=== PATIENT | male | born 1975 | race Caucasian/White ===

== ENCOUNTER 2017-02-18 19:03 | Inpatient (IN) | payer OTHER ==
--- NOTE | 2017-02-18 19:35 | PDOC ---
Rapid Medical Evaluation Time Seen by Provider: 02/18/17 19:19 Medical Evaluation: 02/18/17 19:20 The patient presents with a chief complaint of: Pain in the groin/abdomen for 3 days. Pt AAOx2 (person and place). Pt unsure of medical history I have performed a brief in-person evaluation of this patient; Pertinent physical exam findings: Umbilical/RLQ pain, fever 101, R 110, BP 90/70 I have ordered the following: Septic Work up The patient will proceed to the ED for further evaluation.
--- NOTE | 2017-02-18 19:46 | PDOC ---
History of Present Illness <Vandana Sauer - Last Filed: 02/19/17 02:09> <Anne Clay - Last Filed: 02/19/17 02:16> - General History Source: Patient, Family Exam Limitations: Clinical Condition, Other (poor historian) - History of Present Illness Initial Comments: 02/18/17 21:40 The patient is a 41 year old male with history of alcohol abuse, detox 12/04 brought in by family members for several days of generalized weakness and abdominal pain. Per family members, the patient has been complaining of approximately 1 week of generalized weakness. Today, he developed diffuse abdominal pain with chills and diaphoresis. No nausea, vomiting, or diarrhea. No chest pain or shortness of breath. Patient is a poor historian and unable to provide remainder of history. <Mala Mane - Last Filed: 02/19/17 02:24> - General Chief Complaint: SIRS, Suspected/Possible Stated Complaint: WEAKNESS Time Seen by Provider: 02/18/17 19:19 Past History - Past Medical History COPD: No - Suicide/Smoking/Psychosocial Hx Smoking History: Former smoker Have you smoked in the past 12 months: No Information on smoking cessation initiated: No Hx Alcohol Use: No Drug/Substance Use Hx: No Substance Use Type: None <Vandana Sauer - Last Filed: 02/19/17 02:09> <Anne Clay - Last Filed: 02/19/17 02:16> <Mala Mane - Last Filed: 02/19/17 02:24> - Past Medical History Allergies/Adverse Reactions: Allergies Allergy/AdvReac Type Severity Reaction Status Date / Time No Known Allergies Allergy Verified 02/18/17 20:11 Home Medications: Ambulatory Orders NK [No Known Home Medication] 02/18/17 Review of Systems - Review of Systems Able to Perform ROS?: Yes Comments:: 02/18/17 22:49 CONSTITUTIONAL: Present: generalized weakness, chills, diaphoresis HEENT: Absent: rhinorrhea, nasal congestion, throat pain, throat swelling, difficulty swallowing, mouth swelling, ear pain, eye pain, visual Changes CARDIOVASCULAR: Absent: chest pain, syncope, palpitations, irregular heart rate, lightheadedness , peripheral edema RESPIRATORY: Absent: cough, shortness of breath, dyspnea with exertion, orthopnea, wheezing, stridor, hemoptysis GASTROINTESTINAL: Present: diffuse abdominal pain Absent: abdominal distension, nausea, vomiting, diarrhea, constipation, melena, hematochezia GENITOURINARY: Absent: dysuria, frequency, urgency, hesitancy, hematuria, flank pain, genital pain MUSCULOSKELETAL: Absent: myalgia, arthralgia, joint swelling SKIN: Absent: rash, itching, pallor HEMATOLOGIC/IMMUNOLOGIC: Absent: easy bleeding, easy bruising, lymphadenopathy, frequent infections ENDOCRINE: Absent: unexplained weight gain, unexplained weight loss, heat intolerance, cold intolerance NEUROLOGIC: Absent: headache, focal weakness or paresthesias, dizziness, unsteady gait, seizure, mental status changes, bladder or bowel incontinence PSYCHIATRIC: Absent: anxiety, depression, suicidal or homicidal ideation, hallucinations. <Mala Mane - Last Filed: 02/19/17 02:24> *Physical Exam - Vital Signs Last Vital Signs Temp Pulse Resp BP Pulse Ox 102 F H 112 H 26 H 97/53 02/18/17 19:19 02/18/17 19:19 02/18/17 19:19 02/18/17 19:19 <Vandana Sauer - Last Filed: 02/19/17 02:09> - Vital Signs Last Vital Signs Temp Pulse Resp BP Pulse Ox 98.7 F 94 H 20 119/80 98 02/18/17 23:35 02/18/17 23:36 02/18/17 23:35 02/18/17 23:35 02/18/17 23:36 <Anne Clay - Last Filed: 02/19/17 02:16> - Vital Signs Last Vital Signs Temp Pulse Resp BP Pulse Ox 102 F H 112 H 26 H 97/53 02/18/17 19:19 02/18/17 19:19 02/18/17 19:19 02/18/17 19:19 - Physical Exam Comments: 02/18/17 22:50 GENERAL: Well developed, well nourished. Awake and alert. +Diaphoretic. +Answering questions slowly. HEENT: Normocephalic, atraumatic. PERRLA, EOMI. No conjunctival pallor. Sclera are non- icteric. Moist mucous membranes. Oropharynx is clear. NECK: Supple. Full ROM. No JVD. Carotid pulses 2+ and symmetric, without bruits. No thyromegaly. No lymphadenopathy. CARDIOVASCULAR: Regular rate and rhythm. No murmurs, rubs, or gallops. Distal pulses are 2+ and symmetric. PULMONARY: No evidence of respiratory distress. Lungs clear to auscultation bilaterally. No wheezing, rales or rhonchi. ABDOMINAL: +Epigastric tenderness to palpation. Soft. Non-distended. No rebound or guarding. No organomegaly. Normoactive bowel sounds. MUSCULOSKELETAL Normal range of motion at all joints. No bony deformities or tenderness. No CVA tenderness. EXTREMITIES: No cyanosis. No clubbing. No edema. No calf tenderness. SKIN: Warm and dry. Normal capillary refill. No rashes. No jaundice. NEUROLOGICAL: Alert, awake, appropriate. Cranial nerves 2-12 intact. No deficits to light touch and temperature in face, upper extremities and lower extremities. No motor deficits in the in face, upper extremities and lower extremities. Normoreflexic in the upper and lower extremities. Slow to answer questions. Gait deferred. PSYCHIATRIC: Cooperative. Good eye contact. Appropriate mood and affect. <Mala Mane - Last Filed: 02/19/17 02:24> Heart Score/ECG Review #1 02/18/17 21:38 EKG obtained 21:18. Normal sinus rhythm at 97 bpm. Possible left atrial enlargement Incomplete right bundle branch block Prolonged QT Abnormal EKG. <Mala Mane - Last Filed: 02/19/17 02:24> ED Treatment Course - LABORATORY CBC & Chemistry Diagram: 02/18/17 20:19 02/18/17 19:45 <Vandana Sauer - Last Filed: 02/19/17 02:09> - LABORATORY CBC & Chemistry Diagram: 02/18/17 20:19 02/18/17 19:45 - ADDITIONAL ORDERS Additional order review: Laboratory Results 02/18/17 02/18/17 02/18/17 21:25 20:59 20:43 PT with INR INR PTT (Actin FS) VBG pH POC VBG pCO2 POC VBG pO2 Mixed VBG HCO3 Sodium Potassium Chloride Carbon Dioxide Anion Gap BUN Creatinine Creat Clearance w eGFR Random Glucose Lactic Acid 4.2 H* Calcium Total Bilirubin AST ALT Alkaline Phosphatase Ammonia Creatine Kinase Creatine Kinase Index CK-MB (CK-2) Troponin I Total Protein Albumin Urine Color Urine Appearance Urine pH Ur Specific [place] Urine Protein Urine Glucose (UA) Urine Ketones Urine Blood Urine Nitrite Urine Bilirubin Urine Urobilinogen Urine WBC (Auto) Urine RBC (Auto) Ur Epithelial Cells Urine Bacteria Hyaline Casts Urine Mucus Ur Random Sodium 7 Ur Random Potassium 37.2 Ur Random Chloride < 10 Opiates Screen Negative Methadone Screen Negative Barbiturate Screen Negative Phencyclidine Screen Negative Ur Amphetamines Screen Negative MDMA (Ecstasy) Screen Negative Benzodiazepines Screen Negative Cocaine Screen Negative U Marijuana (THC) Screen Negative Alcohol, Quantitative Blood Type Antibody Screen 02/18/17 02/18/17 02/18/17 20:43 20:11 20:10 PT with INR INR PTT (Actin FS) VBG pH POC VBG pCO2 POC VBG pO2 Mixed VBG HCO3 Sodium Potassium Chloride Carbon Dioxide Anion Gap BUN Creatinine Creat Clearance w eGFR Random Glucose Lactic Acid 4.6 H* Calcium Total Bilirubin AST ALT Alkaline Phosphatase Ammonia 31 Creatine Kinase Creatine Kinase Index CK-MB (CK-2) Troponin I Total Protein Albumin Urine Color Dahlia Urine Appearance Slcloudy Urine pH 5.0 Ur Specific [place] 1.015 Urine Protein 1+ H Urine Glucose (UA) Negative Urine Ketones Negative Urine Blood 2+ H Urine Nitrite Negative Urine Bilirubin Negative Urine Urobilinogen 4.0 e.u/dl Urine WBC (Auto) 7 Urine RBC (Auto) 1 Ur Epithelial Cells Rare Urine Bacteria Rare Hyaline Casts 1 Urine Mucus Rare Ur Random Sodium Ur Random Potassium Ur Random Chloride Opiates Screen Methadone Screen Barbiturate Screen Phencyclidine Screen Ur Amphetamines Screen MDMA (Ecstasy) Screen Benzodiazepines Screen Cocaine Screen U Marijuana (THC) Screen Alcohol, Quantitative Blood Type Antibody Screen 02/18/17 02/18/17 02/18/17 20:00 19:45 19:45 PT with INR INR PTT (Actin FS) VBG pH 7.35 POC VBG pCO2 30.6 L POC VBG pO2 70.0 H Mixed VBG HCO3 16.6 L Sodium Potassium Chloride Carbon Dioxide Anion Gap BUN Creatinine Creat Clearance w eGFR Random Glucose Lactic Acid Calcium Total Bilirubin AST ALT Alkaline Phosphatase Ammonia Creatine Kinase Creatine Kinase Index CK-MB (CK-2) Troponin I Total Protein Albumin Urine Color Urine Appearance Urine pH Ur Specific [place] Urine Protein Urine Glucose (UA) Urine Ketones Urine Blood Urine Nitrite Urine Bilirubin Urine Urobilinogen Urine WBC (Auto) Urine RBC (Auto) Ur Epithelial Cells Urine Bacteria Hyaline Casts Urine Mucus Ur Random Sodium Ur Random Potassium Ur Random Chloride Opiates Screen Methadone Screen Barbiturate Screen Phencyclidine Screen Ur Amphetamines Screen MDMA (Ecstasy) Screen Benzodiazepines Screen Cocaine Screen U Marijuana (THC) Screen Alcohol, Quantitative < 5.0 Blood Type B POSITIVE Antibody Screen Negative 02/18/17 02/18/17 19:45 19:45 PT with INR 30.10 H INR 2.66 H PTT (Actin FS) 50.6 H VBG pH POC VBG pCO2 POC VBG pO2 Mixed VBG HCO3 Sodium 124 L* Potassium 3.4 L Chloride 90 L Carbon Dioxide 20 L Anion Gap 14 BUN 34 H Creatinine 1.8 H Creat Clearance w eGFR 42.22 Random Glucose 100 Lactic Acid Calcium 7.1 L Total Bilirubin 5.6 H AST 101 H ALT 39 Alkaline Phosphatase 134 H Ammonia Creatine Kinase 218 Creatine Kinase Index 1.0 CK-MB (CK-2) 2.268 Troponin I 0.49 H Total Protein 7.1 Albumin 2.5 L Urine Color Urine Appearance Urine pH Ur Specific [place] Urine Protein Urine Glucose (UA) Urine Ketones Urine Blood Urine Nitrite Urine Bilirubin Urine Urobilinogen Urine WBC (Auto) Urine RBC (Auto) Ur Epithelial Cells Urine Bacteria Hyaline Casts Urine Mucus Ur Random Sodium Ur Random Potassium Ur Random Chloride Opiates Screen Methadone Screen Barbiturate Screen Phencyclidine Screen Ur Amphetamines Screen MDMA (Ecstasy) Screen Benzodiazepines Screen Cocaine Screen U Marijuana (THC) Screen Alcohol, Quantitative Blood Type Antibody Screen 02/19/17 00:50 Influenza Types A,B Antigen (CLIF) - Final Nasopharyngeal Swab - Final 02/18/17 20:19 RBC 3.41 L MCV 104.0 H MCHC 34.5 RDW 16.9 H MPV 11.8 H Neutrophils % No Result Required. Lymphocytes % No Result Required. - Medications Given in the ED: ED Medications Discontinued Medications Generic Name Dose Route Start Last Admin Trade Name Freq PRN Reason Stop Dose Admin Ceftriaxone Sodium 2 gm 02/18/17 21:27 02/18/17 21:27 Rocephin 2gm Ivpb (Pre-Docked) IVPB 02/18/17 21:28 2 gm NOW ONE Administration Protocol Sodium Chloride 1,000 mls @ 1,000 mls/hr 02/18/17 21:08 02/18/17 21:16 Normal Saline - IV 02/18/17 22:07 1,000 mls/hr ASDIR STA Administration Sodium Chloride 1,000 mls @ 1,000 mls/hr 02/18/17 21:16 02/18/17 20:10 Normal Saline - IV 02/18/17 22:15 1,000 mls/hr ASDIR STA Administration Vancomycin HCl 1,000 mg/ 250 mls @ 250 mls/hr 02/18/17 21:27 02/18/17 22:12 Dextrose IVPB 02/18/17 22:26 250 mls/hr NOW ONE Administration Protocol <Anne Clay - Last Filed: 02/19/17 02:16> - LABORATORY CBC & Chemistry Diagram: 02/18/17 20:19 02/18/17 19:45 - ADDITIONAL ORDERS Additional order review: Laboratory Results 02/18/17 02/18/17 02/18/17 20:59 20:43 20:43 PT with INR INR PTT (Actin FS) VBG pH POC VBG pCO2 POC VBG pO2 Mixed VBG HCO3 Sodium Potassium Chloride Carbon Dioxide Anion Gap BUN Creatinine Creat Clearance w eGFR Random Glucose Lactic Acid Calcium Total Bilirubin AST ALT Alkaline Phosphatase Ammonia Creatine Kinase Creatine Kinase Index CK-MB (CK-2) Troponin I Total Protein Albumin Urine Color Dahlia Urine Appearance Slcloudy Urine pH 5.0 Ur Specific [place] 1.015 Urine Protein 1+ H Urine Glucose (UA) Negative Urine Ketones Negative Urine Blood 2+ H Urine Nitrite Negative Urine Bilirubin Negative Urine Urobilinogen 4.0 e.u/dl Ur Random Sodium 7 Ur Random Potassium 37.2 Ur Random Chloride < 10 Opiates Screen Negative Methadone Screen Negative Barbiturate Screen Negative Phencyclidine Screen Negative Ur Amphetamines Screen Negative MDMA (Ecstasy) Screen Negative Benzodiazepines Screen Negative Cocaine Screen Negative U Marijuana (THC) Screen Negative Alcohol, Quantitative 02/18/17 02/18/17 02/18/17 20:11 20:10 20:00 PT with INR INR PTT (Actin FS) VBG pH 7.35 POC VBG pCO2 30.6 L POC VBG pO2 70.0 H Mixed VBG HCO3 16.6 L Sodium Potassium Chloride Carbon Dioxide Anion Gap BUN Creatinine Creat Clearance w eGFR Random Glucose Lactic Acid 4.6 H* Calcium Total Bilirubin AST ALT Alkaline Phosphatase Ammonia 31 Creatine Kinase Creatine Kinase Index CK-MB (CK-2) Troponin I Total Protein Albumin Urine Color Urine Appearance Urine pH Ur Specific [place] Urine Protein Urine Glucose (UA) Urine Ketones Urine Blood Urine Nitrite Urine Bilirubin Urine Urobilinogen Ur Random Sodium Ur Random Potassium Ur Random Chloride Opiates Screen Methadone Screen Barbiturate Screen Phencyclidine Screen Ur Amphetamines Screen MDMA (Ecstasy) Screen Benzodiazepines Screen Cocaine Screen U Marijuana (THC) Screen Alcohol, Quantitative 02/18/17 02/18/17 02/18/17 19:45 19:45 19:45 PT with INR 30.10 H INR 2.66 H PTT (Actin FS) 50.6 H VBG pH POC VBG pCO2 POC VBG pO2 Mixed VBG HCO3 Sodium 124 L* Potassium 3.4 L Chloride 90 L Carbon Dioxide 20 L Anion Gap 14 BUN 34 H Creatinine 1.8 H Creat Clearance w eGFR 42.22 Random Glucose 100 Lactic Acid Calcium 7.1 L Total Bilirubin 5.6 H AST 101 H ALT 39 Alkaline Phosphatase 134 H Ammonia Creatine Kinase 218 Creatine Kinase Index 1.0 CK-MB (CK-2) 2.268 Troponin I 0.49 H Total Protein 7.1 Albumin 2.5 L Urine Color Urine Appearance Urine pH Ur Specific [place] Urine Protein Urine Glucose (UA) Urine Ketones Urine Blood Urine Nitrite Urine Bilirubin Urine Urobilinogen Ur Random Sodium Ur Random Potassium Ur Random Chloride Opiates Screen Methadone Screen Barbiturate Screen Phencyclidine Screen Ur Amphetamines Screen MDMA (Ecstasy) Screen Benzodiazepines Screen Cocaine Screen U Marijuana (THC) Screen Alcohol, Quantitative < 5.0 02/18/17 20:19 RBC 3.41 L MCV 104.0 H MCHC 34.5 RDW 16.9 H MPV 11.8 H Neutrophils % No Result Required. Lymphocytes % No Result Required. - RADIOLOGY Radiograph Interpretation: 02/18/17 23:57 CT of head without contrast Preliminary reading by Imaging Snap Attacher FINDINGS: There is no evidence of acute infarction. There is no hemorrhage. No mass lesion is seen. There is no skull fracture. Mucosal thickening is noted in the left maxillary and left ethmoid sinuses. THIS DOCUMENT HAS BEEN ELECTRONICALLY SIGNED Hugh Hanson MD 02/18/2017 23:49 EST 02/19/17 00:20 CT of abdomen and pelvis Preliminary reading by Imaging Snap Attacher FINDINGS: There is no free air. There is hepatosplenomegaly. There is no ascites. Extensive venous collaterals are noted in the left upper abdomen. There is prior cholecystectomy. There is no hydronephrosis. There are no renal calculi. There is a moderate amount of stool noted in the colon. There is no evidence of intestinal obstruction. The appendix is likely surgically absent. Surgical clips are noted adjacent to the cecum. Urinary bladder is decompressed via a Ybarra catheter. There is mild stranding and minimal fluid noted in the pelvic fat noted anterior to the bladder. Etiology and significance are undetermined. THIS DOCUMENT HAS BEEN ELECTRONICALLY SIGNED Hugh Hanson MD 02/19/2017 00:10 EST - Medications Given in the ED: ED Medications Discontinued Medications Generic Name Dose Route Start Last Admin Trade Name Freq PRN Reason Stop Dose Admin Ceftriaxone Sodium 2 gm 02/18/17 21:27 02/18/17 21:27 Rocephin 2gm Ivpb (Pre-Docked) IVPB 02/18/17 21:28 2 gm NOW ONE Administration Protocol <Mala Mane - Last Filed: 02/19/17 02:24> Medical Decision Making - Critical Care Time Total Critical Care Time (minutes): 90 Critical Care Statement: The care of this patient involved high complexity decision making to prevent further life threatening deterioration of the patient 's condition and/or to evaluate & treat vital organ system(s) failure or risk of failure. <Mala Mane - Last Filed: 02/19/17 02:24> *DC/Admit/Observation/Transfer - Discharge Dispostion Admit: Yes <Vandana Sauer - Last Filed: 02/19/17 02:09> - Discharge Dispostion Admit: Yes <Anne Clay - Last Filed: 02/19/17 02:16> - Attestations Scribe Attestion: 02/18/17 21:40 Documentation prepared by Mala Mane, acting as medical center representative for Vandana Sauer MD. <Mala Mane - Last Filed: 02/19/17 02:24> Diagnosis at time of Disposition: Thrombocytopenia, Hyponatremia, Elevated troponin Sepsis Qualifiers: Sepsis type: sepsis due to unspecified organism Qualified Code(s): A41.9 - Sepsis, unspecified organism Alcoholic cirrhosis of liver Qualifiers: Ascites presence: without ascites Qualified Code(s): K70.30 - Alcoholic cirrhosis of liver without ascites Renal failure Qualifiers: Renal failure chronicity: acute Acute renal failure type: unspecified Qualified Code(s): N17.9 - Acute kidney failure, unspecified
[2017-02-18] MEDS ORDERED: IBUPROFEN 800 MG/8 ML IJ IVPB ONE (19:53)
[2017-02-18 20:19] LABS: INR 2.66 (0.82-1.09); PROTHROMBIN TIME (PATIENT) 30.1 SEC (9.98-11.88)
[2017-02-18 20:19] LABS: VENOUS PC02 30.6 mmHg (38-52); VENOUS PH 7.35 (7.32-7.42)
[2017-02-18 20:22] LABS: ACTIVATED PTT 50.6 SECONDS (26.9-34.4)
[2017-02-18 20:34] LABS: ALBUMIN 2.5 g/dl (3.4-5.0); ANION GAP 14 (8-16); BLOOD UREA NITROGEN 34 mg/dL (7-18); CALCIUM 7.1 mg/dL (8.5-10.1); CHLORIDE 90 mmol/L (98-107); CO2 20 mmol/L (21-32); CREATININE 1.8 mg/dL (0.7-1.3); GLUCOSE,RANDOM 100 mg/dL (74-106); SGPT/ALT 39 U/L (12-78)
[2017-02-18 20:34] LABS: HEMATOCRIT 35.5 % (35.4-49); HEMOGLOBIN 12.2 GM/dL (11.7-16.9); MCH 35.8 pg (25.7-33.7); MCHC 34.5 g/dl (32.0-35.9); MEAN PLT VOLUME 11.8 fl (7.5-11.1); RBC 3.41 M/mm3 (4.00-5.60); RDW 16.9 % (11.9-15.9); WHITE BLOOD COUNT 5.6 K/mm3 (4.0-10.0)
[2017-02-18 20:37] LABS: PLATELET COUNT 34 K/MM3 (134-434)
[2017-02-18 20:39] LABS: ALK PHOS 134 U/L (45-117); BILIRUBIN,TOTAL 5.6 mg/dL (0.2-1.0); TOT PROT 7.1 g/dl (6.4-8.2)
[2017-02-18 20:41] LABS: POTASSIUM 3.4 mmol/L (3.5-5.1); SGOT/AST 101 U/L (15-37)
[2017-02-18 20:42] LABS: SODIUM 124 mmol/L (136-145)
[2017-02-18] MEDS ORDERED: SODIUM CHLORIDE 1,000 ML IV STA ×2 (21:08→21:16)
[2017-02-18 21:12] LABS: URINE APPEARANCE SLCLOUDY; URINE BILIRUBIN NEGATIVE (NEGATIVE); URINE BLOOD 2+ (NEGATIVE); URINE COLOR AMBER; URINE GLUCOSE (UA) NEGATIVE (NEGATIVE); URINE KETONE NEGATIVE (NEGATIVE); URINE LEUK ESTERASE NEGATIVE (NEGATIVE); URINE NITRITE NEGATIVE (NEGATIVE); URINE UROBILINOGEN 4.0 E.U/dl mg/dL (0.2-1.0)
[2017-02-18 21:15] LABS: URINE PROTEIN 1+ (NEGATIVE)
[2017-02-18 21:16] LABS: EPI CELLS RARE /HPF (FEW); URINE BACTERIA RARE /hpf (NONE SEEN); URINE HYALINE CAST 1 /lpf; URINE MUCUS RARE
[2017-02-18] MEDS ORDERED: cefTRIAXone SODIUM 1 GM VIAL ONE (21:17)
[2017-02-18] MEDS ORDERED: VANCOMYCIN 1 GRAM (PRE-DOCKED) 1,000 MG/250 ML BAG IVPB ONE (21:17)
[2017-02-18] MEDS ORDERED: cefTRIAXone 2 GM/100 ML BAG (PRE-DOCKED) IVPB ONE (21:27)
[2017-02-18] MEDS ORDERED: VANCOMYCIN 1,000 MG in DEXTROSE 5%-WATER - 250 ML IVPB ONE (21:27)
[2017-02-18 21:30] LABS: MACROCYTOSIS 1+; OVALOCYTE 1+; TEAR DROP CELLS 1+
[2017-02-18 21:35] LABS: COCAINE, UR NEGATIVE ng/ml (CUTOFF=300); METHADONE, UR NEGATIVE ng/ml (CUTOFF=300); OPIATES, URI NEGATIVE ng/ml (CUTOFF=300); PHENCYCLIDINE,URINE NEGATIVE ng/ml (CUTOFF=25); URINE AMPHETAMINES NEGATIVE ng/ml (CUTOFF=500); URINE BARBITURATES NEGATIVE ng/ml (CUTOFF=200); URINE BENZODIAZEPINES NEGATIVE ng/ml (CUTOFF=200)
--- NOTE | 2017-02-18 22:35 | CON.GI ---
Consult Consult Specialty:: Gastroenterology ( covering Dr. French) Referred by:: Dr. Vandana Sauer Reason for Consultation:: Jaundice and fever - History of Present Illness Chief Complaint: abdominal pain History of Present Illness: 41M presents with c/o diffuse weakness for the past week and today with chills and abdominal pain. He denies vomiting, hematemesis and melena. He was detoxed here in 12/04 when his bilirubin was 4. He claims to have stopped alcohol intake " long ago". He also quit smoking at that time. He admits to an impaired memory and recollection of details when I questioned him about his medical and substance abuse history. He admits only to beer intake but in 12/04 admitted to drinking 2 pints of vodka daily and to abusing oral opiates. He lives with a sibling. - History Source History Provided By: Patient, Medical Record Limitations to Obtaining History: Poor Historian - Past Medical History Cardio/Vascular: Yes: HTN Musculoskeletal: Yes: Chronic low back pain - Past Surgical History Past Surgical History: Yes: Appendectomy, Arthrosocopy (right knee), Cholecystectomy - Alcohol/Substance Use Hx Alcohol Use: Yes (2 pints vodka daily until 12/04) History of Substance Use: reports: Prescription (opiate) - Smoking History Smoking history: Former smoker Have you smoked in the past 12 months: No - Social History Usual Living Arrangement: With Significant Other ADL: Family Assistance Occupation: electrical work Place of : [facility] History of Recent Travel: No Home Medications - Allergies Allergies/Adverse Reactions: Allergies Allergy/AdvReac Type Severity Reaction Status Date / Time No Known Allergies Allergy Verified 02/18/17 20:11 - Home Medications Home Medications: Ambulatory Orders NK [No Known Home Medication] 02/18/17 Family Disease History - Family Disease History Family History: Unable to Obtain (patient cannot recall) Review of Systems - Review of Systems Constitutional: reports: Chills, Lethargy, Weakness Eyes: reports: No Symptoms Neck: reports: No Symptoms Cardiovascular: reports: No Symptoms Respiratory: reports: No Symptoms Gastrointestinal: reports: Abdominal Pain Genitourinary: reports: No Symptoms Musculoskeletal: reports: Back Pain, Joint Pain Neurological: reports: Other (forgetful) Physical Exam-GI Vital Signs: Vital Signs Temperature 102 F H 02/18/17 19:19 Pulse Rate 112 H 01/01/18 19:19 Respiratory Rate 26 H 02/18/17 19:19 Blood Pressure 97/53 02/18/17 19:19 O2 Sat by Pulse Oximetry (%) CBC,CMP WBC 5.6 K/mm3 (4.0-10.0) 02/18/17 20:19 RBC 3.41 M/mm3 (4.00-5.60) L 02/18/17 20:19 Hgb 12.2 GM/dL (11.7-16.9) 02/18/17 20:19 Hct 35.5 % (35.4-49) 02/18/17 20:19 MCV 104.0 fl (80-96) H 02/18/17 20:19 MCH 35.8 pg (25.7-33.7) H 02/18/17 20:19 MCHC 34.5 g/dl (32.0-35.9) 02/18/17 20:19 RDW 16.9 % (11.9-15.9) H 02/18/17 20:19 Plt Count 34 K/MM3 (134-434) L* 02/18/17 20:19 MPV 11.8 fl (7.5-11.1) H 02/18/17 20:19 Total Counted 100 02/18/17 20:19 Neutrophils % No Result Required. 02/18/17 20:19 Neutrophils % (Manual) 73.0 % (42.8-82.8) 02/18/17 20:19 Band Neutrophils % 10.0 % 02/18/17 20:19 Lymphocytes % No Result Required. 02/18/17 20:19 Lymphocytes % (Manual) 6.0 % (8-40) L 02/18/17 20:19 Monocytes % (Manual) 9 % (3.8-10.2) 02/18/17 20:19 Differential Comment Man diff performed 02/18/17 20:19 Platelet Estimate 02/18/17 20:19 Platelet Comment 02/18/17 20:19 Polychromasia 1+ 02/18/17 20:19 Poikilocytosis 1+ 02/18/17 20:19 Macrocytosis 1+ 02/18/17 20:19 Tear Drop Cells 1+ 02/18/17 20:19 Ovalocytes 1+ 02/18/17 20:19 Sodium 124 mmol/L (136-145) L* 02/18/17 19:45 Potassium 3.4 mmol/L (3.5-5.1) L 02/18/17 19:45 Chloride 90 mmol/L (98-107) L 02/18/17 19:45 Carbon Dioxide 20 mmol/L (21-32) L 02/18/17 19:45 Anion Gap 14 (8-16) 02/18/17 19:45 BUN 34 mg/dL (7-18) H 02/18/17 19:45 Creatinine 1.8 mg/dL (0.7-1.3) H 02/18/17 19:45 Creat Clearance w eGFR 42.22 (>60) 02/18/17 19:45 Random Glucose 100 mg/dL (74-106) 02/18/17 19:45 Lactic Acid 4.2 mmol/L (0.4-2.0) H* 02/18/17 21:25 Calcium 7.1 mg/dL (8.5-10.1) L 02/18/17 19:45 Total Bilirubin 5.6 mg/dL (0.2-1.0) H 02/18/17 19:45 AST 101 U/L (15-37) H 02/18/17 19:45 ALT 39 U/L (12-78) 02/18/17 19:45 Alkaline Phosphatase 134 U/L (45-117) H 02/18/17 19:45 Ammonia 31 umol/L (11-32) 02/18/17 20:11 Creatine Kinase 218 IU/L (39-308) 02/18/17 19:45 Creatine Kinase Index 1.0 % (0.0-5.0) 02/18/17 19:45 CK-MB (CK-2) 2.268 ng/mL (0.5-3.6) 02/18/17 19:45 Troponin I 0.49 ng/ml (0.00-0.05) H 02/18/17 19:45 Total Protein 7.1 g/dl (6.4-8.2) 02/18/17 19:45 Albumin 2.5 g/dl (3.4-5.0) L 02/18/17 19:45 Constitutional: Yes: Anxious, Poor Hygeine Eyes: Yes: Sclera Icterus HENT: Yes: Atraumatic Neck: Yes: Supple Cardiovascular: Yes: Regular Rate and Rhythm Respiratory: Yes: CTA Bilaterally ...Auscultate: Yes: Normoactive Bowel Sounds ...Palpate: Yes: Soft, Other (nontender) ...Rectal Exam: Yes: Guaiac Negative, Hemorrhoids/External Genitourinary: Yes: Other (normal testicles no hernias) Edema: No Peripheral Pulses WNL: Yes Neurological: Yes: Other (lethargic) Labs: CBC, BMP 02/18/17 20:19 02/18/17 19:45 INR, PTT INR 2.66 (0.82-1.09) H 02/18/17 19:45 Problem List - Problems (1) Alcoholic cirrhosis of liver Assessment/Plan: Alcoholic cirrhosis with multiple complications that now likely includes spontaneous bacterial peritonitis causing pain and fever. He also appears to have hepatic encephalopathy. I have informed him of the advanced and serious nature of his liver failure and need to abstain from any further alcohol or other substance abuse. Need to observe for DTs Code(s): K70.30 - ALCOHOLIC CIRRHOSIS OF LIVER WITHOUT ASCITES (2) Abdominal pain Assessment/Plan: Likely due to SBP although alcoholic gastritis or an ulcer are other likely possibilities. Will start PPI. Will need EGD to exclude these and varices. Code(s): R10.9 - UNSPECIFIED ABDOMINAL PAIN (3) Substance abuse Code(s): F19.10 - OTHER PSYCHOACTIVE SUBSTANCE ABUSE, UNCOMPLICATED (4) Thrombocytopenia Assessment/Plan: Likely due to portal hyperptension with splenomegaly Code(s): D69.6 - THROMBOCYTOPENIA, UNSPECIFIED (5) Hyponatremia Code(s): E87.1 - HYPO-OSMOLALITY AND HYPONATREMIA (6) Fever Assessment/Plan: Likely due to SBP. Discussed case with Dr Sauer and agree with starting antibiotics as we await imaging that will likely lead to the need for a paracentesis. Code(s): R50.9 - FEVER, UNSPECIFIED (7) Hepatic encephalopathy Assessment/Plan: Will start lactulose Code(s): K72.90 - HEPATIC FAILURE, UNSPECIFIED WITHOUT COMA (8) Coagulopathy Code(s): D68.9 - COAGULATION DEFECT, UNSPECIFIED Assessment/Plan Antibiotics CT scan Sono guided paracentesis if ascites is confirmed PPI Lactulose Dr French will return tomorrow
--- NOTE | 2017-02-19 02:46 | HP ---
CHIEF COMPLAINT: Generalized Weakness/Abdominal Pain PCP: Yogi Roman HISTORY OF PRESENT ILLNESS: 41 M with hx. of etoh abuse, HTN detoxed 10.17 who presented with several days of gen. weakness and abdominal pain. Weakness has been present for one week. Also, with abdominal pain. With sore arm and back 3 weeks ago. Has associated dizziness, nausea and diaphoresis, Poor historian. Denies any headaches or dizziness. No chest pain or pressure. ER course was notable for: (1) Fever, Tachycardia (2) Given Ceftriaxone (3) CT ABDOMEN-- PRE-MARIE READ NO ASCITES- PLATELETS and FFP HAVE BEEN CANCELLED Recent Travel: Unknown as per pt. PAST MEDICAL HISTORY: As Above PAST SURGICAL HISTORY: Appendectomy, Choleycystectomy Social History: Smoking: Yes 6 weeks ago. Alcohol:yes quit 6 weeks ago Drugs: N/A Family History: Allergies No Known Allergies Allergy (Verified 02/18/17 20:11) HOME MEDICATIONS: Home Medications Medication Instructions Recorded NK [No Known Home Medication] 02/18/17 REVIEW OF SYSTEMS CONSTITUTIONAL: Absent: fever, chills, diaphoresis, generalized weakness, malaise, loss of appetite, weight change HEENT: Absent: rhinorrhea, nasal congestion, throat pain, throat swelling, difficulty swallowing, mouth swelling, ear pain, eye pain, visual changes CARDIOVASCULAR: Absent: chest pain, syncope, palpitations, irregular heart rate, lightheadedness , peripheral edema RESPIRATORY: Absent: cough, shortness of breath, dyspnea with exertion, orthopnea, wheezing, stridor, hemoptysis GASTROINTESTINAL: Absent: abdominal pain, abdominal distension, nausea, vomiting, diarrhea, constipation, melena, hematochezia GENITOURINARY: Absent: dysuria, frequency, urgency, hesitancy, hematuria, flank pain, genital pain MUSCULOSKELETAL: Absent: myalgia, arthralgia, joint swelling, back pain, neck pain SKIN: Absent: rash, itching, pallor HEMATOLOGIC/IMMUNOLOGIC: Absent: easy bleeding, easy bruising, lymphadenopathy, frequent infections ENDOCRINE: Absent: unexplained weight gain, unexplained weight loss, heat intolerance, cold intolerance NEUROLOGIC: Absent: headache, focal weakness or paresthesias, dizziness, unsteady gait, seizure, mental status changes, bladder or bowel incontinence PSYCHIATRIC: Absent: anxiety, depression, suicidal or homicidal ideation, hallucinations. PHYSICAL EXAMINATION Vital Signs - 24 hr 02/18/17 02/18/17 02/18/17 19:19 23:35 23:36 Temperature 102 F H 98.7 F Pulse Rate 112 H 94 H Pulse Rate [ Apical] Pulse Rate [ 94 H Right] Respiratory 26 H 20 Rate Blood Pressure 97/53 Blood Pressure 119/80 [Left Arm] O2 Sat by Pulse 98 98 Oximetry (%) 02/19/17 01:45 Temperature Pulse Rate Pulse Rate [ 100 H Apical] Pulse Rate [ Right] Respiratory 16 Rate Blood Pressure Blood Pressure 94/66 [Left Arm] O2 Sat by Pulse 100 Oximetry (%) GENERAL: Awake, alert, and fully oriented, in no acute distress. HEAD: Normal with no signs of trauma. EYES: Pupils equal, round and reactive to light, extraocular movements intact, sclera anicteric, conjunctiva clear. No lid lag. EARS, NOSE, THROAT: Ears normal, nares patent, oropharynx clear without exudates. Moist mucous membranes. NECK: Normal range of motion, supple without lymphadenopathy, JVD, or masses. LUNGS: Breath sounds equal, clear to auscultation bilaterally. No wheezes, and no crackles. No accessory muscle use. HEART: Regular rate and rhythm, normal S1 and S2 without murmur, rub or gallop. ABDOMEN: Soft, nontender, not distended, normoactive bowel sounds, no guarding, no rebound, no masses. hepatomegaly NO splenomegaly. MUSCULOSKELETAL: Normal range of motion at all joints. No bony deformities or tenderness. No CVA tenderness. UPPER EXTREMITIES: 2+ pulses, warm, well-perfused. No cyanosis. No clubbing. No peripheral edema. LOWER EXTREMITIES: 2+ pulses, warm, well-perfused. No calf tenderness. No peripheral edema. NEUROLOGICAL: Cranial nerves II-XII intact. Normal speech. Normal gait. PSYCHIATRIC: Cooperative. Good eye contact. Appropriate mood and affect. SKIN: Warm, dry, normal turgor, no rashes or lesions noted, normal capillary refill. Laboratory Results - last 24 hr 02/18/17 02/18/17 02/18/17 19:45 19:45 19:45 WBC RBC Hgb Hct MCV MCH MCHC RDW Plt Count MPV Total Counted Neutrophils % Neutrophils % (Manual) Band Neutrophils % Lymphocytes % Lymphocytes % (Manual) Monocytes % (Manual) Differential Comment Platelet Estimate Platelet Comment Polychromasia Poikilocytosis Macrocytosis Tear Drop Cells Ovalocytes PT with INR 30.10 H INR 2.66 H PTT (Actin FS) 50.6 H VBG pH POC VBG pCO2 POC VBG pO2 Mixed VBG HCO3 Sodium 124 L* Potassium 3.4 L Chloride 90 L Carbon Dioxide 20 L Anion Gap 14 BUN 34 H Creatinine 1.8 H Creat Clearance w eGFR 42.22 Random Glucose 100 Lactic Acid Calcium 7.1 L Total Bilirubin 5.6 H AST 101 H ALT 39 Alkaline Phosphatase 134 H Ammonia Creatine Kinase 218 Creatine Kinase Index 1.0 CK-MB (CK-2) 2.268 Troponin I 0.49 H Total Protein 7.1 Albumin 2.5 L Urine Color Urine Appearance Urine pH Ur Specific [place] Urine Protein Urine Glucose (UA) Urine Ketones Urine Blood Urine Nitrite Urine Bilirubin Urine Urobilinogen Urine WBC (Auto) Urine RBC (Auto) Ur Epithelial Cells Urine Bacteria Hyaline Casts Urine Mucus Ur Random Sodium Ur Random Potassium Ur Random Chloride Opiates Screen Methadone Screen Barbiturate Screen Phencyclidine Screen Ur Amphetamines Screen MDMA (Ecstasy) Screen Benzodiazepines Screen Cocaine Screen U Marijuana (THC) Screen Alcohol, Quantitative Blood Type B POSITIVE Antibody Screen Negative 02/18/17 02/18/17 02/18/17 19:45 20:00 20:10 WBC RBC Hgb Hct MCV MCH MCHC RDW Plt Count MPV Total Counted Neutrophils % Neutrophils % (Manual) Band Neutrophils % Lymphocytes % Lymphocytes % (Manual) Monocytes % (Manual) Differential Comment Platelet Estimate Platelet Comment Polychromasia Poikilocytosis Macrocytosis Tear Drop Cells Ovalocytes PT with INR INR PTT (Actin FS) VBG pH 7.35 POC VBG pCO2 30.6 L POC VBG pO2 70.0 H Mixed VBG HCO3 16.6 L Sodium Potassium Chloride Carbon Dioxide Anion Gap BUN Creatinine Creat Clearance w eGFR Random Glucose Lactic Acid 4.6 H* Calcium Total Bilirubin AST ALT Alkaline Phosphatase Ammonia Creatine Kinase Creatine Kinase Index CK-MB (CK-2) Troponin I Total Protein Albumin Urine Color Urine Appearance Urine pH Ur Specific [place] Urine Protein Urine Glucose (UA) Urine Ketones Urine Blood Urine Nitrite Urine Bilirubin Urine Urobilinogen Urine WBC (Auto) Urine RBC (Auto) Ur Epithelial Cells Urine Bacteria Hyaline Casts Urine Mucus Ur Random Sodium Ur Random Potassium Ur Random Chloride Opiates Screen Methadone Screen Barbiturate Screen Phencyclidine Screen Ur Amphetamines Screen MDMA (Ecstasy) Screen Benzodiazepines Screen Cocaine Screen U Marijuana (THC) Screen Alcohol, Quantitative < 5.0 Blood Type Antibody Screen 02/18/17 02/18/17 02/18/17 20:11 20:19 20:43 WBC 5.6 RBC 3.41 L Hgb 12.2 Hct 35.5 MCV 104.0 H MCH 35.8 H MCHC 34.5 RDW 16.9 H Plt Count 34 L* MPV 11.8 H Total Counted 100 Neutrophils % No Result Required. Neutrophils % (Manual) 73.0 Band Neutrophils % 10.0 Lymphocytes % No Result Required. Lymphocytes % (Manual) 6.0 L Monocytes % (Manual) 9 Differential Comment Man diff performed Platelet Estimate Platelet Comment Polychromasia 1+ Poikilocytosis 1+ Macrocytosis 1+ Tear Drop Cells 1+ Ovalocytes 1+ PT with INR INR PTT (Actin FS) VBG pH POC VBG pCO2 POC VBG pO2 Mixed VBG HCO3 Sodium Potassium Chloride Carbon Dioxide Anion Gap BUN Creatinine Creat Clearance w eGFR Random Glucose Lactic Acid Calcium Total Bilirubin AST ALT Alkaline Phosphatase Ammonia 31 Creatine Kinase Creatine Kinase Index CK-MB (CK-2) Troponin I Total Protein Albumin Urine Color Dahlia Urine Appearance Slcloudy Urine pH 5.0 Ur Specific [place] 1.015 Urine Protein 1+ H Urine Glucose (UA) Negative Urine Ketones Negative Urine Blood 2+ H Urine Nitrite Negative Urine Bilirubin Negative Urine Urobilinogen 4.0 e.u/dl Urine WBC (Auto) 7 Urine RBC (Auto) 1 Ur Epithelial Cells Rare Urine Bacteria Rare Hyaline Casts 1 Urine Mucus Rare Ur Random Sodium Ur Random Potassium Ur Random Chloride Opiates Screen Methadone Screen Barbiturate Screen Phencyclidine Screen Ur Amphetamines Screen MDMA (Ecstasy) Screen Benzodiazepines Screen Cocaine Screen U Marijuana (THC) Screen Alcohol, Quantitative Blood Type Antibody Screen 02/18/17 02/18/17 02/18/17 20:43 20:59 21:25 WBC RBC Hgb Hct MCV MCH MCHC RDW Plt Count MPV Total Counted Neutrophils % Neutrophils % (Manual) Band Neutrophils % Lymphocytes % Lymphocytes % (Manual) Monocytes % (Manual) Differential Comment Platelet Estimate Platelet Comment Polychromasia Poikilocytosis Macrocytosis Tear Drop Cells Ovalocytes PT with INR INR PTT (Actin FS) VBG pH POC VBG pCO2 POC VBG pO2 Mixed VBG HCO3 Sodium Potassium Chloride Carbon Dioxide Anion Gap BUN Creatinine Creat Clearance w eGFR Random Glucose Lactic Acid 4.2 H* Calcium Total Bilirubin AST ALT Alkaline Phosphatase Ammonia Creatine Kinase Creatine Kinase Index CK-MB (CK-2) Troponin I Total Protein Albumin Urine Color Urine Appearance Urine pH Ur Specific [place] Urine Protein Urine Glucose (UA) Urine Ketones Urine Blood Urine Nitrite Urine Bilirubin Urine Urobilinogen Urine WBC (Auto) Urine RBC (Auto) Ur Epithelial Cells Urine Bacteria Hyaline Casts Urine Mucus Ur Random Sodium 7 Ur Random Potassium 37.2 Ur Random Chloride < 10 Opiates Screen Negative Methadone Screen Negative Barbiturate Screen Negative Phencyclidine Screen Negative Ur Amphetamines Screen Negative MDMA (Ecstasy) Screen Negative Benzodiazepines Screen Negative Cocaine Screen Negative U Marijuana (THC) Screen Negative Alcohol, Quantitative Blood Type Antibody Screen EKG NSR, INcomplete RBBB, QtC 487 CXR- No Acute Process ASSESSMENT/PLAN: 41 M with hx. of etoh abuse, HTN detoxed 12.04 who presented with several days of gen. weakness and abdominal pain, being admitted for severe sepsis of unknown etiology 1.) Severe Sepsis - Unknown Etiology - Cat Cx - UA, CXR- Flu negative - ID consult - Would continue tx. with Vanco/Zosyn - CHK. Vanc level - Zosyn renally dose - S/P Ceftriaxone/Vanc in ED - CT Abdomen with NO ascites, no abscess seen - IVF- Do not inc. Na>0.5 MEq/hr - Repeat LA 2.) Abdominal Pain - DDx PUD - C/W protonix - GI following - CHECK Lipase/Amylase 3.) Lethargy/Ams - DDx: Metabolic Encephalopathy?hepatic encephalopathy - ABG - Improved - CT HEAD negative - Ammonia wnl - Would consider LP/Neuro consult if no improvement - Can consider LP, once coagulopathy is reversed 4.) ETOH cirrohosis of liver - Gi on consult - Finished detox on 12/04, has abstained since then as per pt. - Advised on abstaining from Etoh - Monitor for Dt's 5.) Elevated Troponin - No EKG changes - Most likely demand - Trend 6.) HYponatremia - Most likely hypovolemic - FU urine studies - IVF - Do Not inc >10 MeQ in 24 hrs 7.) Coagulopathy - PLTS and FFP ON HOLD, NOT GIVEN - NO ASCITES - IF procedure needed, can think about administering before 7.) Thrombocytopenia - Most Likely due to portal Htn - PLTS. ON HOLD - OF procedure needed can give one unit 8.) Acute Renal Failure - U Lytes - IVF - ?Hepatorenal - Renally Dose all Med - Avoid Nephrotoxins 9.) DVt Ppx - Thrombocytopenic-SCDS Accepted to ICU CC Time: 48 Minutes Visit type - Emergency Visit Emergency Visit: Yes ED Registration Date: 02/19/17 Care time: The patient presented to the Emergency Department on the above date and was hospitalized for further evaluation of their emergent condition. - New Patient This patient is new to me today: Yes Date on this admission: 02/19/17 - Critical Care Critical Care patient: Yes Total Critical Care Time (in minutes): 48 Critical Care Statement: The care of this patient involved high complexity decision making to prevent further life threatening deterioration of the patient 's condition and/or to evaluate & treat vital organ system(s) failure or risk of failure.
[2017-02-19] MEDS ORDERED: SODIUM CHLORIDE 1,000 ML IV STA ×2 (03:03→07:23)
[2017-02-19] MEDS ORDERED: CEFEPIME 2 GM/100 ML BAG PRE-DOCKED IVPB ONE (03:30)
[2017-02-19] MEDS ORDERED: SODIUM CHLORIDE 1,000 ML IV SCH (04:15)
[2017-02-19 06:35] LABS: ARTERIAL BLOOD GAS BASE EXCESS -6.2 meq/l (-2-2); ARTERIAL BLOOD GAS PCO2 32.2 mmHg (35-45); ARTERIAL BLOOD GAS pH 7.36 (7.35-7.45)
--- NOTE | 2017-02-19 06:49 | CONSULT ---
Consult Consult Specialty:: PULM/CCM Referred by:: Dr. Gladys Mitchell Reason for Consultation:: CRITICAL LIVER FAIL - History of Present Illness Chief Complaint: ABD PAIN History of Present Illness: Mr. Chavez is a 41 y/o man w/ HTN, Et-OH cirrhosis, (reported s/p detox 12/04 ) brought in to ED on by family members for several days of generalized weakness and abd pain. A/p family pt has been c/o generalized weakness X 1wk. On he developed diffuse abd pain w/ chills and diaphoresis. No reported CP, SOB, N/V/D. In ED pt remark for: an LA of 4.6 --> 5.0, hyponatremia --> 124, elevated Cr -- > 1.8, an elevated INR @ 2.66, leaking troponin > 0.5, profound thrombocytopenia --> 30's, T-bili > 5, AST > 100, tremulous, encephalopathic. Pt admitted to the ICU now for Liver failure, renal failure, & sepsis. - History Source History Provided By: Patient, Medical Record Limitations to Obtaining History: Clinical Condition - Past Medical History Cardio/Vascular: Yes: HTN Hepatobiliary: Yes: Cirrhosis Musculoskeletal: Yes: Chronic low back pain - Past Surgical History Past Surgical History: Yes: Appendectomy, Arthrosocopy (right knee), Cholecystectomy - Alcohol/Substance Use Hx Alcohol Use: No History of Substance Use: reports: Prescription (opiate) - Smoking History Smoking history: Former smoker Have you smoked in the past 12 months: No - Social History Usual Living Arrangement: With Significant Other ADL: Family Assistance Occupation: electrical work History of Recent Travel: No Home Medications - Allergies Allergies/Adverse Reactions: Allergies Allergy/AdvReac Type Severity Reaction Status Date / Time No Known Allergies Allergy Verified 02/18/17 20:11 - Home Medications Home Medications: Ambulatory Orders NK [No Known Home Medication] 02/18/17 Family Disease History - Family Disease History Family History: Unable to Obtain (HE) Review of Systems Unable to obtain ROS, reason: HE - Review of Systems Constitutional: reports: Chills, Fever, Weakness Eyes: reports: No Symptoms HENT: reports: No Symptoms Neck: reports: No Symptoms Cardiovascular: reports: No Symptoms Respiratory: reports: No Symptoms Gastrointestinal: reports: Abdominal Pain. denies: Constipation, Diarrhea, Melena, Nausea, Vomiting Genitourinary: reports: No Symptoms Breasts: reports: No Symptoms Reported Musculoskeletal: reports: No Symptoms Integumentary: reports: No Symptoms Neurological: reports: Change in Speech, Confusion Endocrine: reports: No Symptoms Hematology/Lymphatic: reports: No Symptoms Psychiatric: reports: No Symptoms Pain Intensity: 9 Physical Exam Vital Signs: Vital Signs Temperature 98.4 F 02/19/17 06:00 Pulse Rate 112 H 02/19/17 06:00 Respiratory Rate 02/19/17 06:00 Blood Pressure 81/47 02/19/17 06:00 O2 Sat by Pulse Oximetry (%) 100 02/19/17 05:55 Constitutional: Yes: Well Nourished, No Distress, Calm Eyes: Yes: WNL, Conjunctiva Clear, EOM Intact HENT: Yes: WNL, Atraumatic, Normocephalic Neck: Yes: WNL, Supple, Trachea Midline Cardiovascular: Yes: WNL, Regular Rate and Rhythm Respiratory: Yes: WNL, Regular, CTA Bilaterally Gastrointestinal: Yes: WNL, Normal Bowel Sounds, Soft, Abdomen, Obese ...Rectal Exam: Yes: Deferred Renal/: Yes: WNL Breast(s): Yes: WNL Musculoskeletal: Yes: WNL, Back Pain Extremities: Yes: WNL Edema: No Peripheral Pulses WNL: Yes Integumentary: Yes: WNL Neurological: Yes: Tremors. No: Asterixis ...Motor Strength: WNL Psychiatric: Yes: WNL Labs: CBC, BMP 02/18/17 20:19 02/18/17 19:45 Imaging - Results Chest X-ray: Image Reviewed (CXR 02/18: CLEAR (My Read).) Cat Scan: Image Reviewed (CTAP 02/18: No ascites, no abcess. NCHCT 02/18: unremark.) EKG: Image Reviewed (02/18: NSR, Incomplete RBBB, QtC 487, No acute Process.) Problem List - Problems (1) Alcoholic cirrhosis of liver Code(s): K70.30 - ALCOHOLIC CIRRHOSIS OF LIVER WITHOUT ASCITES Qualifiers: Ascites presence: without ascites Qualified Code(s): K70.30 - Alcoholic cirrhosis of liver without ascites (2) Hepatic encephalopathy Code(s): K72.90 - HEPATIC FAILURE, UNSPECIFIED WITHOUT COMA (3) Renal failure Code(s): N19 - UNSPECIFIED KIDNEY FAILURE Qualifiers: Renal failure chronicity: acute Acute renal failure type: unspecified Qualified Code(s): N17.9 - Acute kidney failure, unspecified (4) Sepsis Code(s): A41.9 - SEPSIS, UNSPECIFIED ORGANISM Qualifiers: Sepsis type: sepsis due to unspecified organism Qualified Code(s): A41.9 - Sepsis, unspecified organism (5) Thrombocytopenia Code(s): D69.6 - THROMBOCYTOPENIA, UNSPECIFIED Assessment/Plan ASSESS: This is a 41 y/o man, Et-OH cirrhotic who presents now w/ Liver fail, renal fail, HE, & Sepsis m/l PNA vs SBP vs PVT PLAN: -Cat Clxr -Shwabs -Urine Ags -Ceftriax -Azith -trend LA -ID -Lactulose -Rifax -GI -Thiamine -Folate -Prepare for Et-OH w/ drawl -Normal Transfusion thresholds -ABD US w/ Doppler --> EVALUATE PORTAL VEIN -IR Consult for TIPS EVAL -Strict I's & O's -Trend UOP -Trend BUN/Cr -Replete e-lytes prn -SCDs -PPI -X-[facility] to [facility] for Liver Transplant w/u START TALKING TO FAMILY ABOUT ASPECTS OF THAT WOULD BE MOST IMPORTANT? WOULD THEY PREFER PATIENT HOME VS HOPSPICE? BEGIN CONVERSATION NOW -STAT PALLIATIVE CARE CONSULT DIMITRIS, [facility] ICU PULM/CCM [id number]
[2017-02-19 06:57] LABS: ALLENS TEST POSITIVE
[2017-02-19 06:58] LABS: ARTERIAL BLD GAS O2 SATURATION 73.4 % (90-98.9); ARTERIAL BLOOD GAS PO2 42.5 mmHg (80-100)
[2017-02-19] MEDS ORDERED: LACTATED RINGERS SOLUTION 1,000 ML/1,000 ML INFUS.BAG IV STA (07:21)
--- NOTE | 2017-02-19 08:18 | PN ---
Physical Exam: SUBJECTIVE: Patient doing well this morning, only complaining of some back and abdominal pain ut slept well overnight and not SOB. Asking to eat food as well. Denies fevers, chills, nausea, vomiting, or diarrhea. OBJECTIVE: Vital Signs Period Temp Pulse Resp BP Sys/Barriga Pulse Ox Last 24 Hr 98.2 F-102 F 94-112 16-26 79-119/46-80 98-100 GENERAL: The patient is awake, alert, and oriented to person and place but not to time. HEAD: Normal with no signs of trauma. EYES: PERRL, extraocular movements intact, sclera anicteric, conjunctiva clear. No ptosis. ENT: Ears normal, nares patent, oropharynx clear without exudates, moist mucous membranes. Slightly tremulous speech. NECK: Trachea midline, full range of motion, supple. LUNGS: Breath sounds equal, clear to auscultation bilaterally, no wheezes, no crackles, no accessory muscle use. HEART: Regular rate and rhythm, S1, S2 without murmur, rub or gallop. ABDOMEN: Soft, nontender, nondistended, normoactive bowel sounds, no guarding, no rebound, no hepatosplenomegaly, no masses. EXTREMITIES: 2+ pulses, warm, well-perfused, no edema. NEUROLOGICAL: Slightly tremulous speech but no asterixis. PSYCH: Normal mood, normal affect. SKIN: Warm, dry, normal turgor, no rashes or lesions noted Laboratory Results - last 24 hr 02/18/17 02/18/17 02/18/17 19:45 19:45 19:45 WBC RBC Hgb Hct MCV MCH MCHC RDW Plt Count MPV Total Counted Neutrophils % Neutrophils % (Manual) Band Neutrophils % Lymphocytes % Lymphocytes % (Manual) Monocytes % (Manual) Differential Comment Platelet Estimate Platelet Comment Polychromasia Poikilocytosis Macrocytosis Tear Drop Cells Ovalocytes PT with INR 30.10 H INR 2.66 H PTT (Actin FS) 50.6 H Puncture Site ABG pH ABG pCO2 at Pt Temp ABG pO2 at Pt Temp ABG HCO3 ABG O2 Sat (Measured) ABG O2 Content ABG Base Excess Geronimo Test VBG pH POC VBG pCO2 POC VBG pO2 Mixed VBG HCO3 Oxygen Flow Rate Sodium 124 L* Potassium 3.4 L Chloride 90 L Carbon Dioxide 20 L Anion Gap 14 BUN 34 H Creatinine 1.8 H Creat Clearance w eGFR 42.22 Random Glucose 100 Lactic Acid Calcium 7.1 L Total Bilirubin 5.6 H AST 101 H ALT 39 Alkaline Phosphatase 134 H Ammonia Creatine Kinase 218 Creatine Kinase Index 1.0 CK-MB (CK-2) 2.268 Troponin I 0.49 H Total Protein 7.1 Albumin 2.5 L Urine Color Urine Appearance Urine pH Ur Specific Olpe Urine Protein Urine Glucose (UA) Urine Ketones Urine Blood Urine Nitrite Urine Bilirubin Urine Urobilinogen Urine WBC (Auto) Urine RBC (Auto) Ur Epithelial Cells Urine Bacteria Hyaline Casts Urine Mucus Ur Random Sodium Ur Random Potassium Ur Random Chloride Opiates Screen Methadone Screen Barbiturate Screen Phencyclidine Screen Ur Amphetamines Screen MDMA (Ecstasy) Screen Benzodiazepines Screen Cocaine Screen U Marijuana (THC) Screen Alcohol, Quantitative Blood Type B POSITIVE Antibody Screen Negative 02/18/17 02/18/17 02/18/17 19:45 20:00 20:10 WBC RBC Hgb Hct MCV MCH MCHC RDW Plt Count MPV Total Counted Neutrophils % Neutrophils % (Manual) Band Neutrophils % Lymphocytes % Lymphocytes % (Manual) Monocytes % (Manual) Differential Comment Platelet Estimate Platelet Comment Polychromasia Poikilocytosis Macrocytosis Tear Drop Cells Ovalocytes PT with INR INR PTT (Actin FS) Puncture Site ABG pH ABG pCO2 at Pt Temp ABG pO2 at Pt Temp ABG HCO3 ABG O2 Sat (Measured) ABG O2 Content ABG Base Excess Geronimo Test VBG pH 7.35 POC VBG pCO2 30.6 L POC VBG pO2 70.0 H Mixed VBG HCO3 16.6 L Oxygen Flow Rate Sodium Potassium Chloride Carbon Dioxide Anion Gap BUN Creatinine Creat Clearance w eGFR Random Glucose Lactic Acid 4.6 H* Calcium Total Bilirubin AST ALT Alkaline Phosphatase Ammonia Creatine Kinase Creatine Kinase Index CK-MB (CK-2) Troponin I Total Protein Albumin Urine Color Urine Appearance Urine pH Ur Specific Olpe Urine Protein Urine Glucose (UA) Urine Ketones Urine Blood Urine Nitrite Urine Bilirubin Urine Urobilinogen Urine WBC (Auto) Urine RBC (Auto) Ur Epithelial Cells Urine Bacteria Hyaline Casts Urine Mucus Ur Random Sodium Ur Random Potassium Ur Random Chloride Opiates Screen Methadone Screen Barbiturate Screen Phencyclidine Screen Ur Amphetamines Screen MDMA (Ecstasy) Screen Benzodiazepines Screen Cocaine Screen U Marijuana (THC) Screen Alcohol, Quantitative < 5.0 Blood Type Antibody Screen 02/18/17 02/18/17 02/18/17 20:11 20:19 20:43 WBC 5.6 RBC 3.41 L Hgb 12.2 Hct 35.5 MCV 104.0 H MCH 35.8 H MCHC 34.5 RDW 16.9 H Plt Count 34 L* MPV 11.8 H Total Counted 100 Neutrophils % No Result Required. Neutrophils % (Manual) 73.0 Band Neutrophils % 10.0 Lymphocytes % No Result Required. Lymphocytes % (Manual) 6.0 L Monocytes % (Manual) 9 Differential Comment Man diff performed Platelet Estimate Platelet Comment Polychromasia 1+ Poikilocytosis 1+ Macrocytosis 1+ Tear Drop Cells 1+ Ovalocytes 1+ PT with INR INR PTT (Actin FS) Puncture Site ABG pH ABG pCO2 at Pt Temp ABG pO2 at Pt Temp ABG HCO3 ABG O2 Sat (Measured) ABG O2 Content ABG Base Excess Geronimo Test VBG pH POC VBG pCO2 POC VBG pO2 Mixed VBG HCO3 Oxygen Flow Rate Sodium Potassium Chloride Carbon Dioxide Anion Gap BUN Creatinine Creat Clearance w eGFR Random Glucose Lactic Acid Calcium Total Bilirubin AST ALT Alkaline Phosphatase Ammonia 31 Creatine Kinase Creatine Kinase Index CK-MB (CK-2) Troponin I Total Protein Albumin Urine Color Dahlia Urine Appearance Slcloudy Urine pH 5.0 Ur Specific Olpe 1.015 Urine Protein 1+ H Urine Glucose (UA) Negative Urine Ketones Negative Urine Blood 2+ H Urine Nitrite Negative Urine Bilirubin Negative Urine Urobilinogen 4.0 e.u/dl Urine WBC (Auto) 7 Urine RBC (Auto) 1 Ur Epithelial Cells Rare Urine Bacteria Rare Hyaline Casts 1 Urine Mucus Rare Ur Random Sodium Ur Random Potassium Ur Random Chloride Opiates Screen Methadone Screen Barbiturate Screen Phencyclidine Screen Ur Amphetamines Screen MDMA (Ecstasy) Screen Benzodiazepines Screen Cocaine Screen U Marijuana (THC) Screen Alcohol, Quantitative Blood Type Antibody Screen 02/18/17 02/18/17 02/18/17 20:43 20:59 21:25 WBC RBC Hgb Hct MCV MCH MCHC RDW Plt Count MPV Total Counted Neutrophils % Neutrophils % (Manual) Band Neutrophils % Lymphocytes % Lymphocytes % (Manual) Monocytes % (Manual) Differential Comment Platelet Estimate Platelet Comment Polychromasia Poikilocytosis Macrocytosis Tear Drop Cells Ovalocytes PT with INR INR PTT (Actin FS) Puncture Site ABG pH ABG pCO2 at Pt Temp ABG pO2 at Pt Temp ABG HCO3 ABG O2 Sat (Measured) ABG O2 Content ABG Base Excess Geronimo Test VBG pH POC VBG pCO2 POC VBG pO2 Mixed VBG HCO3 Oxygen Flow Rate Sodium Potassium Chloride Carbon Dioxide Anion Gap BUN Creatinine Creat Clearance w eGFR Random Glucose Lactic Acid 4.2 H* Calcium Total Bilirubin AST ALT Alkaline Phosphatase Ammonia Creatine Kinase Creatine Kinase Index CK-MB (CK-2) Troponin I Total Protein Albumin Urine Color Urine Appearance Urine pH Ur Specific Olpe Urine Protein Urine Glucose (UA) Urine Ketones Urine Blood Urine Nitrite Urine Bilirubin Urine Urobilinogen Urine WBC (Auto) Urine RBC (Auto) Ur Epithelial Cells Urine Bacteria Hyaline Casts Urine Mucus Ur Random Sodium 7 Ur Random Potassium 37.2 Ur Random Chloride < 10 Opiates Screen Negative Methadone Screen Negative Barbiturate Screen Negative Phencyclidine Screen Negative Ur Amphetamines Screen Negative MDMA (Ecstasy) Screen Negative Benzodiazepines Screen Negative Cocaine Screen Negative U Marijuana (THC) Screen Negative Alcohol, Quantitative Blood Type Antibody Screen 02/18/17 02/19/17 02/19/17 23:48 00:57 05:45 WBC RBC Hgb Hct MCV MCH MCHC RDW Plt Count MPV Total Counted Neutrophils % Neutrophils % (Manual) Band Neutrophils % Lymphocytes % Lymphocytes % (Manual) Monocytes % (Manual) Differential Comment Platelet Estimate Platelet Comment Polychromasia Poikilocytosis Macrocytosis Tear Drop Cells Ovalocytes PT with INR INR PTT (Actin FS) Puncture Site Right brachial ABG pH 7.36 ABG pCO2 at Pt Temp 32.2 L ABG pO2 at Pt Temp 42.5 L* ABG HCO3 17.8 L ABG O2 Sat (Measured) 73.4 L* ABG O2 Content 11.3 L ABG Base Excess -6.2 L Geronimo Test Positive VBG pH POC VBG pCO2 POC VBG pO2 Mixed VBG HCO3 Oxygen Flow Rate No Result Required. Sodium Potassium Chloride Carbon Dioxide Anion Gap BUN Creatinine Creat Clearance w eGFR Random Glucose Lactic Acid 5.0 H* Calcium Total Bilirubin AST ALT Alkaline Phosphatase Ammonia Creatine Kinase 206 Creatine Kinase Index 1.6 CK-MB (CK-2) 3.369 Troponin I 0.57 H Total Protein Albumin Urine Color Urine Appearance Urine pH Ur Specific Olpe Urine Protein Urine Glucose (UA) Urine Ketones Urine Blood Urine Nitrite Urine Bilirubin Urine Urobilinogen Urine WBC (Auto) Urine RBC (Auto) Ur Epithelial Cells Urine Bacteria Hyaline Casts Urine Mucus Ur Random Sodium Ur Random Potassium Ur Random Chloride Opiates Screen Methadone Screen Barbiturate Screen Phencyclidine Screen Ur Amphetamines Screen MDMA (Ecstasy) Screen Benzodiazepines Screen Cocaine Screen U Marijuana (THC) Screen Alcohol, Quantitative Blood Type Antibody Screen Active Medications Generic Name Dose Route Start Last Admin Trade Name Samreen PRN Reason Stop Dose Admin Chlorhexidine Gluconate 1 applic 02/19/17 22:00 Hibiclens For Decolonization - TP HS BRITTANIE Sodium Chloride 1,000 mls @ 100 mls/hr 02/19/17 04:15 02/19/17 04:15 Normal Saline - IV 100 mls/hr ASDIR BRITTANIE Administration Lactated Ringer's 1,000 ml in 1,000 mls @ 1,000 mls/hr 02/19/17 07:21 07:39 Lactated Ringers Solution IV 02/19/17 08:20 1,000 mls/hr ONCE STA Administration Sodium Chloride 1,000 mls @ 1,000 mls/hr 02/19/17 07:23 Normal Saline - IV 02/19/17 08:22 ASDIR STA Lactulose 20 gm 02/19/17 10:00 Cephulac (Oral Use) PO BID BRITTANIE Mupirocin 1 applic 02/19/17 10:00 Bactroban Ointment (For Decolonization) - NS 02/24/17 09:59 BID [facility] Pantoprazole Sodium 40 mg 02/19/17 10:00 Protonix - PO DAILY [facility] Rifaximin 550 mg 02/19/17 10:00 Xifaxan - PO BID BRITTANIE Thiamine HCl 100 mg 02/19/17 10:00 Vitamin B1 - PO DAILY [facility] ASSESSMENT/PLAN: 41 year old male with history of ETOH related liver cirrhosis presenting with hypotension and generalized weakness concerning for acutely decompensated liver failure in the setting of probable sepsis likely 2/2 PNA vs. SBP. Neuro: #AMS: patient AOx3 Likely secondary to decompensated cirrhosis. - Lactulose titrated to 2-3 BMs daily - Rifaximin #Pain: complainign of back and abdominal pain - will Defer pain medication currently because of mental status and lethargy # ETOH abuse: last drink was a few months ago per patient - Will monitor for signs of withdrawal CV: # Hypotension: Likely a distributive + hypovolemic shock 2/2 sepsis in the setting of low oncotic pressure for liver disease. - continue fluid bolus PRN - NS @ 125/ hr - Pressers if unable to maintain MAP >65 - continue trending lactate #Troponemia: Likely due to low perfusion state. - Trend to peak, currently 0.73. Recheck 14:00 today. - F/U Echo Pulm: although CXR clear, patient could have PNA given recent cough. - Repeat CXR tomorrow GI: # Decompensated liver cirrhosis: Patient current MS altered but without ascites , asterixis, or obvious bleeding. - Continue to monitor LFTS - Abdominal US demonstrating patent Portal Venous system - ABX per ID section - Thiamine/ folate ID: Unclear source of infection but suspected pna. vs. SBP - repeat CXR - Will continue ceftriaxone for SBP if ID has no preference. - Continue trending lactate - thiamine/ folate Heme: #Thrombocytopenia: - Will give #Coagulopathy: INR inreasing - Vitamin K 5 PO x 3 days FEN: - NS @ 125/hr with fluid bolus PRN - Liquid diet - replete Electrolytes PRN PPX: - Thrombocytopenic - PPI - SCDs Dispo: - Still needs ICU monitoring because of troponins and lactate Visit type - Emergency Visit Emergency Visit: No - New Patient This patient is new to me today: Yes Date on this admission: 02/19/17 - Critical Care Critical Care patient: Yes Total Critical Care Time (in minutes): 35 Critical Care Statement: The care of this patient involved high complexity decision making to prevent further life threatening deterioration of the patient 's condition and/or to evaluate & treat vital organ system(s) failure or risk of failure. - Discharge Referral Referred to [facility] Med [facility].: No
[2017-02-19 08:28] LABS: INR 3.35 (0.82-1.09); PROTHROMBIN TIME (PATIENT) 37.9 SEC (9.98-11.88)
[2017-02-19 08:30] LABS: ACTIVATED PTT 50.4 SECONDS (26.9-34.4)
[2017-02-19 08:32] LABS: ARTERIAL BLD GAS O2 SATURATION 94.5 % (90-98.9); ARTERIAL BLOOD GAS BASE EXCESS -6.3 meq/l (-2-2); ARTERIAL BLOOD GAS PCO2 30.5 mmHg (35-45); ARTERIAL BLOOD GAS PO2 74.2 mmHg (80-100); ARTERIAL BLOOD GAS pH 7.38 (7.35-7.45)
[2017-02-19 08:38] LABS: ALLENS TEST POSITIVE
[2017-02-19 08:39] LABS: MAGNESIUM 1.5 mg/dL (1.8-2.4)
[2017-02-19] MEDS ORDERED: PANTOPRAZOLE 40 MG TABLET (FP) PO SCH (10:00)
[2017-02-19 11:14] LABS: HEMATOCRIT 34.6 % (35.4-49); HEMOGLOBIN 11.6 GM/dL (11.7-16.9); MCH 34.9 pg (25.7-33.7); MCHC 33.5 g/dl (32.0-35.9); MEAN CELL VOLUME 104.2 fl (80-96); MEAN PLT VOLUME 11.6 fl (7.5-11.1); RBC 3.32 M/mm3 (4.00-5.60); RDW 17.5 % (11.9-15.9); WHITE BLOOD COUNT 6.2 K/mm3 (4.0-10.0)
[2017-02-19 11:35] LABS: PLATELET COUNT 19 K/MM3 (134-434)
[2017-02-19 11:45] LABS: CHLORIDE 97 mmol/L (98-107); POTASSIUM 3.4 mmol/L (3.5-5.1); SODIUM 130 mmol/L (136-145)
[2017-02-19] MEDS: LACTULOSE 20 GM/30 ML UDC (FOR ORAL USE ONLY) PO SCH ×2 (11:47→22:15)
[2017-02-19] MEDS: RIFAXIMIN 550 MG TABLET (UD) PO SCH ×2 (11:47→22:15)
[2017-02-19] MEDS: THIAMINE HCL 100 MG TABLET (FP) PO SCH (11:47)
[2017-02-19 11:58] LABS: ALK PHOS 102 U/L (45-117); AMYLASE 26 U/L (25-115); ANION GAP 15 (8-16); BILIRUBIN,TOTAL 5.1 mg/dL (0.2-1.0); BLOOD UREA NITROGEN 44 mg/dL (7-18); CO2 18 mmol/L (21-32); CREATININE 1.9 mg/dL (0.7-1.3); GLUCOSE,RANDOM 81 mg/dL (74-106); SGOT/AST 90 U/L (15-37); SGPT/ALT 33 U/L (12-78); TOT PROT 5.8 g/dl (6.4-8.2)
[2017-02-19 11:59] LABS: LIPASE 201 U/L (73-393)
[2017-02-19] MEDS ORDERED: MAGNESIUM SULF 50% (8.12 MEQ/2 ML-1 GM VIAL) ONE (12:16)
[2017-02-19] MEDS ORDERED: POTASSIUM CHLORIDE TABS 20 MEQ TABLET.ER (FP) PO ONE (12:30)
[2017-02-19] MEDS ORDERED: MAGNESIUM 1GM/D5W 100ML - 100 ML IVPB IVPB SCH (12:30)
[2017-02-19] MEDS ORDERED: MAGNESIUM SULF 50% (8.12 MEQ/2 ML-1 GM VIAL) IVPB ONE (12:30)
[2017-02-19] MEDS ORDERED: DEXTROSE 5% IVPB ONE (13:00)
[2017-02-19] MEDS ORDERED: WATER IVPB ONE (13:00)
[2017-02-19] MEDS ORDERED: MAGNESIUM SULFATE IVPB ONE (13:00)
[2017-02-19 13:02] LABS: CALCIUM 6.9 mg/dL (8.5-10.1)
[2017-02-19] MEDS ORDERED: CEFTRIAXONE IN IS-OSM DEXTROSE 2 GM/50 ML BAG IVPB ONE ×2 (13:46→14:45)
--- NOTE | 2017-02-19 13:47 | CON.ID ---
Consult Consult Specialty:: infectious diseases Reason for Consultation:: baceremia,sepsis - History of Present Illness History of Present Illness: patient confused with slightly slurred speech unable to give history taken from the charts 41 M with hx. of etoh abuse, HTN detoxed 12.04 who presented with several days of gen. weakness and abdominal pain. Weakness has been present for one week. Also, with abdominal pain. With sore arm and back 3 weeks ago. Has associated dizziness, nausea and diaphoresis, Poor historian. Denies any headaches or dizziness. No chest pain or pressure. patient was admitted to icu in sepsis and his blood cx are showing gram positive patient was started on ceftriaxone - History Source History Provided By: Medical Record Limitations to Obtaining History: Clinical Condition - Past Medical History Cardio/Vascular: Yes: HTN Hepatobiliary: Yes: Cirrhosis Musculoskeletal: Yes: Chronic low back pain - Past Surgical History Past Surgical History: Yes: Appendectomy, Arthrosocopy (right knee), Cholecystectomy - Alcohol/Substance Use Hx Alcohol Use: No History of Substance Use: reports: Prescription (opiate) - Smoking History Smoking history: Former smoker Have you smoked in the past 12 months: No - Social History Usual Living Arrangement: With Significant Other ADL: Family Assistance Occupation: electrical work History of Recent Travel: No Home Medications - Allergies Allergies/Adverse Reactions: Allergies Allergy/AdvReac Type Severity Reaction Status Date / Time No Known Allergies Allergy Verified 11/29/16 17:08 - Home Medications Home Medications: Ambulatory Orders Acetaminophen [Tylenol .Regular Strength -] 650 mg PO Q6H PRN #120 tablet Chlordiazepoxide [Librium -] 25 mg PO BID #60 capsule MDD 50 10/25/15 Clindamycin [Cleocin -] 300 mg PO Q6HPO #20 capsule 10/25/15 Nadolol [Corgard -] 60 mg PO DAILY #90 tablet 10/25/15 Rifaximin [Xifaxan -] 550 mg PO BID #60 tablet 10/25/15 NK [No Known Home Medication] 02/18/17 Review of Systems Unable to obtain ROS, reason: unable to obtain Physical Exam Vital Signs: Vital Signs Temperature 98.0 F 02/19/17 10:00 Pulse Rate 99 H 02/19/17 10:00 Respiratory Rate 20 02/19/17 10:00 Blood Pressure 92/62 02/19/17 10:00 O2 Sat by Pulse Oximetry (%) 100 02/19/17 09:32 Constitutional: Yes: Well Nourished, Other Eyes: Yes: Conjunctiva Clear HENT: Yes: Atraumatic, Normocephalic Neck: Yes: Supple, Trachea Midline Cardiovascular: Yes: Regular Rate and Rhythm Respiratory: Yes: Regular, On Nasal O2, Poor Air Entry (bases) Gastrointestinal: Yes: Normal Bowel Sounds, Soft, Tenderness (generalized,no guarding or rigidity) Musculoskeletal: Yes: WNL Extremities: Yes: WNL Neurological: Yes: Alert, Confusion, Other (slurred speech) Psychiatric: Yes: Other Labs: CBC, BMP 02/19/17 10:20 02/19/17 10:20 Imaging - Results Chest X-ray: Report Reviewed, Image Reviewed X-ray: Report Reviewed, Image Reviewed Cat Scan: Report Reviewed, Image Reviewed Assessment/Plan Problem List - Problems (1) Alcoholic cirrhosis of liver Code(s): K70.30 - ALCOHOLIC CIRRHOSIS OF LIVER WITHOUT ASCITES Qualifiers: Ascites presence: without ascites Qualified Code(s): K70.30 - Alcoholic cirrhosis of liver without ascites (2) Hepatic encephalopathy Code(s): K72.90 - HEPATIC FAILURE, UNSPECIFIED WITHOUT COMA (3) Renal failure Code(s): N19 - UNSPECIFIED KIDNEY FAILURE Qualifiers: Renal failure chronicity: acute Acute renal failure type: unspecified Qualified Code(s): N17.9 - Acute kidney failure, unspecified (4) Sepsis Code(s): A41.9 - SEPSIS, UNSPECIFIED ORGANISM Qualifiers: Sepsis type: sepsis due to unspecified organism Qualified Code(s): A41.9 - Sepsis, unspecified organism (5) Thrombocytopenia Code(s): D69.6 - THROMBOCYTOPENIA, UNSPECIFIED 6 gm positive bactermia Assessment/Plan ASSESS: This is a 41 y/o man, Et-OH cirrhotic who presents now w/ Liver fail, renal fail, HE, & Sepsis m/l PNA vs SBP vs PVT i am very worried that this positive culture we dont have results yet,but if it is staph then we will ahve to ficure out where it is coming from plan will stop ceftriaxone will switch to vanco await for cx to be identified rest continue as per icu if mental status does not improve imaging studies if back pain does not improive imaging of the back rest as per primary team and icu
[2017-02-19] MEDS ORDERED: VANCOMYCIN 1,000 MG in DEXTROSE 5%-WATER - 250 ML IVPB ONE (13:54)
[2017-02-19] MEDS: SODIUM CHLORIDE 1,000 ML IV SCH ×2 (13:57→22:24)
[2017-02-19] MEDS: PHYTONADIONE 5 MG TABLET PO SCH (13:57)
[2017-02-19] MEDS: MUPIROCIN 2% TOPICAL OINTMENT FOR DECOLONIZATION NS SCH ×2 (14:01→22:14)
[2017-02-19 15:01] LABS: MACROCYTOSIS 1+; PLATELET ESTIMATE DECREASED
[2017-02-19] MEDS ORDERED: PT OWN MED DRAWER 7, Y5N ONE (21:08)
[2017-02-19] MEDS: CHLORHEXIDINE GLUCONATE 4% CLEANSER FOR DECOLONIZATION TP SCH (22:15)
[2017-02-19 22:24] LABS: MAGNESIUM 2.2 mg/dL (1.8-2.4); PHOSPHOROUS 1.8 mg/dL (2.5-4.9)
[2017-02-20 00:41] LABS: MAGNESIUM 1.9 mg/dL (1.8-2.4); PHOSPHOROUS 1.4 mg/dL (2.5-4.9)
[2017-02-20] MEDS: SODIUM CHLORIDE 1,000 ML IV SCH ×2 (05:52→12:08)
[2017-02-20 06:41] LABS: HEMOGLOBIN 10.9 GM/dL (11.7-16.9); MCH 36.3 pg (25.7-33.7); MCHC 35.1 g/dl (32.0-35.9); MEAN CELL VOLUME 103.3 fl (80-96); RBC 3.01 M/mm3 (4.00-5.60); RDW 17.1 % (11.9-15.9); WHITE BLOOD COUNT 9.1 K/mm3 (4.0-10.0)
[2017-02-20 07:06] LABS: INR 2.45 (0.82-1.09); PROTHROMBIN TIME (PATIENT) 27.7 SEC (9.98-11.88)
[2017-02-20 07:07] LABS: MAGNESIUM 2.2 mg/dL (1.8-2.4)
[2017-02-20 07:08] LABS: ALBUMIN 2.1 g/dl (3.4-5.0); ANION GAP 11 (8-16); BLOOD UREA NITROGEN 35 mg/dL (7-18); CALCIUM 7.1 mg/dL (8.5-10.1); CHLORIDE 100 mmol/L (98-107); CO2 22 mmol/L (21-32); GLUCOSE,RANDOM 92 mg/dL (74-106); POTASSIUM 3.2 mmol/L (3.5-5.1); SODIUM 133 mmol/L (136-145)
[2017-02-20 07:11] LABS: ALK PHOS 106 U/L (45-117); CREATININE 1.3 mg/dL (0.7-1.3); PHOSPHOROUS 1.3 mg/dL (2.5-4.9); SGOT/AST 83 U/L (15-37); SGPT/ALT 32 U/L (12-78); TOT PROT 5.5 g/dl (6.4-8.2)
--- NOTE | 2017-02-20 07:49 | PN ---
Physical Exam: SUBJECTIVE: did well overnight OBJECTIVE: Vital Signs Period Temp Pulse Resp BP Sys/Barriga Pulse Ox Last 24 Hr 98.0 F-100 F 94-106 14-20 86-130/52-79 100-100 GENERAL: The patient is awake, alert, and oriented to person and place but not to time. HEAD: Normal with no signs of trauma. EYES: PERRL, extraocular movements intact, sclera anicteric, conjunctiva clear. No ptosis. ENT: Ears normal, nares patent, oropharynx clear without exudates, moist mucous membranes. Slightly tremulous speech. NECK: Trachea midline, full range of motion, supple. LUNGS: Breath sounds equal, clear to auscultation bilaterally, no wheezes, no crackles, no accessory muscle use. : Ybarra in place without erythema MSK: TP over lumber vertebral processes HEART: Regular rate and rhythm, S1, S2 without murmur, rub or gallop. ABDOMEN: Soft, nontender, nondistended, normoactive bowel sounds, no guarding, no rebound, no hepatosplenomegaly, no masses. EXTREMITIES: 2+ pulses, warm, well-perfused, no edema. NEUROLOGICAL: Slightly tremulous speech but no asterixis. PSYCH: Normal mood, normal affect. SKIN: Warm, dry, normal turgor, some healing light abrasions on right anterior forearm and left knee but none apparently infected. Laboratory Results - last 24 hr 02/18/17 02/18/17 02/18/17 20:00 20:10 20:43 WBC RBC Hgb Hct MCV MCH MCHC RDW Plt Count MPV Neutrophils % Neutrophils % (Manual) Band Neutrophils % Lymphocytes % Lymphocytes % (Manual) Monocytes % (Manual) Eosinophils % (Manual) Basophils % (Manual) Myelocytes % (Man) Metamyelocytes Platelet Estimate Macrocytosis PT with INR INR PTT (Actin FS) Puncture Site ABG pH ABG pCO2 at Pt Temp ABG pO2 at Pt Temp ABG HCO3 ABG O2 Sat (Measured) ABG O2 Content ABG Base Excess Geronimo Test VBG pH 7.35 POC VBG pCO2 30.6 L POC VBG pO2 70.0 H Mixed VBG HCO3 16.6 L Oxygen Flow Rate Sodium Potassium Chloride Carbon Dioxide Anion Gap BUN Creatinine Creat Clearance w eGFR Random Glucose Lactic Acid 4.6 H* Calcium Phosphorus Magnesium Total Bilirubin Direct Bilirubin AST ALT Alkaline Phosphatase Ammonia Creatine Kinase Creatine Kinase Index CK-MB (CK-2) Troponin I C-Reactive Protein Total Protein Albumin Total Amylase Lipase Ur Leukocyte Esterase Negative Blood Type 02/19/17 02/19/17 02/19/17 00:10 07:22 07:56 WBC RBC Hgb Hct MCV MCH MCHC RDW Plt Count MPV Neutrophils % Neutrophils % (Manual) Band Neutrophils % Lymphocytes % Lymphocytes % (Manual) Monocytes % (Manual) Eosinophils % (Manual) Basophils % (Manual) Myelocytes % (Man) Metamyelocytes Platelet Estimate Macrocytosis PT with INR INR PTT (Actin FS) Puncture Site Right radial ABG pH 7.38 ABG pCO2 at Pt Temp 30.5 L ABG pO2 at Pt Temp 74.2 L D ABG HCO3 17.4 L ABG O2 Sat (Measured) 94.5 ABG O2 Content 14.2 L ABG Base Excess -6.3 L Geronimo Test Positive VBG pH POC VBG pCO2 POC VBG pO2 Mixed VBG HCO3 Oxygen Flow Rate Room air Sodium Potassium Chloride Carbon Dioxide Anion Gap BUN Creatinine Creat Clearance w eGFR Random Glucose Lactic Acid Calcium Phosphorus 1.4 L Magnesium 1.9 Total Bilirubin Direct Bilirubin AST ALT Alkaline Phosphatase Ammonia 23.8 Creatine Kinase Creatine Kinase Index CK-MB (CK-2) Troponin I C-Reactive Protein Total Protein Albumin Total Amylase Lipase Ur Leukocyte Esterase Blood Type 02/19/17 02/19/17 02/19/17 07:56 07:56 07:56 WBC RBC Hgb Hct MCV MCH MCHC RDW Plt Count MPV Neutrophils % Neutrophils % (Manual) Band Neutrophils % Lymphocytes % Lymphocytes % (Manual) Monocytes % (Manual) Eosinophils % (Manual) Basophils % (Manual) Myelocytes % (Man) Metamyelocytes Platelet Estimate Macrocytosis PT with INR 37.90 H INR 3.35 H PTT (Actin FS) 50.4 H Puncture Site ABG pH ABG pCO2 at Pt Temp ABG pO2 at Pt Temp ABG HCO3 ABG O2 Sat (Measured) ABG O2 Content ABG Base Excess Geronimo Test VBG pH POC VBG pCO2 POC VBG pO2 Mixed VBG HCO3 Oxygen Flow Rate Sodium Potassium Chloride Carbon Dioxide Anion Gap BUN Creatinine Creat Clearance w eGFR Random Glucose Lactic Acid 5.8 H* Calcium Phosphorus Magnesium 1.5 L D Total Bilirubin Direct Bilirubin AST ALT Alkaline Phosphatase Ammonia Creatine Kinase 271 Creatine Kinase Index 2.5 CK-MB (CK-2) 7.017 H Troponin I 0.73 H* C-Reactive Protein Total Protein Albumin Total Amylase Lipase Ur Leukocyte Esterase Blood Type 02/19/17 02/19/17 02/19/17 08:50 10:20 10:20 WBC 6.2 RBC 3.32 L Hgb 11.6 L Hct 34.6 L MCV 104.2 H MCH 34.9 H MCHC 33.5 RDW 17.5 H Plt Count 19 L* D MPV 11.6 H Neutrophils % No Result Required. Neutrophils % (Manual) 79.4 Band Neutrophils % 0.0 Lymphocytes % No Result Required. Lymphocytes % (Manual) 2.1 L D Monocytes % (Manual) 16 H* Eosinophils % (Manual) 1.0 Basophils % (Manual) 0.0 Myelocytes % (Man) 1 Metamyelocytes 1 Platelet Estimate Decreased Macrocytosis 1+ PT with INR INR PTT (Actin FS) Puncture Site ABG pH ABG pCO2 at Pt Temp ABG pO2 at Pt Temp ABG HCO3 ABG O2 Sat (Measured) ABG O2 Content ABG Base Excess Geronimo Test VBG pH POC VBG pCO2 POC VBG pO2 Mixed VBG HCO3 Oxygen Flow Rate Sodium 130 L Potassium 3.4 L Chloride 97 L Carbon Dioxide 18 L Anion Gap 15 BUN 44 H D Creatinine 1.9 H Creat Clearance w eGFR 39.66 Random Glucose 81 Lactic Acid Calcium 6.9 L* Phosphorus Magnesium Total Bilirubin 5.1 H Direct Bilirubin AST 90 H ALT 33 Alkaline Phosphatase 102 D Ammonia Creatine Kinase Creatine Kinase Index CK-MB (CK-2) Troponin I C-Reactive Protein 6.2 H Total Protein 5.8 L Albumin 2.0 L Total Amylase 26 Lipase 201 Ur Leukocyte Esterase Blood Type B POSITIVE 02/19/17 02/19/17 02/19/17 10:40 13:50 15:00 WBC RBC Hgb Hct MCV MCH MCHC RDW Plt Count MPV Neutrophils % Neutrophils % (Manual) Band Neutrophils % Lymphocytes % Lymphocytes % (Manual) Monocytes % (Manual) Eosinophils % (Manual) Basophils % (Manual) Myelocytes % (Man) Metamyelocytes Platelet Estimate Macrocytosis PT with INR INR PTT (Actin FS) Puncture Site ABG pH ABG pCO2 at Pt Temp ABG pO2 at Pt Temp ABG HCO3 ABG O2 Sat (Measured) ABG O2 Content ABG Base Excess Geronimo Test VBG pH POC VBG pCO2 POC VBG pO2 Mixed VBG HCO3 Oxygen Flow Rate Sodium Potassium Chloride Carbon Dioxide Anion Gap BUN Creatinine Creat Clearance w eGFR Random Glucose Lactic Acid 5.5 H* 4.3 H* Calcium Phosphorus Magnesium Total Bilirubin Direct Bilirubin AST ALT Alkaline Phosphatase Ammonia Creatine Kinase 291 Creatine Kinase Index 5.4 H CK-MB (CK-2) 15.810 H Troponin I 1.42 H* D C-Reactive Protein Total Protein Albumin Total Amylase Lipase Ur Leukocyte Esterase Blood Type 02/19/17 02/19/17 02/20/17 18:45 18:45 00:10 WBC RBC Hgb Hct MCV MCH MCHC RDW Plt Count MPV Neutrophils % Neutrophils % (Manual) Band Neutrophils % Lymphocytes % Lymphocytes % (Manual) Monocytes % (Manual) Eosinophils % (Manual) Basophils % (Manual) Myelocytes % (Man) Metamyelocytes Platelet Estimate Macrocytosis PT with INR INR PTT (Actin FS) Puncture Site ABG pH ABG pCO2 at Pt Temp ABG pO2 at Pt Temp ABG HCO3 ABG O2 Sat (Measured) ABG O2 Content ABG Base Excess Geronimo Test VBG pH POC VBG pCO2 POC VBG pO2 Mixed VBG HCO3 Oxygen Flow Rate Sodium Potassium Chloride Carbon Dioxide Anion Gap BUN Creatinine Creat Clearance w eGFR Random Glucose Lactic Acid 4.1 H* 2.6 H* Calcium Phosphorus 1.8 L D Magnesium 2.2 D Total Bilirubin Direct Bilirubin AST ALT Alkaline Phosphatase Ammonia Creatine Kinase Creatine Kinase Index CK-MB (CK-2) Troponin I 2.40 H* D C-Reactive Protein Total Protein Albumin Total Amylase Lipase Ur Leukocyte Esterase Blood Type 02/20/17 02/20/17 02/20/17 05:05 05:05 05:05 WBC 9.1 D RBC 3.01 L Hgb 10.9 L Hct 31.0 L MCV 103.3 H MCH 36.3 H MCHC 35.1 RDW 17.1 H Plt Count MPV Neutrophils % No Result Required. Neutrophils % (Manual) Band Neutrophils % Lymphocytes % No Result Required. Lymphocytes % (Manual) Monocytes % (Manual) Eosinophils % (Manual) Basophils % (Manual) Myelocytes % (Man) Metamyelocytes Platelet Estimate Macrocytosis PT with INR 27.70 H INR 2.45 H PTT (Actin FS) Puncture Site ABG pH ABG pCO2 at Pt Temp ABG pO2 at Pt Temp ABG HCO3 ABG O2 Sat (Measured) ABG O2 Content ABG Base Excess Geronimo Test VBG pH POC VBG pCO2 POC VBG pO2 Mixed VBG HCO3 Oxygen Flow Rate Sodium 133 L Potassium 3.2 L Chloride 100 Carbon Dioxide 22 D Anion Gap 11 BUN 35 H D Creatinine 1.3 D Creat Clearance w eGFR > 60 Random Glucose 92 Lactic Acid Calcium 7.1 L Phosphorus 1.3 L D Magnesium Total Bilirubin 5.0 H Direct Bilirubin AST 83 H ALT 32 Alkaline Phosphatase 106 Ammonia Creatine Kinase Creatine Kinase Index CK-MB (CK-2) Troponin I C-Reactive Protein Total Protein 5.5 L Albumin 2.1 L Total Amylase Lipase Ur Leukocyte Esterase Blood Type 02/20/17 02/20/17 05:05 05:05 WBC RBC Hgb Hct MCV MCH MCHC RDW Plt Count MPV Neutrophils % Neutrophils % (Manual) Band Neutrophils % Lymphocytes % Lymphocytes % (Manual) Monocytes % (Manual) Eosinophils % (Manual) Basophils % (Manual) Myelocytes % (Man) Metamyelocytes Platelet Estimate Macrocytosis PT with INR INR PTT (Actin FS) Puncture Site ABG pH ABG pCO2 at Pt Temp ABG pO2 at Pt Temp ABG HCO3 ABG O2 Sat (Measured) ABG O2 Content ABG Base Excess Geronimo Test VBG pH POC VBG pCO2 POC VBG pO2 Mixed VBG HCO3 Oxygen Flow Rate Sodium Potassium Chloride Carbon Dioxide Anion Gap BUN Creatinine Creat Clearance w eGFR Random Glucose Lactic Acid 2.0 Calcium Phosphorus Magnesium Total Bilirubin Direct Bilirubin Cancelled AST ALT Alkaline Phosphatase Ammonia Creatine Kinase Creatine Kinase Index CK-MB (CK-2) Troponin I C-Reactive Protein Total Protein Albumin Total Amylase Lipase Ur Leukocyte Esterase Blood Type Active Medications Generic Name Dose Route Start Last Admin Trade Name Freq PRN Reason Stop Dose Admin Chlorhexidine Gluconate 1 applic 02/19/17 22:00 02/19/17 22:15 Hibiclens For Decolonization - TP 1 applic HS BRITTANIE Administration Folic Acid 1 mg 02/20/17 10:00 Folic Acid - PO DAILY BRITTANIE Sodium Chloride 1,000 mls @ 125 mls/hr 02/19/17 11:45 02/20/17 05:52 Normal Saline - IV 125 mls/hr ASDIR BRITTANIE Administration Lactulose 20 gm 02/19/17 10:00 02/19/17 22:15 Cephulac (Oral Use) PO 20 gm BID BRITTANIE Administration Mupirocin 1 applic 02/19/17 10:00 02/19/17 22:14 Bactroban Ointment (For Decolonization) - NS 02/24/17 09:59 1 applic BID BRITTANIE Administration Pantoprazole Sodium 40 mg 02/19/17 10:00 02/19/17 11:47 Protonix - PO 40 mg DAILY BRITTANIE Administration Phytonadione 5 mg 02/19/17 12:00 02/19/17 13:57 Mephyton - PO 02/21/17 10:01 5 mg DAILY BRITTANIE Administration Rifaximin 550 mg 02/19/17 10:00 02/19/17 22:15 Xifaxan - PO 550 mg BID BRITTANIE Administration Thiamine HCl 100 mg 02/19/17 10:00 02/19/17 11:47 Vitamin B1 - PO 100 mg DAILY BRITTANIE Administration ASSESSMENT/PLAN: 41 year old male with history of ETOH related liver cirrhosis presenting with hypotension and generalized weakness concerning for acutely decompensated liver failure in the setting of probable sepsis 2/2 to MSSA (presumptive) bacteremia of unknown original source. Neuro: #AMS: patient AOx3 Likely secondary to decompensated cirrhosis. - Lactulose titrated to 2-3 BMs daily - Rifaximin #Pain: complainign of back and abdominal pain - will Defer pain medication currently because of mental status and lethargy # ETOH abuse: last drink was a few months ago per patient - Librium 25 MG Q6 Hr PRN added - Will monitor for signs of withdrawal CV: # Hypotension: Likely a distributive + hypovolemic shock 2/2 sepsis in the setting of low oncotic pressure for liver disease. - continue fluid bolus PRN - NS bolus today for hydration - Pressers if unable to maintain MAP >65 - lactic acidosis resolved #Troponemia: Likely due to low perfusion state. - Trend to peak, currently 0.73. Recheck 14:00 today. - F/U Echo Pulm: although CXR clear, patient could have PNA given recent cough. - Repeat CXR tomorrow GI: # Decompensated liver cirrhosis: Patient current MS altered but without ascites , asterixis, or obvious bleeding. Abdominal US demonstrating patent Portal Venous system. Ct not demonstrating any ascites. - Continue to monitor LFTS - direct bili elevated - ABX per ID section - Thiamine/ folate Renal: #YARIEL: Resolving - one more fluid bolus today to help fluid status in prep for IV con tomorrow - DC gabo ID: Unclear source of infection but suspected skin source given below - repeat CXR clear - Will continue ceftriaxone 2 G daily for MSSA - Lactic acidosis resolved - MSSA growing in BCx, F/U final - Will get Lumbar spinal CT with IV con to rule out osteo tomorrow after receiving fluids Heme: #Thrombocytopenia: - Given one unit platelets yesterday, today's result is pending- will sign out follow up - replete if <20 #Coagulopathy: INR decreaseing - Vitamin K 5 PO x 3 days FEN: - NS bolus - Regular diet - replete Phos PPX: - Thrombocytopenic - PPI - SCDs Dispo: - Lactic acidosis resolved - troponins likely non-cardiac - overall stable and could be transfered to med-surg but would prefer one more day of monitoring Visit type - Emergency Visit Emergency Visit: No - New Patient This patient is new to me today: No - Critical Care Critical Care patient: Yes Total Critical Care Time (in minutes): 35 Critical Care Statement: The care of this patient involved high complexity decision making to prevent further life threatening deterioration of the patient 's condition and/or to evaluate & treat vital organ system(s) failure or risk of failure. - Discharge Referral Referred to [facility] No
[2017-02-20 07:52] LABS: BILIRUBIN,DIRECT 3.5 mg/dL (0.0-0.2)
[2017-02-20 07:53] LABS: BILIRUBIN,DIRECT 3.4 mg/dL (0.0-0.2)
--- NOTE | 2017-02-20 07:58 | PN ---
Physical Exam: SUBJECTIVE: Patient seen and examined at bedside. Weak. Complains of pain in back and right leg. OBJECTIVE: Vital Signs Period Temp Pulse Resp BP Sys/Barriga Pulse Ox Last 24 Hr 98.0 F-100 F 94-106 14-20 86-130/52-79 100-100 GENERAL: A&Ox3. Weak appearing. Voice tremulous. Anxious. Jaundiced. Icteric sclera. LUNGS: Breath sounds equal, clear to auscultation bilaterally, no wheezes, no crackles, no accessory muscle use. HEART: Regular rate and rhythm, S1, S2 without murmur, rub or gallop. ABDOMEN: Distended. EXTREMITIES: 2+ pulses, warm, well-perfused, no edema. NEUROLOGICAL: Cranial nerves II through XII grossly intact. Normal speech, gait not observed. Laboratory Results - last 24 hr 02/18/17 02/18/17 02/18/17 20:00 20:10 20:43 WBC RBC Hgb Hct MCV MCH MCHC RDW Plt Count MPV Neutrophils % Neutrophils % (Manual) Band Neutrophils % Lymphocytes % Lymphocytes % (Manual) Monocytes % (Manual) Eosinophils % (Manual) Basophils % (Manual) Myelocytes % (Man) Metamyelocytes Platelet Estimate Macrocytosis PT with INR INR PTT (Actin FS) Puncture Site ABG pH ABG pCO2 at Pt Temp ABG pO2 at Pt Temp ABG HCO3 ABG O2 Sat (Measured) ABG O2 Content ABG Base Excess Geronimo Test VBG pH 7.35 POC VBG pCO2 30.6 L POC VBG pO2 70.0 H Mixed VBG HCO3 16.6 L Oxygen Flow Rate Sodium Potassium Chloride Carbon Dioxide Anion Gap BUN Creatinine Creat Clearance w eGFR Random Glucose Lactic Acid 4.6 H* Calcium Phosphorus Magnesium Total Bilirubin Direct Bilirubin AST ALT Alkaline Phosphatase Ammonia Creatine Kinase Creatine Kinase Index CK-MB (CK-2) Troponin I C-Reactive Protein Total Protein Albumin Total Amylase Lipase Ur Leukocyte Esterase Negative Blood Type 02/19/17 02/19/17 02/19/17 00:10 07:22 07:56 WBC RBC Hgb Hct MCV MCH MCHC RDW Plt Count MPV Neutrophils % Neutrophils % (Manual) Band Neutrophils % Lymphocytes % Lymphocytes % (Manual) Monocytes % (Manual) Eosinophils % (Manual) Basophils % (Manual) Myelocytes % (Man) Metamyelocytes Platelet Estimate Macrocytosis PT with INR INR PTT (Actin FS) Puncture Site Right radial ABG pH 7.38 ABG pCO2 at Pt Temp 30.5 L ABG pO2 at Pt Temp 74.2 L D ABG HCO3 17.4 L ABG O2 Sat (Measured) 94.5 ABG O2 Content 14.2 L ABG Base Excess -6.3 L Geronimo Test Positive VBG pH POC VBG pCO2 POC VBG pO2 Mixed VBG HCO3 Oxygen Flow Rate Room air Sodium Potassium Chloride Carbon Dioxide Anion Gap BUN Creatinine Creat Clearance w eGFR Random Glucose Lactic Acid Calcium Phosphorus 1.4 L Magnesium 1.9 Total Bilirubin Direct Bilirubin AST ALT Alkaline Phosphatase Ammonia 23.8 Creatine Kinase Creatine Kinase Index CK-MB (CK-2) Troponin I C-Reactive Protein Total Protein Albumin Total Amylase Lipase Ur Leukocyte Esterase Blood Type 02/19/17 02/19/17 02/19/17 07:56 07:56 07:56 WBC RBC Hgb Hct MCV MCH MCHC RDW Plt Count MPV Neutrophils % Neutrophils % (Manual) Band Neutrophils % Lymphocytes % Lymphocytes % (Manual) Monocytes % (Manual) Eosinophils % (Manual) Basophils % (Manual) Myelocytes % (Man) Metamyelocytes Platelet Estimate Macrocytosis PT with INR 37.90 H INR 3.35 H PTT (Actin FS) 50.4 H Puncture Site ABG pH ABG pCO2 at Pt Temp ABG pO2 at Pt Temp ABG HCO3 ABG O2 Sat (Measured) ABG O2 Content ABG Base Excess Geronimo Test VBG pH POC VBG pCO2 POC VBG pO2 Mixed VBG HCO3 Oxygen Flow Rate Sodium Potassium Chloride Carbon Dioxide Anion Gap BUN Creatinine Creat Clearance w eGFR Random Glucose Lactic Acid 5.8 H* Calcium Phosphorus Magnesium 1.5 L D Total Bilirubin Direct Bilirubin AST ALT Alkaline Phosphatase Ammonia Creatine Kinase 271 Creatine Kinase Index 2.5 CK-MB (CK-2) 7.017 H Troponin I 0.73 H* C-Reactive Protein Total Protein Albumin Total Amylase Lipase Ur Leukocyte Esterase Blood Type 02/19/17 02/19/17 02/19/17 08:50 10:20 10:20 WBC 6.2 RBC 3.32 L Hgb 11.6 L Hct 34.6 L MCV 104.2 H MCH 34.9 H MCHC 33.5 RDW 17.5 H Plt Count 19 L* D MPV 11.6 H Neutrophils % No Result Required. Neutrophils % (Manual) 79.4 Band Neutrophils % 0.0 Lymphocytes % No Result Required. Lymphocytes % (Manual) 2.1 L D Monocytes % (Manual) 16 H* Eosinophils % (Manual) 1.0 Basophils % (Manual) 0.0 Myelocytes % (Man) 1 Metamyelocytes 1 Platelet Estimate Decreased Macrocytosis 1+ PT with INR INR PTT (Actin FS) Puncture Site ABG pH ABG pCO2 at Pt Temp ABG pO2 at Pt Temp ABG HCO3 ABG O2 Sat (Measured) ABG O2 Content ABG Base Excess Geronimo Test VBG pH POC VBG pCO2 POC VBG pO2 Mixed VBG HCO3 Oxygen Flow Rate Sodium 130 L Potassium 3.4 L Chloride 97 L Carbon Dioxide 18 L Anion Gap 15 BUN 44 H D Creatinine 1.9 H Creat Clearance w eGFR 39.66 Random Glucose 81 Lactic Acid Calcium 6.9 L* Phosphorus Magnesium Total Bilirubin 5.1 H Direct Bilirubin AST 90 H ALT 33 Alkaline Phosphatase 102 D Ammonia Creatine Kinase Creatine Kinase Index CK-MB (CK-2) Troponin I C-Reactive Protein 6.2 H Total Protein 5.8 L Albumin 2.0 L Total Amylase 26 Lipase 201 Ur Leukocyte Esterase Blood Type B POSITIVE 02/19/17 02/19/17 02/19/17 10:40 13:50 15:00 WBC RBC Hgb Hct MCV MCH MCHC RDW Plt Count MPV Neutrophils % Neutrophils % (Manual) Band Neutrophils % Lymphocytes % Lymphocytes % (Manual) Monocytes % (Manual) Eosinophils % (Manual) Basophils % (Manual) Myelocytes % (Man) Metamyelocytes Platelet Estimate Macrocytosis PT with INR INR PTT (Actin FS) Puncture Site ABG pH ABG pCO2 at Pt Temp ABG pO2 at Pt Temp ABG HCO3 ABG O2 Sat (Measured) ABG O2 Content ABG Base Excess Geronimo Test VBG pH POC VBG pCO2 POC VBG pO2 Mixed VBG HCO3 Oxygen Flow Rate Sodium Potassium Chloride Carbon Dioxide Anion Gap BUN Creatinine Creat Clearance w eGFR Random Glucose Lactic Acid 5.5 H* 4.3 H* Calcium Phosphorus Magnesium Total Bilirubin Direct Bilirubin AST ALT Alkaline Phosphatase Ammonia Creatine Kinase 291 Creatine Kinase Index 5.4 H CK-MB (CK-2) 15.810 H Troponin I 1.42 H* D C-Reactive Protein Total Protein Albumin Total Amylase Lipase Ur Leukocyte Esterase Blood Type 02/19/17 02/19/17 02/20/17 18:45 18:45 00:10 WBC RBC Hgb Hct MCV MCH MCHC RDW Plt Count MPV Neutrophils % Neutrophils % (Manual) Band Neutrophils % Lymphocytes % Lymphocytes % (Manual) Monocytes % (Manual) Eosinophils % (Manual) Basophils % (Manual) Myelocytes % (Man) Metamyelocytes Platelet Estimate Macrocytosis PT with INR INR PTT (Actin FS) Puncture Site ABG pH ABG pCO2 at Pt Temp ABG pO2 at Pt Temp ABG HCO3 ABG O2 Sat (Measured) ABG O2 Content ABG Base Excess Geronimo Test VBG pH POC VBG pCO2 POC VBG pO2 Mixed VBG HCO3 Oxygen Flow Rate Sodium Potassium Chloride Carbon Dioxide Anion Gap BUN Creatinine Creat Clearance w eGFR Random Glucose Lactic Acid 4.1 H* 2.6 H* Calcium Phosphorus 1.8 L D Magnesium 2.2 D Total Bilirubin Direct Bilirubin AST ALT Alkaline Phosphatase Ammonia Creatine Kinase Creatine Kinase Index CK-MB (CK-2) Troponin I 2.40 H* D C-Reactive Protein Total Protein Albumin Total Amylase Lipase Ur Leukocyte Esterase Blood Type 02/20/17 02/20/17 02/20/17 05:05 05:05 05:05 WBC 9.1 D RBC 3.01 L Hgb 10.9 L Hct 31.0 L MCV 103.3 H MCH 36.3 H MCHC 35.1 RDW 17.1 H Plt Count MPV Neutrophils % No Result Required. Neutrophils % (Manual) Band Neutrophils % Lymphocytes % No Result Required. Lymphocytes % (Manual) Monocytes % (Manual) Eosinophils % (Manual) Basophils % (Manual) Myelocytes % (Man) Metamyelocytes Platelet Estimate Macrocytosis PT with INR 27.70 H INR 2.45 H PTT (Actin FS) Puncture Site ABG pH ABG pCO2 at Pt Temp ABG pO2 at Pt Temp ABG HCO3 ABG O2 Sat (Measured) ABG O2 Content ABG Base Excess Geronimo Test VBG pH POC VBG pCO2 POC VBG pO2 Mixed VBG HCO3 Oxygen Flow Rate Sodium 133 L Potassium 3.2 L Chloride 100 Carbon Dioxide 22 D Anion Gap 11 BUN 35 H D Creatinine 1.3 D Creat Clearance w eGFR > 60 Random Glucose 92 Lactic Acid Calcium 7.1 L Phosphorus 1.3 L D Magnesium Total Bilirubin 5.0 H Direct Bilirubin AST 83 H ALT 32 Alkaline Phosphatase 106 Ammonia Creatine Kinase Creatine Kinase Index CK-MB (CK-2) Troponin I C-Reactive Protein Total Protein 5.5 L Albumin 2.1 L Total Amylase Lipase Ur Leukocyte Esterase Blood Type 02/20/17 02/20/17 05:05 05:05 WBC RBC Hgb Hct MCV MCH MCHC RDW Plt Count MPV Neutrophils % Neutrophils % (Manual) Band Neutrophils % Lymphocytes % Lymphocytes % (Manual) Monocytes % (Manual) Eosinophils % (Manual) Basophils % (Manual) Myelocytes % (Man) Metamyelocytes Platelet Estimate Macrocytosis PT with INR INR PTT (Actin FS) Puncture Site ABG pH ABG pCO2 at Pt Temp ABG pO2 at Pt Temp ABG HCO3 ABG O2 Sat (Measured) ABG O2 Content ABG Base Excess Geronimo Test VBG pH POC VBG pCO2 POC VBG pO2 Mixed VBG HCO3 Oxygen Flow Rate Sodium Potassium Chloride Carbon Dioxide Anion Gap BUN Creatinine Creat Clearance w eGFR Random Glucose Lactic Acid 2.0 Calcium Phosphorus Magnesium Total Bilirubin Direct Bilirubin Cancelled AST ALT Alkaline Phosphatase Ammonia Creatine Kinase Creatine Kinase Index CK-MB (CK-2) Troponin I C-Reactive Protein Total Protein Albumin Total Amylase Lipase Ur Leukocyte Esterase Blood Type Active Medications Generic Name Dose Route Start Last Admin Trade Name Freq PRN Reason Stop Dose Admin Chlorhexidine Gluconate 1 applic 02/19/17 22:00 02/19/17 22:15 Hibiclens For Decolonization - TP 1 applic HS BRITTANIE Administration Folic Acid 1 mg 02/20/17 10:00 Folic Acid - PO DAILY BRITTANIE Sodium Chloride 1,000 mls @ 125 mls/hr 02/19/17 11:45 02/20/17 05:52 Normal Saline - IV 125 mls/hr ASDIR BRITTANIE Administration Lactulose 20 gm 02/19/17 10:00 02/19/17 22:15 Cephulac (Oral Use) PO 20 gm BID BRITTANIE Administration Mupirocin 1 applic 02/19/17 10:00 02/19/17 22:14 Bactroban Ointment (For Decolonization) - NS 02/24/17 09:59 1 applic BID BRITTANIE Administration Pantoprazole Sodium 40 mg 02/19/17 10:00 02/19/17 11:47 Protonix - PO 40 mg DAILY BRITTANIE Administration Phytonadione 5 mg 02/19/17 12:00 02/19/17 13:57 Mephyton - PO 02/21/17 10:01 5 mg DAILY BRITTANIE Administration Rifaximin 550 mg 02/19/17 10:00 02/19/17 22:15 Xifaxan - PO 550 mg BID BRITTANIE Administration Thiamine HCl 100 mg 02/19/17 10:00 02/19/17 11:47 Vitamin B1 - PO 100 mg DAILY BRITTANIE Administration ASSESSMENT/PLAN: 41 year-old male with a PMH significant for alcohol abuse (last detoxed 11/2016 ) admitted for severe sepsis and bacteremia. Alcoholic cirrhosis --MELD score on admission 34, estimated 3 month mortality 52% --discriminant factor 74, steroids contraindicated due to bacteremia --daily vit K PO, INR improving Severe Sepsis of uncertain etiology Bacteremia --on admission fever to 102, tachycardic to 110 --2/2 bottles GPC in clusters --no ascites on US --UA negative; CXR unremarkable; echo no signs of vegetation Acute alcohol withdrawal --ativan PRN Metabolic v. hepatic encephalopathy Hypokalemia Hypomagnesemia Hypophosphatemia --correct lytes --continue lactulose, rifaximin Elevated troponin --likely demand ischemia --cardiology consult pending Back pain and leg pain --CT LSS when more stable --morphine 2mg q6h PRN Thrombocytopenia Acute Renal Failure, improved --Cr 1.9 on admission, 1.3 today FEN Fluids: NS @ 125mL/hr Electrolytes: replete as indicated Nutrition: clears DVT prophylaxis: SCDs Dispo: continues to require ICU level care. Visit type - Emergency Visit Emergency Visit: Yes ED Registration Date: 02/19/17 Care time: The patient presented to the Emergency Department on the above date and was hospitalized for further evaluation of their emergent condition. - New Patient This patient is new to me today: Yes Date on this admission: 02/21/17 - Critical Care Critical Care patient: Yes Total Critical Care Time (in minutes): 45 Critical Care Statement: The care of this patient involved high complexity decision making to prevent further life threatening deterioration of the patient 's condition and/or to evaluate & treat vital organ system(s) failure or risk of failure.
[2017-02-20] MEDS ORDERED: NAPH,MB-DB/K PH,MBDB POWDER PACKET PO ONE ×3 (08:01→15:00)
[2017-02-20] MEDS ORDERED: POTASSIUM CHLORIDE TABS 20 MEQ TABLET.ER (FP) PO ONE ×4 (08:02→10:45)
[2017-02-20] MEDS ORDERED: POTASSIUM CHLORIDE TABS 20 MEQ TABLET.ER (FP) PO SCH (08:15)
[2017-02-20] MEDS ORDERED: KCL 10 MEQ IVPB 10 MEQ/100 ML INFUS.BAG IVPB SCH (08:15)
[2017-02-20] MEDS: FOLIC ACID 1 MG TABLET (FP) PO SCH (09:03)
[2017-02-20] MEDS: LACTULOSE 20 GM/30 ML UDC (FOR ORAL USE ONLY) PO SCH ×2 (09:03→21:38)
[2017-02-20] MEDS ORDERED: MAGNESIUM SULF 50% (8.12 MEQ/2 ML-1 GM VIAL) IVPB ONE (09:04)
[2017-02-20] MEDS: THIAMINE HCL 100 MG TABLET (FP) PO SCH (09:04)
[2017-02-20] MEDS: RIFAXIMIN 550 MG TABLET (UD) PO SCH ×2 (09:04→21:38)
[2017-02-20] MEDS: PANTOPRAZOLE 40 MG TABLET (FP) PO SCH ×2 (09:04→21:38)
[2017-02-20] MEDS: PHYTONADIONE 5 MG TABLET PO SCH (09:19)
--- NOTE | 2017-02-20 09:37 | EKG ---
Test Reason : Blood Pressure : / mmHG Vent. Rate : 101 BPM Atrial Rate : 101 BPM P-R Int : 156 ms QRS Dur : 104 ms QT Int : 376 ms P-R-T Axes : 074 059 021 degrees QTc Int : 487 ms SINUS TACHYCARDIA OTHERWISE NORMAL ECG Confirmed by MD Ary, Kendall ([id number]) on 02/20/2017 9:36:56 AM Referred By: MERISSA MARTI Confirmed By:Kendall Mcallister MD
--- NOTE | 2017-02-20 09:52 | EKG ---
Test Reason : Blood Pressure : / mmHG Vent. Rate : 101 BPM Atrial Rate : 101 BPM P-R Int : 166 ms QRS Dur : 112 ms QT Int : 394 ms P-R-T Axes : 033 020 028 degrees QTc Int : 510 ms SINUS TACHYCARDIA INCOMPLETE RIGHT BUNDLE BRANCH BLOCK BORDERLINE ECG WHEN COMPARED WITH ECG OF 19-FEB-2017 08:55, INCOMPLETE RIGHT BUNDLE BRANCH BLOCK IS NOW PRESENT Confirmed by MD Ary, Kendall ([id number]) on 02/20/2017 9:51:54 AM Referred By: Confirmed By:Kendall Mcallister MD
[2017-02-20] MEDS: MUPIROCIN 2% TOPICAL OINTMENT FOR DECOLONIZATION NS SCH ×2 (10:48→21:38)
[2017-02-20] MEDS: MAGNESIUM 1GM/D5W - 1 GM/100 ML IVPB IVPB SCH ×2 (10:48→12:07)
--- NOTE | 2017-02-20 11:53 | PN ---
Teaching Attending Note Name of Resident: Kota Terrazas ATTENDING PHYSICIAN STATEMENT I saw and evaluated the patient. I reviewed the resident's note and discussed the case with the resident. I agree with the resident's findings and plan as documented. SUBJECTIVE: Pt seen and examined in the ICU. Blood cultures growing presumptive MSSA. Denies chest pain or shortness of breath. c/o low back pain for past 3 weeks. OBJECTIVE: Last Vital Signs Temp Pulse Resp BP Pulse Ox 98.6 F 94 H 18 129/68 100 02/20/17 06:00 02/20/17 06:00 02/20/17 09:25 02/20/17 07:45 02/19/17 22:00 Intake & Output 02/17/17 02/18/17 02/19/17 02/20/17 23:59 23:59 23:59 23:59 Intake Total 2000 200 1800 Output Total 2900 1400 Balance 1999 -2700 400 Weight 108.862 kg 115.893 kg 118.161 kg Gen: slow but appropriate Heart: RRR Lung: decreased breath sounds at the bases Abd: soft, nontender Ext: no edema Skin: old healed lacerations CBC, BMP 02/20/17 05:05 02/20/17 05:05 Active Medications Chlorhexidine Gluconate (Hibiclens For Decolonization -) 1 applic TP HS [facility] Last Admin: 02/19/17 22:15 Dose: 1 applic Folic Acid (Folic Acid -) 1 mg PO DAILY [facility] Last Admin: 02/20/17 09:03 Dose: 1 mg Sodium Chloride (Normal Saline -) 1,000 mls @ 125 mls/hr IV ASDIR [facility] Last Admin: 02/20/17 05:52 Dose: 125 mls/hr Lactulose (Cephulac (Oral Use)) 20 gm PO BID [facility] Last Admin: 02/20/17 09:03 Dose: 20 gm Mupirocin (Bactroban Ointment (For Decolonization) -) 1 applic NS BID [facility] Stop: 02/24/17 09:59 Last Admin: 02/20/17 10:48 Dose: 1 applic Pantoprazole Sodium (Protonix -) 40 mg PO BID [facility] Last Admin: 02/20/17 09:04 Dose: 40 mg Phytonadione (Mephyton -) 5 mg PO DAILY [facility] Stop: 02/21/17 10:01 Last Admin: 02/20/17 09:19 Dose: 5 mg Rifaximin (Xifaxan -) 550 mg PO BID [facility] Last Admin: 02/20/17 09:04 Dose: 550 mg Thiamine HCl (Vitamin B1 -) 100 mg PO DAILY [facility] Last Admin: 02/20/17 09:04 Dose: 100 mg ASSESSMENT AND PLAN: Staph Bacteremia Severe Sepsis Lactic Acidosis Acute Kidney Injury +Troponins likely Demand Ischemia Liver Cirrhosis/Advanced Liver Disease h/o Alcohol Abuse Coagulopathy Thrombocytopenia - continue antibiotics - f/u cultures - IVF - monitor urine output, creatinine - if renal function continues to improve, will consider CT lumbar spine to investigate source of MSSA - monitor CBC, coags - transfuse as needed - vitamin K - trend cardiac enzymes - monitor LFTs - replete lytes - PO as tolerated - DVT prophylaxis - continue ICU monitoring critical care time spent in reviewing chart, evaluating patient and formulating plan 35 min
[2017-02-20] MEDS ORDERED: chlordiazePOXIDE HCL 25 MG CAPSULE PO PRN (11:54)
[2017-02-20] MEDS ORDERED: CEFTRIAXONE IN IS-OSM DEXTROSE 2 GM/50 ML BAG IVPB SCH (12:15)
[2017-02-20 12:19] LABS: ANISOCYTOSIS 2+; MACROCYTOSIS 1+; PLATELET ESTIMATE DECREASED; TEAR DROP CELLS 1+
[2017-02-20 12:28] LABS: MEAN PLT VOLUME 11.9 fl (7.5-11.1); PLATELET COUNT 35 K/MM3 (134-434)
--- NOTE | 2017-02-20 13:20 | EKG ---
Test Reason : Blood Pressure : / mmHG Vent. Rate : 097 BPM Atrial Rate : 097 BPM P-R Int : 152 ms QRS Dur : 098 ms QT Int : 384 ms P-R-T Axes : 068 013 049 degrees QTc Int : 487 ms NORMAL SINUS RHYTHM POSSIBLE LEFT ATRIAL ENLARGEMENT INCOMPLETE RIGHT BUNDLE BRANCH BLOCK PROLONGED QT ABNORMAL ECG NO PREVIOUS ECGS AVAILABLE Confirmed by ELISABETH VALENTINE MD ([id number]) on 02/20/2017 1:20:36 PM Referred By: Confirmed By:ELISABETH VALENTINE MD
[2017-02-20] MEDS ORDERED: NAPH,MB-DB/K PH,MBDB POWDER PACKET PO SCH (14:00)
--- NOTE | 2017-02-20 15:40 | CON.CARD ---
Consult Consult Specialty:: Cardiology Reason for Consultation:: Positive Troponins - History of Present Illness Chief Complaint: abdominal pain History of Present Illness: 41 year old male with a pmhx of htn, etoh abuse who presents with generalized weakness and abdominal pain. Weakness over one week. +nausea and dizziness. No chest pain, palpitations, or sob. No pnd, orthonpea, or edema. Found to be sinus tachycardic, fever, thrombocytopenic - Past Medical History Cardio/Vascular: Yes: HTN Hepatobiliary: Yes: Cirrhosis Psych: Yes: Panic Musculoskeletal: Yes: Chronic low back pain - Past Surgical History Past Surgical History: Yes: Appendectomy, Arthrosocopy (right knee), Cholecystectomy - Alcohol/Substance Use Hx Alcohol Use: No History of Substance Use: reports: Prescription (opiate) - Smoking History Smoking history: Former smoker Have you smoked in the past 12 months: No Aproximately how many cigarettes per day: 0 - Social History Usual Living Arrangement: With Significant Other ADL: Family Assistance Occupation: electrical work History of Recent Travel: No Home Medications - Allergies Allergies/Adverse Reactions: Allergies Allergy/AdvReac Type Severity Reaction Status Date / Time No Known Allergies Allergy Verified 11/29/16 17:08 - Home Medications Home Medications: Ambulatory Orders Acetaminophen [Tylenol .Regular Strength -] 650 mg PO Q6H PRN #120 tablet Chlordiazepoxide [Librium -] 25 mg PO BID #60 capsule MDD 50 10/25/15 Clindamycin [Cleocin -] 300 mg PO Q6HPO #20 capsule 10/25/15 Nadolol [Corgard -] 60 mg PO DAILY #90 tablet 10/25/15 Rifaximin [Xifaxan -] 550 mg PO BID #60 tablet 10/25/15 NK [No Known Home Medication] 02/18/17 Family Disease History - Family Disease History Family Disease History: CA: Father, Mother, Brother Vital Signs: Vital Signs Temperature 98.6 F 02/20/17 06:00 Pulse Rate 83 02/20/17 11:00 Respiratory Rate 20 02/20/17 11:00 Blood Pressure 130/80 02/20/17 11:00 O2 Sat by Pulse Oximetry (%) 100 02/19/17 22:00 Constitutional: Yes: Mild Distress Neck: Yes: WNL Respiratory: Yes: CTA Bilaterally Gastrointestinal: Yes: Soft Cardiovascular: Yes: Tachycardia JVD: No Carotid Bruit: No Heart Sounds: Yes: S1, S2 Murmur: No: Systolic Murmur Edema: No - Other Data Labs, Other Data: CBC, BMP 02/20/17 05:05 02/20/17 05:05 INR, PTT INR 2.45 (0.82-1.09) H 02/20/17 05:05 Troponin, BNP 02/19/17 02/19/17 02/20/17 07:56 18:45 05:05 Troponin I 0.73 H* 2.40 H* D 2.54 H* 02/20/17 12:23 Troponin I 1.52 H* D Troponin, BNP 02/19/17 02/19/17 02/20/17 07:56 18:45 05:05 Troponin I 0.73 H* 2.40 H* D 2.54 H* 02/20/17 12:23 Troponin I 1.52 H* D Imaging - Results Chest X-ray: Report Reviewed EKG: Image Reviewed Problem List - Problems (1) Elevated troponin Code(s): R74.8 - ABNORMAL LEVELS OF OTHER SERUM ENZYMES Assessment/Plan 41 year old male with a pmhx of htn, etoh abuse who presents with generalized weakness and abdominal pain. Weakness over one week. +nausea and dizziness. No chest pain, palpitations, or sob. No pnd, orthonpea, or edema. Found to be sinus tachycardic, fever, thrombocytopenic 1) Positive troponins Troponins elevated with normal CK likely due to demand ischemia in patient with staph bacteremia/sepsis and liver cirrhosis. EKG sinus tachycardia with no ischemic changes Echocardiogram with normal LV systolic function Plts 19-35 with INR 2.4-3s No chest pain or dyspnea No further cardiac work up at this time. Treat underlying sepsis/infection and liver disease. Please call as needed
[2017-02-20] MEDS ORDERED: VANCOMYCIN 1,250 MG in DEXTROSE 5%-WATER - 250 ML IVPB SCH (16:00)
--- NOTE | 2017-02-20 18:30 | PN ---
Progress Note, Physician History of Present Illness: patient starting to look much better speech better confusion less still with back pain - Current Medication List Current Medications: Active Medications Chlordiazepoxide HCl (Librium -) 25 mg PO Q6H PRN PRN Reason: WITHDRAWAL(CONT SUBST) Stop: 02/21/17 11:53 Chlorhexidine Gluconate (Hibiclens For Decolonization -) 1 applic TP HS [facility] Last Admin: 02/19/17 22:15 Dose: 1 applic Folic Acid (Folic Acid -) 1 mg PO DAILY [facility] Last Admin: 02/20/17 09:03 Dose: 1 mg Sodium Chloride (Normal Saline -) 1,000 mls @ 125 mls/hr IV ASDIR [facility] Last Admin: 02/20/17 12:08 Dose: 125 mls/hr Vancomycin HCl 1,250 mg/ (Dextrose) 250 mls @ 166.667 mls/hr IVPB Q24H [facility] Last Admin: 02/20/17 16:14 Dose: 166.667 mls/hr Lactulose (Cephulac (Oral Use)) 20 gm PO BID [facility] Last Admin: 02/20/17 09:03 Dose: 20 gm Mupirocin (Bactroban Ointment (For Decolonization) -) 1 applic NS BID [facility] Stop: 02/24/17 09:59 Last Admin: 02/20/17 10:48 Dose: 1 applic Pantoprazole Sodium (Protonix -) 40 mg PO BID [facility] Last Admin: 02/20/17 09:04 Dose: 40 mg Phytonadione (Mephyton -) 5 mg PO DAILY [facility] Stop: 02/21/17 10:01 Last Admin: 02/20/17 09:19 Dose: 5 mg Rifaximin (Xifaxan -) 550 mg PO BID [facility] Last Admin: 02/20/17 09:04 Dose: 550 mg Thiamine HCl (Vitamin B1 -) 100 mg PO DAILY [facility] Last Admin: 02/20/17 09:04 Dose: 100 mg - Objective Vital Signs: Vital Signs Temperature 98.6 F 02/20/17 06:00 Pulse Rate 84 02/20/17 17:00 Respiratory Rate 19 02/20/17 15:00 Blood Pressure 127/78 02/20/17 17:00 O2 Sat by Pulse Oximetry (%) 100 02/19/17 22:00 Constitutional: Yes: Calm, Mild Distress Eyes: Yes: Conjunctiva Clear Cardiovascular: Yes: S1, S2 Respiratory: Yes: Regular, On Nasal O2 Gastrointestinal: Yes: Normal Bowel Sounds, Soft, Tenderness Musculoskeletal: Yes: WNL Extremities: Yes: WNL Neurological: Yes: Alert, Confusion (still with some confusion) Labs: CBC, BMP 02/20/17 05:05 02/20/17 05:05 INR, PTT INR 2.45 (0.82-1.09) H 02/20/17 05:05 Assessment/Plan Problem List - Problems (1) Alcoholic cirrhosis of liver Code(s): K70.30 - ALCOHOLIC CIRRHOSIS OF LIVER WITHOUT ASCITES Qualifiers: Ascites presence: without ascites Qualified Code(s): K70.30 - Alcoholic cirrhosis of liver without ascites (2) Hepatic encephalopathy Code(s): K72.90 - HEPATIC FAILURE, UNSPECIFIED WITHOUT COMA (3) Renal failure Code(s): N19 - UNSPECIFIED KIDNEY FAILURE Qualifiers: Renal failure chronicity: acute Acute renal failure type: unspecified Qualified Code(s): N17.9 - Acute kidney failure, unspecified (4) Sepsis Code(s): A41.9 - SEPSIS, UNSPECIFIED ORGANISM Qualifiers: Sepsis type: sepsis due to unspecified organism Qualified Code(s): A41.9 - Sepsis, unspecified organism (5) Thrombocytopenia Code(s): D69.6 - THROMBOCYTOPENIA, UNSPECIFIED 6 gm positive bactermia Assessment/Plan ASSESS: This is a 41 y/o man, Et-OH cirrhotic who presents now w/ Liver fail, renal fail, HE, & Sepsis m/l PNA vs SBP vs PVT i am very worried that this positive culture we dont have results yet,but if it is staph then we will ahve to ficure out where it is coming from plan cx result noted await for sensitivities continue vanco for now if mssa will switch to nafcillin will need imaging studies of the back cardio on board rest as per primary/icu team cc time 40 min
[2017-02-20] MEDS ORDERED: morphine SULFATE 4 MG/ML VIAL ONE (21:18)
[2017-02-20] MEDS: morphine CARPU-JECT 10 MG/1 ML DISP.SYRIN IVPUSH PRN (21:20)
[2017-02-20] MEDS: CHLORHEXIDINE GLUCONATE 4% CLEANSER FOR DECOLONIZATION TP SCH (23:53)
[2017-02-21] MEDS: morphine CARPU-JECT 10 MG/1 ML DISP.SYRIN IVPUSH PRN ×3 (02:41→23:35)
[2017-02-21] MEDS: SODIUM CHLORIDE 1,000 ML IV SCH (02:43)
[2017-02-21 06:19] LABS: HEMATOCRIT 32.5 % (35.4-49); MCH 35.3 pg (25.7-33.7); MCHC 33.9 g/dl (32.0-35.9); MEAN PLT VOLUME 11.3 fl (7.5-11.1); PLATELET COUNT 45 K/MM3 (134-434); RBC 3.13 M/mm3 (4.00-5.60); RDW 17.8 % (11.9-15.9); WHITE BLOOD COUNT 11.6 K/mm3 (4.0-10.0)
[2017-02-21 06:40] LABS: ALBUMIN 1.9 g/dl (3.4-5.0); ANION GAP 10 (8-16); BLOOD UREA NITROGEN 20 mg/dL (7-18); CHLORIDE 103 mmol/L (98-107); CO2 21 mmol/L (21-32); GLUCOSE,RANDOM 90 mg/dL (74-106); MAGNESIUM 2.5 mg/dL (1.8-2.4); SODIUM 134 mmol/L (136-145)
[2017-02-21 06:43] LABS: ALK PHOS 120 U/L (45-117); BILIRUBIN,TOTAL 6.8 mg/dL (0.2-1.0); PHOSPHOROUS 1.7 mg/dL (2.5-4.9); SGOT/AST 69 U/L (15-37); SGPT/ALT 31 U/L (12-78); TOT PROT 5.7 g/dl (6.4-8.2)
[2017-02-21 06:52] LABS: INR 2.28 (0.82-1.09); PROTHROMBIN TIME (PATIENT) 25.8 SEC (9.98-11.88)
[2017-02-21 06:55] LABS: CALCIUM 6.8 mg/dL (8.5-10.1)
[2017-02-21] MEDS ORDERED: KCL 10 MEQ IVPB 10 MEQ/100 ML INFUS.BAG IVPB SCH (08:30)
[2017-02-21] MEDS ORDERED: NAPH,MB-DB/K PH,MBDB POWDER PACKET PO ONE ×4 (08:31→19:33)
[2017-02-21] MEDS ORDERED: POTASSIUM CHLORIDE 20 MEQ PREMIX IVPB 100 ML IVPB ONE (08:34)
[2017-02-21] MEDS ORDERED: SODIUM CHLORIDE 1,000 ML IV STA (08:35)
[2017-02-21] MEDS ORDERED: SODIUM CHLORIDE 0.9%/KCL 20 MEQ/1,000 ML INFUS.BAG IV SCH ×2 (08:45→09:00)
[2017-02-21] MEDS ORDERED: POTASSIUM CHLORIDE TABS 20 MEQ TABLET.ER (FP) PO ONE (08:52)
[2017-02-21] MEDS ORDERED: POTASSIUM PHOSPHATE 30 MM in SODIUM CHLORIDE 250 ML IVPB ONE (08:52)
[2017-02-21] MEDS ORDERED: PT OWN MED DRAWER 7, Y5N ONE ×3 (09:09→20:49)
[2017-02-21] MEDS: THIAMINE HCL 100 MG TABLET (FP) PO SCH (09:12)
[2017-02-21] MEDS: PANTOPRAZOLE 40 MG TABLET (FP) PO SCH ×2 (09:12→22:04)
[2017-02-21] MEDS: FOLIC ACID 1 MG TABLET (FP) PO SCH (09:12)
[2017-02-21] MEDS: RIFAXIMIN 550 MG TABLET (UD) PO SCH ×2 (09:13→22:04)
[2017-02-21 09:14] LABS: ANISOCYTOSIS 1+; MACROCYTOSIS 0; OVALOCYTE 1+; PLATELET ESTIMATE DECREASED; TOXIC GRANULATION 2+
[2017-02-21] MEDS ORDERED: LACTULOSE 20 GM/30 ML UDC (FOR ORAL USE ONLY) PO SCH (10:00)
[2017-02-21] MEDS ORDERED: POTASSIUM CHLORIDE TABS 20 MEQ TABLET.ER (FP) PO SCH (10:00)
[2017-02-21] MEDS: MUPIROCIN 2% TOPICAL OINTMENT FOR DECOLONIZATION NS SCH ×2 (10:58→22:04)
--- NOTE | 2017-02-21 11:35 | PN ---
Physical Exam: SUBJECTIVE: Did well overnight but complaining of pain this AM. Slightly more lethargic this AM. Was able to stand up yesterday and walk to the bathroom with assistance. OBJECTIVE: Vital Signs Period Temp Pulse Resp BP Sys/Barriga Pulse Ox Last 24 Hr 97.6 F-98.8 F 80-95 18-25 122-136/71-92 98-99 GENERAL: The patient is awake, alert, and oriented to person and place but not to time. HEAD: Normal with no signs of trauma. EYES: PERRL, extraocular movements intact, sclera anicteric, conjunctiva clear. No ptosis. ENT: Ears normal, nares patent, oropharynx clear without exudates, moist mucous membranes. Slightly tremulous speech. NECK: Trachea midline, full range of motion, supple. LUNGS: Breath sounds equal, clear to auscultation bilaterally, no wheezes, no crackles, no accessory muscle use. : Ybarra in place without erythema MSK: TP over right lower rib cage posteriorly but not in midline as opposed to yesterday's exam. HEART: Regular rate and rhythm, S1, S2 without murmur, rub or gallop. ABDOMEN: Soft, nontender, nondistended, normoactive bowel sounds, no guarding, no rebound, no hepatosplenomegaly, no masses. EXTREMITIES: 2+ pulses, warm, well-perfused, no edema. NEUROLOGICAL: Slightly tremulous speech but no asterixis. PSYCH: Normal mood, normal affect. SKIN: Warm, dry, normal turgor, some healing light abrasions on right anterior forearm and left knee but none apparently infected. Laboratory Results - last 24 hr 02/20/17 02/20/17 02/20/17 05:05 05:05 12:23 WBC RBC Hgb Hct MCV MCH MCHC RDW Plt Count 35 L* D MPV 11.9 H Total Counted Neutrophils % Neutrophils % (Manual) 76.5 Band Neutrophils % 2.1 Lymphocytes % Lymphocytes % (Manual) 5.1 L D Monocytes % (Manual) 16 H* Eosinophils % (Manual) 0.0 D Basophils % (Manual) 0.0 Myelocytes % (Man) 0 D Metamyelocytes 0 D Hypochromia Toxic Granulation Platelet Estimate Decreased Platelet Comment No clumping noted Polychromasia Poikilocytosis Anisocytosis 2+ Microcytosis Macrocytosis 1+ Tear Drop Cells 1+ Ovalocytes Fragmented RBCs 2+ PT with INR INR Sodium Potassium Chloride Carbon Dioxide Anion Gap BUN Creatinine Creat Clearance w eGFR Random Glucose Calcium Phosphorus Magnesium Total Bilirubin AST ALT Alkaline Phosphatase Troponin I 1.52 H* D Total Protein Albumin Hepatitis A IgM Ab Negative Hep Bs Antigen Negative Hep B Core IgM Ab Negative Hepatitis C Antibody 0.1 02/21/17 02/21/17 02/21/17 05:10 05:10 05:10 WBC 11.6 H RBC 3.13 L Hgb 11.0 L Hct 32.5 L MCV 104.0 H MCH 35.3 H MCHC 33.9 RDW 17.8 H Plt Count 45 L D MPV 11.3 H Total Counted 100 Neutrophils % No Result Required. Neutrophils % (Manual) 72.0 Band Neutrophils % 2.4 Lymphocytes % No Result Required. Lymphocytes % (Manual) 9.8 D Monocytes % (Manual) 9 Eosinophils % (Manual) 1.2 D Basophils % (Manual) 0.0 Myelocytes % (Man) 4 H D Metamyelocytes 1 D Hypochromia 0 Toxic Granulation 2+ Platelet Estimate Decreased Platelet Comment Polychromasia 0 Poikilocytosis 0 Anisocytosis 1+ Microcytosis 0 Macrocytosis 0 Tear Drop Cells Ovalocytes 1+ Fragmented RBCs PT with INR 25.80 H INR 2.28 H Sodium 134 L Potassium 3.0 L Chloride 103 Carbon Dioxide 21 Anion Gap 10 BUN 20 H D Creatinine 1.0 D Creat Clearance w eGFR > 60 Random Glucose 90 Calcium 6.8 L* Phosphorus 1.7 L D Magnesium 2.5 H Total Bilirubin 6.8 H D AST 69 H ALT 31 Alkaline Phosphatase 120 H Troponin I Total Protein 5.7 L Albumin 1.9 L Hepatitis A IgM Ab Hep Bs Antigen Hep B Core IgM Ab Hepatitis C Antibody Active Medications Generic Name Dose Route Start Last Admin Trade Name Freq PRN Reason Stop Dose Admin Chlordiazepoxide HCl 25 mg 02/20/17 11:54 Librium - PO 02/21/17 11:53 Q6H PRN WITHDRAWAL(CONT SUBST) Chlorhexidine Gluconate 1 applic 02/19/17 22:00 02/20/17 23:53 Hibiclens For Decolonization - TP 1 applic HS BRITTANIE Administration Folic Acid 1 mg 02/20/17 10:00 02/21/17 09:12 Folic Acid - PO 1 mg DAILY BRITTANIE Administration Vancomycin HCl 1,250 mg/ 250 mls @ 166.667 mls/hr 02/20/17 16:00 02/20/17 16: 14 Dextrose IVPB 166.667 mls/hr Q24H BRITTANIE Administration Potassium Phosphate 30 mm/ 260 mls @ 62.5 mls/hr 02/21/17 08:52 Sodium Chloride IVPB 02/21/17 13:01 ONCE ONE Lactulose 20 gm 02/21/17 10:00 02/21/17 09:12 Cephulac (Oral Use) PO 20 gm Q6HPO BRITTANIE Administration Morphine Sulfate 2 mg 02/20/17 19:06 02/21/17 09:44 Morphine Injection - IVPUSH 2 mg Q6H PRN Administration PAIN Mupirocin 1 applic 02/19/17 10:00 02/21/17 10:58 Bactroban Ointment (For Decolonization) - NS 02/24/17 09:59 Not Given BID BRITTANIE Pantoprazole Sodium 40 mg 02/20/17 10:00 02/21/17 09:12 Protonix - PO 40 mg BID BRITTANIE Administration Rifaximin 550 mg 02/19/17 10:00 02/21/17 09:13 Xifaxan - PO 550 mg BID BRITTANIE Administration Thiamine HCl 100 mg 02/19/17 10:00 02/21/17 09:12 Vitamin B1 - PO 100 mg DAILY BRITTANIE Administration ASSESSMENT/PLAN: 41 year old male with history of ETOH related liver cirrhosis presenting with hypotension and generalized weakness concerning for acutely decompensated liver failure in the setting of probable sepsis 2/2 to MSSA (presumptive) bacteremia of unknown original source. Neuro: #AMS: patient AOx3 Likely secondary to decompensated cirrhosis. - Will increase lactulose titration to 3-4 BMs daily becasue of increased lethargy this AM - Rifaximin #Pain: complainign of back and abdominal pain - Morphine 2 Mg q6hr used cautiously because of his lethargy # ETOH abuse: last drink was a few months ago per patient - Librium 25 MG Q6 Hr PRN added - Will monitor for signs of withdrawal CV: # Hypotension: Likely a distributive + hypovolemic shock 2/2 sepsis in the setting of low oncotic pressure for liver disease. No pressers required. - continue fluid bolus PRN - No maintenance fluid needed - lactic acidosis resolved #Troponemia: Likely due to low perfusion state. - Peaked at 2.54, repeat was 1.5 yesterday - Echo demonstrating trace MR/ TR Pulm: although CXR clear, patient could have PNA given recent cough. - Can repeat CXR if desating or productive cough GI: # Decompensated liver cirrhosis: Patient current MS altered but without ascites , asterixis, or obvious bleeding. Abdominal US demonstrating patent Portal Venous system. Ct not demonstrating any ascites. - Continue to monitor LFTS - direct bili elevated - ABX per ID section - Thiamine/ folate Renal: #YARIEL: Resolving - Amada SEARS'd ID: Unclear source of infection but suspected skin source given below - repeat CXR clear - Will continue ceftriaxone 2 G daily for MSSA/ veterbral osteo (course length if actually osteo is 6 weeks) - Lactic acidosis resolved - MSSA growing in BCx, F/U final - Will get Lumbar + Thoracic spine MRI to rule out osteo Heme: #Thrombocytopenia: - Platelets appropriate - replete if <20 #Coagulopathy: INR decreaseing - Vitamin K 5 PO x 3 days total FEN: - NS bolus - Regular diet - replete Phos and K (30 k phos IV and 40 Kdur) - Mag supratherapeutic PPX: - Thrombocytopenic - PPI - SCDs Dispo: - Lactic acidosis resolved - troponins likely non-cardiac - Will transfer to med surg Visit type - Emergency Visit Emergency Visit: No - New Patient This patient is new to me today: No - Critical Care Critical Care patient: Yes Total Critical Care Time (in minutes): 35 Critical Care Statement: The care of this patient involved high complexity decision making to prevent further life threatening deterioration of the patient 's condition and/or to evaluate & treat vital organ system(s) failure or risk of failure. - Discharge Referral Referred to [facility] Med P.C.: No
[2017-02-21] MEDS: PHYTONADIONE 5 MG TABLET PO SCH (11:47)
--- NOTE | 2017-02-21 11:53 | PN ---
Teaching Attending Note Name of Resident: Kota Terrazas ATTENDING PHYSICIAN STATEMENT I saw and evaluated the patient. I reviewed the resident's note and discussed the case with the resident. I agree with the resident's findings and plan as documented. SUBJECTIVE: Pt seen and examined in the ICU. Still with back pain. No fevers recorded. Blood cultures growing MSSA. OBJECTIVE: Last Vital Signs Temp Pulse Resp BP Pulse Ox 97.6 F 80 20 131/83 98 02/21/17 10:00 02/21/17 10:15 02/21/17 10:00 02/21/17 10:00 02/21/17 11:03 Intake & Output 02/18/17 02/19/17 02/20/17 02/21/17 23:59 23:59 23:59 23:59 Intake Total 1999 200 4450 1500 Output Total 2900 3200 600 Balance 1999 -2700 1250 900 Weight 108.862 kg 115.893 kg 118.161 kg 122.016 kg Gen: slow but in NAD Heart: RRR Lung: decreased breath sounds at the bases Abd: soft, nontender Ext: + edema CBC, BMP 02/21/17 05:10 02/21/17 05:10 Active Medications Chlordiazepoxide HCl (Librium -) 25 mg PO Q6H PRN PRN Reason: WITHDRAWAL(CONT SUBST) Stop: 02/21/17 11:53 Chlorhexidine Gluconate (Hibiclens For Decolonization -) 1 applic TP HS [facility] Last Admin: 02/20/17 23:53 Dose: 1 applic Folic Acid (Folic Acid -) 1 mg PO DAILY [facility] Last Admin: 02/21/17 09:12 Dose: 1 mg Vancomycin HCl 1,250 mg/ (Dextrose) 250 mls @ 166.667 mls/hr IVPB Q24H [facility] Last Admin: 02/20/17 16:14 Dose: 166.667 mls/hr Potassium Phosphate 30 mm/ (Sodium Chloride) 260 mls @ 62.5 mls/hr IVPB ONCE ONE Stop: 02/21/17 13:01 Last Admin: 02/21/17 11:47 Dose: 62.5 mls/hr Lactulose (Cephulac (Oral Use)) 20 gm PO Q6HPO [facility] Last Admin: 02/21/17 09:12 Dose: 20 gm Morphine Sulfate (Morphine Injection -) 2 mg IVPUSH Q6H PRN PRN Reason: PAIN Last Admin: 02/21/17 09:44 Dose: 2 mg Mupirocin (Bactroban Ointment (For Decolonization) -) 1 applic NS BID [facility] Stop: 02/24/17 09:59 Last Admin: 02/21/17 10:58 Dose: Not Given Pantoprazole Sodium (Protonix -) 40 mg PO BID [facility] Last Admin: 02/21/17 09:12 Dose: 40 mg Rifaximin (Xifaxan -) 550 mg PO BID [facility] Last Admin: 02/21/17 09:13 Dose: 550 mg Thiamine HCl (Vitamin B1 -) 100 mg PO DAILY [facility] Last Admin: 02/21/17 09:12 Dose: 100 mg ASSESSMENT AND PLAN: MSSA Bacteremia Severe Sepsis Lactic Acidosis Acute Kidney Injury +Troponins likely Demand Ischemia Liver Cirrhosis/Advanced Liver Disease h/o Alcohol Abuse Coagulopathy Thrombocytopenia - continue antibiotics - monitor urine output, creatinine - MRI thoracic/lumbar spine to investigate source of MSSA - monitor CBC, coags - transfuse as needed - vitamin K - monitor LFTs - replete lytes - PO as tolerated - DVT prophylaxis - can monitor on floor critical care time spent in reviewing chart, evaluating patient and formulating plan 35 min
--- NOTE | 2017-02-21 12:06 | PN ---
Progress Note, Physician History of Present Illness: Lethargic, No events. Not in distress - Current Medication List Current Medications: Active Medications Chlorhexidine Gluconate (Hibiclens For Decolonization -) 1 applic TP HS [facility] Last Admin: 02/20/17 23:53 Dose: 1 applic Folic Acid (Folic Acid -) 1 mg PO DAILY [facility] Last Admin: 02/21/17 09:12 Dose: 1 mg Vancomycin HCl 1,250 mg/ (Dextrose) 250 mls @ 166.667 mls/hr IVPB Q24H [facility] Last Admin: 02/20/17 16:14 Dose: 166.667 mls/hr Potassium Phosphate 30 mm/ (Sodium Chloride) 260 mls @ 62.5 mls/hr IVPB ONCE ONE Stop: 02/21/17 13:01 Last Admin: 02/21/17 11:47 Dose: 62.5 mls/hr Lactulose (Cephulac (Oral Use)) 20 gm PO Q6HPO [facility] Last Admin: 02/21/17 09:12 Dose: 20 gm Morphine Sulfate (Morphine Injection -) 2 mg IVPUSH Q6H PRN PRN Reason: PAIN Last Admin: 02/21/17 09:44 Dose: 2 mg Mupirocin (Bactroban Ointment (For Decolonization) -) 1 applic NS BID [facility] Stop: 02/24/17 09:59 Last Admin: 02/21/17 10:58 Dose: Not Given Pantoprazole Sodium (Protonix -) 40 mg PO BID [facility] Last Admin: 02/21/17 09:12 Dose: 40 mg Rifaximin (Xifaxan -) 550 mg PO BID [facility] Last Admin: 02/21/17 09:13 Dose: 550 mg Thiamine HCl (Vitamin B1 -) 100 mg PO DAILY [facility] Last Admin: 02/21/17 09:12 Dose: 100 mg - Objective Vital Signs: Vital Signs Temperature 97.6 F 02/21/17 10:00 Pulse Rate 80 02/21/17 10:15 Respiratory Rate 20 02/21/17 10:00 Blood Pressure 131/83 02/21/17 10:00 O2 Sat by Pulse Oximetry (%) 98 02/21/17 11:03 Constitutional: Yes: No Distress Eyes: Yes: Sclera Icterus Neurological: Yes: Confusion, Lethargy Labs: CBC, BMP 02/21/17 05:10 02/21/17 05:10 INR, PTT INR 2.28 (0.82-1.09) H 02/21/17 05:10 Assessment/Plan A 41 yom with advanced alcoholic liver disease, w/o ascites, with encephalopathy. Leukocytosis, fever and positive blood cultures. ?source of infection. MRI spine pending. Doubt SBP Increase Lactulose to 4-5 bms/day Low salt diet Fluid restriction, unless sepsis HbsAb EGD for esophageal varices surveillance
[2017-02-21] MEDS ORDERED: VANCOMYCIN 1,250 MG in DEXTROSE 5%-WATER - 250 ML IVPB SCH (16:00)
--- NOTE | 2017-02-21 16:53 | PN ---
Physical Exam: SUBJECTIVE: Patient seen and examined in the ICU. OBJECTIVE: Vital Signs Period Temp Pulse Resp BP Sys/Barriga Pulse Ox Last 24 Hr 97.6 F-98.8 F 80-100 18-25 122-136/71-92 98-99 GENERAL: The patient is awake, lethargic, able to answer questions appropriately , in no acute distress, lethargic HEAD: Normal with no signs of trauma. EYES: PERRL, extraocular movements intact, sclera anicteric, conjunctiva clear. No ptosis. ENT: Ears normal, nares patent, oropharynx clear without exudates, moist mucous membranes. NECK: Trachea midline, full range of motion, supple. LUNGS: Breath sounds equal anteriorly HEART: Regular rate and rhythm ABDOMEN: soft, mildly distended EXTREMITIES: bilateral non pitting edema NEUROLOGICAL: Normal speech, gait not observed. PSYCH: Normal mood, normal affect. SKIN: Warm, dry, normal turgor, no rashes or lesions noted Laboratory Results - last 24 hr 02/20/17 02/21/17 02/21/17 05:05 05:10 05:10 WBC 11.6 H RBC 3.13 L Hgb 11.0 L Hct 32.5 L MCV 104.0 H MCH 35.3 H MCHC 33.9 RDW 17.8 H Plt Count 45 L D MPV 11.3 H Total Counted 100 Neutrophils % No Result Required. Neutrophils % (Manual) 72.0 Band Neutrophils % 2.4 Lymphocytes % No Result Required. Lymphocytes % (Manual) 9.8 D Monocytes % (Manual) 9 Eosinophils % (Manual) 1.2 D Basophils % (Manual) 0.0 Myelocytes % (Man) 4 H D Metamyelocytes 1 D Hypochromia 0 Toxic Granulation 2+ Platelet Estimate Decreased Polychromasia 0 Poikilocytosis 0 Anisocytosis 1+ Microcytosis 0 Macrocytosis 0 Ovalocytes 1+ PT with INR 25.80 H INR 2.28 H Sodium Potassium Chloride Carbon Dioxide Anion Gap BUN Creatinine Creat Clearance w eGFR Random Glucose Calcium Phosphorus Magnesium Total Bilirubin AST ALT Alkaline Phosphatase Total Protein Albumin Hepatitis A IgM Ab Negative Hep Bs Antigen Negative Hep B Core IgM Ab Negative Hepatitis C Antibody 0.1 02/21/17 05:10 WBC RBC Hgb Hct MCV MCH MCHC RDW Plt Count MPV Total Counted Neutrophils % Neutrophils % (Manual) Band Neutrophils % Lymphocytes % Lymphocytes % (Manual) Monocytes % (Manual) Eosinophils % (Manual) Basophils % (Manual) Myelocytes % (Man) Metamyelocytes Hypochromia Toxic Granulation Platelet Estimate Polychromasia Poikilocytosis Anisocytosis Microcytosis Macrocytosis Ovalocytes PT with INR INR Sodium 134 L Potassium 3.0 L Chloride 103 Carbon Dioxide 21 Anion Gap 10 BUN 20 H D Creatinine 1.0 D Creat Clearance w eGFR > 60 Random Glucose 90 Calcium 6.8 L* Phosphorus 1.7 L D Magnesium 2.5 H Total Bilirubin 6.8 H D AST 69 H ALT 31 Alkaline Phosphatase 120 H Total Protein 5.7 L Albumin 1.9 L Hepatitis A IgM Ab Hep Bs Antigen Hep B Core IgM Ab Hepatitis C Antibody Active Medications Generic Name Dose Route Start Last Admin Trade Name Freq PRN Reason Stop Dose Admin Chlorhexidine Gluconate 1 applic 02/21/17 22:00 Hibiclens For Decolonization - TP HS BRITTANIE Folic Acid 1 mg 02/22/17 10:00 Folic Acid - PO DAILY BRITTANIE Vancomycin HCl 1,250 mg/ 250 mls @ 166.667 mls/hr 02/21/17 16:00 02/21/17 15: 23 Dextrose IVPB 166.667 mls/hr Q24H BRITTANIE Administration Lactulose 20 gm 02/21/17 18:00 Cephulac (Oral Use) PO Q6HPO BRITTANIE Morphine Sulfate 2 mg 02/21/17 12:31 Morphine Injection - IVPUSH Q6H PRN PAIN Mupirocin 1 applic 02/21/17 22:00 Bactroban Ointment (For Decolonization) - NS 02/24/17 09:59 BID BRITTANIE Pantoprazole Sodium 40 mg 02/21/17 22:00 Protonix - PO BID BRITTANIE Rifaximin 550 mg 02/21/17 22:00 Xifaxan - PO BID BRITTANIE Thiamine HCl 100 mg 02/22/17 10:00 Vitamin B1 - PO DAILY [facility] ASSESSMENT/PLAN: Patient is a 41 year old male with a significant past medical history of ETOH abuse. He presents to the ED on 02/20/2016 with fever, hyponatremia and alcoholic cirrhosis. Psyche: ETOH abuse Alcoholic cirrhosis On rifaximin, Lactulose Monitor liver function, INR Ativan PRN for ETOH w/drawals Metabolic encephalopathy in the setting of chronic ETOH abuse vs. sepsis On Vancomycin as per ID Monitor electrolytes Monitor mental status ID: Bacteremia Severe sepsis, unclear source + blood cultures> staph aureus Repeat blood cultures Fever and tachycardia on admission, fevers resolving, mild tachycardia Chest xray negative Cardiology: Troponins elevated, now trending down Cardiology consulted, notes reviewed Muscular/Skeletal: Back pain and leg pain Morphine prn Heme: Thrombocytopenia, likley chronic Monitor in the setting of abstinence of alcohol CBC Renal YARIEL, improving Monitor creatinine FEN Fluids: NS @ 125mL/hr Electrolyes: monitor/replete, hypokalemic @ 3.0, 3 runs of K Repeat K Nutrition: clears Prophylaxis: DVT: SCDs GI: Protonix Dispo: full code Visit type - Emergency Visit Emergency Visit: Yes ED Registration Date: 02/19/17 Care time: The patient presented to the Emergency Department on the above date and was hospitalized for further evaluation of their emergent condition. - New Patient This patient is new to me today: Yes Date on this admission: 02/21/17 - Critical Care Critical Care patient: Yes Total Critical Care Time (in minutes): 60 Critical Care Statement: The care of this patient involved high complexity decision making to prevent further life threatening deterioration of the patient 's condition and/or to evaluate & treat vital organ system(s) failure or risk of failure. - Discharge Referral Referred to [facility] Med [facility].: No
[2017-02-21] MEDS: LACTULOSE 20 GM/30 ML UDC (FOR ORAL USE ONLY) PO SCH ×2 (17:33→23:36)
[2017-02-21] MEDS: CHLORHEXIDINE GLUCONATE 4% CLEANSER FOR DECOLONIZATION TP SCH (21:49)
[2017-02-22] MEDS ORDERED: PT OWN MED DRAWER 7, Y5N ONE ×5 (01:46→18:30)
[2017-02-22] MEDS: NAFCILLIN - 2 GM in DEXTROSE 5%-WATER - 100 ML IVPB SCH ×6 (01:47→21:16)
[2017-02-22] MEDS: LACTULOSE 20 GM/30 ML UDC (FOR ORAL USE ONLY) PO SCH ×4 (05:15→21:14)
[2017-02-22 06:57] LABS: HEMATOCRIT 32.4 % (35.4-49); HEMOGLOBIN 11.3 GM/dL (11.7-16.9); MCH 36.5 pg (25.7-33.7); MCHC 34.8 g/dl (32.0-35.9); MEAN CELL VOLUME 104.8 fl (80-96); MEAN PLT VOLUME 11.3 fl (7.5-11.1); PLATELET COUNT 60 K/MM3 (134-434); RBC 3.09 M/mm3 (4.00-5.60); RDW 17.4 % (11.9-15.9); WHITE BLOOD COUNT 10.4 K/mm3 (4.0-10.0)
[2017-02-22 07:04] LABS: CHLORIDE 104 mmol/L (98-107); SODIUM 135 mmol/L (136-145)
[2017-02-22 07:13] LABS: ALBUMIN 1.8 g/dl (3.4-5.0); ALK PHOS 142 U/L (45-117); ANION GAP 12 (8-16); BILIRUBIN,TOTAL 10.3 mg/dL (0.2-1.0); BLOOD UREA NITROGEN 17 mg/dL (7-18); CALCIUM 7.3 mg/dL (8.5-10.1); CO2 19 mmol/L (21-32); CREATININE 1.1 mg/dL (0.7-1.3); GLUCOSE,RANDOM 154 mg/dL (74-106); MAGNESIUM 2.3 mg/dL (1.8-2.4); PHOSPHOROUS 1.5 mg/dL (2.5-4.9); SGOT/AST 59 U/L (15-37); SGPT/ALT 28 U/L (12-78); TOT PROT 6.2 g/dl (6.4-8.2)
[2017-02-22 07:20] LABS: INR 2.42 (0.82-1.09); PROTHROMBIN TIME (PATIENT) 27.4 SEC (9.98-11.88)
[2017-02-22 07:23] LABS: ACTIVATED PTT 46.8 SECONDS (26.9-34.4)
[2017-02-22 07:30] LABS: POTASSIUM 2.9 mmol/L (3.5-5.1)
[2017-02-22] MEDS ORDERED: KCL 10 MEQ IVPB 10 MEQ/100 ML INFUS.BAG IVPB SCH (07:45)
[2017-02-22] MEDS: KCL 10 MEQ IVPB 10 MEQ/100 ML INFUS.BAG IVPB SCH ×3 (07:59→10:32)
--- NOTE | 2017-02-22 08:11 | PN ---
Physical Exam: SUBJECTIVE: Did well overnight, slightly more lethargic this AM. OBJECTIVE: Vital Signs Period Temp Pulse Resp BP Sys/Barriga Pulse Ox Last 24 Hr 97.6 F-100.2 F 80-100 17-23 124-157/73-92 98-98 GENERAL: The patient is awake, alert, and oriented to person and place but not to time. HEAD: Normal with no signs of trauma. EYES: PERRL, extraocular movements intact, sclera anicteric, conjunctiva clear. No ptosis. ENT: Ears normal, nares patent, oropharynx clear without exudates, moist mucous membranes. Slightly tremulous speech. NECK: Trachea midline, full range of motion, supple. LUNGS: Breath sounds equal, clear to auscultation bilaterally, no wheezes, no crackles, no accessory muscle use. : Ybarra in place without erythema MSK: TP over right lower rib cage posteriorly but not in midline as opposed to yesterday's exam. HEART: Regular rate and rhythm, S1, S2 without murmur, rub or gallop. ABDOMEN: Soft, nontender, nondistended, normoactive bowel sounds, no guarding, no rebound, no hepatosplenomegaly, no masses. EXTREMITIES: 2+ pulses, warm, well-perfused, no edema. NEUROLOGICAL: Slightly tremulous speech but no asterixis. PSYCH: Normal mood, normal affect. SKIN: Warm, dry, normal turgor, some healing light abrasions on right anterior forearm and left knee but none apparently infected. Laboratory Results - last 24 hr 02/21/17 02/22/17 02/22/17 05:10 06:10 06:10 WBC 10.4 H RBC 3.09 L Hgb 11.3 L Hct 32.4 L MCV 104.8 H MCH 36.5 H MCHC 34.8 RDW 17.4 H Plt Count 60 L D MPV 11.3 H Total Counted 100 Neutrophils % (Manual) 72.0 Band Neutrophils % 2.4 Lymphocytes % (Manual) 9.8 D Monocytes % (Manual) 9 Eosinophils % (Manual) 1.2 D Basophils % (Manual) 0.0 Myelocytes % (Man) 4 H D Metamyelocytes 1 D Hypochromia 0 Toxic Granulation 2+ Platelet Estimate Decreased Polychromasia 0 Poikilocytosis 0 Anisocytosis 1+ Microcytosis 0 Macrocytosis 0 Ovalocytes 1+ PT with INR 27.40 H INR 2.42 H PTT (Actin FS) 46.8 H Sodium Potassium Chloride Carbon Dioxide Anion Gap BUN Creatinine Creat Clearance w eGFR Random Glucose Calcium Phosphorus Magnesium Total Bilirubin AST ALT Alkaline Phosphatase Total Protein Albumin 02/22/17 06:10 WBC RBC Hgb Hct MCV MCH MCHC RDW Plt Count MPV Total Counted Neutrophils % (Manual) Band Neutrophils % Lymphocytes % (Manual) Monocytes % (Manual) Eosinophils % (Manual) Basophils % (Manual) Myelocytes % (Man) Metamyelocytes Hypochromia Toxic Granulation Platelet Estimate Polychromasia Poikilocytosis Anisocytosis Microcytosis Macrocytosis Ovalocytes PT with INR INR PTT (Actin FS) Sodium 135 L Potassium 2.9 L* Chloride 104 Carbon Dioxide 19 L Anion Gap 12 BUN 17 Creatinine 1.1 Creat Clearance w eGFR > 60 Random Glucose 154 H D Calcium 7.3 L Phosphorus 1.5 L Magnesium 2.3 Total Bilirubin 10.3 H D AST 59 H ALT 28 Alkaline Phosphatase 142 H Total Protein 6.2 L Albumin 1.8 L Active Medications Generic Name Dose Route Start Last Admin Trade Name Freq PRN Reason Stop Dose Admin Chlorhexidine Gluconate 1 applic 02/21/17 22:00 02/21/17 21:49 Hibiclens For Decolonization - TP 1 applic HS BRITTANIE Administration Folic Acid 1 mg 02/22/17 10:00 Folic Acid - PO DAILY BRITTANIE Nafcillin Sodium 2 gm/ 100 mls @ 100 mls/hr 02/22/17 02:00 02/22/17 05:15 Dextrose IVPB 100 mls/hr Q4H-IV BRITTANIE Administration Protocol Potassium Chloride 10 meq in 100 mls @ 100 mls/hr 02/22/17 07:45 02/22/17 07: 59 Potassium Chloride 10 Meq Premix Ivpb - IVPB 02/22/17 10:44 100 mls/hr Q60M BRITTANIE Administration Lactulose 20 gm 02/21/17 18:00 02/22/17 05:15 Cephulac (Oral Use) PO 20 gm Q6HPO RBITTANIE Administration Morphine Sulfate 2 mg 02/21/17 12:31 02/21/17 23:35 Morphine Injection - IVPUSH 2 mg Q6H PRN Administration PAIN Mupirocin 1 applic 02/21/17 22:00 02/21/17 22:04 Bactroban Ointment (For Decolonization) - NS 02/24/17 09:59 1 applic BID BRITTANIE Administration Pantoprazole Sodium 40 mg 02/21/17 22:00 02/21/17 22:04 Protonix - PO 40 mg BID BRITTANIE Administration Potassium Phos/Sodium Phos 1 packet 02/22/17 08:15 Phos-Nak Packet - PO 02/22/17 08:16 ONCE ONE Potassium Phos/Sodium Phos 3 packet 02/22/17 11:00 Phos-Nak Packet - PO 02/22/17 11:01 ONCE ONE Rifaximin 550 mg 02/21/17 22:00 02/21/17 22:04 Xifaxan - PO 550 mg BID BRITTANIE Administration Thiamine HCl 100 mg 02/22/17 10:00 Vitamin B1 - PO DAILY [facility] ASSESSMENT/PLAN: 41 year old male with history of ETOH related liver cirrhosis presenting with hypotension and generalized weakness concerning for acutely decompensated liver failure in the setting of probable sepsis 2/2 to MSSA bacteremia of unknown original source with persistently positive blood cultures. Neuro: #AMS: patient AOx2 but more lethargic - Will decrease lactulose, however as he is having diarrhea. Goal 2-3 BMs daily - Rifaximin - Ammona 20s #Pain: complainign of back and abdominal pain - Morphine 2 Mg q6hr used cautiously because of his lethargy # ETOH abuse: last drink was a few months ago per patient - Librium 25 MG Q6 Hr PRN added - Will monitor for signs of withdrawal CV: # Hypotension: Likely a distributive + hypovolemic shock 2/2 sepsis in the setting of low oncotic pressure for liver disease. No pressers required. - continue fluid bolus PRN - No maintenance fluid needed - lactic acidosis resolved #Troponemia: Likely due to low perfusion state. Echo demonstrating trace MR/ TR. Peaked at 2.54, repeat was 1.5 yesterday. Likely due to liver path and demand. Pulm: although CXR clear, patient could have PNA given recent cough. - Can repeat CXR if desating or productive cough GI: # Decompensated liver cirrhosis: Patient current MS altered but without ascites , asterixis, or obvious bleeding. Abdominal US demonstrating patent Portal Venous system. Ct not demonstrating any ascites. - Continue to monitor LFTS - direct bili elevated - MELD 27 with 19.6% chance of 3 month mortality - ABX per ID section - Thiamine/ folate Renal: #YARIEL: Resolving - Amada SEARS'd ID: Unclear source of infection but suspected skin source given below. Lactic acidosis resolved - repeat CXR clear - Ceftriaxone switched to Nafcillin by ID for MSSA but Cipro may be better choice given sensitivity results or even Vancomycin because of morbidities - MSSA growing in BCx, Repeat cultures positive but pending final organism, results - Lumbar and Thoracic spine MRI show no discitis or osteomyelitis - DARRIAN likely indicated but will need EGD first (Manolo will schedule him for one (Saturday) Heme: #Thrombocytopenia: - Platelets appropriate - replete if <20 #Coagulopathy: INR slightly increased - Vitamin K 5 PO x 1 more day. FEN: - NS bolus - Regular diet - replete Phos and K (30 k phos IV and 40 Kdur) - Mag supratherapeutic PPX: - Thrombocytopenic - PPI - SCDs Dispo: - Lactic acidosis resolved - Needs elucidation of source of infection - troponins likely non-cardiac - Will transfer to med surg Visit type - Emergency Visit Emergency Visit: No - New Patient This patient is new to me today: No - Critical Care Critical Care patient: Yes Total Critical Care Time (in minutes): 35 Critical Care Statement: The care of this patient involved high complexity decision making to prevent further life threatening deterioration of the patient 's condition and/or to evaluate & treat vital organ system(s) failure or risk of failure. - Discharge Referral Referred to [facility] Med P.C.: No
[2017-02-22] MEDS ORDERED: NAPH,MB-DB/K PH,MBDB POWDER PACKET PO ONE ×2 (08:15→11:00)
[2017-02-22] MEDS: morphine CARPU-JECT 10 MG/1 ML DISP.SYRIN IVPUSH PRN (08:55)
[2017-02-22] MEDS: FOLIC ACID 1 MG TABLET (FP) PO SCH (09:02)
[2017-02-22] MEDS: MUPIROCIN 2% TOPICAL OINTMENT FOR DECOLONIZATION NS SCH ×2 (09:02→21:07)
[2017-02-22] MEDS: RIFAXIMIN 550 MG TABLET (UD) PO SCH ×2 (09:03→21:14)
[2017-02-22] MEDS: PANTOPRAZOLE 40 MG TABLET (FP) PO SCH ×2 (09:03→21:14)
[2017-02-22] MEDS: THIAMINE HCL 100 MG TABLET (FP) PO SCH (09:03)
[2017-02-22] MEDS ORDERED: POTASSIUM PHOSPHATE 30 MM in SODIUM CHLORIDE 250 ML IVPB ONE (10:00)
--- NOTE | 2017-02-22 10:50 | PN ---
Teaching Attending Note Name of Resident: Kota Terrazas ATTENDING PHYSICIAN STATEMENT I saw and evaluated the patient. I reviewed the resident's note and discussed the case with the resident. I agree with the resident's findings and plan as documented. SUBJECTIVE: Patient seen and examined in the ICU. Sleepy but easily arousable. Still with some back pain. MRI does not reveal a focus of infection. Denies CP or SOB. Intake & Output 02/19/17 02/20/17 02/21/17 02/22/17 23:59 23:59 23:59 23:59 Intake Total 200 4450 3750 800 Output Total 2900 3200 2700 900 Balance -2700 1250 1050 -100 Weight 255 lb 8 oz 260 lb 8 oz 269 lb Last Vital Signs Temp Pulse Resp BP Pulse Ox 99.4 F 98 H 22 145/80 98 02/22/17 08:07 02/22/17 10:00 02/22/17 10:00 02/22/17 10:00 02/22/17 07:36 Active Medications Chlorhexidine Gluconate (Hibiclens For Decolonization -) 1 applic TP HS BRITTANIE Last Admin: 02/21/17 21:49 Dose: 1 applic Folic Acid (Folic Acid -) 1 mg PO DAILY BRITTANIE Last Admin: 02/22/17 09:02 Dose: 1 mg Nafcillin Sodium 2 gm/ (Dextrose) 100 mls @ 100 mls/hr IVPB Q4H-IV BRITTANIE PRN Reason: Protocol Last Admin: 02/22/17 09:03 Dose: 100 mls/hr Potassium Phosphate 30 mm/ (Sodium Chloride) 260 mls @ 62.5 mls/hr IVPB ONCE ONE Stop: 02/22/17 14:09 Last Admin: 02/22/17 10:32 Dose: 62.5 mls/hr Lactulose (Cephulac (Oral Use)) 20 gm PO Q6HPO BRITTANIE Last Admin: 02/22/17 05:15 Dose: 20 gm Morphine Sulfate (Morphine Injection -) 2 mg IVPUSH Q6H PRN PRN Reason: PAIN Last Admin: 02/22/17 08:55 Dose: 2 mg Mupirocin (Bactroban Ointment (For Decolonization) -) 1 applic NS BID BRITTANIE Stop: 02/24/17 09:59 Last Admin: 02/22/17 09:02 Dose: 1 applic Pantoprazole Sodium (Protonix -) 40 mg PO BID [facility] Last Admin: 02/22/17 09:03 Dose: 40 mg Potassium Chloride (K-Dur -) 40 meq PO ONCE ONE Stop: 02/22/17 22:01 Rifaximin (Xifaxan -) 550 mg PO BID [facility] Last Admin: 02/22/17 09:03 Dose: 550 mg Thiamine HCl (Vitamin B1 -) 100 mg PO DAILY [facility] Last Admin: 02/22/17 09:03 Dose: 100 mg Gen: Sleepy but easily arousable, NAD Heart: RRR Lung: decreased breath sounds at the bases Abd: soft, nontender Ext: + edema Laboratory Results - last 24 hr 02/22/17 02/22/17 02/22/17 06:10 06:10 06:10 WBC 10.4 H RBC 3.09 L Hgb 11.3 L Hct 32.4 L MCV 104.8 H MCH 36.5 H MCHC 34.8 RDW 17.4 H Plt Count 60 L D MPV 11.3 H PT with INR 27.40 H INR 2.42 H PTT (Actin FS) 46.8 H Sodium 135 L Potassium 2.9 L* Chloride 104 Carbon Dioxide 19 L Anion Gap 12 BUN 17 Creatinine 1.1 Creat Clearance w eGFR > 60 Random Glucose 154 H D Calcium 7.3 L Phosphorus 1.5 L Magnesium 2.3 Total Bilirubin 10.3 H D AST 59 H ALT 28 Alkaline Phosphatase 142 H Ammonia Total Protein 6.2 L Albumin 1.8 L 02/22/17 09:25 WBC RBC Hgb Hct MCV MCH MCHC RDW Plt Count MPV PT with INR INR PTT (Actin FS) Sodium Potassium Chloride Carbon Dioxide Anion Gap BUN Creatinine Creat Clearance w eGFR Random Glucose Calcium Phosphorus Magnesium Total Bilirubin AST ALT Alkaline Phosphatase Ammonia 21.49 Total Protein Albumin ASSESSMENT AND PLAN: MSSA Bacteremia Severe Sepsis Lactic Acidosis Acute Kidney Injury +Troponins likely Demand Ischemia Liver Cirrhosis/Advanced Liver Disease h/o Alcohol Abuse Coagulopathy Thrombocytopenia - ABX per ID - monitor urine output, creatinine - May need DARRIAN if persistent (+) blood cultures - Normal transfusion thresholds - vitamin K - monitor LFTs - replete lytes - PO as tolerated - VTE prophylaxis - Floor - Xifaxan - Decolonization Dr Valderrama Critical care time spent in reviewing chart, evaluating patient and formulating plan 38 min
--- NOTE | 2017-02-22 12:37 | PN ---
Progress Note (short form) - Note Progress Note: Received DARRIAN consult request from housestaff. Patient has been seen by Dr. Mcallister 02/21/2016, please contact him with request, spoke with housestaff. Please recall as needed.
--- NOTE | 2017-02-22 13:50 | PN ---
Progress Note, Physician History of Present Illness: Lethargy is more pronounced this am. Easily arousable. No events. Not in distress. MRI negtive for osteomyelitis. Bili is going up. - Current Medication List Current Medications: Active Medications Chlorhexidine Gluconate (Hibiclens For Decolonization -) 1 applic TP HS [facility] Last Admin: 02/21/17 21:49 Dose: 1 applic Folic Acid (Folic Acid -) 1 mg PO DAILY [facility] Last Admin: 02/22/17 09:02 Dose: 1 mg Nafcillin Sodium 2 gm/ (Dextrose) 100 mls @ 100 mls/hr IVPB Q4H-IV BRITTANIE PRN Reason: Protocol Last Admin: 02/22/17 09:03 Dose: 100 mls/hr Potassium Phosphate 30 mm/ (Sodium Chloride) 260 mls @ 62.5 mls/hr IVPB ONCE ONE Stop: 02/22/17 14:09 Last Admin: 02/22/17 10:32 Dose: 62.5 mls/hr Lactulose (Cephulac (Oral Use)) 20 gm PO TID [facility] Morphine Sulfate (Morphine Injection -) 2 mg IVPUSH Q6H PRN PRN Reason: PAIN Last Admin: 02/22/17 08:55 Dose: 2 mg Mupirocin (Bactroban Ointment (For Decolonization) -) 1 applic NS BID [facility] Stop: 02/24/17 09:59 Last Admin: 02/22/17 09:02 Dose: 1 applic Pantoprazole Sodium (Protonix -) 40 mg PO BID [facility] Last Admin: 02/22/17 09:03 Dose: 40 mg Potassium Chloride (K-Dur -) 40 meq PO ONCE ONE Stop: 02/22/17 22:01 Rifaximin (Xifaxan -) 550 mg PO BID [facility] Last Admin: 02/22/17 09:03 Dose: 550 mg Thiamine HCl (Vitamin B1 -) 100 mg PO DAILY [facility] Last Admin: 02/22/17 09:03 Dose: 100 mg - Objective Vital Signs: Vital Signs Temperature 98.5 F 02/22/17 12:26 Pulse Rate 100 H 02/22/17 12:00 Respiratory Rate 21 02/22/17 12:00 Blood Pressure 162/85 02/22/17 12:00 O2 Sat by Pulse Oximetry (%) 98 02/22/17 07:36 Eyes: Yes: Sclera Icterus Neurological: Yes: Lethargy Labs: CBC, BMP 02/22/17 06:10 02/22/17 12:50 INR, PTT INR 2.42 (0.82-1.09) H 02/22/17 06:10 Laboratory Results - last 24 hr 02/22/17 02/22/17 02/22/17 06:10 06:10 06:10 WBC 10.4 H RBC 3.09 L Hgb 11.3 L Hct 32.4 L MCV 104.8 H MCH 36.5 H MCHC 34.8 RDW 17.4 H Plt Count 60 L D MPV 11.3 H PT with INR 27.40 H INR 2.42 H PTT (Actin FS) 46.8 H Sodium 135 L Potassium 2.9 L* Chloride 104 Carbon Dioxide 19 L Anion Gap 12 BUN 17 Creatinine 1.1 Creat Clearance w eGFR > 60 Random Glucose 154 H D Calcium 7.3 L Phosphorus 1.5 L Magnesium 2.3 Total Bilirubin 10.3 H D AST 59 H ALT 28 Alkaline Phosphatase 142 H Ammonia Total Protein 6.2 L Albumin 1.8 L 02/22/17 02/22/17 09:25 12:50 WBC RBC Hgb Hct MCV MCH MCHC RDW Plt Count MPV PT with INR INR PTT (Actin FS) Sodium Potassium 3.6 D Chloride Carbon Dioxide Anion Gap BUN Creatinine Creat Clearance w eGFR Random Glucose Calcium Phosphorus Magnesium Total Bilirubin AST ALT Alkaline Phosphatase Ammonia 21.49 Total Protein Albumin Assessment/Plan A 41 yom with advanced alcoholic liver disease, w/o ascites, with encephalopathy. Leukocytosis, fever and positive blood cultures. ?source of infection. MRI spine negative. Has lactulose-related diarrhea. Continue Lactulose Low salt diet Fluid restriction, unless sepsis HbsAb EGD for esophageal varices surveillance prior to DARRIAN. Prognosis poor.
--- NOTE | 2017-02-22 16:19 | PN ---
Physical Exam: SUBJECTIVE: Patient seen and examined in the ICU. Awake, answers questions, then falls back to sleep between conversation. Denies pain or discomfort. OBJECTIVE: Repeat BC shows pending organism: DARRIAN ordered Cardiology following Ammonia levels stable K. 2.9, 3 k riders ordered, repeat labs this afternoon>k. 3.6 Vital Signs Period Temp Pulse Resp BP Sys/Barriga Pulse Ox Last 24 Hr 98.4 F-100.2 F 86-100 17-23 125-162/76-92 98-98 GENERAL: The patient is awake, lethargic, able to answer questions appropriately , lethargic HEAD: Normal with no signs of trauma. EYES: PERRL, extraocular movements intact, sclera anicteric, conjunctiva clear. No ptosis. ENT: Ears normal, nares patent, oropharynx clear without exudates, moist mucous membranes. NECK: Trachea midline, full range of motion, supple. LUNGS: Breath sounds equal anteriorly HEART: Regular rate and rhythm ABDOMEN: soft, mildly distended, no pain EXTREMITIES: bilateral LE non pitting edema, upper ext. with non pitting edema NEUROLOGICAL: Normal speech, gait not observed. SKIN: Warm, dry, normal turgor, no rashes or lesions noted Laboratory Results - last 24 hr 02/22/17 02/22/17 02/22/17 06:10 06:10 06:10 WBC 10.4 H RBC 3.09 L Hgb 11.3 L Hct 32.4 L MCV 104.8 H MCH 36.5 H MCHC 34.8 RDW 17.4 H Plt Count 60 L D MPV 11.3 H PT with INR 27.40 H INR 2.42 H PTT (Actin FS) 46.8 H Sodium 135 L Potassium 2.9 L* Chloride 104 Carbon Dioxide 19 L Anion Gap 12 BUN 17 Creatinine 1.1 Creat Clearance w eGFR > 60 Random Glucose 154 H D Calcium 7.3 L Phosphorus 1.5 L Magnesium 2.3 Total Bilirubin 10.3 H D AST 59 H ALT 28 Alkaline Phosphatase 142 H Ammonia Total Protein 6.2 L Albumin 1.8 L 02/22/17 02/22/17 09:25 12:50 WBC RBC Hgb Hct MCV MCH MCHC RDW Plt Count MPV PT with INR INR PTT (Actin FS) Sodium Potassium 3.6 D Chloride Carbon Dioxide Anion Gap BUN Creatinine Creat Clearance w eGFR Random Glucose Calcium Phosphorus Magnesium Total Bilirubin AST ALT Alkaline Phosphatase Ammonia 21.49 Total Protein Albumin Active Medications Generic Name Dose Route Start Last Admin Trade Name Freq PRN Reason Stop Dose Admin Chlorhexidine Gluconate 1 applic 02/21/17 22:00 02/21/17 21:49 Hibiclens For Decolonization - TP 1 applic HS BRITTANIE Administration Folic Acid 1 mg 02/22/17 10:00 02/22/17 09:02 Folic Acid - PO 1 mg DAILY BRITTANIE Administration Nafcillin Sodium 2 gm/ 100 mls @ 100 mls/hr 02/22/17 02:00 02/22/17 13:47 Dextrose IVPB 100 mls/hr Q4H-IV BRITTANIE Administration Protocol Lactulose 20 gm 02/22/17 14:00 02/22/17 13:47 Cephulac (Oral Use) PO 20 gm TID BRITTANIE Administration Morphine Sulfate 2 mg 02/21/17 12:31 02/22/17 08:55 Morphine Injection - IVPUSH 2 mg Q6H PRN Administration PAIN Mupirocin 1 applic 02/21/17 22:00 02/22/17 09:02 Bactroban Ointment (For Decolonization) - NS 02/24/17 09:59 1 applic BID BRITTANIE Administration Pantoprazole Sodium 40 mg 02/21/17 22:00 02/22/17 09:03 Protonix - PO 40 mg BID BRITTANIE Administration Potassium Chloride 40 meq 02/22/17 22:00 K-Dur - PO 02/22/17 22:01 ONCE ONE Rifaximin 550 mg 02/21/17 22:00 02/22/17 09:03 Xifaxan - PO 550 mg BID BRITTANIE Administration Thiamine HCl 100 mg 02/22/17 10:00 02/22/17 09:03 Vitamin B1 - PO 100 mg DAILY BRITTANIE Administration ASSESSMENT/PLAN: Patient is a 41 year old male with a significant past medical history of ETOH abuse. He presents to the ED on 02/20/2016 with fever, hyponatremia and alcoholic cirrhosis. Imaging: Lumbar and Thoracic spine MRI show no discitis or osteomyelitis, no acute pathology. Psyche: ETOH abuse, chronic Alcoholic cirrhosis, chronic On rifaximin, Lactulose Monitor liver function, INR No withdrawals on exam but lethargic at times Metabolic encephalopathy in the setting of chronic ETOH abuse vs. sepsis Was on Vancomycin as per ID, switched to Nafcillin by ID for MSSA Monitor electrolytes Monitor mental status WBC stable tmax 100.2 Ammonia levels checked, stable ID: Bacteremia Severe sepsis, mssa growing in blood culures, repeat cultures pending organism + blood cultures> staph aureus, repeat blood cultures pending organism DARRIAN ordered Fever and tachycardia on admission, mild tachycardia now, Tmax 100.2f Chest xray negative Cardiology: Troponins peaked at 2.54. Cardiology consulted, notes reviewed DARRIAN ordered for + blood cultures Muscular/Skeletal: Back pain and leg pain MRI lumbar/throracic spine no acute pathology Morphine prn Heme: Thrombocytopenia, likley chronic, improving Monitor in the setting of abstinence of alcohol CBC daily Renal YARIEL, resolved Monitor creatinine FEN Fluids: Tolerating PO Electrolyes: monitor/replete, hypokalemic @ 2.9, 3 runs of K, Repeat K stable, hyponatremia mild Nutrition: regular diet Prophylaxis: DVT: SCDs, no a/c secondary to thrombocytopenia GI: Protonix Dispo: full code Visit type - Emergency Visit Emergency Visit: Yes ED Registration Date: 02/19/17 Care time: The patient presented to the Emergency Department on the above date and was hospitalized for further evaluation of their emergent condition. - New Patient This patient is new to me today: No - Critical Care Critical Care patient: Yes Total Critical Care Time (in minutes): 60 Critical Care Statement: The care of this patient involved high complexity decision making to prevent further life threatening deterioration of the patient 's condition and/or to evaluate & treat vital organ system(s) failure or risk of failure. - Discharge Referral Referred to [facility] Med P.C.: No
--- NOTE | 2017-02-22 20:27 | PN ---
Progress Note, Physician History of Present Illness: looking more better awake and alert some discomfort back pain still there - Current Medication List Current Medications: Active Medications Chlorhexidine Gluconate (Hibiclens For Decolonization -) 1 applic TP HS [facility] Last Admin: 02/21/17 21:49 Dose: 1 applic Folic Acid (Folic Acid -) 1 mg PO DAILY [facility] Last Admin: 02/22/17 09:02 Dose: 1 mg Nafcillin Sodium 2 gm/ (Dextrose) 100 mls @ 100 mls/hr IVPB Q4H-IV BRITTANIE PRN Reason: Protocol Last Admin: 02/22/17 17:13 Dose: 100 mls/hr Lactulose (Cephulac (Oral Use)) 20 gm PO TID [facility] Last Admin: 02/22/17 13:47 Dose: 20 gm Morphine Sulfate (Morphine Injection -) 2 mg IVPUSH Q6H PRN PRN Reason: PAIN Last Admin: 02/22/17 08:55 Dose: 2 mg Mupirocin (Bactroban Ointment (For Decolonization) -) 1 applic NS BID [facility] Stop: 02/24/17 09:59 Last Admin: 02/22/17 09:02 Dose: 1 applic Pantoprazole Sodium (Protonix -) 40 mg PO BID [facility] Last Admin: 02/22/17 09:03 Dose: 40 mg Potassium Chloride (K-Dur -) 40 meq PO ONCE ONE Stop: 02/22/17 22:01 Rifaximin (Xifaxan -) 550 mg PO BID [facility] Last Admin: 02/22/17 09:03 Dose: 550 mg Thiamine HCl (Vitamin B1 -) 100 mg PO DAILY [facility] Last Admin: 02/22/17 09:03 Dose: 100 mg - Objective Vital Signs: Vital Signs Temperature 98.2 F 02/22/17 18:53 Pulse Rate 92 H 02/22/17 18:53 Respiratory Rate 18 02/22/17 18:53 Blood Pressure 126/70 02/22/17 18:53 O2 Sat by Pulse Oximetry (%) 98 02/22/17 07:36 Constitutional: Yes: Calm, Mild Distress Eyes: Yes: Conjunctiva Clear Cardiovascular: Yes: Regular Rate and Rhythm Respiratory: Yes: Regular, CTA Bilaterally Gastrointestinal: Yes: Normal Bowel Sounds, Soft, Other Musculoskeletal: Yes: Back Pain Extremities: Yes: WNL Neurological: Yes: Alert Psychiatric: Yes: Alert Labs: CBC, BMP 02/22/17 06:10 02/22/17 12:50 INR, PTT INR 2.42 (0.82-1.09) H 02/22/17 06:10 - ....Imaging MRI: Report Reviewed, Image Reviewed Assessment/Plan Problem List - Problems (1) Alcoholic cirrhosis of liver Code(s): K70.30 - ALCOHOLIC CIRRHOSIS OF LIVER WITHOUT ASCITES Qualifiers: Ascites presence: without ascites Qualified Code(s): K70.30 - Alcoholic cirrhosis of liver without ascites (2) Hepatic encephalopathy Code(s): K72.90 - HEPATIC FAILURE, UNSPECIFIED WITHOUT COMA (3) Renal failure Code(s): N19 - UNSPECIFIED KIDNEY FAILURE Qualifiers: Renal failure chronicity: acute Acute renal failure type: unspecified Qualified Code(s): N17.9 - Acute kidney failure, unspecified (4) Sepsis Code(s): A41.9 - SEPSIS, UNSPECIFIED ORGANISM Qualifiers: Sepsis type: sepsis due to unspecified organism Qualified Code(s): A41.9 - Sepsis, unspecified organism (5) Thrombocytopenia Code(s): D69.6 - THROMBOCYTOPENIA, UNSPECIFIED 6 gm positive bactermia Assessment/Plan ASSESS: This is a 41 y/o man, Et-OH cirrhotic who presents now w/ Liver fail, renal fail, HE, & Sepsis m/l PNA vs SBP vs PVT imaging studies noted will have to figure out the source of bacteria repeat cx are positive plan cx result noted switched to nafcillin close watch rest continue current mgmt continuos blood cx follow up cc time 40 min
[2017-02-22] MEDS: CHLORHEXIDINE GLUCONATE 4% CLEANSER FOR DECOLONIZATION TP SCH (21:07)
[2017-02-22] MEDS ORDERED: POTASSIUM CHLORIDE TABS 20 MEQ TABLET.ER (FP) PO ONE (22:00)
[2017-02-23] MEDS: NAFCILLIN - 2 GM in DEXTROSE 5%-WATER - 100 ML IVPB SCH ×6 (02:10→22:03)
[2017-02-23] MEDS: morphine CARPU-JECT 10 MG/1 ML DISP.SYRIN IVPUSH PRN ×2 (03:15→10:03)
[2017-02-23] MEDS: LACTULOSE 20 GM/30 ML UDC (FOR ORAL USE ONLY) PO SCH ×3 (06:16→22:03)
[2017-02-23 08:35] LABS: HEMATOCRIT 30.3 % (35.4-49); MCH 35.1 pg (25.7-33.7); MCHC 32.9 g/dl (32.0-35.9); MEAN CELL VOLUME 106.4 fl (80-96); MEAN PLT VOLUME 10.8 fl (7.5-11.1); PLATELET COUNT 72 K/MM3 (134-434); RBC 2.85 M/mm3 (4.00-5.60); RDW 17.1 % (11.9-15.9); WHITE BLOOD COUNT 13.1 K/mm3 (4.0-10.0)
[2017-02-23 08:39] LABS: INR 2.69 (0.82-1.09); PROTHROMBIN TIME (PATIENT) 30.4 SEC (9.98-11.88)
[2017-02-23 09:17] LABS: ALBUMIN 1.6 g/dl (3.4-5.0); ALK PHOS 125 U/L (45-117); ANION GAP 7 (8-16); BILIRUBIN,TOTAL 11.5 mg/dL (0.2-1.0); BLOOD UREA NITROGEN 18 mg/dL (7-18); CALCIUM 7.2 mg/dL (8.5-10.1); CHLORIDE 108 mmol/L (98-107); CO2 20 mmol/L (21-32); CREATININE 1.2 mg/dL (0.7-1.3); GLUCOSE,RANDOM 93 mg/dL (74-106); MAGNESIUM 2.4 mg/dL (1.8-2.4); POTASSIUM 3.1 mmol/L (3.5-5.1); SGOT/AST 58 U/L (15-37); SGPT/ALT 26 U/L (12-78); SODIUM 135 mmol/L (136-145)
--- NOTE | 2017-02-23 09:24 | PN ---
Physical Exam: SUBJECTIVE: Patient seen and examined. OBJECTIVE: Vital Signs Period Temp Pulse Resp BP Sys/Barriga Pulse Ox Last 24 Hr 97.9 F-99.4 F 64-100 18-22 112-162/53-86 95 GENERAL: The patient is sleeping but arousable, remains lethargic. Jaundiced. LUNGS: Breath sounds equal, clear to auscultation bilaterally, no wheezes, no crackles, no accessory muscle use. HEART: Regular rate and rhythm, S1, S2 without murmur, rub or gallop. ABDOMEN: Distended. EXTREMITIES: 2+ pulses, warm, well-perfused, no edema. NEUROLOGICAL: Cranial nerves II through XII grossly intact. Normal speech, gait not observed. Laboratory Results - last 24 hr 02/22/17 02/22/17 02/23/17 09:25 12:50 07:00 WBC 13.1 H RBC 2.85 L Hgb 10.0 L D Hct 30.3 L MCV 106.4 H MCH 35.1 H MCHC 32.9 RDW 17.1 H Plt Count 72 L MPV 10.8 Neutrophils % No Result Required. Lymphocytes % No Result Required. Sodium Potassium 3.6 D Chloride Carbon Dioxide Anion Gap BUN Creatinine Creat Clearance w eGFR Random Glucose Calcium Magnesium Total Bilirubin AST ALT Alkaline Phosphatase Ammonia 21.49 Total Protein Albumin 02/23/17 07:00 WBC RBC Hgb Hct MCV MCH MCHC RDW Plt Count MPV Neutrophils % Lymphocytes % Sodium 135 L Potassium 3.1 L Chloride 108 H Carbon Dioxide 20 L Anion Gap 7 L BUN 18 Creatinine 1.2 Creat Clearance w eGFR > 60 Random Glucose 93 D Calcium 7.2 L Magnesium 2.4 Total Bilirubin 11.5 H AST 58 H ALT 26 Alkaline Phosphatase 125 H Ammonia Total Protein 6.0 L Albumin 1.6 L Active Medications Generic Name Dose Route Start Last Admin Trade Name Freq PRN Reason Stop Dose Admin Folic Acid 1 mg 02/22/17 10:00 02/22/17 09:02 Folic Acid - PO 1 mg DAILY BRITTANIE Administration Nafcillin Sodium 2 gm/ 100 mls @ 100 mls/hr 02/22/17 02:00 02/23/17 06:16 Dextrose IVPB 100 mls/hr Q4H-IV BRITTANIE Administration Protocol Lactulose 20 gm 02/22/17 14:00 02/23/17 06:16 Cephulac (Oral Use) PO 20 gm TID BRITTANIE Administration Morphine Sulfate 2 mg 02/21/17 12:31 02/23/17 03:15 Morphine Injection - IVPUSH 2 mg Q6H PRN Administration PAIN Pantoprazole Sodium 40 mg 02/21/17 22:00 02/22/17 21:14 Protonix - PO 40 mg BID BRITTANIE Administration Rifaximin 550 mg 02/21/17 22:00 02/22/17 21:14 Xifaxan - PO 550 mg BID BRITTANIE Administration Thiamine HCl 100 mg 02/22/17 10:00 02/22/17 09:03 Vitamin B1 - PO 100 mg DAILY BRITTANIE Administration ASSESSMENT/PLAN: 41 year-old male with a PMH significant for alcohol abuse (last detoxed 11/2016 ) admitted for severe sepsis and bacteremia. Alcoholic cirrhosis --MELD score on admission 34, estimated 3 month mortality 52% --discriminant factor 74, steroids contraindicated due to bacteremia --Vit K x 3 doses (02/19-->02/21); INR rising 2.69 Acute alcohol withdrawal --ativan PRN Hepatic encephalopathy Hypokalemia --correct lytes --continue lactulose, rifaximin, goal 4-5BMs per day Severe Sepsis of uncertain etiology Bacteremia, unidentified source --on admission fever to 102, tachycardic to 110 --Tm100.2, WBC rising 13.2k --02/18 Blood cultures: 2/2 + MSSA --02/21 Blood cultures: 2 MSSA --no ascites on US, doubtful this is SBP --MRI imaging of lumbar and thoracic spines unrevealing for possible source --UA negative; CXR unremarkable --TTE no signs of vegetation; DARRIAN scheduled for Saturday but will need EGD for esophageal varices surveillance prior to DARRIAN Elevated troponin --likely demand ischemia --cardiology: no further workup Thrombocytopenia --improving, from gisella of 19k to 72k today Acute Renal Failure, improved --Cr 1.9 on admission, 1.2 today FEN Fluids: PO intake adequate Electrolytes: replete as indicated Nutrition: regular diet DVT prophylaxis: SCDs Dispo: continues to require inpatient care. Full code. Visit type - Emergency Visit Emergency Visit: Yes ED Registration Date: 02/19/17 Care time: The patient presented to the Emergency Department on the above date and was hospitalized for further evaluation of their emergent condition. - New Patient This patient is new to me today: No - Critical Care Critical Care patient: Yes Total Critical Care Time (in minutes): 40 Critical Care Statement: The care of this patient involved high complexity decision making to prevent further life threatening deterioration of the patient 's condition and/or to evaluate & treat vital organ system(s) failure or risk of failure.
[2017-02-23] MEDS: RIFAXIMIN 550 MG TABLET (UD) PO SCH ×2 (09:59→22:03)
[2017-02-23] MEDS: THIAMINE HCL 100 MG TABLET (FP) PO SCH (09:59)
[2017-02-23] MEDS: PANTOPRAZOLE 40 MG TABLET (FP) PO SCH ×2 (09:59→22:03)
[2017-02-23] MEDS: FOLIC ACID 1 MG TABLET (FP) PO SCH (09:59)
--- NOTE | 2017-02-23 10:04 | PN ---
Progress Note, Physician History of Present Illness: Pt seen and examined. Events noted. He is lethargic but arousable/verbally responsive. Denies chest pain, shortness of breath, cough, abd pain/n/v/d, dysuria. - Current Medication List Current Medications: Active Medications Folic Acid (Folic Acid -) 1 mg PO DAILY [facility] Last Admin: 02/22/17 09:02 Dose: 1 mg Nafcillin Sodium 2 gm/ (Dextrose) 100 mls @ 100 mls/hr IVPB Q4H-IV BRITTANIE PRN Reason: Protocol Last Admin: 02/23/17 06:16 Dose: 100 mls/hr Lactulose (Cephulac (Oral Use)) 20 gm PO TID BRITTANIE Last Admin: 02/23/17 06:16 Dose: 20 gm Morphine Sulfate (Morphine Injection -) 2 mg IVPUSH Q6H PRN PRN Reason: PAIN Last Admin: 02/23/17 03:15 Dose: 2 mg Pantoprazole Sodium (Protonix -) 40 mg PO BID [facility] Last Admin: 02/22/17 21:14 Dose: 40 mg Rifaximin (Xifaxan -) 550 mg PO BID [facility] Last Admin: 02/22/17 21:14 Dose: 550 mg Thiamine HCl (Vitamin B1 -) 100 mg PO DAILY [facility] Last Admin: 02/22/17 09:03 Dose: 100 mg - Objective Vital Signs: Vital Signs Temperature 98.8 F 02/23/17 04:27 Pulse Rate 92 H 02/23/17 04:27 Respiratory Rate 20 02/23/17 04:27 Blood Pressure 128/74 02/23/17 04:27 O2 Sat by Pulse Oximetry (%) 95 02/22/17 20:28 Constitutional: Yes: No Distress Eyes: Yes: Conjunctiva Clear Neck: Yes: Supple Cardiovascular: Yes: Tachycardia Respiratory: Yes: Wheezes (Rt sided) Gastrointestinal: Yes: Normal Bowel Sounds, Soft Genitourinary: Yes: WNL Musculoskeletal: Yes: WNL Edema: Yes Edema: LLE: 2+, RLE: 2+ Peripheral Pulses WNL: Yes Neurological: Yes: Lethargy Labs: CBC, BMP 02/23/17 07:00 02/23/17 07:00 INR, PTT INR 2.69 (0.82-1.09) H 02/23/17 07:00 Microbiology 02/21/17 09:10 Blood - Peripheral Venous Blood Culture - Preliminary Staphylococcus Latex Coag Pos 02/21/17 09:10 Blood - Peripheral Venous Blood Culture - Preliminary Presumptive Mssa (Pbp2a Neg) 02/18/17 20:19 Blood - Peripheral Venous Blood Culture - Final Staphylococcus Aureus 02/18/17 19:45 Blood - Peripheral Venous Blood Culture - Final Staphylococcus Aureus Staphylococcus Aureus#2 02/18/17 20:43 Urine - Urine Clean Catch Urine Culture - Final NO GROWTH OBTAINED 02/19/17 00:50 Nasopharyngeal Swab Influenza Types A,B Antigen (CLIF) - Final 02/19/17 00:50 Nasopharyngeal Swab - Final - ....Imaging Chest X-ray: Report Reviewed (no acute infiltrates) MRI: Report Reviewed (MRI Thoracic/Lumbar spine - no finding suggestive of discitis/OM) Problem List - Problems (1) Alcoholic cirrhosis of liver Code(s): K70.30 - ALCOHOLIC CIRRHOSIS OF LIVER WITHOUT ASCITES Qualifiers: Ascites presence: without ascites Qualified Code(s): K70.30 - Alcoholic cirrhosis of liver without ascites (2) Fever Code(s): R50.9 - FEVER, UNSPECIFIED (3) Sepsis Code(s): A41.9 - SEPSIS, UNSPECIFIED ORGANISM Qualifiers: Sepsis type: sepsis due to unspecified organism Qualified Code(s): A41.9 - Sepsis, unspecified organism (4) Alcoholic liver disease Code(s): K70.9 - ALCOHOLIC LIVER DISEASE, UNSPECIFIED Assessment/Plan Persistent MSSA Bacteremia, etiology unclear as of yet Leukocytosis - wbc trending up - DARRIAN ordered - started on Nafcillin IV - repeat blood cultures/cbc daily continue close monitoring
[2017-02-23 11:52] LABS: ANISOCYTOSIS 1+; MACROCYTOSIS 1+; PLATELET ESTIMATE DECREASED
[2017-02-23 14:18] LABS: PHOSPHOROUS 2.3 mg/dL (2.5-4.9)
--- NOTE | 2017-02-23 15:44 | PN ---
Progress Note, Physician - Current Medication List Current Medications: Active Medications Folic Acid (Folic Acid -) 1 mg PO DAILY [facility] Last Admin: 02/23/17 09:59 Dose: 1 mg Nafcillin Sodium 2 gm/ (Dextrose) 100 mls @ 100 mls/hr IVPB Q4H-IV BRITTANIE PRN Reason: Protocol Last Admin: 02/23/17 11:40 Dose: 100 mls/hr Lactulose (Cephulac (Oral Use)) 20 gm PO TID [facility] Last Admin: 02/23/17 06:16 Dose: 20 gm Pantoprazole Sodium (Protonix -) 40 mg PO BID [facility] Last Admin: 02/23/17 09:59 Dose: 40 mg Potassium Chloride (K-Dur -) 40 meq PO Q6H [facility] Stop: 02/24/17 01:46 Rifaximin (Xifaxan -) 550 mg PO BID [facility] Last Admin: 02/23/17 09:59 Dose: 550 mg Thiamine HCl (Vitamin B1 -) 100 mg PO DAILY [facility] Last Admin: 02/23/17 09:59 Dose: 100 mg - Objective Vital Signs: Vital Signs Temperature 98.8 F 02/23/17 04:27 Pulse Rate 92 H 02/23/17 04:27 Respiratory Rate 20 02/23/17 09:00 Blood Pressure 128/74 02/23/17 04:27 O2 Sat by Pulse Oximetry (%) 95 02/23/17 09:00 Labs: CBC, BMP 02/23/17 07:00 02/23/17 07:00 INR, PTT INR 2.69 (0.82-1.09) H 02/23/17 07:00
[2017-02-23] MEDS ORDERED: PT OWN MED DRAWER 7, Y5N ONE (15:47)
[2017-02-23] MEDS: POTASSIUM CHLORIDE TABS 20 MEQ TABLET.ER (FP) PO SCH ×2 (17:41→23:18)
[2017-02-23] MEDS: traMADol HCL 50 MG TABLET PO PRN (18:08)
[2017-02-24] MEDS: traMADol HCL 50 MG TABLET PO PRN ×2 (00:06→21:08)
[2017-02-24] MEDS: NAFCILLIN - 2 GM in DEXTROSE 5%-WATER - 100 ML IVPB SCH ×6 (02:03→22:57)
[2017-02-24] MEDS: LACTULOSE 20 GM/30 ML UDC (FOR ORAL USE ONLY) PO SCH ×3 (05:11→22:56)
[2017-02-24] MEDS: POTASSIUM CHLORIDE TABS 20 MEQ TABLET.ER (FP) PO SCH ×3 (05:11→17:21)
[2017-02-24 08:17] LABS: HEMATOCRIT 27.5 % (35.4-49); HEMOGLOBIN 9.3 GM/dL (11.7-16.9); MCH 35.9 pg (25.7-33.7); MEAN CELL VOLUME 105.6 fl (80-96); MEAN PLT VOLUME 10.1 fl (7.5-11.1); PLATELET COUNT 79 K/MM3 (134-434); RDW 16.7 % (11.9-15.9); WHITE BLOOD COUNT 14.8 K/mm3 (4.0-10.0)
[2017-02-24 08:31] LABS: INR 2.77 (0.82-1.09); PROTHROMBIN TIME (PATIENT) 31.3 SEC (9.98-11.88)
[2017-02-24 08:45] LABS: ALBUMIN 1.5 g/dl (3.4-5.0); ANION GAP 11 (8-16); BILIRUBIN,DIRECT 7.4 mg/dL (0.0-0.2); BLOOD UREA NITROGEN 18 mg/dL (7-18); CHLORIDE 105 mmol/L (98-107); CO2 16 mmol/L (21-32); CREATININE 1.3 mg/dL (0.7-1.3); GLUCOSE,RANDOM 107 mg/dL (74-106); POTASSIUM 3.1 mmol/L (3.5-5.1); SGOT/AST 60 U/L (15-37); SGPT/ALT 25 U/L (12-78); SODIUM 132 mmol/L (136-145)
[2017-02-24 08:47] LABS: ALK PHOS 109 U/L (45-117); BILIRUBIN,TOTAL 10.4 mg/dL (0.2-1.0); BILIRUBIN,TOTAL 10.6 mg/dL (0.2-1.0); TOT PROT 5.9 g/dl (6.4-8.2)
[2017-02-24] MEDS: RIFAXIMIN 550 MG TABLET (UD) PO SCH ×2 (10:06→22:57)
[2017-02-24] MEDS: PANTOPRAZOLE 40 MG TABLET (FP) PO SCH ×2 (10:06→22:57)
[2017-02-24] MEDS: THIAMINE HCL 100 MG TABLET (FP) PO SCH (10:06)
[2017-02-24] MEDS: FOLIC ACID 1 MG TABLET (FP) PO SCH (10:06)
[2017-02-24 11:28] LABS: ANISOCYTOSIS 1+; MACROCYTOSIS 1+; PLATELET ESTIMATE DECREASED
--- NOTE | 2017-02-24 14:20 | PN ---
Progress Note, Physician History of Present Illness: Pt is alert and responsive. c/o Lt shoulder pain. Tmax 100F. - Current Medication List Current Medications: Active Medications Folic Acid (Folic Acid -) 1 mg PO DAILY [facility] Last Admin: 02/24/17 10:06 Dose: 1 mg Nafcillin Sodium 2 gm/ (Dextrose) 100 mls @ 100 mls/hr IVPB Q4H-IV BRITTANIE PRN Reason: Protocol Last Admin: 02/24/17 10:06 Dose: 100 mls/hr Lactulose (Cephulac (Oral Use)) 20 gm PO TID BRITTANIE Last Admin: 02/24/17 05:11 Dose: 20 gm Pantoprazole Sodium (Protonix -) 40 mg PO BID [facility] Last Admin: 02/24/17 10:06 Dose: 40 mg Potassium Chloride (K-Dur -) 40 meq PO Q6H [facility] Stop: 02/25/17 00:01 Potassium Phos/Sodium Phos (Phos-Nak Packet -) 1 packet PO TID [facility] Rifaximin (Xifaxan -) 550 mg PO BID [facility] Last Admin: 02/24/17 10:06 Dose: 550 mg Thiamine HCl (Vitamin B1 -) 100 mg PO DAILY [facility] Last Admin: 02/24/17 10:06 Dose: 100 mg Tramadol HCl (Ultram -) 50 mg PO Q6H PRN PRN Reason: PAIN Last Admin: 02/24/17 00:06 Dose: 50 mg - Objective Vital Signs: Vital Signs Temperature 99.0 F 02/24/17 07:05 Pulse Rate 93 H 02/24/17 11:00 Respiratory Rate 20 02/24/17 11:00 Blood Pressure 116/59 02/24/17 11:00 O2 Sat by Pulse Oximetry (%) 94 L 02/23/17 20:14 Constitutional: Yes: No Distress Cardiovascular: Yes: Regular Rate and Rhythm Respiratory: Yes: CTA Bilaterally Gastrointestinal: Yes: Normal Bowel Sounds, Soft Genitourinary: Yes: WNL Musculoskeletal: Yes: Back Pain, Other (Lt shoulder pain) Extremities: Yes: WNL Neurological: Yes: Alert, Oriented Labs: CBC, BMP 02/24/17 07:30 02/24/17 07:30 INR, PTT INR 2.77 (0.82-1.09) H 02/24/17 07:30 Microbiology 02/21/17 09:10 Blood - Peripheral Venous Blood Culture - Final Staphylococcus Aureus 02/21/17 09:10 Blood - Peripheral Venous Blood Culture - Final Staphylococcus Aureus 02/18/17 20:19 Blood - Peripheral Venous Blood Culture - Final Staphylococcus Aureus 02/18/17 19:45 Blood - Peripheral Venous Blood Culture - Final Staphylococcus Aureus Staphylococcus Aureus#2 02/18/17 20:43 Urine - Urine Clean Catch Urine Culture - Final NO GROWTH OBTAINED 02/19/17 00:50 Nasopharyngeal Swab Influenza Types A,B Antigen (CLIF) - Final 02/19/17 00:50 Nasopharyngeal Swab - Final repeat Blood culture results pending Problem List - Problems (1) Alcoholic cirrhosis of liver Code(s): K70.30 - ALCOHOLIC CIRRHOSIS OF LIVER WITHOUT ASCITES Qualifiers: Ascites presence: without ascites Qualified Code(s): K70.30 - Alcoholic cirrhosis of liver without ascites (2) Fever Code(s): R50.9 - FEVER, UNSPECIFIED (3) Sepsis Code(s): A41.9 - SEPSIS, UNSPECIFIED ORGANISM Qualifiers: Sepsis type: methicillin susceptible Staphylococcus aureus Qualified Code(s ): A41.01 - Sepsis due to Methicillin susceptible Staphylococcus aureus (4) Alcoholic liver disease Code(s): K70.9 - ALCOHOLIC LIVER DISEASE, UNSPECIFIED Assessment/Plan Persistent MSSA Bacteremia Leukocytosis - wbc trending up Lt shoulder pain - mild temperature elevation - DARRIAN pending - on Nafcillin - f/u repeat blood culture results - suggest MRI of Lt shoulder - monitor wbc, vitals
[2017-02-24] MEDS: NAPH,MB-DB/K PH,MBDB POWDER PACKET PO SCH ×2 (14:35→22:58)
--- NOTE | 2017-02-24 22:49 | PN ---
Progress Note, Physician - Current Medication List Current Medications: Active Medications Folic Acid (Folic Acid -) 1 mg PO DAILY [facility] Last Admin: 02/24/17 10:06 Dose: 1 mg Nafcillin Sodium 2 gm/ (Dextrose) 100 mls @ 100 mls/hr IVPB Q4H-IV BRITTANIE PRN Reason: Protocol Last Admin: 02/24/17 17:18 Dose: 100 mls/hr Lactulose (Cephulac (Oral Use)) 20 gm PO TID [facility] Last Admin: 02/24/17 14:34 Dose: 20 gm Pantoprazole Sodium (Protonix -) 40 mg PO BID [facility] Last Admin: 02/24/17 10:06 Dose: 40 mg Potassium Chloride (K-Dur -) 40 meq PO Q6H BRITTANIE Stop: 02/25/17 00:01 Last Admin: 02/24/17 17:21 Dose: 40 meq Potassium Phos/Sodium Phos (Phos-Nak Packet -) 1 packet PO TID [facility] Last Admin: 02/24/17 14:35 Dose: 1 packet Rifaximin (Xifaxan -) 550 mg PO BID [facility] Last Admin: 02/24/17 10:06 Dose: 550 mg Thiamine HCl (Vitamin B1 -) 100 mg PO DAILY [facility] Last Admin: 02/24/17 10:06 Dose: 100 mg Tramadol HCl (Ultram -) 50 mg PO Q6H PRN PRN Reason: PAIN Last Admin: 02/24/17 21:08 Dose: 50 mg - Objective Vital Signs: Vital Signs Temperature 99.1 F 02/24/17 18:00 Pulse Rate 92 H 02/24/17 18:00 Respiratory Rate 19 02/24/17 18:00 Blood Pressure 134/70 02/24/17 18:00 O2 Sat by Pulse Oximetry (%) 94 L 02/23/17 20:14 Labs: CBC, BMP 02/24/17 07:30 02/24/17 07:30 INR, PTT INR 2.77 (0.82-1.09) H 02/24/17 07:30
[2017-02-24] MEDS ORDERED: PT OWN MED DRAWER 7, Y5N ONE (22:55)
[2017-02-25] MEDS ORDERED: PT OWN MED DRAWER 7, Y5N ONE ×7 (00:25→21:51)
[2017-02-25] MEDS: POTASSIUM CHLORIDE TABS 20 MEQ TABLET.ER (FP) PO SCH (00:30)
--- NOTE | 2017-02-25 00:48 | PN ---
Physical Exam: SUBJECTIVE: Patient seen and examined. OBJECTIVE: Vital Signs Period Temp Pulse Resp BP Sys/Barriga Pulse Ox Last 24 Hr 99.0 F-99.8 F 84-93 18-20 116-142/59-74 94 GENERAL: The patient is sleeping but arousable. More conversational. Voice steady. Jaundiced. LUNGS: Breath sounds equal, clear to auscultation bilaterally, no wheezes, no crackles, no accessory muscle use. HEART: Regular rate and rhythm, S1, S2 without murmur, rub or gallop. ABDOMEN: Distended. EXTREMITIES: 2+ pulses, warm, well-perfused, no edema. NEUROLOGICAL: Cranial nerves II through XII grossly intact. Normal speech, gait not observed. Laboratory Results - last 24 hr 02/24/17 02/24/17 02/24/17 07:30 07:30 07:30 WBC 14.8 H RBC 2.60 L Hgb 9.3 L Hct 27.5 L MCV 105.6 H MCH 35.9 H MCHC 34.0 RDW 16.7 H Plt Count 79 L MPV 10.1 Neutrophils % No Result Required. Neutrophils % (Manual) 78.4 Band Neutrophils % 2.9 Lymphocytes % No Result Required. Lymphocytes % (Manual) 4.9 L Monocytes % (Manual) 7 Eosinophils % (Manual) 0.0 D Basophils % (Manual) 0.0 Myelocytes % (Man) 4 H D Metamyelocytes 2 D Hypochromia 1+ Platelet Estimate Decreased Polychromasia 1+ Poikilocytosis 1+ Anisocytosis 1+ Microcytosis 0 Macrocytosis 1+ PT with INR 31.30 H INR 2.77 H Sodium 132 L Potassium 3.1 L Chloride 105 Carbon Dioxide 16 L Anion Gap 11 BUN 18 Creatinine 1.3 Creat Clearance w eGFR > 60 Random Glucose 107 H Calcium 7.0 L Phosphorus 2.0 L Magnesium 2.0 Total Bilirubin 10.4 H Direct Bilirubin AST 60 H ALT 25 Alkaline Phosphatase 109 Total Protein 6.0 L Albumin 1.5 L 02/24/17 07:30 WBC RBC Hgb Hct MCV MCH MCHC RDW Plt Count MPV Neutrophils % Neutrophils % (Manual) Band Neutrophils % Lymphocytes % Lymphocytes % (Manual) Monocytes % (Manual) Eosinophils % (Manual) Basophils % (Manual) Myelocytes % (Man) Metamyelocytes Hypochromia Platelet Estimate Polychromasia Poikilocytosis Anisocytosis Microcytosis Macrocytosis PT with INR INR Sodium Potassium Chloride Carbon Dioxide Anion Gap BUN Creatinine Creat Clearance w eGFR Random Glucose Calcium Phosphorus Magnesium Total Bilirubin 10.6 H Direct Bilirubin 7.4 H D AST 58 H ALT 24 Alkaline Phosphatase 111 Total Protein 5.9 L Albumin 1.5 L Active Medications Generic Name Dose Route Start Last Admin Trade Name Freq PRN Reason Stop Dose Admin Folic Acid 1 mg 02/22/17 10:00 02/24/17 10:06 Folic Acid - PO 1 mg DAILY BRITTANIE Administration Nafcillin Sodium 2 gm/ 100 mls @ 100 mls/hr 02/22/17 02:00 02/24/17 22:57 Dextrose IVPB 100 mls/hr Q4H-IV BRITTANIE Administration Protocol Lactulose 20 gm 02/22/17 14:00 02/24/17 22:56 Cephulac (Oral Use) PO 20 gm TID BRITTANIE Administration Pantoprazole Sodium 40 mg 02/21/17 22:00 02/24/17 22:57 Protonix - PO 40 mg BID BRITTANIE Administration Potassium Phos/Sodium Phos 1 packet 02/24/17 14:00 02/24/17 22:58 Phos-Nak Packet - PO 1 packet TID BRITTANIE Administration Rifaximin 550 mg 02/21/17 22:00 02/24/17 22:57 Xifaxan - PO 550 mg BID BRITTANIE Administration Thiamine HCl 100 mg 02/22/17 10:00 02/24/17 10:06 Vitamin B1 - PO 100 mg DAILY BRITTANIE Administration Tramadol HCl 50 mg 02/23/17 17:51 02/24/17 21:08 Ultram - PO 50 mg Q6H PRN Administration PAIN ASSESSMENT/PLAN: 41 year-old male with a PMH significant for alcohol abuse (last detoxed 11/2016 ) admitted for severe sepsis and bacteremia. Alcoholic cirrhosis --MELD score on admission 34, estimated 3 month mortality 52% --discriminant factor 74, steroids contraindicated due to bacteremia --INR continues to rise after cessation of Vit K Acute alcohol withdrawal --ativan PRN Hepatic encephalopathy Hypokalemia --correct lytes --continue lactulose, rifaximin, goal 4-5 BMs per day Severe Sepsis of uncertain etiology Bacteremia, unidentified source --Tm100.0 WBC continues to trend upward --02/18 Blood cultures: 2/2 + MSSA --02/21 Blood cultures: 2/2 MSSA --02/24 Blood cultures: pending --no ascites on US, doubtful this is SBP --MRI imaging of lumbar and thoracic spines unrevealing for possible source --UA negative; CXR unremarkable --TTE no signs of vegetation --plan is for EGD Saturday to r/o varices, and DARRIAN Saturday Elevated troponin --likely demand ischemia --cardiology: no further workup Thrombocytopenia --improving, from gisella of 19k to 79k today Acute Renal Failure, improved --Cr 1.9 on admission, 1.3 today Left shoulder pain --xrays ordered FEN Fluids: PO intake adequate Electrolytes: replete as indicated Nutrition: regular diet DVT prophylaxis: SCDs Dispo: continues to require inpatient care. Full code. Visit type - Emergency Visit Emergency Visit: Yes ED Registration Date: 02/19/17 Care time: The patient presented to the Emergency Department on the above date and was hospitalized for further evaluation of their emergent condition. - New Patient This patient is new to me today: No - Critical Care Critical Care patient: No
[2017-02-25] MEDS: NAFCILLIN - 2 GM in DEXTROSE 5%-WATER - 100 ML IVPB SCH ×6 (02:09→21:56)
[2017-02-25] MEDS: traMADol HCL 50 MG TABLET PO PRN ×3 (03:27→18:10)
[2017-02-25] MEDS: LACTULOSE 20 GM/30 ML UDC (FOR ORAL USE ONLY) PO SCH ×4 (05:36→21:56)
[2017-02-25] MEDS: NAPH,MB-DB/K PH,MBDB POWDER PACKET PO SCH ×4 (05:37→21:56)
[2017-02-25] MEDS ORDERED: INSULIN (NOVOLOG) ASPART 100 UNITS/ML 10ML VIAL ONE (06:35)
[2017-02-25 07:38] LABS: HEMATOCRIT 27.2 % (35.4-49); HEMOGLOBIN 9.1 GM/dL (11.7-16.9); INR 2.79 (0.82-1.09); MCH 35.6 pg (25.7-33.7); MCHC 33.5 g/dl (32.0-35.9); MEAN CELL VOLUME 106.4 fl (80-96); MEAN PLT VOLUME 10.3 fl (7.5-11.1); PLATELET COUNT 72 K/MM3 (134-434); PROTHROMBIN TIME (PATIENT) 31.5 SEC (9.98-11.88); RBC 2.55 M/mm3 (4.00-5.60); RDW 16.2 % (11.9-15.9)
[2017-02-25 08:07] LABS: ALBUMIN 1.4 g/dl (3.4-5.0); ANION GAP 11 (8-16); BLOOD UREA NITROGEN 18 mg/dL (7-18); CHLORIDE 107 mmol/L (98-107); CO2 14 mmol/L (21-32); GLUCOSE,RANDOM 83 mg/dL (74-106); MAGNESIUM 2.1 mg/dL (1.8-2.4); POTASSIUM 3.3 mmol/L (3.5-5.1); SODIUM 132 mmol/L (136-145)
[2017-02-25 08:12] LABS: ALK PHOS 112 U/L (45-117); BILIRUBIN,TOTAL 9.4 mg/dL (0.2-1.0); CREATININE 1.1 mg/dL (0.7-1.3); PHOSPHOROUS 2.7 mg/dL (2.5-4.9); SGOT/AST 58 U/L (15-37); SGPT/ALT 25 U/L (12-78)
[2017-02-25] MEDS ORDERED: PHYTONADIONE 5 MG TABLET PO ONE (10:09)
[2017-02-25] MEDS: RIFAXIMIN 550 MG TABLET (UD) PO SCH ×2 (10:55→21:56)
[2017-02-25] MEDS: THIAMINE HCL 100 MG TABLET (FP) PO SCH (10:55)
[2017-02-25] MEDS: FOLIC ACID 1 MG TABLET (FP) PO SCH (10:55)
[2017-02-25] MEDS: PANTOPRAZOLE 40 MG TABLET (FP) PO SCH ×2 (10:55→21:56)
--- NOTE | 2017-02-25 11:03 | PN ---
Progress Note, Physician History of Present Illness: Clinically improved. Awake and alert. Icteric. - Current Medication List Current Medications: Active Medications Folic Acid (Folic Acid -) 1 mg PO DAILY [facility] Last Admin: 02/24/17 10:06 Dose: 1 mg Nafcillin Sodium 2 gm/ (Dextrose) 100 mls @ 100 mls/hr IVPB Q4H-IV BRITTANIE PRN Reason: Protocol Last Admin: 02/25/17 05:37 Dose: 100 mls/hr Lactulose (Cephulac (Oral Use)) 20 gm PO TID [facility] Last Admin: 02/25/17 05:39 Dose: Not Given Pantoprazole Sodium (Protonix -) 40 mg PO BID [facility] Last Admin: 02/24/17 22:57 Dose: 40 mg Potassium Phos/Sodium Phos (Phos-Nak Packet -) 1 packet PO TID [facility] Last Admin: 02/25/17 05:39 Dose: Not Given Rifaximin (Xifaxan -) 550 mg PO BID [facility] Last Admin: 02/24/17 22:57 Dose: 550 mg Thiamine HCl (Vitamin B1 -) 100 mg PO DAILY [facility] Last Admin: 02/24/17 10:06 Dose: 100 mg Tramadol HCl (Ultram -) 50 mg PO Q6H PRN PRN Reason: PAIN Last Admin: 02/25/17 03:27 Dose: 50 mg - Objective Vital Signs: Vital Signs Temperature 97.8 F 02/25/17 06:00 Pulse Rate 85 02/25/17 06:00 Respiratory Rate 24 02/25/17 06:00 Blood Pressure 124/69 02/25/17 06:00 O2 Sat by Pulse Oximetry (%) 94 L 02/24/17 21:00 Constitutional: Yes: No Distress, Calm Eyes: Yes: Sclera Icterus HENT: Yes: Atraumatic Neck: Yes: Supple Cardiovascular: Yes: Regular Rate and Rhythm Respiratory: Yes: Regular Gastrointestinal: Yes: Soft. No: Ascites, Distention, Melena, Rectal Bleeding, Tenderness, Tenderness, Epigastrium, Tenderness, Rebound, Vomiting Neurological: Yes: Asterixis. No: Confusion, Lethargy Labs: CBC, BMP 02/25/17 07:00 02/25/17 07:00 INR, PTT INR 2.79 (0.82-1.09) H 02/25/17 07:00 Abnormal Lab Results 02/24/17 02/25/17 02/25/17 07:30 07:00 07:00 WBC 13.0 H RBC 2.55 L Hgb 9.1 L Hct 27.2 L MCV 106.4 H MCH 35.6 H RDW 16.2 H Plt Count 72 L Lymphocytes % (Manual) 4.9 L Myelocytes % (Man) 4 H D PT with INR 31.50 H INR 2.79 H Sodium Potassium Carbon Dioxide Calcium Total Bilirubin Direct Bilirubin AST Total Protein Albumin 02/25/17 07:00 WBC RBC Hgb Hct MCV MCH RDW Plt Count Lymphocytes % (Manual) Myelocytes % (Man) PT with INR INR Sodium 132 L Potassium 3.3 L Carbon Dioxide 14 L Calcium 7.0 L Total Bilirubin 9.4 H Direct Bilirubin 6.0 H AST 58 H Total Protein 6.0 L Albumin 1.4 L Assessment/Plan A 41 yom with advanced alcoholic liver disease, w/o ascites, with encephalopathy. Leukocytosis, fever and positive blood cultures. ?source of infection. MRI spine negative. Has lactulose-related diarrhea. Continue Lactulose Low salt diet Fluid restriction, unless sepsis HbsAb EGD for esophageal varices surveillance prior to DARRIAN. Discussed with the patient. FFP, Vit K, NPO, labs in AM ordered. Prognosis poor.
[2017-02-25 11:42] LABS: ANISOCYTOSIS 1+; MACROCYTOSIS 1+; OVALOCYTE 1+; PLATELET ESTIMATE DECREASED
--- NOTE | 2017-02-25 13:00 | PN ---
Progress Note, Physician History of Present Illness: patient stable sleepy but stable for endo tomorrow - Current Medication List Current Medications: Active Medications Folic Acid (Folic Acid -) 1 mg PO DAILY [facility] Last Admin: 02/25/17 10:55 Dose: 1 mg Nafcillin Sodium 2 gm/ (Dextrose) 100 mls @ 100 mls/hr IVPB Q4H-IV BRITTANIE PRN Reason: Protocol Last Admin: 02/25/17 10:55 Dose: 100 mls/hr Lactulose (Cephulac (Oral Use)) 20 gm PO TID [facility] Last Admin: 02/25/17 05:39 Dose: Not Given Pantoprazole Sodium (Protonix -) 40 mg PO BID [facility] Last Admin: 02/25/17 10:55 Dose: 40 mg Potassium Phos/Sodium Phos (Phos-Nak Packet -) 1 packet PO TID [facility] Last Admin: 02/25/17 05:39 Dose: Not Given Rifaximin (Xifaxan -) 550 mg PO BID [facility] Last Admin: 02/25/17 10:55 Dose: 550 mg Thiamine HCl (Vitamin B1 -) 100 mg PO DAILY [facility] Last Admin: 02/25/17 10:55 Dose: 100 mg Tramadol HCl (Ultram -) 50 mg PO Q6H PRN PRN Reason: PAIN Last Admin: 02/25/17 10:55 Dose: 50 mg - Objective Vital Signs: Vital Signs Temperature 97.8 F 02/25/17 06:00 Pulse Rate 85 02/25/17 06:00 Respiratory Rate 24 02/25/17 06:00 Blood Pressure 124/69 02/25/17 06:00 O2 Sat by Pulse Oximetry (%) 94 L 02/24/17 21:00 Constitutional: Yes: No Distress, Calm Cardiovascular: Yes: Regular Rate and Rhythm Respiratory: Yes: Regular Gastrointestinal: Yes: Normal Bowel Sounds, Soft Musculoskeletal: Yes: WNL Extremities: Yes: WNL Neurological: Yes: Alert, Oriented Psychiatric: Yes: Alert, Oriented Labs: CBC, BMP 02/25/17 07:00 02/25/17 07:00 INR, PTT INR 2.79 (0.82-1.09) H 02/25/17 07:00 Assessment/Plan Problem List - Problems (1) Alcoholic cirrhosis of liver Code(s): K70.30 - ALCOHOLIC CIRRHOSIS OF LIVER WITHOUT ASCITES Qualifiers: Ascites presence: without ascites Qualified Code(s): K70.30 - Alcoholic cirrhosis of liver without ascites (2) Hepatic encephalopathy Code(s): K72.90 - HEPATIC FAILURE, UNSPECIFIED WITHOUT COMA (3) Renal failure Code(s): N19 - UNSPECIFIED KIDNEY FAILURE Qualifiers: Renal failure chronicity: acute Acute renal failure type: unspecified Qualified Code(s): N17.9 - Acute kidney failure, unspecified (4) Sepsis Code(s): A41.9 - SEPSIS, UNSPECIFIED ORGANISM Qualifiers: Sepsis type: sepsis due to unspecified organism Qualified Code(s): A41.9 - Sepsis, unspecified organism (5) Thrombocytopenia Code(s): D69.6 - THROMBOCYTOPENIA, UNSPECIFIED 6 gm positive bactermia Assessment/Plan ASSESS: This is a 41 y/o man, Et-OH cirrhotic who presents now w/ Liver fail, renal fail, HE, & Sepsis m/l PNA vs SBP vs PVT plan awaiting cx result continue abx rest as per primary mri of the shoulder
--- NOTE | 2017-02-25 13:04 | PN ---
Progress Note (short form) - Note Progress Note: Subjective: The patient was seen and examined at the bedside, he is A&Ox3 today. He states he has left shoulder pain that started about 1 week ago. Current Medications Generic Name Dose Route Start Last Admin Trade Name Samreen PRN Reason Stop Dose Admin Folic Acid 1 mg 02/22/17 10:00 02/25/17 10:55 Folic Acid - PO 1 mg DAILY BRITTANIE Administration Nafcillin Sodium 2 gm/ 100 mls @ 100 mls/hr 02/22/17 02:00 02/25/17 10:55 Dextrose IVPB 100 mls/hr Q4H-IV BRITTANIE Administration Protocol Lactulose 20 gm 02/22/17 14:00 02/25/17 05:39 Cephulac (Oral Use) PO Not Given TID BRITTANIE Pantoprazole Sodium 40 mg 02/21/17 22:00 02/25/17 10:55 Protonix - PO 40 mg BID BRITTANIE Administration Potassium Phos/Sodium Phos 1 packet 02/24/17 14:00 02/25/17 05:39 Phos-Nak Packet - PO Not Given TID BRITTANIE Rifaximin 550 mg 02/21/17 22:00 02/25/17 10:55 Xifaxan - PO 550 mg BID BRITTANIE Administration Thiamine HCl 100 mg 02/22/17 10:00 02/25/17 10:55 Vitamin B1 - PO 100 mg DAILY BRITTANIE Administration Tramadol HCl 50 mg 02/23/17 17:51 02/25/17 10:55 Ultram - PO 50 mg Q6H PRN Administration PAIN Objective : Vital Signs Period Temp Pulse Resp BP Sys/Barriga Pulse Ox Last 24 Hr 97.8 F-99.8 F 84-92 18-24 124-142/69-71 94 Physical Exam: General: NAD, A&Ox3, jaundice Lungs: CTA bilaterally Heart: RRR, S1S2 Abd: Soft, non-tender, non-distended. Normoactive bowel sounds Ext: Warm, well-perfused. 2+ DP/PT bilaterally MSK: Left shoulder full ROM, patient grimacing while performing active ROM, however no tenderness CBCD WBC 13.0 K/mm3 (4.0-10.0) H 02/25/17 07:00 RBC 2.55 M/mm3 (4.00-5.60) L 02/25/17 07:00 Hgb 9.1 GM/dL (11.7-16.9) L 02/25/17 07:00 Hct 27.2 % (35.4-49) L 02/25/17 07:00 MCV 106.4 fl (80-96) H 02/25/17 07:00 MCHC 33.5 g/dl (32.0-35.9) 02/25/17 07:00 RDW 16.2 % (11.9-15.9) H 02/25/17 07:00 Plt Count 72 K/MM3 (134-434) L 02/25/17 07:00 MPV 10.3 fl (7.5-11.1) 02/25/17 07:00 CMP Sodium 132 mmol/L (136-145) L 02/25/17 07:00 Potassium 3.3 mmol/L (3.5-5.1) L 02/25/17 07:00 Chloride 107 mmol/L (98-107) 02/25/17 07:00 Carbon Dioxide 14 mmol/L (21-32) L 02/25/17 07:00 Anion Gap 11 (8-16) 02/25/17 07:00 BUN 18 mg/dL (7-18) 02/25/17 07:00 Creatinine 1.1 mg/dL (0.7-1.3) 02/25/17 07:00 Creat Clearance w eGFR > 60 (>60) 02/24/17 07:30 Random Glucose 83 mg/dL (74-106) D 02/25/17 07:00 Calcium 7.0 mg/dL (8.5-10.1) L 02/25/17 07:00 Total Bilirubin 9.4 mg/dL (0.2-1.0) H 02/25/17 07:00 AST 58 U/L (15-37) H 02/25/17 07:00 ALT 25 U/L (12-78) 02/25/17 07:00 Alkaline Phosphatase 112 U/L (45-117) 02/25/17 07:00 Total Protein 6.0 g/dl (6.4-8.2) L 02/25/17 07:00 Albumin 1.4 g/dl (3.4-5.0) L 02/25/17 07:00 CARDIAC ENZYMES Creatine Kinase 291 IU/L (39-308) 02/19/17 13:50 Troponin I 1.52 ng/ml (0.00-0.05) H* D 02/20/17 12:23 Microbiology 02/24/17 09:40 Blood - Peripheral Venous Blood Culture - Preliminary NO GROWTH OBTAINED AFTER 24 HOURS, INCUBATION TO CONTINUE FOR 4 DAYS. 02/24/17 09:30 Blood - Peripheral Venous Blood Culture - Preliminary NO GROWTH OBTAINED AFTER 24 HOURS, INCUBATION TO CONTINUE FOR 4 DAYS. 02/21/17 09:10 Blood - Peripheral Venous Blood Culture - Final Staphylococcus Aureus 02/21/17 09:10 Blood - Peripheral Venous Blood Culture - Final Staphylococcus Aureus 02/18/17 20:19 Blood - Peripheral Venous Blood Culture - Final Staphylococcus Aureus 02/18/17 19:45 Blood - Peripheral Venous Blood Culture - Final Staphylococcus Aureus Staphylococcus Aureus#2 02/18/17 20:43 Urine - Urine Clean Catch Urine Culture - Final NO GROWTH OBTAINED 02/19/17 00:50 Nasopharyngeal Swab Influenza Types A,B Antigen (CLIF) - Final 02/19/17 00:50 Nasopharyngeal Swab - Final Assessment: This is a 41 year old male with PMHx of alcohol abuse who presented to the ED with abdominal pain and generalized weakness. Plan: 1) Staph aureus bacteremia - Blood cultures from 02/24 with NGTD - Afebrile - WBC elevated, trending down 14.8->13 - Source? Doubt SBP as no ascites on US. Lumbar MRI and thoracic unrevealing for possible source - Continue Nafcillin - DARRIAN pending (will need EGD first to r/o varices): awaiting callback from Dr. Fierro regarding DARRIAN plan - Appreciate ID consult 2) Advanced alcoholic liver disease with hepatic encephalopathy, thrombocytopenia, - For EGD tomorrow to r/p esophageal varices prior to DARRIAN - FFP, Vit K ordered - Continue Lactulose - Appreciate GI consult 3) YARIEL - Resolved 4) F/E/N: - Sodium controlled diet, NPO after midnight - Hypokalemia: replete 5) Prophylaxis: - Hold all chemical DVT prophylaxis 2/2 throbocytopenia and elevated INR - OOB ambulating with assistance 6) Dispo: - Requires continued inpatient care - Prognosis poor CODE STATUS: FULL CODE Visit type - Emergency Visit Emergency Visit: Yes ED Registration Date: 02/19/17 Care time: The patient presented to the Emergency Department on the above date and was hospitalized for further evaluation of their emergent condition. - New Patient This patient is new to me today: Yes Date on this admission: 02/25/17 - Critical Care Critical Care patient: No
[2017-02-25] MEDS ORDERED: POTASSIUM CHLORIDE TABS 20 MEQ TABLET.ER (FP) PO ONE (13:15)
[2017-02-26] MEDS ORDERED: PT OWN MED DRAWER 7, Y5N ONE ×2 (01:51→14:52)
[2017-02-26] MEDS: NAFCILLIN - 2 GM in DEXTROSE 5%-WATER - 100 ML IVPB SCH ×6 (01:58→21:15)
[2017-02-26] MEDS: traMADol HCL 50 MG TABLET PO PRN ×4 (01:58→20:07)
[2017-02-26] MEDS: LACTULOSE 20 GM/30 ML UDC (FOR ORAL USE ONLY) PO SCH ×3 (05:26→21:20)
[2017-02-26] MEDS: NAPH,MB-DB/K PH,MBDB POWDER PACKET PO SCH ×3 (05:26→21:15)
[2017-02-26 08:39] LABS: BASO % 0.3 % (0-2.0); EOS % 1.9 % (0-4.5); HEMATOCRIT 25.4 % (35.4-49); HEMOGLOBIN 8.4 GM/dL (11.7-16.9); LYMPH % 7.4 % (8-40); MCH 35.7 pg (25.7-33.7); MCHC 33.1 g/dl (32.0-35.9); MEAN CELL VOLUME 107.8 fl (80-96); MEAN PLT VOLUME 10.6 fl (7.5-11.1); MONO % 5.2 % (3.8-10.2); NEUT % 85.2 % (42.8-82.8); PLATELET COUNT 67 K/MM3 (134-434); RBC 2.36 M/mm3 (4.00-5.60); WHITE BLOOD COUNT 11.6 K/mm3 (4.0-10.0)
[2017-02-26 09:06] LABS: ALBUMIN 1.4 g/dl (3.4-5.0); ANION GAP 9 (8-16); BILIRUBIN,DIRECT 5.7 mg/dL (0.0-0.2); BILIRUBIN,TOTAL 8.8 mg/dL (0.2-1.0); BLOOD UREA NITROGEN 20 mg/dL (7-18); CHLORIDE 108 mmol/L (98-107); CO2 17 mmol/L (21-32); CREATININE 1.2 mg/dL (0.7-1.3); GLUCOSE,RANDOM 87 mg/dL (74-106); SGOT/AST 43 U/L (15-37); SGPT/ALT 21 U/L (12-78); SODIUM 134 mmol/L (136-145)
[2017-02-26 09:07] LABS: ALK PHOS 97 U/L (45-117); CALCIUM 7.1 mg/dL (8.5-10.1); TOT PROT 5.8 g/dl (6.4-8.2)
[2017-02-26 09:12] LABS: INR 2.01 (0.82-1.09); PROTHROMBIN TIME (PATIENT) 22.7 SEC (9.98-11.88)
[2017-02-26] MEDS: THIAMINE HCL 100 MG TABLET (FP) PO SCH (10:14)
[2017-02-26] MEDS: RIFAXIMIN 550 MG TABLET (UD) PO SCH ×2 (10:14→21:15)
[2017-02-26] MEDS: FOLIC ACID 1 MG TABLET (FP) PO SCH (10:14)
[2017-02-26] MEDS: PANTOPRAZOLE 40 MG TABLET (FP) PO SCH ×2 (10:14→21:15)
--- NOTE | 2017-02-26 10:47 | PN ---
Progress Note (short form) - Note Progress Note: Subjective: The patient was seen and examined at the bedside, he is A&Ox3 today. He reports feeling ok today Current Medications Generic Name Dose Route Start Last Admin Trade Name Samreen PRN Reason Stop Dose Admin Folic Acid 1 mg 02/22/17 10:00 02/26/17 10:14 Folic Acid - PO Not Given DAILY BRITTANIE Nafcillin Sodium 2 gm/ 100 mls @ 100 mls/hr 02/22/17 02:00 02/26/17 09:50 Dextrose IVPB 100 mls/hr Q4H-IV BRITTANIE Administration Protocol Potassium Chloride 10 meq in 100 mls @ 100 mls/hr 02/26/17 11:15 Potassium Chloride 10 Meq Premix Ivpb - IVPB 02/26/17 14:14 Q60M BRITTANIE Lactulose 20 gm 02/22/17 14:00 02/26/17 05:26 Cephulac (Oral Use) PO Not Given TID BRITTANIE Pantoprazole Sodium 40 mg 02/21/17 22:00 02/26/17 10:14 Protonix - PO Not Given BID BRITTANIE Potassium Phos/Sodium Phos 1 packet 02/24/17 14:00 02/26/17 05:26 Phos-Nak Packet - PO Not Given TID BRITTANIE Rifaximin 550 mg 02/21/17 22:00 02/26/17 10:14 Xifaxan - PO Not Given BID BRITTANIE Thiamine HCl 100 mg 02/22/17 10:00 02/26/17 10:14 Vitamin B1 - PO Not Given DAILY BRITTANIE Tramadol HCl 50 mg 02/23/17 17:51 02/26/17 08:09 Ultram - PO 50 mg Q6H PRN Administration PAIN Objective : Vital Signs Period Temp Pulse Resp BP Sys/Barriga Pulse Ox Last 24 Hr 97.8 F-100 F 74-85 20-22 128-140/66-78 95 Physical Exam: General: NAD, A&Ox3, jaundice Lungs: CTA bilaterally Heart: RRR, S1S2 Abd: Soft, non-tender, non-distended. Normoactive bowel sounds Ext: Warm, well-perfused. 2+ DP/PT bilaterally MSK: Left shoulder full ROM, patient grimacing while performing active ROM, however no tenderness CBCD WBC 11.6 K/mm3 (4.0-10.0) H 02/26/17 07:45 RBC 2.36 M/mm3 (4.00-5.60) L 02/26/17 07:45 Hgb 8.4 GM/dL (11.7-16.9) L 02/26/17 07:45 Hct 25.4 % (35.4-49) L 02/26/17 07:45 MCV 107.8 fl (80-96) H 02/26/17 07:45 MCHC 33.1 g/dl (32.0-35.9) 02/26/17 07:45 RDW 16.0 % (11.9-15.9) H 02/26/17 07:45 Plt Count 67 K/MM3 (134-434) L 02/26/17 07:45 MPV 10.6 fl (7.5-11.1) 02/26/17 07:45 CMP Sodium 134 mmol/L (136-145) L 02/26/17 07:45 Potassium 3.0 mmol/L (3.5-5.1) L 02/26/17 07:45 Chloride 108 mmol/L (98-107) H 02/26/17 07:45 Carbon Dioxide 17 mmol/L (21-32) L D 02/26/17 07:45 Anion Gap 9 (8-16) 02/26/17 07:45 BUN 20 mg/dL (7-18) H 02/26/17 07:45 Creatinine 1.2 mg/dL (0.7-1.3) 02/26/17 07:45 Creat Clearance w eGFR > 60 (>60) 02/26/17 07:45 Random Glucose 87 mg/dL (74-106) 02/26/17 07:45 Calcium 7.1 mg/dL (8.5-10.1) L 02/26/17 07:45 Total Bilirubin 8.8 mg/dL (0.2-1.0) H 02/26/17 07:45 AST 43 U/L (15-37) H D 02/26/17 07:45 ALT 21 U/L (12-78) 02/26/17 07:45 Alkaline Phosphatase 97 U/L (45-117) 02/26/17 07:45 Total Protein 5.8 g/dl (6.4-8.2) L 02/26/17 07:45 Albumin 1.4 g/dl (3.4-5.0) L 02/26/17 07:45 CARDIAC ENZYMES Creatine Kinase 291 IU/L (39-308) 02/19/17 13:50 Troponin I 1.52 ng/ml (0.00-0.05) H* D 02/20/17 12:23 Microbiology 02/24/17 09:40 Blood - Peripheral Venous Blood Culture - Preliminary NO GROWTH OBTAINED AFTER 48 HOURS, INCUBATION TO CONTINUE FOR 3 DAYS. 02/24/17 09:30 Blood - Peripheral Venous Blood Culture - Preliminary Pending Organism 02/21/17 09:10 Blood - Peripheral Venous Blood Culture - Final Staphylococcus Aureus 02/21/17 09:10 Blood - Peripheral Venous Blood Culture - Final Staphylococcus Aureus 02/18/17 20:19 Blood - Peripheral Venous Blood Culture - Final Staphylococcus Aureus 02/18/17 19:45 Blood - Peripheral Venous Blood Culture - Final Staphylococcus Aureus Staphylococcus Aureus#2 02/18/17 20:43 Urine - Urine Clean Catch Urine Culture - Final NO GROWTH OBTAINED 02/19/17 00:50 Nasopharyngeal Swab Influenza Types A,B Antigen (CLIF) - Final 02/19/17 00:50 Nasopharyngeal Swab - Final Assessment: This is a 41 year old male with PMHx of alcohol abuse who presented to the ED with abdominal pain and generalized weakness. Plan: 1) Staph aureus bacteremia - Repeat blood cultures today - Tmax 100 - WBC elevated, trending down 14.8->13->11.6 - Source? Doubt SBP as no ascites on US. Lumbar MRI and thoracic unrevealing for possible source - Continue Nafcillin - DARRIAN pending (will need EGD first to r/o varices): discussed - Appreciate ID consult 2) Advanced alcoholic liver disease with hepatic encephalopathy, thrombocytopenia, elevated INR - For EGD today to r/p esophageal varices prior to DARRIAN - FFP, Vit K ordered - Continue Lactulose - Appreciate GI consult 3) Left shoulder pain - MRI reviewed - F/u ortho consult 4) YARIEL - Resolved 5) F/E/N: - NPO - Hypokalemia: replete 6) Prophylaxis: - Hold all chemical DVT prophylaxis 2/2 throbocytopenia and elevated INR - OOB ambulating with assistance 7) Dispo: - Requires continued inpatient care - Prognosis poor CODE STATUS: FULL CODE Visit type - Emergency Visit Emergency Visit: Yes ED Registration Date: 02/19/17 Care time: The patient presented to the Emergency Department on the above date and was hospitalized for further evaluation of their emergent condition. - New Patient This patient is new to me today: No - Critical Care Critical Care patient: No
--- NOTE | 2017-02-26 12:18 | PROC ---
Endoscopy Procedure Endoscopy procedure completed. Please see scanned procedure report. 1 cm clean-based, deep duodenal bulb ulcer was found. No biopsies taken due to INR 2. No evidence of gastric, or esophageal varices. Mild portal hypertensive gastropathy was noted. Again, no biopsies taken due to high INR PPI po BID x 30 days Stool for h. pylori
--- NOTE | 2017-02-26 12:19 | PN ---
Progress Note, Physician Chief Complaint: no new complaints asked to eval for DARRIAN given bacteremia. History of Present Illness: 41 year old male with a pmhx of htn, etoh abuse who presents with generalized weakness and abdominal pain. Weakness over one week. +nausea and dizziness. No chest pain, palpitations, or sob. No pnd, orthonpea, or edema. Found to be sinus tachycardic, fever, thrombocytopenic Echo 02/20/17 nlef unremarkable valves. - Current Medication List Current Medications: Active Medications Folic Acid (Folic Acid -) 1 mg PO DAILY [facility] Last Admin: 02/26/17 10:14 Dose: Not Given Nafcillin Sodium 2 gm/ (Dextrose) 100 mls @ 100 mls/hr IVPB Q4H-IV BRITTANIE PRN Reason: Protocol Last Admin: 02/26/17 09:50 Dose: 100 mls/hr Potassium Chloride 10 meq/ (Sodium Chloride) 105 mls @ 100 mls/hr IVPB Q60M [facility] Stop: 02/26/17 14:14 Lactulose (Cephulac (Oral Use)) 20 gm PO TID [facility] Last Admin: 02/26/17 05:26 Dose: Not Given Pantoprazole Sodium (Protonix -) 40 mg PO BID [facility] Last Admin: 02/26/17 10:14 Dose: Not Given Potassium Phos/Sodium Phos (Phos-Nak Packet -) 1 packet PO TID [facility] Last Admin: 02/26/17 05:26 Dose: Not Given Rifaximin (Xifaxan -) 550 mg PO BID [facility] Last Admin: 02/26/17 10:14 Dose: Not Given Thiamine HCl (Vitamin B1 -) 100 mg PO DAILY [facility] Last Admin: 02/26/17 10:14 Dose: Not Given Tramadol HCl (Ultram -) 50 mg PO Q6H PRN PRN Reason: PAIN Last Admin: 02/26/17 08:09 Dose: 50 mg - Objective Vital Signs: Vital Signs Temperature 97.8 F 02/26/17 10:00 Pulse Rate 74 02/26/17 10:00 Respiratory Rate 20 02/26/17 10:00 Blood Pressure 132/66 02/26/17 10:00 O2 Sat by Pulse Oximetry (%) 95 02/25/17 21:00 Constitutional: Yes: No Distress Eyes: Yes: EOM Intact, Sclera Icterus HENT: Yes: Normocephalic Neck: Yes: Trachea Midline Cardiovascular: Yes: Regular Rate and Rhythm Respiratory: Yes: CTA Bilaterally Gastrointestinal: Yes: Normal Bowel Sounds, Soft, Tenderness (ascites) Extremities: Yes: WNL Edema: Yes Edema: LLE: 1+, RLE: 1+ Labs: CBC, BMP 02/26/17 07:45 02/26/17 07:45 INR, PTT INR 2.01 (0.82-1.09) H 02/26/17 07:45 Problem List - Problems (1) Elevated troponin Assessment/Plan: Troponins elevated with normal CK likely due to demand ischemia in patient with staph bacteremia/sepsis and liver cirrhosis. EKG sinus tachycardia with no ischemic changes. Echocardiogram with normal LV systolic function Plts 19-35 with INR 2.4-3s No chest pain or dyspnea. Given his significant comorbidities, I do not believe that a DARRIAN will change management consultant. He is not a candidate for intervention on his valves. Would consider empiric treatment for endocarditis if clinically indicated per ID. No further cardiac work up at this time. Treat underlying sepsis/infection and liver disease. Code(s): R74.8 - ABNORMAL LEVELS OF OTHER SERUM ENZYMES
--- NOTE | 2017-02-26 12:25 | PN ---
Progress Note, Physician History of Present Illness: patient stable had endoscopy done one set of blood cx positive agian all imaging studies negative so far cardiology not able to perform deyanira on the patient - Current Medication List Current Medications: Active Medications Folic Acid (Folic Acid -) 1 mg PO DAILY [facility] Last Admin: 02/26/17 10:14 Dose: Not Given Nafcillin Sodium 2 gm/ (Dextrose) 100 mls @ 100 mls/hr IVPB Q4H-IV BRITTANIE PRN Reason: Protocol Last Admin: 02/26/17 09:50 Dose: 100 mls/hr Potassium Chloride 10 meq/ (Sodium Chloride) 105 mls @ 100 mls/hr IVPB Q60M [facility] Stop: 02/26/17 14:14 Lactulose (Cephulac (Oral Use)) 20 gm PO TID [facility] Last Admin: 02/26/17 05:26 Dose: Not Given Pantoprazole Sodium (Protonix -) 40 mg PO BID [facility] Last Admin: 02/26/17 10:14 Dose: Not Given Potassium Phos/Sodium Phos (Phos-Nak Packet -) 1 packet PO TID [facility] Last Admin: 02/26/17 05:26 Dose: Not Given Rifaximin (Xifaxan -) 550 mg PO BID [facility] Last Admin: 02/26/17 10:14 Dose: Not Given Thiamine HCl (Vitamin B1 -) 100 mg PO DAILY [facility] Last Admin: 02/26/17 10:14 Dose: Not Given Tramadol HCl (Ultram -) 50 mg PO Q6H PRN PRN Reason: PAIN Last Admin: 02/26/17 08:09 Dose: 50 mg - Objective Vital Signs: Vital Signs Temperature 97.8 F 02/26/17 12:11 Pulse Rate 78 02/26/17 12:11 Respiratory Rate 20 02/26/17 12:11 Blood Pressure 121/57 02/26/17 12:11 O2 Sat by Pulse Oximetry (%) 100 02/26/17 12:11 Constitutional: Yes: No Distress, Calm Cardiovascular: Yes: Regular Rate and Rhythm Respiratory: Yes: Regular, CTA Bilaterally Gastrointestinal: Yes: Normal Bowel Sounds, Soft Musculoskeletal: Yes: WNL Extremities: Yes: WNL Neurological: Yes: Alert, Oriented Psychiatric: Yes: Alert, Oriented Labs: CBC, BMP 02/26/17 07:45 02/26/17 07:45 INR, PTT INR 2.01 (0.82-1.09) H 02/26/17 07:45 Assessment/Plan Problem List - Problems (1) Alcoholic cirrhosis of liver Code(s): K70.30 - ALCOHOLIC CIRRHOSIS OF LIVER WITHOUT ASCITES Qualifiers: Ascites presence: without ascites Qualified Code(s): K70.30 - Alcoholic cirrhosis of liver without ascites (2) Hepatic encephalopathy Code(s): K72.90 - HEPATIC FAILURE, UNSPECIFIED WITHOUT COMA (3) Renal failure Code(s): N19 - UNSPECIFIED KIDNEY FAILURE Qualifiers: Renal failure chronicity: acute Acute renal failure type: unspecified Qualified Code(s): N17.9 - Acute kidney failure, unspecified (4) Sepsis Code(s): A41.9 - SEPSIS, UNSPECIFIED ORGANISM Qualifiers: Sepsis type: sepsis due to unspecified organism Qualified Code(s): A41.9 - Sepsis, unspecified organism (5) Thrombocytopenia Code(s): D69.6 - THROMBOCYTOPENIA, UNSPECIFIED 6 gm positive bactermia Assessment/Plan ASSESS: This is a 41 y/o man, Et-OH cirrhotic who presents now w/ Liver fail, renal fail, HE, & Sepsis m/l PNA vs SBP vs PVT plan repeat cx positive continue nafcillin if patient continues to have positive blood cx then patient will need deyanira rest continue current mgmt
[2017-02-26] MEDS: POTASSIUM CHLORIDE 10 MEQ in SODIUM CHLORIDE 100 ML IVPB SCH ×3 (13:59→16:28)
--- NOTE | 2017-02-26 16:13 | PN ---
Progress Note (short form) - Note Progress Note: Pt seen and examined. He is a 41 year old right hand dominant male with multiple medical problems including ETOH abuse, cirrhosis of the liver, acute renal failure, coagulopathy, elevated troponin who tells me that he can't remember the traumatic event but as of 5-6 days ago he has had left shoulder pain, weakness, decreased ROM. PE LUE swollen, edematous Grossly NVI Good ROM of the left elbow, forearm, wrist, fingers Left shoulder with decreased ROM in all planes, + pain with motion, and signif weakness MRI Left Shoulder shows a complete tear of the supraspinatus, ACJ OA, bursitis, edema Imp 41 year old r hand dom M with multiple medical problems with a complete RTC tear. Rec Limited options at this time. He needs left RTC repair surgery if he will ever be cleared, not likely I would not give a cortisone injection at this time. Activities as tolerated
[2017-02-27] MEDS: traMADol HCL 50 MG TABLET PO PRN ×4 (02:20→22:12)
[2017-02-27] MEDS: NAFCILLIN - 2 GM in DEXTROSE 5%-WATER - 100 ML IVPB SCH ×6 (02:41→22:12)
[2017-02-27] MEDS: LACTULOSE 20 GM/30 ML UDC (FOR ORAL USE ONLY) PO SCH ×3 (05:59→22:12)
[2017-02-27] MEDS: NAPH,MB-DB/K PH,MBDB POWDER PACKET PO SCH ×3 (06:00→22:13)
[2017-02-27 08:55] LABS: HEMATOCRIT 25.4 % (35.4-49); HEMOGLOBIN 8.4 GM/dL (11.7-16.9); MCH 35.9 pg (25.7-33.7); MCHC 33.1 g/dl (32.0-35.9); MEAN CELL VOLUME 108.3 fl (80-96); MEAN PLT VOLUME 9.7 fl (7.5-11.1); PLATELET COUNT 66 K/MM3 (134-434); RBC 2.34 M/mm3 (4.00-5.60); RDW 16.5 % (11.9-15.9); WHITE BLOOD COUNT 11.3 K/mm3 (4.0-10.0)
[2017-02-27 09:06] LABS: ALBUMIN 1.4 g/dl (3.4-5.0); ANION GAP 12 (8-16); BLOOD UREA NITROGEN 29 mg/dL (7-18); CALCIUM 7.1 mg/dL (8.5-10.1); CHLORIDE 105 mmol/L (98-107); CO2 15 mmol/L (21-32); CREATININE 1.4 mg/dL (0.7-1.3); GLUCOSE,RANDOM 91 mg/dL (74-106); SGOT/AST 48 U/L (15-37); SGPT/ALT 22 U/L (12-78); SODIUM 132 mmol/L (136-145)
[2017-02-27 09:07] LABS: ALK PHOS 98 U/L (45-117)
[2017-02-27] MEDS ORDERED: PT OWN MED DRAWER 7, Y5N ONE ×2 (10:15→14:46)
[2017-02-27] MEDS: RIFAXIMIN 550 MG TABLET (UD) PO SCH ×2 (10:19→22:13)
[2017-02-27] MEDS: FOLIC ACID 1 MG TABLET (FP) PO SCH (10:19)
[2017-02-27] MEDS: SUCRALFATE 1 GM/10 ML UNIT DOSE CUPS PO SCH ×3 (10:19→20:09)
[2017-02-27] MEDS: THIAMINE HCL 100 MG TABLET (FP) PO SCH (10:19)
[2017-02-27] MEDS: PANTOPRAZOLE 40 MG TABLET (FP) PO SCH ×2 (10:20→22:13)
[2017-02-27] MEDS: POTASSIUM CHLORIDE 10 MEQ in SODIUM CHLORIDE 100 ML IVPB SCH ×6 (11:32→22:49)
--- NOTE | 2017-02-27 12:31 | PN ---
Progress Note (short form) - Note Progress Note: Subjective: The patient was seen and examined at the bedside, he is A&Ox3 today. He reports feeling ok today Current Medications Generic Name Dose Route Start Last Admin Trade Name Samreen PRN Reason Stop Dose Admin Folic Acid 1 mg 02/22/17 10:00 02/27/17 10:19 Folic Acid - PO 1 mg DAILY BRITTANIE Administration Nafcillin Sodium 2 gm/ 100 mls @ 100 mls/hr 02/22/17 02:00 02/27/17 10:19 Dextrose IVPB 100 mls/hr Q4H-IV BRITTANIE Administration Protocol Lactulose 20 gm 02/22/17 14:00 02/27/17 05:59 Cephulac (Oral Use) PO 20 gm TID BRITTANIE Administration Pantoprazole Sodium 40 mg 02/21/17 22:00 02/27/17 10:20 Protonix - PO 40 mg BID BRITTANIE Administration Potassium Phos/Sodium Phos 1 packet 02/24/17 14:00 02/27/17 06:00 Phos-Nak Packet - PO 1 packet TID BRITTANIE Administration Rifaximin 550 mg 02/21/17 22:00 02/27/17 10:19 Xifaxan - PO 550 mg BID BRITTANIE Administration Sucralfate 1 gm 02/27/17 08:00 02/27/17 10:19 Carafate Oral Suspension - PO 1 gm Q6H BRITTANIE Administration Thiamine HCl 100 mg 02/22/17 10:00 02/27/17 10:19 Vitamin B1 - PO 100 mg DAILY BRITTANIE Administration Tramadol HCl 50 mg 02/23/17 17:51 02/27/17 10:20 Ultram - PO 50 mg Q6H PRN Administration PAIN Objective : Vital Signs Period Temp Pulse Resp BP Sys/Barriga Pulse Ox Last 24 Hr 97.8 F-98.7 F 76-88 18-20 123-132/60-76 97-98 Physical Exam: General: NAD, A&Ox3, jaundice Lungs: CTA bilaterally Heart: RRR, S1S2 Abd: Soft, non-tender, non-distended. Normoactive bowel sounds Ext: Warm, well-perfused. 2+ DP/PT bilaterally MSK: Left shoulder full ROM, patient grimacing while performing active ROM, however no tenderness CBCD WBC 11.3 K/mm3 (4.0-10.0) H 02/27/17 07:00 RBC 2.34 M/mm3 (4.00-5.60) L 02/27/17 07:00 Hgb 8.4 GM/dL (11.7-16.9) L 02/27/17 07:00 Hct 25.4 % (35.4-49) L 02/27/17 07:00 MCV 108.3 fl (80-96) H 02/27/17 07:00 MCHC 33.1 g/dl (32.0-35.9) 02/27/17 07:00 RDW 16.5 % (11.9-15.9) H 02/27/17 07:00 Plt Count 66 K/MM3 (134-434) L 02/27/17 07:00 MPV 9.7 fl (7.5-11.1) 02/27/17 07:00 CMP Sodium 132 mmol/L (136-145) L 02/27/17 07:00 Potassium 3.0 mmol/L (3.5-5.1) L 02/27/17 07:00 Chloride 105 mmol/L (98-107) 02/27/17 07:00 Carbon Dioxide 15 mmol/L (21-32) L 02/27/17 07:00 Anion Gap 12 (8-16) 02/27/17 07:00 BUN 29 mg/dL (7-18) H D 02/27/17 07:00 Creatinine 1.4 mg/dL (0.7-1.3) H 02/27/17 07:00 Creat Clearance w eGFR 56.42 (>60) 02/27/17 07:00 Random Glucose 91 mg/dL (74-106) 02/27/17 07:00 Calcium 7.1 mg/dL (8.5-10.1) L 02/27/17 07:00 Total Bilirubin 10.0 mg/dL (0.2-1.0) H 02/27/17 07:00 AST 48 U/L (15-37) H 02/27/17 07:00 ALT 22 U/L (12-78) 02/27/17 07:00 Alkaline Phosphatase 98 U/L (45-117) 02/27/17 07:00 Total Protein 6.0 g/dl (6.4-8.2) L 02/27/17 07:00 Albumin 1.4 g/dl (3.4-5.0) L 02/27/17 07:00 CARDIAC ENZYMES Creatine Kinase 291 IU/L (39-308) 02/19/17 13:50 Troponin I 1.52 ng/ml (0.00-0.05) H* D 02/20/17 12:23 Microbiology 02/24/17 09:40 Blood - Peripheral Venous Blood Culture - Preliminary NO GROWTH OBTAINED AFTER 72 HOURS, INCUBATION TO CONTINUE FOR 2 DAYS. 02/24/17 09:30 Blood - Peripheral Venous Blood Culture - Preliminary Staphylococcus Latex Coag Pos 02/21/17 09:10 Blood - Peripheral Venous Blood Culture - Final Staphylococcus Aureus 02/21/17 09:10 Blood - Peripheral Venous Blood Culture - Final Staphylococcus Aureus 02/18/17 20:19 Blood - Peripheral Venous Blood Culture - Final Staphylococcus Aureus 02/18/17 19:45 Blood - Peripheral Venous Blood Culture - Final Staphylococcus Aureus Staphylococcus Aureus#2 02/18/17 20:43 Urine - Urine Clean Catch Urine Culture - Final NO GROWTH OBTAINED 02/19/17 00:50 Nasopharyngeal Swab Influenza Types A,B Antigen (CLIF) - Final 02/19/17 00:50 Nasopharyngeal Swab - Final Assessment: This is a 41 year old male with PMHx of alcohol abuse who presented to the ED with abdominal pain and generalized weakness. Plan: 1) Staph aureus bacteremia - Repeat blood cultures yesterday - WBC elevated, trending down 14.8->13->11.6->11.3 - Source? Doubt SBP as no ascites on US. Lumbar MRI and thoracic unrevealing for possible source - Continue Nafcillin - Discussed with Dr. Fierro, no DARRIAN for now - Appreciate ID consult 2) Advanced alcoholic liver disease with hepatic encephalopathy, thrombocytopenia, elevated INR - EGD with ulcer, start Carafate 1g q6h - FFP, Vit K ordered - Continue Lactulose - Appreciate GI consult 3) Left shoulder pain - MRI reviewed - Appreciate ortho consult 4) YARIEL - Resolved 5) F/E/N: - Regular diet - Hypokalemia: replete 6) Prophylaxis: - Hold all chemical DVT prophylaxis 2/2 throbocytopenia and elevated INR - OOB ambulating with assistance 7) Dispo: - Requires continued inpatient care - Prognosis poor CODE STATUS: FULL CODE Visit type - Emergency Visit Emergency Visit: Yes ED Registration Date: 02/19/17 Care time: The patient presented to the Emergency Department on the above date and was hospitalized for further evaluation of their emergent condition. - New Patient This patient is new to me today: No - Critical Care Critical Care patient: No
--- NOTE | 2017-02-27 16:32 | PN ---
Progress Note, Physician History of Present Illness: patient stable still a bit drowsy - Current Medication List Current Medications: Active Medications Folic Acid (Folic Acid -) 1 mg PO DAILY [facility] Last Admin: 02/27/17 10:19 Dose: 1 mg Nafcillin Sodium 2 gm/ (Dextrose) 100 mls @ 100 mls/hr IVPB Q4H-IV BRITTANIE PRN Reason: Protocol Last Admin: 02/27/17 14:50 Dose: 100 mls/hr Lactulose (Cephulac (Oral Use)) 20 gm PO TID [facility] Last Admin: 02/27/17 14:51 Dose: 20 gm Pantoprazole Sodium (Protonix -) 40 mg PO BID [facility] Last Admin: 02/27/17 10:20 Dose: 40 mg Potassium Phos/Sodium Phos (Phos-Nak Packet -) 1 packet PO TID [facility] Last Admin: 02/27/17 14:51 Dose: 1 packet Rifaximin (Xifaxan -) 550 mg PO BID [facility] Last Admin: 02/27/17 10:19 Dose: 550 mg Sucralfate (Carafate Oral Suspension -) 1 gm PO Q6H [facility] Last Admin: 02/27/17 14:51 Dose: 1 gm Thiamine HCl (Vitamin B1 -) 100 mg PO DAILY [facility] Last Admin: 02/27/17 10:19 Dose: 100 mg Tramadol HCl (Ultram -) 50 mg PO Q6H PRN PRN Reason: PAIN Last Admin: 02/27/17 10:20 Dose: 50 mg - Objective Vital Signs: Vital Signs Temperature 98.0 F 02/27/17 14:52 Pulse Rate 78 02/27/17 14:52 Respiratory Rate 20 02/27/17 06:00 Blood Pressure 119/66 02/27/17 14:52 O2 Sat by Pulse Oximetry (%) 97 02/26/17 21:00 Constitutional: Yes: No Distress, Calm Cardiovascular: Yes: Regular Rate and Rhythm Respiratory: Yes: Regular, CTA Bilaterally Gastrointestinal: Yes: Normal Bowel Sounds, Soft Musculoskeletal: Yes: WNL Extremities: Yes: WNL Neurological: Yes: Alert Psychiatric: Yes: Alert Labs: CBC, BMP 02/27/17 07:00 02/27/17 07:00 INR, PTT INR 2.01 (0.82-1.09) H 02/26/17 07:45 Assessment/Plan Problem List - Problems (1) Alcoholic cirrhosis of liver Code(s): K70.30 - ALCOHOLIC CIRRHOSIS OF LIVER WITHOUT ASCITES Qualifiers: Ascites presence: without ascites Qualified Code(s): K70.30 - Alcoholic cirrhosis of liver without ascites (2) Hepatic encephalopathy Code(s): K72.90 - HEPATIC FAILURE, UNSPECIFIED WITHOUT COMA (3) Renal failure Code(s): N19 - UNSPECIFIED KIDNEY FAILURE Qualifiers: Renal failure chronicity: acute Acute renal failure type: unspecified Qualified Code(s): N17.9 - Acute kidney failure, unspecified (4) Sepsis Code(s): A41.9 - SEPSIS, UNSPECIFIED ORGANISM Qualifiers: Sepsis type: sepsis due to unspecified organism Qualified Code(s): A41.9 - Sepsis, unspecified organism (5) Thrombocytopenia Code(s): D69.6 - THROMBOCYTOPENIA, UNSPECIFIED 6 gm positive bactermia Assessment/Plan ASSESS: This is a 41 y/o man, Et-[place] cirrhotic who presents now w/ Liver fail, renal fail, HE, & Sepsis m/l PNA vs SBP vs PVT plan repeat cx negativ continue nafcillin
[2017-02-27 17:49] LABS: ANION GAP 10 (8-16); BLOOD UREA NITROGEN 31 mg/dL (7-18); CALCIUM 7.1 mg/dL (8.5-10.1); CHLORIDE 106 mmol/L (98-107); CO2 15 mmol/L (21-32); CREATININE 1.4 mg/dL (0.7-1.3); GLUCOSE,RANDOM 104 mg/dL (74-106); SODIUM 131 mmol/L (136-145)
[2017-02-27] MEDS ORDERED: KCL 10 MEQ IVPB 10 MEQ/100 ML INFUS.BAG IVPB SCH ×2 (18:00→18:30)
[2017-02-28] MEDS: SUCRALFATE 1 GM/10 ML UNIT DOSE CUPS PO SCH ×4 (02:38→21:08)
[2017-02-28] MEDS: NAFCILLIN - 2 GM in DEXTROSE 5%-WATER - 100 ML IVPB SCH ×6 (02:38→21:09)
[2017-02-28] MEDS: LACTULOSE 20 GM/30 ML UDC (FOR ORAL USE ONLY) PO SCH ×2 (05:38→15:21)
[2017-02-28] MEDS: NAPH,MB-DB/K PH,MBDB POWDER PACKET PO SCH ×3 (05:38→21:08)
[2017-02-28] MEDS ORDERED: traMADol HCL 50 MG TABLET PO ONE (05:40)
--- NOTE | 2017-02-28 08:03 | PN ---
Progress Note, Physician History of Present Illness: Somewhat lethargic. Dry mouth. No events. - Current Medication List Current Medications: Active Medications Folic Acid (Folic Acid -) 1 mg PO DAILY [facility] Last Admin: 02/27/17 10:19 Dose: 1 mg Nafcillin Sodium 2 gm/ (Dextrose) 100 mls @ 100 mls/hr IVPB Q4H-IV BRITTANIE PRN Reason: Protocol Last Admin: 02/28/17 05:38 Dose: 100 mls/hr Lactulose (Cephulac (Oral Use)) 20 gm PO TID [facility] Last Admin: 02/28/17 05:38 Dose: 20 gm Pantoprazole Sodium (Protonix -) 40 mg PO BID [facility] Last Admin: 02/27/17 22:13 Dose: 40 mg Potassium Phos/Sodium Phos (Phos-Nak Packet -) 1 packet PO TID [facility] Last Admin: 02/28/17 05:38 Dose: 1 packet Rifaximin (Xifaxan -) 550 mg PO BID [facility] Last Admin: 02/27/17 22:13 Dose: 550 mg Sucralfate (Carafate Oral Suspension -) 1 gm PO Q6H [facility] Last Admin: 02/28/17 02:38 Dose: 1 gm Thiamine HCl (Vitamin B1 -) 100 mg PO DAILY [facility] Last Admin: 02/27/17 10:19 Dose: 100 mg - Objective Vital Signs: Vital Signs Temperature 97.9 F 02/28/17 05:52 Pulse Rate 87 02/28/17 05:52 Respiratory Rate 21 02/28/17 05:52 Blood Pressure 126/66 02/28/17 05:52 O2 Sat by Pulse Oximetry (%) 94 L 02/27/17 21:00 Constitutional: Yes: Calm Eyes: Yes: Sclera Icterus Gastrointestinal: Yes: Soft, Ascites, Distention. No: Melena, Rectal Bleeding, Tenderness, Tenderness, Rebound, Vomiting Neurological: Yes: Lethargy Labs: CBC, BMP 02/27/17 07:00 02/27/17 15:45 INR, PTT INR 2.01 (0.82-1.09) H 02/26/17 07:45 Laboratory Results - last 24 hr 02/27/17 02/27/17 02/27/17 07:00 07:00 15:45 WBC 11.3 H RBC 2.34 L Hgb 8.4 L Hct 25.4 L MCV 108.3 H MCH 35.9 H MCHC 33.1 RDW 16.5 H Plt Count 66 L MPV 9.7 Sodium 132 L 131 L Potassium 3.0 L 3.0 L Chloride 105 106 Carbon Dioxide 15 L 15 L Anion Gap 12 10 BUN 29 H D 31 H Creatinine 1.4 H 1.4 H Creat Clearance w eGFR 56.42 Random Glucose 91 104 Calcium 7.1 L 7.1 L Total Bilirubin 10.0 H AST 48 H ALT 22 Alkaline Phosphatase 98 Total Protein 6.0 L Albumin 1.4 L Assessment/Plan A 41 yom with advanced alcoholic liver disease, w/o ascites, with encephalopathy. Leukocytosis, fever and positive blood cultures. ?source of infection. Continue Lactulose Low salt diet Fluid restriction HbsAb Prognosis poor.
[2017-02-28 08:42] LABS: HEMATOCRIT 25.5 % (35.4-49); HEMOGLOBIN 8.4 GM/dL (11.7-16.9); MCH 35.6 pg (25.7-33.7); MCHC 32.9 g/dl (32.0-35.9); MEAN CELL VOLUME 108.4 fl (80-96); MEAN PLT VOLUME 9.8 fl (7.5-11.1); PLATELET COUNT 65 K/MM3 (134-434); RBC 2.35 M/mm3 (4.00-5.60); RDW 16.7 % (11.9-15.9); WHITE BLOOD COUNT 12.1 K/mm3 (4.0-10.0)
[2017-02-28 08:45] LABS: INR 2.42 (0.82-1.09); PROTHROMBIN TIME (PATIENT) 27.3 SEC (9.98-11.88)
[2017-02-28 08:54] LABS: CHLORIDE 107 mmol/L (98-107); SODIUM 133 mmol/L (136-145)
[2017-02-28] MEDS ORDERED: PT OWN MED DRAWER 7, Y5N ONE ×3 (08:54→15:18)
[2017-02-28] MEDS: FOLIC ACID 1 MG TABLET (FP) PO SCH (09:03)
[2017-02-28] MEDS: PANTOPRAZOLE 40 MG TABLET (FP) PO SCH ×2 (09:03→21:08)
[2017-02-28] MEDS: RIFAXIMIN 550 MG TABLET (UD) PO SCH (09:03)
[2017-02-28] MEDS: THIAMINE HCL 100 MG TABLET (FP) PO SCH (09:03)
[2017-02-28 09:39] LABS: ALBUMIN 1.5 g/dl (3.4-5.0); ALK PHOS 117 U/L (45-117); ANION GAP 12 (8-16); BILIRUBIN,TOTAL 8.7 mg/dL (0.2-1.0); BLOOD UREA NITROGEN 30 mg/dL (7-18); CO2 14 mmol/L (21-32); CREATININE 1.4 mg/dL (0.7-1.3); GLUCOSE,RANDOM 89 mg/dL (74-106); SGOT/AST 44 U/L (15-37); SGPT/ALT 21 U/L (12-78); TOT PROT 6.1 g/dl (6.4-8.2)
[2017-02-28 09:59] LABS: POTASSIUM 2.8 mmol/L (3.5-5.1)
[2017-02-28] MEDS: POTASSIUM CHLORIDE TABS 20 MEQ TABLET.ER (FP) PO SCH ×2 (12:20→17:15)
[2017-02-28] MEDS: POTASSIUM CHLORIDE 10 MEQ in SODIUM CHLORIDE 100 ML IVPB SCH ×3 (12:20→15:21)
--- NOTE | 2017-02-28 12:27 | PN ---
Progress Note, Physician History of Present Illness: patient stable no complaints - Current Medication List Current Medications: Active Medications Folic Acid (Folic Acid -) 1 mg PO DAILY [facility] Last Admin: 02/28/17 09:03 Dose: 1 mg Nafcillin Sodium 2 gm/ (Dextrose) 100 mls @ 100 mls/hr IVPB Q4H-IV BRITTANIE PRN Reason: Protocol Last Admin: 02/28/17 09:03 Dose: 100 mls/hr Potassium Chloride 10 meq/ (Sodium Chloride) 105 mls @ 105 mls/hr IVPB Q60M [facility] Stop: 02/28/17 13:59 Last Admin: 02/28/17 12:20 Dose: 105 mls/hr Lactulose (Cephulac (Oral Use)) 20 gm PO TID [facility] Last Admin: 02/28/17 05:38 Dose: 20 gm Pantoprazole Sodium (Protonix -) 40 mg PO BID [facility] Last Admin: 02/28/17 09:03 Dose: 40 mg Potassium Chloride (K-Dur -) 40 meq PO Q6H [facility] Stop: 02/28/17 17:01 Last Admin: 02/28/17 12:20 Dose: 40 meq Potassium Phos/Sodium Phos (Phos-Nak Packet -) 1 packet PO TID [facility] Last Admin: 02/28/17 05:38 Dose: 1 packet Rifaximin (Xifaxan -) 550 mg PO BID [facility] Last Admin: 02/28/17 09:03 Dose: 550 mg Sucralfate (Carafate Oral Suspension -) 1 gm PO Q6H [facility] Last Admin: 02/28/17 09:03 Dose: 1 gm Thiamine HCl (Vitamin B1 -) 100 mg PO DAILY [facility] Last Admin: 02/28/17 09:03 Dose: 100 mg - Objective Vital Signs: Vital Signs Temperature 97.9 F 02/28/17 05:52 Pulse Rate 87 02/28/17 05:52 Respiratory Rate 21 02/28/17 05:52 Blood Pressure 126/66 02/28/17 05:52 O2 Sat by Pulse Oximetry (%) 94 L 02/27/17 21:00 Constitutional: Yes: No Distress, Calm Cardiovascular: Yes: Regular Rate and Rhythm Respiratory: Yes: Regular, CTA Bilaterally Gastrointestinal: Yes: Soft, Ascites Musculoskeletal: Yes: WNL Extremities: Yes: Other Integumentary: Yes: Other (red spots in cubital fossa) Neurological: Yes: Alert, Oriented Psychiatric: Yes: Alert, Oriented Labs: CBC, BMP 02/28/17 07:55 02/28/17 07:55 INR, PTT INR 2.42 (0.82-1.09) H 02/28/17 07:55 Assessment/Plan Problem List - Problems (1) Alcoholic cirrhosis of liver Code(s): K70.30 - ALCOHOLIC CIRRHOSIS OF LIVER WITHOUT ASCITES Qualifiers: Ascites presence: without ascites Qualified Code(s): K70.30 - Alcoholic cirrhosis of liver without ascites (2) Hepatic encephalopathy Code(s): K72.90 - HEPATIC FAILURE, UNSPECIFIED WITHOUT COMA (3) Renal failure Code(s): N19 - UNSPECIFIED KIDNEY FAILURE Qualifiers: Renal failure chronicity: acute Acute renal failure type: unspecified Qualified Code(s): N17.9 - Acute kidney failure, unspecified (4) Sepsis Code(s): A41.9 - SEPSIS, UNSPECIFIED ORGANISM Qualifiers: Sepsis type: sepsis due to unspecified organism Qualified Code(s): A41.9 - Sepsis, unspecified organism (5) Thrombocytopenia Code(s): D69.6 - THROMBOCYTOPENIA, UNSPECIFIED 6 gm positive bactermia Assessment/Plan ASSESS: This is a 41 y/o man, Et-[place] cirrhotic who presents now w/ Liver fail, renal fail, HE, & Sepsis m/l PNA vs SBP vs PVT plan repeat cx negativ continue nafcillin patient stable
--- NOTE | 2017-02-28 15:23 | PN ---
Physical Exam: SUBJECTIVE: Patient seen and examined OBJECTIVE: Vital Signs Period Temp Pulse Resp BP Sys/Barriga Pulse Ox Last 24 Hr 97.9 F-99.2 F 68-89 20-21 118-126/38-66 94 GENERAL: The patient is sleeping but arousable. More conversational. Voice steady. Jaundiced. LUNGS: Breath sounds equal, clear to auscultation bilaterally, no wheezes, no crackles, no accessory muscle use. HEART: Regular rate and rhythm, S1, S2 without murmur, rub or gallop. ABDOMEN: Distended. EXTREMITIES: 2+ pulses, warm, well-perfused, no edema. NEUROLOGICAL: Cranial nerves II through XII grossly intact. Normal speech, gait not observed. SKIN: red, macular rash all extremities, trunk; itchy Laboratory Results - last 24 hr 02/27/17 02/28/17 02/28/17 15:45 07:55 07:55 WBC 12.1 H RBC 2.35 L Hgb 8.4 L Hct 25.5 L MCV 108.4 H MCH 35.6 H MCHC 32.9 RDW 16.7 H Plt Count 65 L MPV 9.8 PT with INR 27.30 H INR 2.42 H Sodium 131 L Potassium 3.0 L Chloride 106 Carbon Dioxide 15 L Anion Gap 10 BUN 31 H Creatinine 1.4 H Creat Clearance w eGFR Random Glucose 104 Calcium 7.1 L Total Bilirubin AST ALT Alkaline Phosphatase Total Protein Albumin 02/28/17 07:55 WBC RBC Hgb Hct MCV MCH MCHC RDW Plt Count MPV PT with INR INR Sodium 133 L Potassium 2.8 L* Chloride 107 Carbon Dioxide 14 L Anion Gap 12 BUN 30 H Creatinine 1.4 H Creat Clearance w eGFR 56.42 Random Glucose 89 Calcium 7.0 L Total Bilirubin 8.7 H AST 44 H ALT 21 Alkaline Phosphatase 117 Total Protein 6.1 L Albumin 1.5 L Active Medications Generic Name Dose Route Start Last Admin Trade Name Freq PRN Reason Stop Dose Admin Folic Acid 1 mg 02/22/17 10:00 02/28/17 09:03 Folic Acid - PO 1 mg DAILY BRITTANIE Administration Nafcillin Sodium 2 gm/ 100 mls @ 100 mls/hr 02/22/17 02:00 02/28/17 09:03 Dextrose IVPB 100 mls/hr Q4H-IV BRITTANIE Administration Protocol Lactulose 20 gm 02/22/17 14:00 02/28/17 15:21 Cephulac (Oral Use) PO 20 gm TID BRITTANIE Administration Pantoprazole Sodium 40 mg 02/21/17 22:00 02/28/17 09:03 Protonix - PO 40 mg BID BRITTANIE Administration Potassium Chloride 40 meq 02/28/17 11:00 02/28/17 12:20 K-Dur - PO 02/28/17 17:01 40 meq Q6H BRITTANIE Administration Potassium Phos/Sodium Phos 1 packet 02/24/17 14:00 02/28/17 15:22 Phos-Nak Packet - PO 1 packet TID BRITTANIE Administration Rifaximin 550 mg 02/21/17 22:00 02/28/17 09:03 Xifaxan - PO 550 mg BID BRITTANIE Administration Sucralfate 1 gm 02/27/17 08:00 02/28/17 15:21 Carafate Oral Suspension - PO 1 gm Q6H BRITTANIE Administration Thiamine HCl 100 mg 02/22/17 10:00 02/28/17 09:03 Vitamin B1 - PO 100 mg DAILY BRITTANIE Administration ASSESSMENT/PLAN: 41 year-old male with a PMH significant for alcohol abuse (last detoxed 11/2016 ) admitted for severe sepsis and bacteremia. Alcoholic cirrhosis --MELD score on admission 34, estimated 3 month mortality 52% --discriminant factor 74, steroids contraindicated due to bacteremia --INR continues to rise after cessation of Vit K Acute alcohol withdrawal --ativan PRN Hepatic encephalopathy Hypokalemia --correct lytes --continue lactulose, rifaximin, goal 4-5 BMs per day Severe Sepsis of uncertain etiology Bacteremia, unidentified source --Tm100.0 WBC continues to trend upward --02/18 Blood cultures: 2/2 + MSSA --02/21 Blood cultures: 2/2 MSSA --02/24 Blood cultures: pending --no ascites on US, doubtful this is SBP --MRI imaging of lumbar and thoracic spines unrevealing for possible source --UA negative; CXR unremarkable --TTE no signs of vegetation --plan is for EGD Saturday morning to r/o varices, and DARRIAN Saturday afternoon Elevated troponin --likely demand ischemia --cardiology: no further workup Thrombocytopenia --improving, from gisella of 19k to 79k today Acute Renal Failure, improved --Cr 1.9 on admission, 1.3 today Left shoulder pain --xrays ordered FEN Fluids: PO intake adequate Electrolytes: replete as indicated Nutrition: regular diet DVT prophylaxis: SCDs Dispo: continues to require inpatient care. Full code. Discussed HCP with patient and sister in law Dania Chavez. Patient wants his brother, Randy Chavez, to be his HCP. Form given to Dania who will give to Randy this evening. Lengthy conversation with Dania Chavez, sister in law , about gravity of patient's prognosis. She expressed understanding. Patient amenable to going to rehab facility. Will need PICC line and at least 4 weeks of antibiotics. Visit type - Emergency Visit Emergency Visit: Yes ED Registration Date: 02/19/17 Care time: The patient presented to the Emergency Department on the above date and was hospitalized for further evaluation of their emergent condition. - New Patient This patient is new to me today: No - Critical Care Critical Care patient: No
[2017-02-28] MEDS: traMADol HCL 50 MG TABLET PO PRN ×2 (17:17→23:08)
[2017-02-28 21:54] LABS: ANION GAP 11 (8-16); BLOOD UREA NITROGEN 34 mg/dL (7-18); CHLORIDE 106 mmol/L (98-107); CO2 14 mmol/L (21-32); CREATININE 1.7 mg/dL (0.7-1.3); GLUCOSE,RANDOM 91 mg/dL (74-106); PHOSPHOROUS 3.4 mg/dL (2.5-4.9); POTASSIUM 3.3 mmol/L (3.5-5.1); SODIUM 131 mmol/L (136-145)
[2017-03-01] MEDS: NAFCILLIN - 2 GM in DEXTROSE 5%-WATER - 100 ML IVPB SCH ×3 (01:40→10:38)
[2017-03-01] MEDS: SUCRALFATE 1 GM/10 ML UNIT DOSE CUPS PO SCH ×4 (01:40→22:12)
[2017-03-01] MEDS: NAPH,MB-DB/K PH,MBDB POWDER PACKET PO SCH ×3 (05:52→22:13)
[2017-03-01] MEDS: traMADol HCL 50 MG TABLET PO PRN (06:00)
[2017-03-01] MEDS: THIAMINE HCL 100 MG TABLET (FP) PO SCH (10:39)
[2017-03-01] MEDS: PANTOPRAZOLE 40 MG TABLET (FP) PO SCH (10:40)
[2017-03-01] MEDS: FOLIC ACID 1 MG TABLET (FP) PO SCH (10:40)
[2017-03-01 10:48] LABS: HEMATOCRIT 29.1 % (35.4-49); HEMOGLOBIN 9.4 GM/dL (11.7-16.9); MCH 35.8 pg (25.7-33.7); MCHC 32.4 g/dl (32.0-35.9); MEAN CELL VOLUME 110.3 fl (80-96); MEAN PLT VOLUME 10.1 fl (7.5-11.1); PLATELET COUNT 77 K/MM3 (134-434); RBC 2.64 M/mm3 (4.00-5.60); RDW 17.3 % (11.9-15.9); WHITE BLOOD COUNT 16.6 K/mm3 (4.0-10.0)
--- NOTE | 2017-03-01 11:19 | PN ---
Progress Note, Physician History of Present Illness: patient has developed rash all over the body cause of the rash --could be trmadol or abx dont know otherwise patient is stable wbc has jumped up - Current Medication List Current Medications: Active Medications Folic Acid (Folic Acid -) 1 mg PO DAILY [facility] Last Admin: 03/01/17 10:40 Dose: 1 mg Vancomycin HCl 1,250 mg/ (Dextrose) 250 mls @ 250 mls/hr IVPB DAILY [facility] PRN Reason: Protocol Pantoprazole Sodium (Protonix -) 40 mg PO BID [facility] Last Admin: 03/01/17 10:40 Dose: 40 mg Potassium Phos/Sodium Phos (Phos-Nak Packet -) 1 packet PO TID [facility] Last Admin: 03/01/17 05:52 Dose: 1 packet Sucralfate (Carafate Oral Suspension -) 1 gm PO Q6H [facility] Last Admin: 03/01/17 10:39 Dose: 1 gm Thiamine HCl (Vitamin B1 -) 100 mg PO DAILY [facility] Last Admin: 03/01/17 10:39 Dose: 100 mg Tramadol HCl (Ultram -) 50 mg PO Q6H PRN PRN Reason: PAIN LEVEL 1-5 Last Admin: 03/01/17 06:00 Dose: 50 mg - Objective Vital Signs: Vital Signs Temperature 98.7 F 03/01/17 08:00 Pulse Rate 91 H 03/01/17 08:00 Respiratory Rate 18 03/01/17 08:00 Blood Pressure 126/50 03/01/17 08:00 O2 Sat by Pulse Oximetry (%) 95 02/28/17 20:05 Constitutional: Yes: Calm, Mild Distress Cardiovascular: Yes: Regular Rate and Rhythm Respiratory: Yes: Regular, Poor Air Entry Gastrointestinal: Yes: Normal Bowel Sounds, Soft, Ascites Musculoskeletal: Yes: Other Extremities: Yes: Other Edema: LLE: 2+, RLE: 2+ Integumentary: Yes: Rash (all over body) Neurological: Yes: Alert, Oriented Psychiatric: Yes: Alert, Oriented Labs: CBC, BMP 03/01/17 10:25 INR, PTT INR 2.42 (0.82-1.09) H 02/28/17 07:55 Assessment/Plan Problem List - Problems (1) Alcoholic cirrhosis of liver Code(s): K70.30 - ALCOHOLIC CIRRHOSIS OF LIVER WITHOUT ASCITES Qualifiers: Ascites presence: without ascites Qualified Code(s): K70.30 - Alcoholic cirrhosis of liver without ascites (2) Hepatic encephalopathy Code(s): K72.90 - HEPATIC FAILURE, UNSPECIFIED WITHOUT COMA (3) Renal failure Code(s): N19 - UNSPECIFIED KIDNEY FAILURE Qualifiers: Renal failure chronicity: acute Acute renal failure type: unspecified Qualified Code(s): N17.9 - Acute kidney failure, unspecified (4) Sepsis Code(s): A41.9 - SEPSIS, UNSPECIFIED ORGANISM Qualifiers: Sepsis type: sepsis due to unspecified organism Qualified Code(s): A41.9 - Sepsis, unspecified organism (5) Thrombocytopenia Code(s): D69.6 - THROMBOCYTOPENIA, UNSPECIFIED 6 gm positive bactermia 7 diffuse rash all over the body leukocytosis Assessment/Plan ASSESS: This is a 41 y/o man, Et-[place] cirrhotic who presents now w/ Liver fail, renal fail, HE, & Sepsis m/l PNA vs SBP vs PVT plan will resend blood cx stop nafcillin will start vanco monitor renal function stop tramodol rest as per primary team
--- NOTE | 2017-03-01 11:20 | PN ---
Progress Note, Physician History of Present Illness: More awake. No events. Skin rash, maculopappular x 3 days arms and shoulders. Tramadol started 3 days ago. Ampicilin - 7 days ago - Current Medication List Current Medications: Active Medications Folic Acid (Folic Acid -) 1 mg PO DAILY [facility] Last Admin: 03/01/17 10:40 Dose: 1 mg Vancomycin HCl 1,250 mg/ (Dextrose) 250 mls @ 250 mls/hr IVPB DAILY [facility] PRN Reason: Protocol Pantoprazole Sodium (Protonix -) 40 mg PO BID [facility] Last Admin: 03/01/17 10:40 Dose: 40 mg Potassium Phos/Sodium Phos (Phos-Nak Packet -) 1 packet PO TID [facility] Last Admin: 03/01/17 05:52 Dose: 1 packet Sucralfate (Carafate Oral Suspension -) 1 gm PO Q6H [facility] Last Admin: 03/01/17 10:39 Dose: 1 gm Thiamine HCl (Vitamin B1 -) 100 mg PO DAILY [facility] Last Admin: 03/01/17 10:39 Dose: 100 mg Tramadol HCl (Ultram -) 50 mg PO Q6H PRN PRN Reason: PAIN LEVEL 1-5 Last Admin: 03/01/17 06:00 Dose: 50 mg - Objective Vital Signs: Vital Signs Temperature 98.7 F 03/01/17 08:00 Pulse Rate 91 H 03/01/17 08:00 Respiratory Rate 18 03/01/17 08:00 Blood Pressure 126/50 03/01/17 08:00 O2 Sat by Pulse Oximetry (%) 95 02/28/17 20:05 Constitutional: Yes: No Distress, Calm Eyes: Yes: Sclera Icterus Gastrointestinal: Yes: Soft. No: Melena, Rectal Bleeding, Tenderness, Epigastrium, Tenderness, Rebound, Vomiting Neurological: Yes: Alert, Oriented Labs: CBC, BMP 03/01/17 10:25 INR, PTT INR 2.42 (0.82-1.09) H 02/28/17 07:55 Abnormal Lab Results 02/28/17 03/01/17 19:00 10:25 WBC 16.6 H D RBC 2.64 L Hgb 9.4 L D Hct 29.1 L MCV 110.3 H MCH 35.8 H RDW 17.3 H Plt Count 77 L Sodium 131 L Potassium 3.3 L Carbon Dioxide 14 L BUN 34 H Creatinine 1.7 H D Calcium 7.0 L Assessment/Plan A 41 yom with advanced alcoholic liver disease, w/o ascites, with encephalopathy. Leukocytosis, fever and positive blood cultures. ?source of infection. Continue Lactulose Low salt diet Fluid restriction Stop tramadol Prognosis poor.
[2017-03-01 11:24] LABS: ALBUMIN 1.5 g/dl (3.4-5.0); ANION GAP 13 (8-16); BILIRUBIN,TOTAL 9.5 mg/dL (0.2-1.0); BLOOD UREA NITROGEN 39 mg/dL (7-18); CHLORIDE 103 mmol/L (98-107); CO2 12 mmol/L (21-32); CREATININE 2.5 mg/dL (0.7-1.3); GLUCOSE,RANDOM 83 mg/dL (74-106); MAGNESIUM 2.4 mg/dL (1.8-2.4); PHOSPHOROUS 3.9 mg/dL (2.5-4.9); POTASSIUM 3.2 mmol/L (3.5-5.1); SGOT/AST 43 U/L (15-37); SGPT/ALT 23 U/L (12-78); SODIUM 128 mmol/L (136-145)
[2017-03-01 11:25] LABS: ALK PHOS 111 U/L (45-117)
[2017-03-01 11:54] LABS: ANISOCYTOSIS 2+; PLATELET ESTIMATE DECREASED; TEAR DROP CELLS 1+; TOXIC GRANULATION 1+
[2017-03-01] MEDS: VANCOMYCIN 1,250 MG in DEXTROSE 5%-WATER - 250 ML IVPB SCH (15:17)
[2017-03-01 17:36] LABS: ARTERIAL BLD GAS O2 SATURATION 99.3 % (90-98.9); ARTERIAL BLOOD GAS BASE EXCESS -14.3 meq/l (-2-2)
--- NOTE | 2017-03-01 18:07 | CON.NEP ---
Consult Consult Specialty:: Nephrology Referred by:: SONALI Ruano Reason for Consultation:: Acute Renal Injury - History of Present Illness Chief Complaint: Abd pain, chills History of Present Illness: This is a 41 year old gentleman with PMhx of Alcoholic Liver cirrhosis who presented with abd pain and chills and found to have MSSA Bacteremia and now with YARIEL. Pt initially have a serum Cr of 1.8 that improved but now with secondary injury with Cr of 2.5. Pt noted to have a diffuse rash, was taken off Naficllin. Pt denies any change in urine output or character. No flank pain or dysuria. No N/V. Has been having loose stools because of lactulose. No contrast exposure or NSIAD use. - History Source History Provided By: Patient Limitations to Obtaining History: No Limitations - Past Medical History Cardio/Vascular: Yes: HTN Hepatobiliary: Yes: Cirrhosis Psych: Yes: Panic Musculoskeletal: Yes: Chronic low back pain - Past Surgical History Past Surgical History: Yes: Appendectomy, Arthrosocopy (right knee), Cholecystectomy - Alcohol/Substance Use Hx Alcohol Use: No History of Substance Use: reports: Prescription (opiate) - Smoking History Smoking history: Former smoker Have you smoked in the past 12 months: No Aproximately how many cigarettes per day: 0 - Social History Usual Living Arrangement: With Significant Other ADL: Family Assistance Occupation: electrical work History of Recent Travel: No Home Medications - Allergies Allergies/Adverse Reactions: Allergies Allergy/AdvReac Type Severity Reaction Status Date / Time No Known Allergies Allergy Verified 11/29/16 17:08 - Home Medications Home Medications: Ambulatory Orders Acetaminophen [Tylenol .Regular Strength -] 650 mg PO Q6H PRN #120 tablet Chlordiazepoxide [Librium -] 25 mg PO BID #60 capsule MDD 50 10/25/15 Clindamycin [Cleocin -] 300 mg PO Q6HPO #20 capsule 10/25/15 Nadolol [Corgard -] 60 mg PO DAILY #90 tablet 10/25/15 Rifaximin [Xifaxan -] 550 mg PO BID #60 tablet 10/25/15 NK [No Known Home Medication] 02/18/17 Family Disease History - Family Disease History Family Disease History: CA: Father, Mother, Brother Review of Systems - Review of Systems Constitutional: reports: No Symptoms Eyes: reports: No Symptoms HENT: reports: No Symptoms Neck: reports: No Symptoms Cardiovascular: reports: No Symptoms Respiratory: reports: No Symptoms Gastrointestinal: reports: No Symptoms Genitourinary: reports: No Symptoms Integumentary: reports: Erythema Neurological: reports: No Symptoms Nephrology Consult - Height Height: 6 ft 2 in - Weight Weight: 122.952 kg - BMI Body Mass Index (BMI): 34.8 - Lab Results CBC,BMP: CBC, BMP 03/01/17 10:25 03/01/17 10:25 Anion Gap: Anion Gap Anion Gap 13 (8-16) 03/01/17 10:25 - Imaging Chest X-ray: Report Reviewed X-ray: Report Reviewed Ultrasound: Report Reviewed - Physical Examination Vital Signs: Vital Signs Temperature 98.7 F 03/01/17 15:20 Pulse Rate 88 03/01/17 15:20 Respiratory Rate 18 03/01/17 08:00 Blood Pressure 111/37 03/01/17 15:20 O2 Sat by Pulse Oximetry (%) 99 03/01/17 09:00 Constitutional: Yes: No Distress Eyes: Yes: EOM Intact, Sclera Icterus HENT: Yes: Atraumatic Neck: Yes: Supple Cardiovascular: Yes: Regular Rate and Rhythm, Murmur Respiratory: Yes: Regular, CTA Bilaterally, Diminished. No: Rales, Rhonchi Gastrointestinal: Yes: Soft, Abdomen, Obese. No: Tenderness Renal/: Yes: Ybarra Present. No: Anuria, Bladder Distention, CVA Tenderness - Left, CVA Tenderness - Right Edema: Yes Edema: LLE: 2+, RLE: 2+ Neurological: Yes: Alert, Oriented Assessment/Plan 41 year old gentleman with PMhx of Alcoholic Liver cirrhosis who presented with abd pain and chills and found to have MSSA Bacteremia and now with YARIEL. #Acute Renal Injury differential includes AIN vs. Obstruction vs. Hepato-renal syndrome vs intravascular volume depletion check Urine for FeNa, Eosinophils, WBC Check US of kidney and bladder r/o obstruction pt is off nafcillin will also hold PPI as that can cause AIN Trend BUN/Cr keep MAP > 65 avoid nsaids, IV contrast #MSSA Bacteremia off PCN abx because of rash on Vanco ID following #Alcoholic Cirrhosis supportive care #Hyponatremia hypervolemic hyponatremia in setting of cirrhosis and renal insufficiency no indication for 3% saline #Metabolic Acidosis AG + NAG acidosis from renal failure + GI losses check ABG start sodium bicarb 650mg BID #Hypokalemia from GI losses continue oral supplementation #Hypoalbuminemia
[2017-03-01 18:08] VITALS: BMI 34.8
[2017-03-01 18:08] LABS: ALLENS TEST POSITIVE
[2017-03-01] MEDS: SODIUM BICARBONATE 650 MG TABLET PO SCH ×2 (18:40→22:13)
--- NOTE | 2017-03-01 19:25 | PN ---
Physical Exam: SUBJECTIVE: Patient seen and examined OBJECTIVE: Vital Signs Period Temp Pulse Resp BP Sys/Barriga Pulse Ox Last 24 Hr 98.3 F-99.5 F 82-91 18-18 111-126/37-66 95-99 GENERAL: The patient is sleeping but arousable. More conversational. Voice steady. Jaundiced. LUNGS: Breath sounds equal, clear to auscultation bilaterally, no wheezes, no crackles, no accessory muscle use. HEART: Regular rate and rhythm, S1, S2 without murmur, rub or gallop. ABDOMEN: Distended. EXTREMITIES: 2+ pulses, warm, well-perfused, no edema. NEUROLOGICAL: Cranial nerves II through XII grossly intact. Normal speech, gait not observed. SKIN: red, macular rash all extremities, trunk; itchy Laboratory Results - last 24 hr 02/28/17 02/28/17 03/01/17 18:30 19:00 10:25 WBC 16.6 H D RBC 2.64 L Hgb 9.4 L D Hct 29.1 L MCV 110.3 H MCH 35.8 H MCHC 32.4 RDW 17.3 H Plt Count 77 L MPV 10.1 Neutrophils % No Result Required. Neutrophils % (Manual) 90.0 H Band Neutrophils % 0.0 Lymphocytes % No Result Required. Lymphocytes % (Manual) 1.0 L D Monocytes % (Manual) 2 L Eosinophils % (Manual) 6.0 H D Basophils % (Manual) 0.0 Myelocytes % (Man) 1 Metamyelocytes 0 Hypochromia 0 Toxic Granulation 1+ Platelet Estimate Decreased Polychromasia 1+ Poikilocytosis 2+ Anisocytosis 2+ Microcytosis 1+ Tear Drop Cells 1+ Puncture Site ABG pH ABG pCO2 at Pt Temp ABG pO2 at Pt Temp ABG HCO3 ABG O2 Sat (Measured) ABG O2 Content ABG Base Excess Geronimo Test Oxygen Flow Rate Sodium 131 L Potassium 3.3 L Chloride 106 Carbon Dioxide 14 L Anion Gap 11 BUN 34 H Creatinine 1.7 H D Creat Clearance w eGFR Random Glucose 91 Calcium 7.0 L Phosphorus 3.4 D Magnesium 2.4 Total Bilirubin AST ALT Alkaline Phosphatase Total Protein Albumin 03/01/17 03/01/17 10:25 17:00 WBC RBC Hgb Hct MCV MCH MCHC RDW Plt Count MPV Neutrophils % Neutrophils % (Manual) Band Neutrophils % Lymphocytes % Lymphocytes % (Manual) Monocytes % (Manual) Eosinophils % (Manual) Basophils % (Manual) Myelocytes % (Man) Metamyelocytes Hypochromia Toxic Granulation Platelet Estimate Polychromasia Poikilocytosis Anisocytosis Microcytosis Tear Drop Cells Puncture Site Right radial ABG pH 7.30 L ABG pCO2 at Pt Temp 23.0 L D ABG pO2 at Pt Temp 122.0 H D ABG HCO3 10.9 L* ABG O2 Sat (Measured) 99.3 H ABG O2 Content 8.0 L* ABG Base Excess -14.3 L* Geronimo Test Positive Oxygen Flow Rate No Sodium 128 L Potassium 3.2 L Chloride 103 Carbon Dioxide 12 L Anion Gap 13 BUN 39 H Creatinine 2.5 H D Creat Clearance w eGFR 28.90 Random Glucose 83 Calcium 7.0 L Phosphorus 3.9 Magnesium 2.4 Total Bilirubin 9.5 H AST 43 H ALT 23 Alkaline Phosphatase 111 Total Protein 6.0 L Albumin 1.5 L Active Medications Generic Name Dose Route Start Last Admin Trade Name Freq PRN Reason Stop Dose Admin Diphenhydramine HCl 12.5 mg 03/01/17 19:24 Benadryl Injection - IVPUSH Q4H PRN FOR ITCHING Folic Acid 1 mg 02/22/17 10:00 03/01/17 10:40 Folic Acid - PO 1 mg DAILY BRITTANIE Administration Vancomycin HCl 1,250 mg/ 250 mls @ 125 mls/hr 03/01/17 16:00 03/01/17 15:17 Dextrose IVPB 125 mls/hr DAILY@1600 BRITTANIE Administration Protocol Potassium Phos/Sodium Phos 1 packet 02/24/17 14:00 03/01/17 13:26 Phos-Nak Packet - PO 1 packet TID BRITTANIE Administration Sodium Bicarbonate 650 mg 03/01/17 18:30 03/01/17 18:40 Sodium Bicarbonate - PO 650 mg BID BRITTANIE Administration Sucralfate 1 gm 02/27/17 08:00 03/01/17 13:26 Carafate Oral Suspension - PO 1 gm Q6H BRITTANIE Administration Thiamine HCl 100 mg 02/22/17 10:00 03/01/17 10:39 Vitamin B1 - PO 100 mg DAILY BRITTANIE Administration Zinc Acetate/Diphenhydramine 1 applic 03/01/17 22:00 Benadryl 2% Cream TP BID [facility] ASSESSMENT/PLAN: 41 year-old male with a PMH significant for alcohol abuse (last detoxed 11/2016 ) admitted for severe sepsis and bacteremia. Alcoholic cirrhosis --MELD score on admission 34, estimated 3 month mortality 52% --discriminant factor 74, steroids contraindicated due to bacteremia --INR continues to rise after cessation of Vit K Acute alcohol withdrawal --ativan PRN Hepatic encephalopathy Hypokalemia --correct lytes --continue lactulose, rifaximin, goal 4-5 BMs per day Severe Sepsis of uncertain etiology Bacteremia, unidentified source --Tm100.0 WBC continues to trend upward --02/18 Blood cultures: 2/2 + MSSA --02/21 Blood cultures: 2 MSSA --02/24 Blood cultures: pending --no ascites on US, doubtful this is SBP --MRI imaging of lumbar and thoracic spines unrevealing for possible source --UA negative; CXR unremarkable --TTE no signs of vegetation --plan is for EGD Saturday to r/o varices, and DARRIAN Saturday afternoon Elevated troponin --likely demand ischemia --cardiology: no further workup Thrombocytopenia --improving, from gisella of 19k to 79k today Acute Renal Failure, improved --Cr 1.9 on admission, 1.3 today Left shoulder pain --xrays ordered FEN Fluids: PO intake adequate Electrolytes: replete as indicated Nutrition: regular diet DVT prophylaxis: SCDs Dispo: continues to require inpatient care. Full code.
[2017-03-02 00:54] LABS: URINE APPEARANCE CLOUDY; URINE BLOOD 1+ (NEGATIVE); URINE COLOR AMBER; URINE GLUCOSE (UA) 1+ (NEGATIVE); URINE KETONE NEGATIVE (NEGATIVE); URINE LEUK ESTERASE TRACE (NEGATIVE); URINE NITRITE NEGATIVE (NEGATIVE); URINE UROBILINOGEN NEGATIVE mg/dL (0.2-1.0)
[2017-03-02 00:59] LABS: URINE PROTEIN 2+ (NEGATIVE)
[2017-03-02 01:03] LABS: EPI CELLS RARE /HPF (FEW); URINE HYALINE CAST 108 /lpf; URINE MUCUS RARE
[2017-03-02] MEDS: SUCRALFATE 1 GM/10 ML UNIT DOSE CUPS PO SCH ×4 (02:24→20:34)
--- NOTE | 2017-03-02 04:08 | HOSP ---
Subjective - Review of Symptoms Events since last encounter: called by nurse, "pt with purulent drainage from left testicle" Subjective: pt denies pain Physical Examination Vital Signs: Vital Signs Temperature 97.9 F 03/01/17 19:00 Pulse Rate 88 03/01/17 19:00 Respiratory Rate 17 03/01/17 19:00 Blood Pressure 121/51 03/01/17 23:00 O2 Sat by Pulse Oximetry (%) 99 03/01/17 09:00 Wound/Incision: Yes: Other (skin to bilat groin with desquamation, erythematous base left groin with open area draining brown/bloody discharge with minimal pressure to surrounding skin. Palpable collection/mass to deeper tissue approx 1.5cmx 3cm. + tender to palpation. rash noted to entire body, but especially abdomen, groin and arms: erythematous, previous drug rash, has improved as per nurse) Labs: CBC, BMP 03/01/17 10:25 03/01/17 10:25 Hospitalist Encounter Assessment: abscess L groin - cont vancomycin - ideally would obtain CT pelvis with contrast but unable due to renal function, will discuss best imaging with primary MUD MIXER in am - cont ID consult - consider surgical consult. Will dw primary MUD MIXER in am - wound culture sent fungal rash to groin - nystatin powder BID
[2017-03-02] MEDS: NAPH,MB-DB/K PH,MBDB POWDER PACKET PO SCH (06:37)
[2017-03-02] MEDS ORDERED: oxyCODONE HCL 5 MG TABLET PO ONE (06:45)
[2017-03-02 08:48] LABS: INR 3.56 (0.82-1.09); PROTHROMBIN TIME (PATIENT) 40.2 SEC (9.98-11.88)
[2017-03-02 08:59] LABS: HEMATOCRIT 31.4 % (35.4-49); HEMOGLOBIN 10.3 GM/dL (11.7-16.9); MCH 36.4 pg (25.7-33.7); MCHC 32.7 g/dl (32.0-35.9); MEAN CELL VOLUME 111.4 fl (80-96); MEAN PLT VOLUME 10.3 fl (7.5-11.1); PLATELET COUNT 130 K/MM3 (134-434); RBC 2.82 M/mm3 (4.00-5.60); RDW 17.7 % (11.9-15.9); WHITE BLOOD COUNT 21.6 K/mm3 (4.0-10.0)
[2017-03-02 09:22] LABS: ALBUMIN 1.4 g/dl (3.4-5.0); ALK PHOS 99 U/L (45-117); ANION GAP 15 (8-16); BILIRUBIN,TOTAL 8.9 mg/dL (0.2-1.0); BLOOD UREA NITROGEN 48 mg/dL (7-18); CHLORIDE 103 mmol/L (98-107); CO2 11 mmol/L (21-32); CREATININE 4.3 mg/dL (0.7-1.3); GLUCOSE,RANDOM 57 mg/dL (74-106); MAGNESIUM 2.1 mg/dL (1.8-2.4); PHOSPHOROUS 5.6 mg/dL (2.5-4.9); POTASSIUM 3.9 mmol/L (3.5-5.1); SGOT/AST 33 U/L (15-37); SGPT/ALT 24 U/L (12-78); SODIUM 129 mmol/L (136-145); TOT PROT 5.7 g/dl (6.4-8.2)
[2017-03-02 09:47] LABS: CALCIUM 6.9 mg/dL (8.5-10.1)
[2017-03-02] MEDS ORDERED: ALBUMIN HUMAN 25% 12.5 GM/50 ML VIAL IVPB SCH (10:15)
[2017-03-02] MEDS ORDERED: SODIUM CHLORIDE 500 ML IV STA ×2 (10:15→10:29)
[2017-03-02] MEDS ORDERED: OCTREOTIDE ACETATE 50 MCG/1 ML - 1 ML VIAL SQ SCH (10:15)
[2017-03-02 10:24] LABS: ANISOCYTOSIS 1+; MACROCYTOSIS 3+; PLATELET ESTIMATE DECREASED
--- NOTE | 2017-03-02 10:43 | PN ---
Progress Note (short form) - Note Progress Note: Renal follow up for YARIEL Pt seen and examined at the bedside awake and alert reports itching or arms and chest making urine no sob, chest pain, N/V tolerating oral diet Vital Signs Temperature 98.1 F 03/02/17 06:00 Pulse Rate 89 03/02/17 06:00 Respiratory Rate 20 03/02/17 06:00 Blood Pressure 100/48 03/02/17 06:00 O2 Sat by Pulse Oximetry (%) 99 03/01/17 09:00 Intake & Output 02/27/17 02/28/17 03/01/17 03/02/17 23:59 23:59 23:59 23:59 Intake Total 2500 2850 2425 0 Output Total 6940 741 3468 Balance 1500 1950 525 0 Weight 122.47 kg 122.952 kg 122.952 kg 122.651 kg NAD awake and alert RRR + murmur Dec BS at lung bases soft NT/ND 2+ LE edema CBC, BMP 03/02/17 07:00 03/02/17 07:00 Current Medications Diphenhydramine HCl (Benadryl Injection -) 12.5 mg IVPUSH Q4H PRN PRN Reason: FOR ITCHING Last Admin: 03/01/17 22:12 Dose: 12.5 mg Folic Acid (Folic Acid -) 1 mg PO DAILY BRITTANIE Last Admin: 03/01/17 10:40 Dose: 1 mg Vancomycin HCl 1,250 mg/ (Dextrose) 250 mls @ 125 mls/hr IVPB DAILY@1600 BRITTANIE PRN Reason: Protocol Last Admin: 03/01/17 15:17 Dose: 125 mls/hr Sodium Chloride (Normal Saline -) 1,000 mls @ 83 mls/hr IV ASDIR BRITTANIE Sodium Chloride (Normal Saline -) 500 mls @ 1,000 mls/hr IV ASDIR STA Stop: 03/02/17 10:58 Methylprednisolone Sodium Succinate (Solu-Medrol -) 1,000 mg IVPB ONCE ONE Stop: 03/02/17 10:34 Nystatin (Nystop Powder -) 1 applic TP BID BRITTANIE Sodium Bicarbonate (Sodium Bicarbonate -) 650 mg PO BID BRITTANIE Last Admin: 03/01/17 22:13 Dose: 650 mg Sucralfate (Carafate Oral Suspension -) 1 gm PO Q6H BRITTANIE Last Admin: 03/02/17 02:24 Dose: 1 gm Thiamine HCl (Vitamin B1 -) 100 mg PO DAILY [facility] Last Admin: 03/01/17 10:39 Dose: 100 mg Zinc Acetate/Diphenhydramine (Benadryl 2% Cream) 1 applic TP BID [facility] Last Admin: 03/01/17 22:24 Dose: 1 applic 41 year old gentleman with PMhx of Alcoholic Liver cirrhosis who presented with abd pain and chills and found to have MSSA Bacteremia and now with YARIEL. #Acute Renal Injury Likely etiology appears to be AIN, pt with rising serum Eios, + WBC in Urine and diffuse rash given progressive nature of kidney injury will start IV steroids at this time will also start pt on IVF given low FeNa - ? intravascular volume depletion will still have to consider HRS as cause of injury but it is a diagnosis of exclusion if other treatments dont improve the renal function repeat BMP this evening #Hyponatremia from cirrhosis, renal failure trend for now no indication for 3% saline free water restriction to 1 L daily #Metabolic acidosis from AG and non-AG start IVF with bicarb #Hypocalcemia corrected Ca is WNL Thank you Will follow Case discussed with RAJI Sarah DO
[2017-03-02] MEDS: NYSTATIN POWDER 100,000 UNITS/GM - 15 GM TOPICAL POWDER TP SCH ×2 (10:57→22:57)
[2017-03-02] MEDS: THIAMINE HCL 100 MG TABLET (FP) PO SCH (10:57)
[2017-03-02] MEDS: SODIUM BICARBONATE 650 MG TABLET PO SCH ×2 (10:57→22:54)
[2017-03-02] MEDS: FOLIC ACID 1 MG TABLET (FP) PO SCH (10:57)
[2017-03-02] MEDS ORDERED: SODIUM CHLORIDE 1,000 ML IV SCH (11:00)
[2017-03-02] MEDS ORDERED: DEXTROSE 5%-WATER - 1,000 ML with SODIUM BICARBONATE 8.4% - 150 MEQ IV SCH (11:30)
[2017-03-02] MEDS ORDERED: methylPREDNISolone NA SUCC 1000 MG/8 ML VIAL IVPB ONE (11:30)
[2017-03-02] MEDS ORDERED: MIDODRINE HCL 5 MG TABLET PO SCH (14:00)
[2017-03-02] MEDS: MEROPENEM 500 MG PUSH 500 MG/10 ML DISP.SYRIN IVPUSH SCH ×2 (14:17→22:54)
--- NOTE | 2017-03-02 14:42 | PN ---
Progress Note, Physician History of Present Illness: events noted from yesterday patient looks more lethargic though he is awake and alert he is very slow rash still present all over the body patient has drainage from the left testicle also he is scratching a lot - Current Medication List Current Medications: Active Medications Diphenhydramine HCl (Benadryl Injection -) 12.5 mg IVPUSH Q4H PRN PRN Reason: FOR ITCHING Last Admin: 03/02/17 10:58 Dose: 12.5 mg Folic Acid (Folic Acid -) 1 mg PO DAILY [facility] Last Admin: 03/02/17 10:57 Dose: 1 mg Vancomycin HCl 1,250 mg/ (Dextrose) 250 mls @ 125 mls/hr IVPB DAILY@1600 BRITTANIE PRN Reason: Protocol Last Admin: 03/01/17 15:17 Dose: 125 mls/hr Sodium Bicarbonate 150 meq/ (Dextrose) 1,000 mls @ 83 mls/hr IV Q12H [facility] Meropenem (Merrem (Restricted To Id) -) 500 mg in 10 mls @ 120 mls/hr IVPUSH BID [facility] Nystatin (Nystop Powder -) 1 applic TP BID [facility] Last Admin: 03/02/17 10:57 Dose: 1 applic Sodium Bicarbonate (Sodium Bicarbonate -) 650 mg PO BID [facility] Last Admin: 03/02/17 10:57 Dose: 650 mg Sucralfate (Carafate Oral Suspension -) 1 gm PO Q6H [facility] Last Admin: 03/02/17 08:58 Dose: 1 gm Thiamine HCl (Vitamin B1 -) 100 mg PO DAILY [facility] Last Admin: 03/02/17 10:57 Dose: 100 mg Zinc Acetate/Diphenhydramine (Benadryl 2% Cream) 1 applic TP BID [facility] Last Admin: 03/02/17 10:59 Dose: 1 applic - Objective Vital Signs: Vital Signs Temperature 97.8 F 03/02/17 14:31 Pulse Rate 98 H 03/02/17 14:31 Respiratory Rate 20 03/02/17 14:31 Blood Pressure 118/48 03/02/17 14:31 O2 Sat by Pulse Oximetry (%) 99 03/01/17 09:00 Constitutional: Yes: Calm, Mild Distress Cardiovascular: Yes: Regular Rate and Rhythm Respiratory: Yes: Regular, CTA Bilaterally Gastrointestinal: Yes: Soft, Ascites, Distention Genitourinary: Yes: Scrotal Edema (rt side), Other (draiange from the rt side of the scrotum) Musculoskeletal: Yes: Other Extremities: Yes: Other Edema: LLE: 1+, RLE: 1+ Integumentary: Yes: Rash (diffuse allm over the body) Wound/Incision: Yes: Draining (left side of the scrotum) Neurological: Yes: Alert Psychiatric: Yes: Alert Labs: CBC, BMP 03/02/17 07:00 03/02/17 07:00 INR, PTT INR 3.56 (0.82-1.09) H D 03/02/17 07:00 Assessment/Plan Problem List - Problems (1) Alcoholic cirrhosis of liver Code(s): K70.30 - ALCOHOLIC CIRRHOSIS OF LIVER WITHOUT ASCITES Qualifiers: Ascites presence: without ascites Qualified Code(s): K70.30 - Alcoholic cirrhosis of liver without ascites (2) Hepatic encephalopathy Code(s): K72.90 - HEPATIC FAILURE, UNSPECIFIED WITHOUT COMA (3) Renal failure Code(s): N19 - UNSPECIFIED KIDNEY FAILURE Qualifiers: Renal failure chronicity: acute Acute renal failure type: unspecified Qualified Code(s): N17.9 - Acute kidney failure, unspecified (4) Sepsis Code(s): A41.9 - SEPSIS, UNSPECIFIED ORGANISM Qualifiers: Sepsis type: sepsis due to unspecified organism Qualified Code(s): A41.9 - Sepsis, unspecified organism (5) Thrombocytopenia Code(s): D69.6 - THROMBOCYTOPENIA, UNSPECIFIED 6 gm positive bactermia 7 diffuse rash all over the body leukocytosis scrotal infection/collection plan await for blood cx reports will add meropenam await for cx report from the scrotum imaging study of the scrotum monitor wbc monitor renal function very close watch on the patient as he can turn septic very quickly discussed with the primary team
[2017-03-02] MEDS: VANCOMYCIN 1,250 MG in DEXTROSE 5%-WATER - 250 ML IVPB SCH (17:07)
[2017-03-02] MEDS ORDERED: PT OWN MED DRAWER 7, Y5N ONE ×2 (17:27→22:53)
[2017-03-02] MEDS: DEXTROSE 5%-WATER - 1,000 ML with SODIUM BICARBONATE 8.4% - 150 MEQ IV SCH (18:08)
[2017-03-02] MEDS: oxyCODONE HCL 5 MG TABLET PO PRN (18:59)
[2017-03-02 19:47] LABS: ANION GAP 15 (8-16); BLOOD UREA NITROGEN 54 mg/dL (7-18); CHLORIDE 103 mmol/L (98-107); CO2 11 mmol/L (21-32); CREATININE 4.7 mg/dL (0.7-1.3); GLUCOSE,RANDOM 164 mg/dL (74-106); POTASSIUM 3.8 mmol/L (3.5-5.1); SODIUM 129 mmol/L (136-145)
--- NOTE | 2017-03-02 20:12 | PN ---
Physical Exam: SUBJECTIVE: Patient seen and examined OBJECTIVE: Vital Signs Period Temp Pulse Resp BP Sys/Barriga Pulse Ox Last 24 Hr 97.8 F-98.4 F 89-98 20-20 100-121/43-51 GENERAL: The patient is awake, alert, and fully oriented, in no acute distress. HEAD: Normal with no signs of trauma. EYES: PERRL, extraocular movements intact, sclera anicteric, conjunctiva clear. No ptosis. ENT: Ears normal, nares patent, oropharynx clear without exudates, moist mucous membranes. NECK: Trachea midline, full range of motion, supple. LUNGS: Breath sounds equal, clear to auscultation bilaterally, no wheezes, no crackles, no accessory muscle use. HEART: Regular rate and rhythm, S1, S2 without murmur, rub or gallop. ABDOMEN: Soft, nontender, nondistended, normoactive bowel sounds, no guarding, no rebound, no hepatosplenomegaly, no masses. EXTREMITIES: 2+ pulses, warm, well-perfused, no edema. NEUROLOGICAL: Cranial nerves II through XII grossly intact. Normal speech, gait not observed. PSYCH: Normal mood, normal affect. SKIN: Warm, dry, normal turgor, no rashes or lesions noted Laboratory Results - last 24 hr 03/01/17 03/01/17 03/02/17 21:57 21:57 07:00 WBC RBC Hgb Hct MCV MCH MCHC RDW Plt Count MPV Neutrophils % Neutrophils % (Manual) Band Neutrophils % Lymphocytes % Lymphocytes % (Manual) Monocytes % (Manual) Eosinophils % (Manual) Basophils % (Manual) Myelocytes % (Man) Metamyelocytes Hypochromia Platelet Estimate Platelet Comment Polychromasia Poikilocytosis Anisocytosis Microcytosis Macrocytosis PT with INR 40.20 H INR 3.56 H D Sodium Potassium Chloride Carbon Dioxide Anion Gap BUN Creatinine Creat Clearance w eGFR Random Glucose Calcium Phosphorus Magnesium Total Bilirubin AST ALT Alkaline Phosphatase Total Protein Albumin Urine Color Dahlia Urine Appearance Cloudy Urine pH 5.0 Ur Specific Franklin 1.018 Urine Protein 2+ H Urine Glucose (UA) 1+ H Urine Ketones Negative Urine Blood 1+ H Urine Nitrite Negative Urine Bilirubin 2.0 Urine Urobilinogen Negative Ur Leukocyte Esterase Trace Urine WBC (Auto) 75 Urine RBC (Auto) 54 Ur Epithelial Cells Rare Hyaline Casts 108 Urine Mucus Rare U Random Total Protein 272 H Ur Random Sodium 6 Urine Creatinine 308.0 03/02/17 03/02/17 07:00 07:00 WBC 21.6 H D RBC 2.82 L Hgb 10.3 L Hct 31.4 L MCV 111.4 H MCH 36.4 H MCHC 32.7 RDW 17.7 H Plt Count 130 L D MPV 10.3 Neutrophils % No Result Required. Neutrophils % (Manual) 85.7 H Band Neutrophils % 0.0 Lymphocytes % No Result Required. Lymphocytes % (Manual) 1.0 L Monocytes % (Manual) 3 L Eosinophils % (Manual) 9.2 H Basophils % (Manual) 0.0 Myelocytes % (Man) 1 Metamyelocytes 0 Hypochromia 0 Platelet Estimate Decreased Platelet Comment Few large plts Polychromasia 2+ Poikilocytosis 3+ Anisocytosis 1+ Microcytosis 0 Macrocytosis 3+ PT with INR INR Sodium 129 L Potassium 3.9 D Chloride 103 Carbon Dioxide 11 L Anion Gap 15 BUN 48 H D Creatinine 4.3 H D Creat Clearance w eGFR 15.45 Random Glucose 57 L D Calcium 6.9 L* Phosphorus 5.6 H D Magnesium 2.1 Total Bilirubin 8.9 H AST 33 D ALT 24 Alkaline Phosphatase 99 Total Protein 5.7 L Albumin 1.4 L Urine Color Urine Appearance Urine pH Ur Specific Franklin Urine Protein Urine Glucose (UA) Urine Ketones Urine Blood Urine Nitrite Urine Bilirubin Urine Urobilinogen Ur Leukocyte Esterase Urine WBC (Auto) Urine RBC (Auto) Ur Epithelial Cells Hyaline Casts Urine Mucus U Random Total Protein Ur Random Sodium Urine Creatinine Active Medications Generic Name Dose Route Start Last Admin Trade Name Herreraq PRN Reason Stop Dose Admin Diphenhydramine HCl 12.5 mg 03/01/17 19:24 03/02/17 10:58 Benadryl Injection - IVPUSH 12.5 mg Q4H PRN Administration FOR ITCHING Folic Acid 1 mg 02/22/17 10:00 03/02/17 10:57 Folic Acid - PO 1 mg DAILY BRITTANIE Administration Vancomycin HCl 1,250 mg/ 250 mls @ 125 mls/hr 03/01/17 16:00 03/02/17 17:07 Dextrose IVPB 125 mls/hr DAILY@1600 BRITTANIE Administration Protocol Meropenem 500 mg in 10 mls @ 120 mls/hr 03/02/17 14:45 01/13/18 14:17 Merrem (Restricted To Id) - IVPUSH 120 mls/hr BID BRITTANIE Administration Sodium Bicarbonate 150 meq/ 1,000 mls @ 83 mls/hr 03/02/17 17:30 03/02/17 18: 08 Dextrose IV 83 mls/hr Q12H BRITTANIE Administration Nystatin 1 applic 03/02/17 10:00 03/02/17 10:57 Nystop Powder - TP 1 applic BID BRITTANIE Administration Oxycodone HCl 5 mg 03/02/17 18:22 03/02/17 18:59 Roxicodone - PO 5 mg Q4H PRN Administration PAIN LEVEL 4 - 6 Sodium Bicarbonate 650 mg 03/01/17 18:30 03/02/17 10:57 Sodium Bicarbonate - PO 650 mg BID BRITTANIE Administration Sucralfate 1 gm 02/27/17 08:00 03/02/17 14:18 Carafate Oral Suspension - PO 1 gm Q6H BRITTANIE Administration Thiamine HCl 100 mg 02/22/17 10:00 03/02/17 10:57 Vitamin B1 - PO 100 mg DAILY BRITTANIE Administration Zinc Acetate/Diphenhydramine 1 applic 03/01/17 22:00 03/02/17 10:59 Benadryl 2% Cream TP 1 applic BID BRITTANIE Administration ASSESSMENT/PLAN: 41 year-old male with a PMH significant for alcohol abuse (last detoxed 11/2016 ) admitted for severe sepsis and bacteremia. Alcoholic cirrhosis --MELD score on admission 34, estimated 3 month mortality 52% --discriminant factor 74, steroids contraindicated due to bacteremia --INR continues to rise after cessation of Vit K Acute alcohol withdrawal --ativan PRN Hepatic encephalopathy Hypokalemia --correct lytes --continue lactulose, rifaximin, goal 4-5 BMs per day Severe Sepsis of uncertain etiology Bacteremia, unidentified source --Tm100.0 WBC continues to trend upward --02/18 Blood cultures: 2/2 + MSSA --02/21 Blood cultures: 2/2 MSSA --02/24 Blood cultures: pending --no ascites on US, doubtful this is SBP --MRI imaging of lumbar and thoracic spines unrevealing for possible source --UA negative; CXR unremarkable --TTE no signs of vegetation --plan is for EGD Saturday to r/o varices, and DARRIAN Saturday Elevated troponin --likely demand ischemia --cardiology: no further workup Thrombocytopenia --improving, from gisella of 19k to 79k today Acute Renal Failure, improved --Cr 1.9 on admission, 1.3 today Left shoulder pain --xrays ordered FEN Fluids: PO intake adequate Electrolytes: replete as indicated Nutrition: regular diet DVT prophylaxis: SCDs Dispo: continues to require inpatient care. Full code.
[2017-03-02 20:16] LABS: CALCIUM 6.7 mg/dL (8.5-10.1)
[2017-03-03] MEDS: SUCRALFATE 1 GM/10 ML UNIT DOSE CUPS PO SCH ×4 (02:14→20:42)
[2017-03-03 09:06] LABS: HEMATOCRIT 25.2 % (35.4-49); HEMOGLOBIN 8.4 GM/dL (11.7-16.9); MCH 36.5 pg (25.7-33.7); MCHC 33.4 g/dl (32.0-35.9); MEAN CELL VOLUME 109.4 fl (80-96); MEAN PLT VOLUME 10.3 fl (7.5-11.1); PLATELET COUNT 96 K/MM3 (134-434); RDW 16.9 % (11.9-15.9); WHITE BLOOD COUNT 15.6 K/mm3 (4.0-10.0)
[2017-03-03 09:38] LABS: ALBUMIN 1.5 g/dl (3.4-5.0); ALK PHOS 106 U/L (45-117); ANION GAP 16 (8-16); BILIRUBIN,TOTAL 7.4 mg/dL (0.2-1.0); BLOOD UREA NITROGEN 63 mg/dL (7-18); CHLORIDE 102 mmol/L (98-107); CO2 11 mmol/L (21-32); CREATININE 5.1 mg/dL (0.7-1.3); GLUCOSE,RANDOM 143 mg/dL (74-106); MAGNESIUM 2.3 mg/dL (1.8-2.4); PHOSPHOROUS 6.6 mg/dL (2.5-4.9); POTASSIUM 3.7 mmol/L (3.5-5.1); SGOT/AST 32 U/L (15-37); SGPT/ALT 28 U/L (12-78); SODIUM 129 mmol/L (136-145); TOT PROT 5.6 g/dl (6.4-8.2)
--- NOTE | 2017-03-03 09:43 | PN ---
Progress Note (short form) - Note Progress Note: Renal follow up for YARIEL Pt seen and examined at the bedside awake and alert reports no change in how he feels no sob, chest pain rash persists Vital Signs Temperature 97.4 F L 03/03/17 06:00 Pulse Rate 81 03/03/17 06:00 Respiratory Rate 20 03/03/17 06:00 Blood Pressure 96/39 03/03/17 06:00 O2 Sat by Pulse Oximetry (%) 99 03/01/17 09:00 Intake & Output 02/28/17 03/01/17 03/02/17 03/03/17 23:59 23:59 23:59 23:59 Intake Total 2850 2425 782 674 Output Total 900 1900 550 Balance 1950 525 232 674 Weight 122.952 kg 122.952 kg 122.651 kg 124.556 kg NAD awake and alert RRR + murmur Dec BS at lung bases soft NT/ND 2+ LE edema CBC, BMP 03/03/17 08:51 Current Medications Diphenhydramine HCl (Benadryl Injection -) 12.5 mg IVPUSH Q4H PRN PRN Reason: FOR ITCHING Last Admin: 03/02/17 10:58 Dose: 12.5 mg Folic Acid (Folic Acid -) 1 mg PO DAILY [facility] Last Admin: 03/02/17 10:57 Dose: 1 mg Vancomycin HCl 1,250 mg/ (Dextrose) 250 mls @ 125 mls/hr IVPB DAILY@1600 BRITTANIE PRN Reason: Protocol Last Admin: 03/02/17 17:07 Dose: 125 mls/hr Meropenem (Merrem (Restricted To Id) -) 500 mg in 10 mls @ 120 mls/hr IVPUSH BID [facility] Last Admin: 03/02/17 22:54 Dose: 120 mls/hr Sodium Bicarbonate 150 meq/ (Dextrose) 1,000 mls @ 83 mls/hr IV Q12H [facility] Last Admin: 03/02/17 18:08 Dose: 83 mls/hr Nystatin (Nystop Powder -) 1 applic TP BID [facility] Last Admin: 03/02/17 22:57 Dose: 1 applic Oxycodone HCl (Roxicodone -) 5 mg PO Q4H PRN PRN Reason: PAIN LEVEL 4 - 6 Last Admin: 03/02/17 18:59 Dose: 5 mg Sodium Bicarbonate (Sodium Bicarbonate -) 650 mg PO BID [facility] Last Admin: 03/02/17 22:54 Dose: 650 mg Sucralfate (Carafate Oral Suspension -) 1 gm PO Q6H [facility] Last Admin: 03/03/17 08:23 Dose: 1 gm Thiamine HCl (Vitamin B1 -) 100 mg PO DAILY [facility] Last Admin: 03/02/17 10:57 Dose: 100 mg Zinc Acetate/Diphenhydramine (Benadryl 2% Cream) 1 applic TP BID [facility] Last Admin: 03/02/17 22:57 Dose: 1 applic 41 year old gentleman with PMhx of Alcoholic Liver cirrhosis who presented with abd pain and chills and found to have MSSA Bacteremia and now with YARIEL. #Acute Renal Injury Likely etiology appears to be AIN, pt with rising serum Eios, + WBC in Urine and diffuse rash s/p solumederol 1g IVPB yesterday todays labs pending clinically rash about the same, ? some mild improvement continue IVF with bicarb likely to get second dose of IV steroids today depending on what the BMP shows today #Hyponatremia from cirrhosis, renal failure trend for now no indication for 3% saline free water restriction to 1 L daily #Metabolic acidosis from AG and non-AG continue IVF with bicarb todays serum bicarb is pending #Hypocalcemia corrected Ca is WNL #MSSA bactermia on IV Vanco dosed by levels ID following ? abcess in marcelo Sarah DO
[2017-03-03 10:12] LABS: ACANTHOCYTES 1+; ANISOCYTOSIS 1+; MACROCYTOSIS 2+; PLATELET ESTIMATE DECREASED; TEAR DROP CELLS 1+
--- NOTE | 2017-03-03 10:17 | PN ---
Progress Note, Physician History of Present Illness: patient looks better more awake and alert rash still persists\ improving - Current Medication List Current Medications: Active Medications Diphenhydramine HCl (Benadryl Injection -) 12.5 mg IVPUSH Q4H PRN PRN Reason: FOR ITCHING Last Admin: 03/02/17 10:58 Dose: 12.5 mg Folic Acid (Folic Acid -) 1 mg PO DAILY [facility] Last Admin: 03/02/17 10:57 Dose: 1 mg Vancomycin HCl 1,250 mg/ (Dextrose) 250 mls @ 125 mls/hr IVPB DAILY@1600 BR[facility]ANIE PRN Reason: Protocol Last Admin: 03/02/17 17:07 Dose: 125 mls/hr Meropenem (Merrem (Restricted To Id) -) 500 mg in 10 mls @ 120 mls/hr IVPUSH BID [facility] Last Admin: 03/02/17 22:54 Dose: 120 mls/hr Sodium Bicarbonate 150 meq/ (Dextrose) 1,000 mls @ 83 mls/hr IV Q12H [facility] Last Admin: 03/02/17 18:08 Dose: 83 mls/hr Nystatin (Nystop Powder -) 1 applic TP BID [facility] Last Admin: 03/02/17 22:57 Dose: 1 applic Oxycodone HCl (Roxicodone -) 5 mg PO Q4H PRN PRN Reason: PAIN LEVEL 4 - 6 Last Admin: 03/02/17 18:59 Dose: 5 mg Sodium Bicarbonate (Sodium Bicarbonate -) 650 mg PO BID [facility] Last Admin: 03/02/17 22:54 Dose: 650 mg Sucralfate (Carafate Oral Suspension -) 1 gm PO Q6H [facility] Last Admin: 03/03/17 08:23 Dose: 1 gm Thiamine HCl (Vitamin B1 -) 100 mg PO DAILY [facility] Last Admin: 03/02/17 10:57 Dose: 100 mg Zinc Acetate/Diphenhydramine (Benadryl 2% Cream) 1 applic TP BID [facility] Last Admin: 03/02/17 22:57 Dose: 1 applic - Objective Vital Signs: Vital Signs Temperature 97.4 F L 03/03/17 06:00 Pulse Rate 81 03/03/17 06:00 Respiratory Rate 20 03/03/17 06:00 Blood Pressure 96/39 03/03/17 06:00 O2 Sat by Pulse Oximetry (%) 99 03/01/17 09:00 Constitutional: Yes: No Distress, Calm Cardiovascular: Yes: Regular Rate and Rhythm Respiratory: Yes: Regular, Poor Air Entry (at the bases) Gastrointestinal: Yes: Ascites, Distention Genitourinary: Yes: Scrotal Edema (improving still with drainage from left side) Musculoskeletal: Yes: WNL Extremities: Yes: WNL Neurological: Yes: Alert, Oriented Psychiatric: Yes: Alert Labs: CBC, BMP 03/03/17 08:51 03/03/17 07:30 INR, PTT INR 3.56 (0.82-1.09) H D 03/02/17 07:00 Assessment/Plan Problem List - Problems (1) Alcoholic cirrhosis of liver Code(s): K70.30 - ALCOHOLIC CIRRHOSIS OF LIVER WITHOUT ASCITES Qualifiers: Ascites presence: without ascites Qualified Code(s): K70.30 - Alcoholic cirrhosis of liver without ascites (2) Hepatic encephalopathy Code(s): K72.90 - HEPATIC FAILURE, UNSPECIFIED WITHOUT COMA (3) Renal failure Code(s): N19 - UNSPECIFIED KIDNEY FAILURE Qualifiers: Renal failure chronicity: acute Acute renal failure type: unspecified Qualified Code(s): N17.9 - Acute kidney failure, unspecified (4) Sepsis Code(s): A41.9 - SEPSIS, UNSPECIFIED ORGANISM Qualifiers: Sepsis type: sepsis due to unspecified organism Qualified Code(s): A41.9 - Sepsis, unspecified organism (5) Thrombocytopenia Code(s): D69.6 - THROMBOCYTOPENIA, UNSPECIFIED 6 gm positive bactermia 7 diffuse rash all over the body leukocytosis scrotal infection/collection plan await for cx report GET imaging studies of the scrotum--ultrasound or ct continue abx close watch rest as per reanal discussed with the primary team
[2017-03-03] MEDS ORDERED: PT OWN MED DRAWER 7, Y5N ONE ×2 (10:20→20:40)
[2017-03-03] MEDS: MEROPENEM 500 MG PUSH 500 MG/10 ML DISP.SYRIN IVPUSH SCH ×2 (10:29→21:02)
[2017-03-03] MEDS: THIAMINE HCL 100 MG TABLET (FP) PO SCH (10:29)
[2017-03-03] MEDS: FOLIC ACID 1 MG TABLET (FP) PO SCH (10:29)
[2017-03-03] MEDS: SODIUM BICARBONATE 650 MG TABLET PO SCH ×2 (10:29→21:21)
[2017-03-03] MEDS: NYSTATIN POWDER 100,000 UNITS/GM - 15 GM TOPICAL POWDER TP SCH ×2 (10:29→21:04)
[2017-03-03 11:09] LABS: CALCIUM 6.8 mg/dL (8.5-10.1)
[2017-03-03] MEDS ORDERED: methylPREDNISolone NA SUCC 1000 MG/8 ML VIAL IVPB ONE (11:59)
--- NOTE | 2017-03-03 12:29 | PN ---
Physical Exam: SUBJECTIVE: Patient seen and examined OBJECTIVE: Vital Signs Period Temp Pulse Resp BP Sys/Barriga Pulse Ox Last 24 Hr 97.4 F-98.6 F 81-98 18-20 96-127/39-62 GENERAL: The patient is awake, alert, and fully oriented, in no acute distress. HEAD: Normal with no signs of trauma. EYES: PERRL, extraocular movements intact, sclera anicteric, conjunctiva clear. No ptosis. ENT: Ears normal, nares patent, oropharynx clear without exudates, moist mucous membranes. NECK: Trachea midline, full range of motion, supple. LUNGS: Breath sounds equal, clear to auscultation bilaterally, no wheezes, no crackles, no accessory muscle use. HEART: Regular rate and rhythm, S1, S2 without murmur, rub or gallop. ABDOMEN: Soft, nontender, nondistended, normoactive bowel sounds, no guarding, no rebound, no hepatosplenomegaly, no masses. : Left scrotal tiny fistula draining dark yellow fluid EXTREMITIES: 2+ pulses, warm, well-perfused, no edema. NEUROLOGICAL: Cranial nerves II through XII grossly intact. Normal speech, gait not observed. PSYCH: Normal mood, normal affect. SKIN: Full body macular rash resolving, not as bright red Laboratory Results - last 24 hr 03/02/17 03/03/17 03/03/17 18:45 07:30 07:30 WBC RBC Hgb Hct MCV MCH MCHC RDW Plt Count MPV Neutrophils % Neutrophils % (Manual) Band Neutrophils % Lymphocytes % Lymphocytes % (Manual) Monocytes % (Manual) Eosinophils % (Manual) Basophils % (Manual) Myelocytes % (Man) Metamyelocytes Hypochromia Platelet Estimate Polychromasia Poikilocytosis Anisocytosis Macrocytosis Tear Drop Cells Acanthocytes (Spur) Schistocytes Sodium 129 L 129 L Potassium 3.8 3.7 Chloride 103 102 Carbon Dioxide 11 L 11 L Anion Gap 15 16 BUN 54 H 63 H Creatinine 4.7 H 5.1 H Creat Clearance w eGFR 12.69 Random Glucose 164 H D 143 H Calcium 6.7 L* 6.8 L* Phosphorus 6.6 H Magnesium 2.3 Total Bilirubin 7.4 H AST 32 ALT 28 Alkaline Phosphatase 106 Total Protein 5.6 L Albumin 1.5 L Random Vancomycin 21.181 03/03/17 08:51 WBC 15.6 H RBC 2.30 L Hgb 8.4 L D Hct 25.2 L D MCV 109.4 H MCH 36.5 H MCHC 33.4 RDW 16.9 H Plt Count 96 L D MPV 10.3 Neutrophils % No Result Required. Neutrophils % (Manual) 91.0 H* Band Neutrophils % 1.0 Lymphocytes % No Result Required. Lymphocytes % (Manual) 3.0 L D Monocytes % (Manual) 4 Eosinophils % (Manual) 1.0 D Basophils % (Manual) 0.0 Myelocytes % (Man) 0 D Metamyelocytes 0 Hypochromia 0 Platelet Estimate Decreased Polychromasia 1+ Poikilocytosis 2+ Anisocytosis 1+ Macrocytosis 2+ Tear Drop Cells 1+ Acanthocytes (Spur) 1+ Schistocytes 1+ Sodium Potassium Chloride Carbon Dioxide Anion Gap BUN Creatinine Creat Clearance w eGFR Random Glucose Calcium Phosphorus Magnesium Total Bilirubin AST ALT Alkaline Phosphatase Total Protein Albumin Random Vancomycin Active Medications Generic Name Dose Route Start Last Admin Trade Name Freq PRN Reason Stop Dose Admin Diphenhydramine HCl 12.5 mg 03/01/17 19:24 03/02/17 10:58 Benadryl Injection - IVPUSH 12.5 mg Q4H PRN Administration FOR ITCHING Folic Acid 1 mg 02/22/17 10:00 03/03/17 10:29 Folic Acid - PO 1 mg DAILY BRITTANIE Administration Vancomycin HCl 1,250 mg/ 250 mls @ 125 mls/hr 03/01/17 16:00 03/02/17 17:07 Dextrose IVPB 125 mls/hr DAILY@1600 BRITTANIE Administration Protocol Meropenem 500 mg in 10 mls @ 120 mls/hr 03/02/17 14:45 03/03/17 10:29 Merrem (Restricted To Id) - IVPUSH 120 mls/hr BID BRITTANIE Administration Sodium Bicarbonate 150 meq/ 1,000 mls @ 100 mls/hr 03/03/17 12:00 Dextrose IV Q10H BRITTANIE Methylprednisolone Sodium Succinate 1,000 mg 03/03/17 11:59 Solu-Medrol - IVPB 03/03/17 12:00 ONCE ONE Nystatin 1 applic 03/02/17 10:00 03/03/17 10:29 Nystop Powder - TP 1 applic BID BRITTANIE Administration Oxycodone HCl 5 mg 03/02/17 18:22 03/02/17 18:59 Roxicodone - PO 5 mg Q4H PRN Administration PAIN LEVEL 4 - 6 Sodium Bicarbonate 650 mg 03/01/17 18:30 03/03/17 10:29 Sodium Bicarbonate - PO 650 mg BID BRITTANIE Administration Sucralfate 1 gm 02/27/17 08:00 03/03/17 08:23 Carafate Oral Suspension - PO 1 gm Q6H BRITTANIE Administration Thiamine HCl 100 mg 02/22/17 10:00 03/03/17 10:29 Vitamin B1 - PO 100 mg DAILY [facility]IE Administration Zinc Acetate/Diphenhydramine 1 applic 03/01/17 22:00 03/03/17 10:30 Benadryl 2% Cream TP 1 applic BID BRITTANIE Administration ASSESSMENT/PLAN: US left scrotum
[2017-03-03] MEDS: oxyCODONE HCL 5 MG TABLET PO PRN ×2 (13:40→19:45)
[2017-03-03] MEDS: SODIUM BICARBONATE 8.4% - 150 MEQ in DEXTROSE 5%-WATER - 850 ML IV SCH ×2 (13:42→22:09)
[2017-03-03] MEDS: DEXTROSE 5%-WATER - 1,000 ML with SODIUM BICARBONATE 8.4% - 150 MEQ IV SCH (13:53)
[2017-03-03] MEDS: VANCOMYCIN 1,250 MG in DEXTROSE 5%-WATER - 250 ML IVPB SCH (16:12)
[2017-03-04] MEDS: oxyCODONE HCL 5 MG TABLET PO PRN ×4 (00:02→19:50)
[2017-03-04] MEDS: SUCRALFATE 1 GM/10 ML UNIT DOSE CUPS PO SCH ×4 (01:05→19:50)
[2017-03-04] MEDS: SODIUM BICARBONATE 8.4% - 150 MEQ in DEXTROSE 5%-WATER - 850 ML IV SCH (03:01)
[2017-03-04] MEDS: MEROPENEM 500 MG PUSH 500 MG/10 ML DISP.SYRIN IVPUSH SCH ×2 (09:17→21:17)
[2017-03-04] MEDS: SODIUM BICARBONATE 650 MG TABLET PO SCH (09:17)
[2017-03-04] MEDS: THIAMINE HCL 100 MG TABLET (FP) PO SCH (09:17)
[2017-03-04] MEDS: FOLIC ACID 1 MG TABLET (FP) PO SCH (09:17)
[2017-03-04 09:18] LABS: HEMOGLOBIN 7.7 GM/dL (11.7-16.9); MCH 35.9 pg (25.7-33.7); MCHC 33.3 g/dl (32.0-35.9); MEAN PLT VOLUME 10.3 fl (7.5-11.1); PLATELET COUNT 96 K/MM3 (134-434); RBC 2.13 M/mm3 (4.00-5.60); RDW 17.3 % (11.9-15.9); WHITE BLOOD COUNT 12.6 K/mm3 (4.0-10.0)
[2017-03-04] MEDS: NYSTATIN POWDER 100,000 UNITS/GM - 15 GM TOPICAL POWDER TP SCH ×2 (09:19→21:16)
[2017-03-04 09:46] LABS: ALBUMIN 1.6 g/dl (3.4-5.0); ALK PHOS 137 U/L (45-117); ANION GAP 15 (8-16); BLOOD UREA NITROGEN 76 mg/dL (7-18); CHLORIDE 101 mmol/L (98-107); CO2 15 mmol/L (21-32); GLUCOSE,RANDOM 158 mg/dL (74-106); MAGNESIUM 2.5 mg/dL (1.8-2.4); POTASSIUM 3.4 mmol/L (3.5-5.1); SODIUM 131 mmol/L (136-145)
[2017-03-04 09:50] LABS: CALCIUM 7.1 mg/dL (8.5-10.1); CREATININE 5.1 mg/dL (0.7-1.3); PHOSPHOROUS 6.7 mg/dL (2.5-4.9); SGOT/AST 28 U/L (15-37); SGPT/ALT 28 U/L (12-78)
[2017-03-04] MEDS ORDERED: methylPREDNISolone NA SUCC 1000 MG/8 ML VIAL IVPB ONE (11:53)
--- NOTE | 2017-03-04 11:53 | PN ---
Progress Note (short form) - Note Progress Note: Renal follow up for YARIEL Pt seen and examined at the bedside awake and alert requesting more pain meds no sob, chest pain, N/V having loose stools making urine rash improving Vital Signs Temperature 97.8 F 03/04/17 05:41 Pulse Rate 86 03/04/17 05:41 Respiratory Rate 20 03/04/17 05:41 Blood Pressure 144/62 03/04/17 05:41 O2 Sat by Pulse Oximetry (%) 99 03/01/17 09:00 Intake & Output 03/01/17 03/02/17 03/03/17 03/04/17 23:59 23:59 23:59 23:59 Intake Total 2425 782 2023 Output Total 1900 550 300 Balance 167 622 1243 -300 Weight 122.952 kg 122.651 kg 124.556 kg 126.099 kg NAD awake and alert RRR + murmur Dec BS at lung bases soft NT/ND 2+ LE edema CBC, BMP 03/04/17 07:50 03/04/17 07:50 Current Medications Diphenhydramine HCl (Benadryl Injection -) 12.5 mg IVPUSH Q4H PRN PRN Reason: FOR ITCHING Last Admin: 03/04/17 04:00 Dose: 12.5 mg Folic Acid (Folic Acid -) 1 mg PO DAILY [facility] Last Admin: 03/04/17 09:17 Dose: 1 mg Vancomycin HCl 1,250 mg/ (Dextrose) 250 mls @ 125 mls/hr IVPB DAILY@1600 BRITTANIE PRN Reason: Protocol Last Admin: 03/03/17 16:12 Dose: 125 mls/hr Meropenem (Merrem (Restricted To Id) -) 500 mg in 10 mls @ 120 mls/hr IVPUSH BID [facility] Last Admin: 03/04/17 09:17 Dose: 120 mls/hr Sodium Bicarbonate 150 meq/ (Dextrose) 1,150 mls @ 100 mls/hr IV Q10H [facility] Nystatin (Nystop Powder -) 1 applic TP BID [facility] Last Admin: 03/04/17 09:19 Dose: 1 applic Oxycodone HCl (Roxicodone -) 5 mg PO Q4H PRN PRN Reason: PAIN LEVEL 4 - 6 Last Admin: 03/04/17 11:46 Dose: 5 mg Sodium Bicarbonate (Sodium Bicarbonate -) 650 mg PO BID [facility] Last Admin: 03/04/17 09:17 Dose: 650 mg Sucralfate (Carafate Oral Suspension -) 1 gm PO Q6H [facility] Last Admin: 03/04/17 09:17 Dose: 1 gm Thiamine HCl (Vitamin B1 -) 100 mg PO DAILY [facility] Last Admin: 03/04/17 09:17 Dose: 100 mg Zinc Acetate/Diphenhydramine (Benadryl 2% Cream) 1 applic TP BID [facility] Last Admin: 03/04/17 09:19 Dose: 1 applic 41 year old gentleman with PMhx of Alcoholic Liver cirrhosis who presented with abd pain and chills and found to have MSSA Bacteremia and now with YARIEL. #Acute Renal Injury Likely etiology appears to be AIN, pt with rising serum Eios, + WBC in Urine and diffuse rash Rash appears to be improving with steroids WBC improving as well BUN rising in setting of steroids Cr stable in last 48 hours no indication for [employer] will give solumederol 1g IVPB today and plan to transition to oral prednisone tomorrow Trend BUN/Cr dose all meds for CrCl less then 15 #Hyponatremia from cirrhosis, renal failure trend for now no indication for 3% saline free water restriction to 1 L daily #Metabolic acidosis from AG and non-AG continue IVF with bicarb serum bicarb improving #Hypocalcemia corrected Ca is WNL #MSSA bactermia on IV Vanco dosed by levels ID following ? abcess in marcelo Sarah DO
[2017-03-04 12:05] LABS: ANISOCYTOSIS 1+; MACROCYTOSIS 1+; PLATELET ESTIMATE DECREASED
--- NOTE | 2017-03-04 13:00 | PN ---
Progress Note, Physician History of Present Illness: patients seems more awake and alert wbc trending down rash improving patient feeling better - Current Medication List Current Medications: Active Medications Diphenhydramine HCl (Benadryl Injection -) 12.5 mg IVPUSH Q4H PRN PRN Reason: FOR ITCHING Last Admin: 03/04/17 04:00 Dose: 12.5 mg Folic Acid (Folic Acid -) 1 mg PO DAILY [facility] Last Admin: 03/04/17 09:17 Dose: 1 mg Vancomycin HCl 1,250 mg/ (Dextrose) 250 mls @ 125 mls/hr IVPB DAILY@1600 BRITTANIE PRN Reason: Protocol Last Admin: 03/03/17 16:12 Dose: 125 mls/hr Meropenem (Merrem (Restricted To Id) -) 500 mg in 10 mls @ 120 mls/hr IVPUSH BID [facility] Last Admin: 03/04/17 09:17 Dose: 120 mls/hr Sodium Bicarbonate 150 meq/ (Dextrose) 1,150 mls @ 100 mls/hr IV Q10H [facility] Nystatin (Nystop Powder -) 1 applic TP BID [facility] Last Admin: 03/04/17 09:19 Dose: 1 applic Oxycodone HCl (Roxicodone -) 5 mg PO Q4H PRN PRN Reason: PAIN LEVEL 4 - 6 Last Admin: 03/04/17 11:46 Dose: 5 mg Sodium Bicarbonate (Sodium Bicarbonate -) 650 mg PO BID [facility] Last Admin: 03/04/17 09:17 Dose: 650 mg Sucralfate (Carafate Oral Suspension -) 1 gm PO Q6H [facility] Last Admin: 03/04/17 09:17 Dose: 1 gm Thiamine HCl (Vitamin B1 -) 100 mg PO DAILY [facility] Last Admin: 03/04/17 09:17 Dose: 100 mg Zinc Acetate/Diphenhydramine (Benadryl 2% Cream) 1 applic TP BID [facility] Last Admin: 03/04/17 09:19 Dose: 1 applic - Objective Vital Signs: Vital Signs Temperature 97.8 F 03/04/17 05:41 Pulse Rate 86 03/04/17 09:00 Respiratory Rate 20 03/04/17 09:00 Blood Pressure 112/48 03/04/17 09:00 O2 Sat by Pulse Oximetry (%) 99 03/01/17 09:00 Constitutional: Yes: No Distress, Calm Cardiovascular: Yes: Regular Rate and Rhythm Respiratory: Yes: Regular, CTA Bilaterally Gastrointestinal: Yes: Normal Bowel Sounds, Soft, Ascites, Distention Genitourinary: Yes: Scrotal Edema, Other (no discharge noted from the scrotum now) Musculoskeletal: Yes: WNL Extremities: Yes: WNL Edema: LLE: 1+, RLE: 1+ Integumentary: Yes: Rash (diffuse rash all over the hospital improving) Neurological: Yes: Alert, Oriented Psychiatric: Yes: Alert Labs: CBC, BMP 03/04/17 07:50 03/04/17 07:50 INR, PTT INR 3.56 (0.82-1.09) H D 03/02/17 07:00 - ....Imaging Ultrasound: Report Reviewed, Image Reviewed Assessment/Plan Problem List - Problems (1) Alcoholic cirrhosis of liver Code(s): K70.30 - ALCOHOLIC CIRRHOSIS OF LIVER WITHOUT ASCITES Qualifiers: Ascites presence: without ascites Qualified Code(s): K70.30 - Alcoholic cirrhosis of liver without ascites (2) Hepatic encephalopathy Code(s): K72.90 - HEPATIC FAILURE, UNSPECIFIED WITHOUT COMA (3) Renal failure Code(s): N19 - UNSPECIFIED KIDNEY FAILURE Qualifiers: Renal failure chronicity: acute Acute renal failure type: unspecified Qualified Code(s): N17.9 - Acute kidney failure, unspecified (4) Sepsis Code(s): A41.9 - SEPSIS, UNSPECIFIED ORGANISM Qualifiers: Sepsis type: sepsis due to unspecified organism Qualified Code(s): A41.9 - Sepsis, unspecified organism (5) Thrombocytopenia Code(s): D69.6 - THROMBOCYTOPENIA, UNSPECIFIED 6 gm positive bactermia 7 diffuse rash all over the body leukocytosis scrotal infection/collection vanco trough noted plan will stop vanco for now will check vanco level tomorrow continue other abx monitor rah rest as per primary team
[2017-03-04] MEDS: SODIUM BICARBONATE 8.4% - 150 MEQ in DEXTROSE 5%-WATER - 1,000 ML IV SCH (13:38)
--- NOTE | 2017-03-04 13:43 | PN ---
Progress Note, Physician History of Present Illness: More encephalopatic, has astirexis, rash worse. - Current Medication List Current Medications: Active Medications Diphenhydramine HCl (Benadryl Injection -) 12.5 mg IVPUSH Q4H PRN PRN Reason: FOR ITCHING Last Admin: 03/04/17 04:00 Dose: 12.5 mg Folic Acid (Folic Acid -) 1 mg PO DAILY [facility] Last Admin: 03/04/17 09:17 Dose: 1 mg Meropenem (Merrem (Restricted To Id) -) 500 mg in 10 mls @ 120 mls/hr IVPUSH BID [facility] Last Admin: 03/04/17 09:17 Dose: 120 mls/hr Sodium Bicarbonate 150 meq/ (Dextrose) 1,150 mls @ 100 mls/hr IV Q10H [facility] Nystatin (Nystop Powder -) 1 applic TP BID [facility] Last Admin: 03/04/17 09:19 Dose: 1 applic Oxycodone HCl (Roxicodone -) 5 mg PO Q4H PRN PRN Reason: PAIN LEVEL 4 - 6 Last Admin: 03/04/17 11:46 Dose: 5 mg Sodium Bicarbonate (Sodium Bicarbonate -) 650 mg PO BID [facility] Last Admin: 03/04/17 09:17 Dose: 650 mg Sucralfate (Carafate Oral Suspension -) 1 gm PO Q6H [facility] Last Admin: 03/04/17 09:17 Dose: 1 gm Thiamine HCl (Vitamin B1 -) 100 mg PO DAILY [facility] Last Admin: 03/04/17 09:17 Dose: 100 mg Zinc Acetate/Diphenhydramine (Benadryl 2% Cream) 1 applic TP BID [facility] Last Admin: 03/04/17 09:19 Dose: 1 applic - Objective Vital Signs: Vital Signs Temperature 97.8 F 03/04/17 05:41 Pulse Rate 86 03/04/17 09:00 Respiratory Rate 20 03/04/17 09:00 Blood Pressure 112/48 03/04/17 09:00 O2 Sat by Pulse Oximetry (%) 99 03/01/17 09:00 Constitutional: Yes: Calm Eyes: Yes: Sclera Icterus Cardiovascular: Yes: Regular Rate and Rhythm Respiratory: Yes: Regular Gastrointestinal: Yes: Soft. No: Melena, Tenderness, Tenderness, Epigastrium, Vomiting Labs: CBC, BMP 03/04/17 07:50 03/04/17 07:50 INR, PTT INR 3.56 (0.82-1.09) H D 03/02/17 07:00 Laboratory Results - last 24 hr 03/04/17 03/04/17 07:50 07:50 WBC 12.6 H RBC 2.13 L Hgb 7.7 L Hct 23.0 L MCV 108.0 H MCH 35.9 H MCHC 33.3 RDW 17.3 H Plt Count 96 L MPV 10.3 Neutrophils % No Result Required. Neutrophils % (Manual) 85.4 H Band Neutrophils % 0.0 Lymphocytes % No Result Required. Lymphocytes % (Manual) 5.2 L D Monocytes % (Manual) 5 Eosinophils % (Manual) 0.0 D Basophils % (Manual) 1.1 D Myelocytes % (Man) 3 H D Metamyelocytes 0 Hypochromia 0 Platelet Estimate Decreased Polychromasia 0 Poikilocytosis 0 Anisocytosis 1+ Microcytosis 0 Macrocytosis 1+ Sodium 131 L Potassium 3.4 L Chloride 101 Carbon Dioxide 15 L D Anion Gap 15 BUN 76 H D Creatinine 5.1 H Creat Clearance w eGFR 12.69 Random Glucose 158 H Calcium 7.1 L Phosphorus 6.7 H Magnesium 2.5 H Total Bilirubin 7.0 H AST 28 ALT 28 Alkaline Phosphatase 137 H D Total Protein 6.0 L Albumin 1.6 L Problem List - Problems (1) Hepatorenal failure Code(s): K76.7 - HEPATORENAL SYNDROME (2) Alcoholic cirrhosis of liver Code(s): K70.30 - ALCOHOLIC CIRRHOSIS OF LIVER WITHOUT ASCITES Qualifiers: Ascites presence: without ascites Qualified Code(s): K70.30 - Alcoholic cirrhosis of liver without ascites (3) Hepatic encephalopathy Code(s): K72.90 - HEPATIC FAILURE, UNSPECIFIED WITHOUT COMA Assessment/Plan A 41 yom with advanced alcoholic liver disease, w/o ascites, with encephalopathy. Leukocytosis, fever and positive blood cultures. ?source of infection. Possible HRS 1 Rifaximin and lactulose Nephrology consult Fluid challenge Urine electrolytes Prognosis poor.
[2017-03-04] MEDS ORDERED: SODIUM CHLORIDE 500 ML IV STA (13:54)
[2017-03-04] MEDS ORDERED: MIDODRINE HCL 2.5 MG TABLET PO SCH (14:00)
[2017-03-04] MEDS ORDERED: MIDODRINE HCL 5 MG TABLET PO SCH (14:00)
[2017-03-04] MEDS: SEVELAMER CARBONATE 800 MG TAB (FP) PO SCH (16:42)
--- NOTE | 2017-03-04 19:27 | PN ---
Physical Exam: SUBJECTIVE: Patient seen and examined OBJECTIVE: Vital Signs Period Temp Pulse Resp BP Sys/Barriga Pulse Ox Last 24 Hr 97.3 F-98.3 F 80-86 20-22 112-144/48-62 GENERAL: The patient is awake, alert, and fully oriented, in no acute distress. HEAD: Normal with no signs of trauma. EYES: PERRL, extraocular movements intact, sclera anicteric, conjunctiva clear. No ptosis. ENT: Ears normal, nares patent, oropharynx clear without exudates, moist mucous membranes. NECK: Trachea midline, full range of motion, supple. LUNGS: Breath sounds equal, clear to auscultation bilaterally, no wheezes, no crackles, no accessory muscle use. HEART: Regular rate and rhythm, S1, S2 without murmur, rub or gallop. ABDOMEN: Soft, nontender, nondistended, normoactive bowel sounds, no guarding, no rebound, no hepatosplenomegaly, no masses. EXTREMITIES: 2+ pulses, warm, well-perfused, no edema. NEUROLOGICAL: Cranial nerves II through XII grossly intact. Normal speech, gait not observed. PSYCH: Normal mood, normal affect. SKIN: Warm, dry, normal turgor, no rashes or lesions noted Laboratory Results - last 24 hr 03/04/17 03/04/17 07:50 07:50 WBC 12.6 H RBC 2.13 L Hgb 7.7 L Hct 23.0 L MCV 108.0 H MCH 35.9 H MCHC 33.3 RDW 17.3 H Plt Count 96 L MPV 10.3 Neutrophils % No Result Required. Neutrophils % (Manual) 85.4 H Band Neutrophils % 0.0 Lymphocytes % No Result Required. Lymphocytes % (Manual) 5.2 L D Monocytes % (Manual) 5 Eosinophils % (Manual) 0.0 D Basophils % (Manual) 1.1 D Myelocytes % (Man) 3 H D Metamyelocytes 0 Hypochromia 0 Platelet Estimate Decreased Polychromasia 0 Poikilocytosis 0 Anisocytosis 1+ Microcytosis 0 Macrocytosis 1+ Sodium 131 L Potassium 3.4 L Chloride 101 Carbon Dioxide 15 L D Anion Gap 15 BUN 76 H D Creatinine 5.1 H Creat Clearance w eGFR 12.69 Random Glucose 158 H Calcium 7.1 L Phosphorus 6.7 H Magnesium 2.5 H Total Bilirubin 7.0 H AST 28 ALT 28 Alkaline Phosphatase 137 H D Total Protein 6.0 L Albumin 1.6 L Active Medications Generic Name Dose Route Start Last Admin Trade Name Freq PRN Reason Stop Dose Admin Albumin Human 50 gm 03/05/17 10:00 Albumin Human 25% IVPB DAILY [facility] Diphenhydramine HCl 12.5 mg 03/01/17 19:24 03/04/17 04:00 Benadryl Injection - IVPUSH 12.5 mg Q4H PRN Administration FOR ITCHING Folic Acid 1 mg 02/22/17 10:00 03/04/17 09:17 Folic Acid - PO 1 mg DAILY [facility] Administration Meropenem 500 mg in 10 mls @ 120 mls/hr 03/02/17 14:45 03/04/17 09:17 Merrem (Restricted To Id) - IVPUSH 120 mls/hr BID [facility] Administration Sodium Bicarbonate 150 meq/ 1,150 mls @ 100 mls/hr 03/04/17 08:12 03/04/17 13 :38 Dextrose IV 100 mls/hr Q10H [facility] Administration Octreotide Acetate 1,200 mcg/ 500 mls @ 20.83 mls/hr 03/04/17 15:15 Dextrose IVPB Q24H BR[facility]ANIE 50 MCG/HR Midodrine 2.5 mg 03/04/17 14:00 03/04/17 16:01 Proamatine - PO Not Given TID-MID [facility]IE Midodrine 5 mg 03/04/17 14:00 03/04/17 16:02 Proamatine - PO Not Given TID-MID BR[facility] Nystatin 1 applic 03/02/17 10:00 03/04/17 09:19 Nystop Powder - TP 1 applic BID [facility] Administration Oxycodone HCl 5 mg 03/02/17 18:22 03/04/17 11:46 Roxicodone - PO 5 mg Q4H PRN Administration PAIN LEVEL 4 - 6 Sevelamer Carbonate 800 mg 03/04/17 17:30 03/04/17 16:42 Renvela - PO 800 mg TIDCM BR[facility]IE Administration Sucralfate 1 gm 02/27/17 08:00 03/04/17 13:42 Carafate Oral Suspension - PO 1 gm Q6H BR[facility]IE Administration Thiamine HCl 100 mg 02/22/17 10:00 03/04/17 09:17 Vitamin B1 - PO 100 mg DAILY BR[facility] Administration Zinc Acetate/Diphenhydramine 1 applic 03/01/17 22:00 03/04/17 09:19 Benadryl 2% Cream TP 1 applic BID BRITTANIE Administration ASSESSMENT/PLAN:
[2017-03-04] MEDS: OCTREOTIDE ACETATE 1,200 MCG in DEXTROSE 5%-WATER - 488 ML IVPB SCH (20:24)
[2017-03-04] MEDS ORDERED: PT OWN MED DRAWER 7, Y5N ONE (20:42)
[2017-03-05 00:08] LABS: COMPLEMENT TOTAL(CH50) < 12 U/mL (42-60)
[2017-03-05] MEDS: oxyCODONE HCL 5 MG TABLET PO PRN ×3 (00:53→23:16)
[2017-03-05] MEDS: SUCRALFATE 1 GM/10 ML UNIT DOSE CUPS PO SCH ×4 (01:20→22:57)
[2017-03-05] MEDS: SODIUM BICARBONATE 8.4% - 150 MEQ in DEXTROSE 5%-WATER - 1,000 ML IV SCH ×2 (01:50→04:15)
[2017-03-05] MEDS: SEVELAMER CARBONATE 800 MG TAB (FP) PO SCH ×3 (08:21→17:25)
[2017-03-05 08:43] LABS: HEMATOCRIT 23.1 % (35.4-49); HEMOGLOBIN 7.9 GM/dL (11.7-16.9); MCH 36.8 pg (25.7-33.7); MCHC 34.1 g/dl (32.0-35.9); MEAN CELL VOLUME 108.2 fl (80-96); MEAN PLT VOLUME 10.4 fl (7.5-11.1); PLATELET COUNT 87 K/MM3 (134-434); RBC 2.14 M/mm3 (4.00-5.60); RDW 17.6 % (11.9-15.9); WHITE BLOOD COUNT 10.9 K/mm3 (4.0-10.0)
[2017-03-05 08:57] LABS: ANION GAP 15 (8-16); BLOOD UREA NITROGEN 83 mg/dL (7-18); CALCIUM 7.1 mg/dL (8.5-10.1); CHLORIDE 97 mmol/L (98-107); CO2 18 mmol/L (21-32); GLUCOSE,RANDOM 172 mg/dL (74-106); MAGNESIUM 2.5 mg/dL (1.8-2.4); POTASSIUM 3.1 mmol/L (3.5-5.1); SODIUM 130 mmol/L (136-145)
[2017-03-05 08:59] LABS: CREATININE 4.5 mg/dL (0.7-1.3); PHOSPHOROUS 6.8 mg/dL (2.5-4.9)
--- NOTE | 2017-03-05 09:08 | PN ---
Progress Note, Physician History of Present Illness: Encephalopatic, has astirexis, rash less erythematous - Current Medication List Current Medications: Active Medications Albumin Human (Albumin Human 25%) 50 gm IVPB DAILY [facility] Diphenhydramine HCl (Benadryl Injection -) 12.5 mg IVPUSH Q4H PRN PRN Reason: FOR ITCHING Last Admin: 03/05/17 01:07 Dose: 12.5 mg Folic Acid (Folic Acid -) 1 mg PO DAILY [facility] Last Admin: 03/04/17 09:17 Dose: 1 mg Meropenem (Merrem (Restricted To Id) -) 500 mg in 10 mls @ 120 mls/hr IVPUSH BID [facility] Last Admin: 03/04/17 21:17 Dose: 120 mls/hr Sodium Bicarbonate 150 meq/ (Dextrose) 1,150 mls @ 100 mls/hr IV Q10H [facility] Last Admin: 03/05/17 04:15 Dose: Not Given Octreotide Acetate 1,200 mcg/ (Dextrose) 500 mls @ 20.83 mls/hr IVPB Q24H [facility] PRN Reason: 50 MCG/HR Last Admin: 03/04/17 20:24 Dose: 20.83 mls/hr Nystatin (Nystop Powder -) 1 applic TP BID [facility] Last Admin: 03/04/17 21:16 Dose: 1 applic Oxycodone HCl (Roxicodone -) 5 mg PO Q4H PRN PRN Reason: PAIN LEVEL 4 - 6 Last Admin: 03/05/17 00:53 Dose: 5 mg Sevelamer Carbonate (Renvela -) 800 mg PO TIDCM [facility] Last Admin: 03/05/17 08:21 Dose: 800 mg Sucralfate (Carafate Oral Suspension -) 1 gm PO Q6H [facility] Last Admin: 03/05/17 08:21 Dose: 1 gm Thiamine HCl (Vitamin B1 -) 100 mg PO DAILY [facility] Last Admin: 03/04/17 09:17 Dose: 100 mg Zinc Acetate/Diphenhydramine (Benadryl 2% Cream) 1 applic TP BID [facility] Last Admin: 03/04/17 22:24 Dose: 1 applic - Objective Vital Signs: Vital Signs Temperature 97.2 F L 03/05/17 08:52 Pulse Rate 88 03/05/17 08:52 Respiratory Rate 20 03/05/17 08:52 Blood Pressure 125/65 03/05/17 08:52 O2 Sat by Pulse Oximetry (%) 99 03/01/17 09:00 Constitutional: Yes: Calm Eyes: Yes: Sclera Icterus Integumentary: Yes: Jaundice Neurological: Yes: Lethargy Labs: CBC, BMP 03/05/17 06:00 INR, PTT INR 3.56 (0.82-1.09) H D 03/02/17 07:00 Abnormal Lab Results 03/02/17 03/04/17 03/04/17 18:45 07:50 07:50 WBC 12.6 H RBC 2.13 L Hgb 7.7 L Hct 23.0 L MCV 108.0 H MCH 35.9 H RDW 17.3 H Plt Count 96 L Neutrophils % (Manual) 85.4 H Lymphocytes % (Manual) 5.2 L D Myelocytes % (Man) 3 H D Sodium 131 L Potassium 3.4 L Chloride Carbon Dioxide 15 L D BUN 76 H D Creatinine 5.1 H Random Glucose 158 H Calcium 7.1 L Phosphorus 6.7 H Magnesium 2.5 H Total Bilirubin 7.0 H Alkaline Phosphatase 137 H D Total Protein 6.0 L Albumin 1.6 L Tot Complement (CH50) < 12 L 03/05/17 06:00 WBC RBC Hgb Hct MCV MCH RDW Plt Count Neutrophils % (Manual) Lymphocytes % (Manual) Myelocytes % (Man) Sodium 130 L Potassium 3.1 L Chloride 97 L Carbon Dioxide 18 L BUN 83 H Creatinine 4.5 H Random Glucose 172 H Calcium 7.1 L Phosphorus 6.8 H Magnesium 2.5 H Total Bilirubin Alkaline Phosphatase Total Protein Albumin Tot Complement (CH50) Problem List - Problems (1) Hepatorenal failure Code(s): K76.7 - HEPATORENAL SYNDROME (2) Alcoholic cirrhosis of liver Code(s): K70.30 - ALCOHOLIC CIRRHOSIS OF LIVER WITHOUT ASCITES Qualifiers: Ascites presence: without ascites Qualified Code(s): K70.30 - Alcoholic cirrhosis of liver without ascites (3) Hepatic encephalopathy Code(s): K72.90 - HEPATIC FAILURE, UNSPECIFIED WITHOUT COMA Assessment/Plan A 41 yom with advanced alcoholic liver disease, w/o ascites, with encephalopathy. Leukocytosis, fever and positive blood cultures. ?source of infection. Possible HRS 1 Rifaximin and lactulose Discussed with nephrology Albumin, midodrine, octreotide Prognosis poor.
[2017-03-05] MEDS ORDERED: PT OWN MED DRAWER 7, Y5N ONE ×3 (10:59→22:41)
[2017-03-05] MEDS: ALBUMIN HUMAN 25% 12.5 GM/50 ML VIAL IVPB SCH (11:01)
[2017-03-05] MEDS: FOLIC ACID 1 MG TABLET (FP) PO SCH (11:02)
[2017-03-05] MEDS: THIAMINE HCL 100 MG TABLET (FP) PO SCH (11:02)
[2017-03-05] MEDS: MEROPENEM 500 MG PUSH 500 MG/10 ML DISP.SYRIN IVPUSH SCH ×2 (11:03→22:57)
[2017-03-05] MEDS: NYSTATIN POWDER 100,000 UNITS/GM - 15 GM TOPICAL POWDER TP SCH ×2 (11:03→22:57)
[2017-03-05] MEDS ORDERED: POTASSIUM CHLORIDE TABS 20 MEQ TABLET.ER (FP) PO ONE (11:37)
--- NOTE | 2017-03-05 11:42 | PN ---
Progress Note (short form) - Note Progress Note: Renal follow up for YARIEL Pt seen and examined at the bedside more lethargic today rash appears improved Vital Signs Temperature 97.2 F L 03/05/17 08:52 Pulse Rate 88 03/05/17 08:52 Respiratory Rate 20 03/05/17 08:52 Blood Pressure 125/65 03/05/17 08:52 O2 Sat by Pulse Oximetry (%) 99 03/01/17 09:00 Intake & Output 03/02/17 03/03/17 03/04/17 03/05/17 23:59 23:59 23:59 23:59 Intake Total 782 2023 3793 1200 Output Total 550 1150 Balance 232 2023 2643 1200 Weight 122.651 kg 124.556 kg 126.099 kg 127.063 kg NAD lethargic rash is improving 2+ LE edema CBC, BMP 03/05/17 06:00 03/05/17 06:00 Current Medications Albumin Human (Albumin Human 25%) 50 gm IVPB DAILY [facility] Last Admin: 03/05/17 11:01 Dose: 50 gm Diphenhydramine HCl (Benadryl Injection -) 12.5 mg IVPUSH Q4H PRN PRN Reason: FOR ITCHING Last Admin: 03/05/17 01:07 Dose: 12.5 mg Folic Acid (Folic Acid -) 1 mg PO DAILY [facility] Last Admin: 03/05/17 11:02 Dose: 1 mg Meropenem (Merrem (Restricted To Id) -) 500 mg in 10 mls @ 120 mls/hr IVPUSH BID [facility] Last Admin: 03/05/17 11:03 Dose: 120 mls/hr Sodium Bicarbonate 150 meq/ (Dextrose) 1,150 mls @ 100 mls/hr IV Q10H [facility] Last Admin: 03/05/17 04:15 Dose: Not Given Octreotide Acetate 1,200 mcg/ (Dextrose) 500 mls @ 20.83 mls/hr IVPB Q24H [facility] PRN Reason: 50 MCG/HR Last Admin: 03/04/17 20:24 Dose: 20.83 mls/hr Nystatin (Nystop Powder -) 1 applic TP BID [facility] Last Admin: 03/05/17 11:03 Dose: 1 applic Oxycodone HCl (Roxicodone -) 5 mg PO Q4H PRN PRN Reason: PAIN LEVEL 4 - 6 Last Admin: 03/05/17 00:53 Dose: 5 mg Potassium Chloride (K-Dur -) 40 meq PO ONCE ONE Stop: 03/05/17 11:38 Sevelamer Carbonate (Renvela -) 800 mg PO TIDCM [facility] Last Admin: 03/05/17 08:21 Dose: 800 mg Sucralfate (Carafate Oral Suspension -) 1 gm PO Q6H [facility] Last Admin: 03/05/17 08:21 Dose: 1 gm Thiamine HCl (Vitamin B1 -) 100 mg PO DAILY [facility] Last Admin: 03/05/17 11:02 Dose: 100 mg Zinc Acetate/Diphenhydramine (Benadryl 2% Cream) 1 applic TP BID [facility] Last Admin: 03/05/17 11:02 Dose: 1 applic 41 year old gentleman with PMhx of Alcoholic Liver cirrhosis who presented with abd pain and chills and found to have MSSA Bacteremia and now with YARIEL. #Acute Renal Injury Renal injury appears to be AIN (rash, elevated serum eiosinphils, recent PCN use ) vs HRS Clinically rash is improving Serum Cr trended down today pt is non-oliguric serum bicarb improved on bicarb gtt will continue steroids with prednisone 60mg today #Hyponatremia from cirrhosis, renal failure trend for now no indication for 3% saline free water restriction to 1 L daily #Metabolic acidosis improved on bicarb gtt will d/c drip today start oral bicarb 650mg BID #Hypocalcemia corrected Ca is WNL #MSSA bactermia on IV Vanco dosed by levels ID following ? abcess in groin #Alcoholic Cirrhosis started on Octreotide and Albumin by MEDINA Sarah DO
[2017-03-05 11:58] LABS: ANISOCYTOSIS 2+; MACROCYTOSIS 1+; PLATELET ESTIMATE DECREASED; TEAR DROP CELLS 2+
[2017-03-05] MEDS: predniSONE 20 MG TABLET (UD) PO SCH (12:11)
[2017-03-05] MEDS: SODIUM BICARBONATE 650 MG TABLET PO SCH ×2 (12:12→22:57)
--- NOTE | 2017-03-05 15:10 | PN ---
Progress Note, Physician History of Present Illness: improving rash better no specific complaints no draiange noted from the scrotum still red and swollen - Current Medication List Current Medications: Active Medications Albumin Human (Albumin Human 25%) 50 gm IVPB DAILY [facility] Last Admin: 03/05/17 11:01 Dose: 50 gm Diphenhydramine HCl (Benadryl Injection -) 12.5 mg IVPUSH Q4H PRN PRN Reason: FOR ITCHING Last Admin: 03/05/17 01:07 Dose: 12.5 mg Folic Acid (Folic Acid -) 1 mg PO DAILY [facility] Last Admin: 03/05/17 11:02 Dose: 1 mg Meropenem (Merrem (Restricted To Id) -) 500 mg in 10 mls @ 120 mls/hr IVPUSH BID [facility] Last Admin: 03/05/17 11:03 Dose: 120 mls/hr Octreotide Acetate 1,200 mcg/ (Dextrose) 500 mls @ 20.83 mls/hr IVPB Q24H [facility] PRN Reason: 50 MCG/HR Last Admin: 03/04/17 20:24 Dose: 20.83 mls/hr Linezolid (Zyvox (Restricted To Id) -) 600 mg PO BID [facility] Nystatin (Nystop Powder -) 1 applic TP BID [facility] Last Admin: 03/05/17 11:03 Dose: 1 applic Oxycodone HCl (Roxicodone -) 5 mg PO Q4H PRN PRN Reason: PAIN LEVEL 4 - 6 Last Admin: 03/05/17 12:12 Dose: 5 mg Prednisone (Deltasone -) 60 mg PO DAILY [facility] Last Admin: 03/05/17 12:11 Dose: 60 mg Sevelamer Carbonate (Renvela -) 800 mg PO TIDCM [facility] Last Admin: 03/05/17 12:12 Dose: 800 mg Sodium Bicarbonate (Sodium Bicarbonate -) 650 mg PO BID [facility] Last Admin: 03/05/17 12:12 Dose: 650 mg Sucralfate (Carafate Oral Suspension -) 1 gm PO Q6H [facility] Last Admin: 03/05/17 14:14 Dose: 1 gm Thiamine HCl (Vitamin B1 -) 100 mg PO DAILY [facility] Last Admin: 03/05/17 11:02 Dose: 100 mg Zinc Acetate/Diphenhydramine (Benadryl 2% Cream) 1 applic TP BID [facility] Last Admin: 03/05/17 11:02 Dose: 1 applic - Objective Vital Signs: Vital Signs Temperature 97.2 F L 03/05/17 08:52 Pulse Rate 88 03/05/17 08:52 Respiratory Rate 20 03/05/17 08:52 Blood Pressure 125/65 03/05/17 08:52 O2 Sat by Pulse Oximetry (%) 99 03/01/17 09:00 Constitutional: Yes: No Distress, Calm Cardiovascular: Yes: Regular Rate and Rhythm Respiratory: Yes: Regular, CTA Bilaterally Gastrointestinal: Yes: Normal Bowel Sounds, Soft Genitourinary: Yes: Scrotal Edema Musculoskeletal: Yes: WNL Extremities: Yes: WNL Integumentary: Yes: Rash Wound/Incision: Yes: Other Neurological: Yes: Alert, Oriented Psychiatric: Yes: Alert, Oriented Labs: CBC, BMP 03/05/17 06:00 03/05/17 06:00 INR, PTT INR 3.56 (0.82-1.09) H D 03/02/17 07:00 Assessment/Plan Problem List - Problems (1) Alcoholic cirrhosis of liver Code(s): K70.30 - ALCOHOLIC CIRRHOSIS OF LIVER WITHOUT ASCITES Qualifiers: Ascites presence: without ascites Qualified Code(s): K70.30 - Alcoholic cirrhosis of liver without ascites (2) Hepatic encephalopathy Code(s): K72.90 - HEPATIC FAILURE, UNSPECIFIED WITHOUT COMA (3) Renal failure Code(s): N19 - UNSPECIFIED KIDNEY FAILURE Qualifiers: Renal failure chronicity: acute Acute renal failure type: unspecified Qualified Code(s): N17.9 - Acute kidney failure, unspecified (4) Sepsis Code(s): A41.9 - SEPSIS, UNSPECIFIED ORGANISM Qualifiers: Sepsis type: sepsis due to unspecified organism Qualified Code(s): A41.9 - Sepsis, unspecified organism (5) Thrombocytopenia Code(s): D69.6 - THROMBOCYTOPENIA, UNSPECIFIED 6 gm positive bactermia 7 diffuse rash all over the body leukocytosis scrotal infection/collection vanco level noted all cx results noted plan will continuing holding vanco for now will check vanco levels tomorrow will add linezoliod to the treatment monitor wbc wbc and cr trending down
[2017-03-05] MEDS: OCTREOTIDE ACETATE 1,200 MCG in DEXTROSE 5%-WATER - 488 ML IVPB SCH (17:25)
--- NOTE | 2017-03-05 17:43 | PN ---
Physical Exam: SUBJECTIVE: Patient seen and examined OBJECTIVE: Vital Signs Period Temp Pulse Resp BP Sys/Barriga Pulse Ox Last 24 Hr 97.2 F-97.5 F 73-88 20-22 111-134/52-65 GENERAL: The patient is awake, alert, and fully oriented, in no acute distress. HEAD: Normal with no signs of trauma. EYES: PERRL, extraocular movements intact, sclera anicteric, conjunctiva clear. No ptosis. ENT: Ears normal, nares patent, oropharynx clear without exudates, moist mucous membranes. NECK: Trachea midline, full range of motion, supple. LUNGS: Breath sounds equal, clear to auscultation bilaterally, no wheezes, no crackles, no accessory muscle use. HEART: Regular rate and rhythm, S1, S2 without murmur, rub or gallop. ABDOMEN: Soft, nontender, nondistended, normoactive bowel sounds, no guarding, no rebound, no hepatosplenomegaly, no masses. EXTREMITIES: 2+ pulses, warm, well-perfused, no edema. NEUROLOGICAL: Cranial nerves II through XII grossly intact. Normal speech, gait not observed. PSYCH: Normal mood, normal affect. SKIN: Warm, dry, normal turgor, no rashes or lesions noted Laboratory Results - last 24 hr 03/01/17 03/02/17 03/04/17 21:55 18:45 16:45 WBC RBC Hgb Hct MCV MCH MCHC RDW Plt Count MPV Neutrophils % Neutrophils % (Manual) Band Neutrophils % Lymphocytes % Lymphocytes % (Manual) Monocytes % (Manual) Eosinophils % (Manual) Basophils % (Manual) Myelocytes % (Man) Metamyelocytes Hypochromia Platelet Estimate Polychromasia Anisocytosis Macrocytosis Tear Drop Cells Fragmented RBCs Sodium Potassium Chloride Carbon Dioxide Anion Gap BUN Creatinine Random Glucose Calcium Phosphorus Magnesium Urine Eosinophils None seen Ur Random Sodium 6 Random Vancomycin [place] Screen Negative Tot Complement (CH50) < 12 L 03/05/17 03/05/17 03/05/17 06:00 06:00 06:00 WBC 10.9 H RBC 2.14 L Hgb 7.9 L Hct 23.1 L MCV 108.2 H MCH 36.8 H MCHC 34.1 RDW 17.6 H Plt Count 87 L MPV 10.4 Neutrophils % No Result Required. Neutrophils % (Manual) 92.9 H* Band Neutrophils % 0.0 Lymphocytes % No Result Required. Lymphocytes % (Manual) 1.0 L D Monocytes % (Manual) 4 Eosinophils % (Manual) 0.0 Basophils % (Manual) 0.0 Myelocytes % (Man) 0 D Metamyelocytes 1 D Hypochromia 1+ Platelet Estimate Decreased Polychromasia 1+ Anisocytosis 2+ Macrocytosis 1+ Tear Drop Cells 2+ Fragmented RBCs 2+ Sodium 130 L Potassium 3.1 L Chloride 97 L Carbon Dioxide 18 L Anion Gap 15 BUN 83 H Creatinine 4.5 H Random Glucose 172 H Calcium 7.1 L Phosphorus 6.8 H Magnesium 2.5 H Urine Eosinophils Ur Random Sodium Random Vancomycin 18.992 [place] Screen Tot Complement (CH50) Active Medications Generic Name Dose Route Start Last Admin Trade Name Freq PRN Reason Stop Dose Admin Albumin Human 50 gm 03/05/17 10:00 03/05/17 11:01 Albumin Human 25% IVPB 50 gm DAILY [facility] Administration Diphenhydramine HCl 12.5 mg 03/01/17 19:24 03/05/17 01:07 Benadryl Injection - IVPUSH 12.5 mg Q4H PRN Administration FOR ITCHING Folic Acid 1 mg 02/22/17 10:00 03/05/17 11:02 Folic Acid - PO 1 mg DAILY [facility] Administration Meropenem 500 mg in 10 mls @ 120 mls/hr 03/02/17 14:45 03/05/17 11:03 Merrem (Restricted To Id) - IVPUSH 120 mls/hr BID [facility] Administration Octreotide Acetate 1,200 mcg/ 500 mls @ 20.83 mls/hr 03/04/17 15:15 03/05/17 17:25 Dextrose IVPB 20.83 mls/hr Q24H [facility] Administration 50 MCG/HR Linezolid 600 mg 03/05/17 22:00 Zyvox (Restricted To Id) - PO BID [facility] Nystatin 1 applic 03/02/17 10:00 03/05/17 11:03 Nystop Powder - TP 1 applic BID [facility]IE Administration Oxycodone HCl 5 mg 03/02/17 18:22 03/05/17 12:12 Roxicodone - PO 5 mg Q4H PRN Administration PAIN LEVEL 4 - 6 Prednisone 60 mg 03/05/17 11:45 03/05/17 12:11 Deltasone - PO 60 mg DAILY [facility] Administration Sevelamer Carbonate 800 mg 03/04/17 17:30 03/05/17 17:25 Renvela - PO 800 mg TIDCM BRITTANIE Administration Sodium Bicarbonate 650 mg 03/05/17 11:45 03/05/17 12:12 Sodium Bicarbonate - PO 650 mg BID BR[facility]IE Administration Sucralfate 1 gm 02/27/17 08:00 03/05/17 14:14 Carafate Oral Suspension - PO 1 gm Q6H [facility] Administration Thiamine HCl 100 mg 02/22/17 10:00 03/05/17 11:02 Vitamin B1 - PO 100 mg DAILY [facility] Administration Zinc Acetate/Diphenhydramine 1 applic 03/01/17 22:00 03/05/17 11:02 Benadryl 2% Cream TP 1 applic BID [facility]IE Administration ASSESSMENT/PLAN:
[2017-03-05] MEDS: LINEZOLID 600 MG TABLET (RESTRICTED TO ID) PO SCH (23:06)
[2017-03-06 00:07] LABS: ATYPICAL pANCA <1:20 titer (Neg:<1:20); C-ANCA <1:20 titer (Neg:<1:20); P-ANCA <1:20 titer (Neg:<1:20); PROTEINASE-3 ANTIBODY <3.5 U/mL (0.0-3.5)
[2017-03-06] MEDS: SUCRALFATE 1 GM/10 ML UNIT DOSE CUPS PO SCH ×4 (02:50→22:21)
[2017-03-06] MEDS: oxyCODONE HCL 5 MG TABLET PO PRN (08:26)
[2017-03-06] MEDS: SEVELAMER CARBONATE 800 MG TAB (FP) PO SCH ×3 (08:26→17:36)
[2017-03-06 09:12] LABS: HEMATOCRIT 24.1 % (35.4-49); HEMOGLOBIN 8.1 GM/dL (11.7-16.9); MCH 36.8 pg (25.7-33.7); MCHC 33.5 g/dl (32.0-35.9); MEAN CELL VOLUME 109.7 fl (80-96); PLATELET COUNT 83 K/MM3 (134-434); RDW 18.3 % (11.9-15.9); WHITE BLOOD COUNT 8.9 K/mm3 (4.0-10.0)
[2017-03-06] MEDS: predniSONE 20 MG TABLET (UD) PO SCH (09:12)
[2017-03-06] MEDS: THIAMINE HCL 100 MG TABLET (FP) PO SCH (09:12)
[2017-03-06] MEDS: SODIUM BICARBONATE 650 MG TABLET PO SCH ×2 (09:12→22:21)
[2017-03-06] MEDS: NYSTATIN POWDER 100,000 UNITS/GM - 15 GM TOPICAL POWDER TP SCH ×2 (09:13→22:23)
[2017-03-06] MEDS: FOLIC ACID 1 MG TABLET (FP) PO SCH (09:13)
[2017-03-06 09:22] LABS: ANION GAP 16 (8-16); BLOOD UREA NITROGEN 87 mg/dL (7-18); CALCIUM 7.9 mg/dL (8.5-10.1); CHLORIDE 98 mmol/L (98-107); CO2 20 mmol/L (21-32); CREATININE 4.1 mg/dL (0.7-1.3); GLUCOSE,RANDOM 150 mg/dL (74-106); MAGNESIUM 2.8 mg/dL (1.8-2.4); PHOSPHOROUS 6.4 mg/dL (2.5-4.9); POTASSIUM 3.2 mmol/L (3.5-5.1); SODIUM 134 mmol/L (136-145)
[2017-03-06] MEDS: MEROPENEM 500 MG PUSH 500 MG/10 ML DISP.SYRIN IVPUSH SCH ×2 (10:23→22:21)
[2017-03-06] MEDS: ALBUMIN HUMAN 25% 12.5 GM/50 ML VIAL IVPB SCH (11:11)
[2017-03-06 11:45] LABS: ACANTHOCYTES 1+; ANISOCYTOSIS 2+; TARGET CELLS 1+; TEAR DROP CELLS 1+
[2017-03-06] MEDS ORDERED: PT OWN MED DRAWER 7, Y5N ONE ×2 (11:53→22:19)
--- NOTE | 2017-03-06 12:39 | DS ---
Physical Exam: SUBJECTIVE: Patient seen and examined. OBJECTIVE: Vital Signs Period Temp Pulse Resp BP Sys/Barriga Pulse Ox Last 24 Hr 97.4 F-97.8 F 73-90 20-20 111-136/50-64 PHYSICAL EXAM GENERAL: The patient is A&Ox2. Speech very slow. Follows some commands. Confused , lethargic, weak. EYES: PERRL, extraocular movements intact, sclera icteric. ENT: Ears normal, nares patent, oropharynx clear without exudates, moist mucous membranes. NECK: Trachea midline, full range of motion, supple. LUNGS: Breath sounds equal, clear to auscultation bilaterally, no wheezes, no crackles, no accessory muscle use. HEART: Regular rate and rhythm, S1, S2 without murmur, rub or gallop. ABDOMEN: Soft, nontender, nondistended, normoactive bowel sounds, no guarding, no rebound, no hepatosplenomegaly, no masses. EXTREMITIES: 2+ pulses, warm, well-perfused, no edema. NEUROLOGICAL: Cranial nerves II through XII grossly intact. Normal speech, gait not observed. PSYCH: Normal mood, normal affect. SKIN: Jaundiced. Stage II sacral pressure ulcer. Groin abscess. Laboratory Results - last 24 hr 03/02/17 03/06/17 03/06/17 18:45 07:45 07:45 WBC 8.9 RBC 2.20 L Hgb 8.1 L Hct 24.1 L MCV 109.7 H MCH 36.8 H MCHC 33.5 RDW 18.3 H Plt Count 83 L MPV 10.0 Neutrophils % No Result Required. Neutrophils % (Manual) 84.9 H Band Neutrophils % 0.0 Lymphocytes % No Result Required. Lymphocytes % (Manual) 1.0 L Monocytes % (Manual) 12 H D Eosinophils % (Manual) 2.0 D Basophils % (Manual) 0.0 Myelocytes % (Man) 0 Metamyelocytes 0 D Hypochromia 2+ Polychromasia 1+ Anisocytosis 2+ Microcytosis 1+ Target Cells 1+ Tear Drop Cells 1+ Acanthocytes (Spur) 1+ Fragmented RBCs 2+ Sodium 134 L Potassium 3.2 L Chloride 98 Carbon Dioxide 20 L Anion Gap 16 BUN 87 H Creatinine 4.1 H Random Glucose 150 H Calcium 7.9 L Phosphorus 6.4 H Magnesium 2.8 H Random Vancomycin c-ANCA <1:20 Proteinase 3 (PR3) <3.5 p-ANCA <1:20 Atypical p-ANCA <1:20 Myeloperoxidase Ab <9.0 03/06/17 09:00 WBC RBC Hgb Hct MCV MCH MCHC RDW Plt Count MPV Neutrophils % Neutrophils % (Manual) Band Neutrophils % Lymphocytes % Lymphocytes % (Manual) Monocytes % (Manual) Eosinophils % (Manual) Basophils % (Manual) Myelocytes % (Man) Metamyelocytes Hypochromia Polychromasia Anisocytosis Microcytosis Target Cells Tear Drop Cells Acanthocytes (Spur) Fragmented RBCs Sodium Potassium Chloride Carbon Dioxide Anion Gap BUN Creatinine Random Glucose Calcium Phosphorus Magnesium Random Vancomycin 13.984 c-ANCA Proteinase 3 (PR3) p-ANCA Atypical p-ANCA Myeloperoxidase Ab HOSPITAL COURSE: Date of Admission:02/18/17 Date of Discharge: 03/06/17 Pre hospital course 41 year-old male with a PMH significant for a long history of alcohol abuse, and a PSH s/p cholecystectomy and appendectomy. . Per family members, patient has been through detox several times, most recently 11/2016, but has not been able to maintain sobriety. On the day of admission family members found him disoriented even though he had not been drinking for several days and they brought him to the hospital. Patient gave a history of a sore arm and back x 3 weeks, weakness x 1 week, and abdominal pain. ER course Patient was febrile to 102, tachycardic to 110, BP 118/62. WBC 5.6k. CTAP showed no ascites and no abscesses. UA was negative, CXR was unremarkable, and echo showed no signs of vegetation. MR imaging of lumbar and thoracic spines unrevealing for infection source. Utox was negative for drugs and alcohol. Cat cultures were collected and sent. Patient received doses of ceftriaxone and vancomycin in the ED. Patient was admitted for sepsis of uncertain etiology, acute renal failure, and altered mental status likely caused by hepatic encephalopathy secondary to alcoholic cirrhosis. Subsequent hospital course by problem list Alcoholic cirrhosis Hepatic encephalopathy --MELD score on admission 34; discriminant factor 74, steroids not given initially due to bacteremia --initial INR 2.66, mildly improvement with three days of Vit K, then steadily abbey to 3.56 --ammonia level wnl; treated with lactulose and rifaxamin with no clinical improvement in mental status --02/18 CTAP: slightly enlarged liver with homogeneous attenuation; enlarged spleen --02/19 US: hepatosplenomegaly with diffuse fatty infiltration; no evidence of ascites --started on midodrine, albumin, and octreotide on 03/04 Severe Sepsis MSSA Bacteremia Groin abscess Culture data --02/18 Blood cultures 2/2 bottles +MSSA --02/21 Blood cultures 2/2 bottles +MSSA --02/24 Blood cultures 1/2 bottles MSSA --02/26 Blood cultures 2/2 bottles negative --03/01 Blood cultures 2/2 bottles negative --02/18 Urine culture negative --03/03 Urine culture negative --02/19 Flu negative --03/02 Groin abscess +Kluyvera ascorbata, +VRE Antibiotics --Meropenem (03/02--> ) --Linezolid (03/05--> ) --Ceftriaxone (1 x 1 dose) --Cefepime (1/2 x 1 dose) --Nafcillin (02/22-->03/01 - d/c'd due to severe full body rash) --Vancomycin (02/18-->02/21, 03/01-->03/03) Electrolyte derangement --daily repletion Elevated troponins --02/18 0.49; peaked 02/20 2.54; trended down --02/20 Echo: borderline cLVH; diastolic dysfunction Grade II ( pseudonormalization pattern); RV normal; LAE; trace MR; trace TR; RSVP not calculated --seen and evaluated by cardiology, likely demand ischemia sepsis Right shoulder pain --MRI shows high-grade partial bursal surface tear of the posterior suprapinatus tendon, and full-thickness tear of the posterior suprspinatus tendon r/o Bone marrow disorder --MRI showed increased T2 signal of the bone marrow on the fat-suppressed T2- weighted images; possibility of a systemic bone marrow disorder is raised Acute Renal Failure --Cr 1.8 on admission --peak Cr 5.1 on 03/04 --today Cr 4.1 --on bicarb, sevelemar Thrombocytopenia --plts 34 on admission --gisella of 19 on 02/19 --plts date of transfer 83 Hyponatremia --Na 124 on admission --Na 135-->134 during hospital stay Minutes to complete discharge: 60 Discharge Summary Reason For Visit: FEVER,HYPONATREMIA,ALCOHOLIC CIRRHOSIS Current Active Problems Abdominal pain (Acute) Alcoholic cirrhosis of liver (Acute) Coagulopathy (Acute) Elevated troponin (Acute) Elevated troponin (Acute) Fever (Acute) Hepatic encephalopathy (Acute) Hepatorenal failure (Acute) Hyponatremia (Acute) Renal failure (Acute) Sepsis (Acute) Substance abuse (Acute) Thrombocytopenia (Acute) - Instructions - Home Medications Comprehensive Discharge Medication List: Ambulatory Orders Acetaminophen [Tylenol .Regular Strength -] 650 mg PO Q6H PRN #120 tablet Chlordiazepoxide [Librium -] 25 mg PO BID #60 capsule MDD 50 10/25/15 Clindamycin [Cleocin -] 300 mg PO Q6HPO #20 capsule 10/25/15 Nadolol [Corgard -] 60 mg PO DAILY #90 tablet 10/25/15 Rifaximin [Xifaxan -] 550 mg PO BID #60 tablet 10/25/15 NK [No Known Home Medication] 02/18/17 This patient is new to me today: No Emergency Visit: Yes ED Registration Date: 02/19/17 Care time: The patient presented to the Emergency Department on the above date and was hospitalized for further evaluation of their emergent condition. Critical Care patient: Yes Total Critical Care Time (in minutes): 60 Critical Care Statement: The care of this patient involved high complexity decision making to prevent further life threatening deterioration of the patient 's condition and/or to evaluate & treat vital organ system(s) failure or risk of failure. - Discharge Referral Referred to [facility] Med P.C.: No
[2017-03-06] MEDS: LINEZOLID 600 MG TABLET (RESTRICTED TO ID) PO SCH ×2 (12:56→22:21)
[2017-03-06] MEDS: POTASSIUM CHLORIDE TABS 20 MEQ TABLET.ER (FP) PO SCH ×3 (13:00→22:21)
--- NOTE | 2017-03-06 13:04 | PN ---
Progress Note (short form) - Note Progress Note: Renal follow up for YARIEL Pt seen and examined at the bedside awake and answering questions making urine off IVF ambulating to the bathroom no sob, O2 sat is stable Vital Signs Temperature 97.8 F 03/06/17 09:00 Pulse Rate 89 03/06/17 09:00 Respiratory Rate 20 03/06/17 09:00 Blood Pressure 134/64 03/06/17 09:00 O2 Sat by Pulse Oximetry (%) 99 03/01/17 09:00 Intake & Output 03/03/17 03/04/17 03/05/17 03/06/17 23:59 23:59 23:59 23:59 Intake Total 2023 3793 2483 380 Output Total 1150 800 Balance 2023 2643 1683 380 Weight 124.556 kg 126.099 kg 127.063 kg 127.006 kg NAD lethargic rash is improving 2+ LE edema CBC, BMP 03/06/17 07:45 03/06/17 07:45 Current Medications Albumin Human (Albumin Human 25%) 50 gm IVPB DAILY [facility] Last Admin: 03/06/17 11:11 Dose: 50 gm Diphenhydramine HCl (Benadryl Injection -) 12.5 mg IVPUSH Q4H PRN PRN Reason: FOR ITCHING Last Admin: 03/05/17 01:07 Dose: 12.5 mg Folic Acid (Folic Acid -) 1 mg PO DAILY [facility] Last Admin: 03/06/17 09:13 Dose: 1 mg Heparin Sodium (Porcine) (Heparin -) 5,000 unit SQ TID [facility] Meropenem (Merrem (Restricted To Id) -) 500 mg in 10 mls @ 120 mls/hr IVPUSH BID [facility] Last Admin: 03/06/17 10:23 Dose: 120 mls/hr Octreotide Acetate 1,200 mcg/ (Dextrose) 500 mls @ 20.83 mls/hr IVPB Q24H [facility] PRN Reason: 50 MCG/HR Last Admin: 03/05/17 17:25 Dose: 20.83 mls/hr Linezolid (Zyvox (Restricted To Id) -) 600 mg PO BID [facility] Last Admin: 03/05/17 23:06 Dose: 600 mg Nystatin (Nystop Powder -) 1 applic TP BID [facility] Last Admin: 03/06/17 09:13 Dose: 1 applic Potassium Chloride (K-Dur -) 40 meq PO Q6H [facility] Stop: 03/06/17 22:46 Prednisone (Deltasone -) 60 mg PO DAILY [facility] Last Admin: 03/06/17 09:12 Dose: 60 mg Sevelamer Carbonate (Renvela -) 800 mg PO TIDCM [facility] Last Admin: 03/06/17 08:26 Dose: 800 mg Sodium Bicarbonate (Sodium Bicarbonate -) 650 mg PO BID [facility] Last Admin: 03/06/17 09:12 Dose: 650 mg Sucralfate (Carafate Oral Suspension -) 1 gm PO Q6H [facility] Last Admin: 03/06/17 08:25 Dose: 1 gm Thiamine HCl (Vitamin B1 -) 100 mg PO DAILY [facility] Last Admin: 03/06/17 09:12 Dose: 100 mg Zinc Acetate/Diphenhydramine (Benadryl 2% Cream) 1 applic TP BID [facility] Last Admin: 03/06/17 09:13 Dose: 1 applic 41 year old gentleman with PMhx of Alcoholic Liver cirrhosis who presented with abd pain and chills and found to have MSSA Bacteremia and now with YARIEL. #Acute Renal Injury Renal injury appears to be AIN (rash, elevated serum eiosinphils, recent PCN use ) Rash improving, renal function improving continue Prednisone 60mg Daily and plan to taper once renal function near baseline pt with LE edema but no respiratoy distress so would hold diuretics for now trend BUN/Cr and electrolytes dose all meds for CrCl less then 15 #Hyponatremia from cirrhosis, renal failure Serum na stable #Metabolic acidosis contineu oral bicarb #Hypocalcemia corrected Ca is WNL #MSSA bactermia Abx as per ID ID following ? abcess in groin #Alcoholic Cirrhosis started on Octreotide and Albumin by MEDINA Sarah DO
[2017-03-06] MEDS: HEPARIN NA (PORCINE) 5,000 UNITS/ML 1ML VIAL SQ SCH ×2 (14:03→22:21)
[2017-03-06 14:44] LABS: INR 2.81 (0.82-1.09); PROTHROMBIN TIME (PATIENT) 31.7 SEC (9.98-11.88)
[2017-03-06 14:47] LABS: ACTIVATED PTT 44.6 SECONDS (26.9-34.4)
--- NOTE | 2017-03-06 15:40 | PN ---
Progress Note, Physician History of Present Illness: patient doing much better no complaints much more awake and alert rash fading all numbers improving wbc has normalized - Current Medication List Current Medications: Active Medications Albumin Human (Albumin Human 25%) 50 gm IVPB DAILY [facility] Last Admin: 03/06/17 11:11 Dose: 50 gm Diphenhydramine HCl (Benadryl Injection -) 12.5 mg IVPUSH Q4H PRN PRN Reason: FOR ITCHING Last Admin: 03/05/17 01:07 Dose: 12.5 mg Folic Acid (Folic Acid -) 1 mg PO DAILY [facility] Last Admin: 03/06/17 09:13 Dose: 1 mg Heparin Sodium (Porcine) (Heparin -) 5,000 unit SQ TID [facility] Last Admin: 03/06/17 14:03 Dose: 5,000 unit Meropenem (Merrem (Restricted To Id) -) 500 mg in 10 mls @ 120 mls/hr IVPUSH BID [facility] Last Admin: 03/06/17 10:23 Dose: 120 mls/hr Octreotide Acetate 1,200 mcg/ (Dextrose) 500 mls @ 20.83 mls/hr IVPB Q24H BRITTANIE PRN Reason: 50 MCG/HR Last Admin: 03/05/17 17:25 Dose: 20.83 mls/hr Linezolid (Zyvox (Restricted To Id) -) 600 mg PO BID [facility] Last Admin: 03/06/17 12:56 Dose: 600 mg Nystatin (Nystop Powder -) 1 applic TP BID [facility] Last Admin: 03/06/17 09:13 Dose: 1 applic Potassium Chloride (K-Dur -) 40 meq PO Q6H [facility] Stop: 03/06/17 22:46 Last Admin: 03/06/17 13:00 Dose: 40 meq Prednisone (Deltasone -) 60 mg PO DAILY [facility] Last Admin: 03/06/17 09:12 Dose: 60 mg Sevelamer Carbonate (Renvela -) 800 mg PO TIDCM [facility] Last Admin: 03/06/17 13:00 Dose: 800 mg Sodium Bicarbonate (Sodium Bicarbonate -) 650 mg PO BID [facility] Last Admin: 03/06/17 09:12 Dose: 650 mg Sucralfate (Carafate Oral Suspension -) 1 gm PO Q6H [facility] Last Admin: 03/06/17 14:03 Dose: 1 gm Thiamine HCl (Vitamin B1 -) 100 mg PO DAILY [facility] Last Admin: 03/06/17 09:12 Dose: 100 mg Zinc Acetate/Diphenhydramine (Benadryl 2% Cream) 1 applic TP BID [facility] Last Admin: 03/06/17 09:13 Dose: 1 applic - Objective Vital Signs: Vital Signs Temperature 97.3 F L 03/06/17 14:54 Pulse Rate 89 03/06/17 14:54 Respiratory Rate 20 03/06/17 14:54 Blood Pressure 124/66 03/06/17 14:54 O2 Sat by Pulse Oximetry (%) 99 03/01/17 09:00 Constitutional: Yes: No Distress, Calm Cardiovascular: Yes: Regular Rate and Rhythm Respiratory: Yes: Regular, CTA Bilaterally Gastrointestinal: Yes: Normal Bowel Sounds, Soft, Ascites Musculoskeletal: Yes: WNL Extremities: Yes: WNL Integumentary: Yes: Rash (improving) Wound/Incision: Yes: Clean/Dry (no more draiange) Neurological: Yes: Alert, Oriented Psychiatric: Yes: Alert, Oriented Labs: CBC, BMP 03/06/17 07:45 03/06/17 07:45 INR, PTT INR 2.81 (0.82-1.09) H 03/06/17 13:30 Assessment/Plan Problem List - Problems (1) Alcoholic cirrhosis of liver Code(s): K70.30 - ALCOHOLIC CIRRHOSIS OF LIVER WITHOUT ASCITES Qualifiers: Ascites presence: without ascites Qualified Code(s): K70.30 - Alcoholic cirrhosis of liver without ascites (2) Hepatic encephalopathy Code(s): K72.90 - HEPATIC FAILURE, UNSPECIFIED WITHOUT COMA (3) Renal failure Code(s): N19 - UNSPECIFIED KIDNEY FAILURE Qualifiers: Renal failure chronicity: acute Acute renal failure type: unspecified Qualified Code(s): N17.9 - Acute kidney failure, unspecified (4) Sepsis Code(s): A41.9 - SEPSIS, UNSPECIFIED ORGANISM Qualifiers: Sepsis type: sepsis due to unspecified organism Qualified Code(s): A41.9 - Sepsis, unspecified organism (5) Thrombocytopenia Code(s): D69.6 - THROMBOCYTOPENIA, UNSPECIFIED 6 gm positive bactermia 7 diffuse rash all over the body leukocytosis scrotal infection/collection vanco level noted all cx results noted plan continue current mgmt in seven days when we stop zyox we will switch to oral abx continue as per renal rest as per primary team
[2017-03-06] MEDS: OCTREOTIDE ACETATE 1,200 MCG in DEXTROSE 5%-WATER - 488 ML IVPB SCH (17:33)
[2017-03-07] MEDS: SUCRALFATE 1 GM/10 ML UNIT DOSE CUPS PO SCH ×4 (01:49→22:04)
[2017-03-07] MEDS: HEPARIN NA (PORCINE) 5,000 UNITS/ML 1ML VIAL SQ SCH ×3 (06:04→22:04)
[2017-03-07 07:40] LABS: HEMATOCRIT 22.8 % (35.4-49); HEMOGLOBIN 7.7 GM/dL (11.7-16.9); MCH 37.5 pg (25.7-33.7); MEAN CELL VOLUME 110.3 fl (80-96); MEAN PLT VOLUME 9.6 fl (7.5-11.1); PLATELET COUNT 69 K/MM3 (134-434); RBC 2.06 M/mm3 (4.00-5.60); RDW 18.4 % (11.9-15.9)
[2017-03-07 08:02] LABS: ALBUMIN 2.5 g/dl (3.4-5.0); ANION GAP 13 (8-16); BLOOD UREA NITROGEN 88 mg/dL (7-18); CHLORIDE 102 mmol/L (98-107); CO2 21 mmol/L (21-32); CREATININE 3.6 mg/dL (0.7-1.3); GLUCOSE,RANDOM 132 mg/dL (74-106); MAGNESIUM 2.9 mg/dL (1.8-2.4); PHOSPHOROUS 5.7 mg/dL (2.5-4.9); POTASSIUM 3.8 mmol/L (3.5-5.1); SGOT/AST 37 U/L (15-37); SGPT/ALT 37 U/L (12-78); SODIUM 136 mmol/L (136-145)
[2017-03-07 08:04] LABS: ALK PHOS 114 U/L (45-117); BILIRUBIN,TOTAL 9.6 mg/dL (0.2-1.0)
--- NOTE | 2017-03-07 08:46 | PN ---
Progress Note (short form) - Note Progress Note: Subjective: The patient was seen and examined at the bedside Current Medications Generic Name Dose Route Start Last Admin Trade Name Freq PRN Reason Stop Dose Admin Albumin Human 50 gm 03/05/17 10:00 03/06/17 11:11 Albumin Human 25% IVPB 50 gm DAILY BRITTANIE Administration Diphenhydramine HCl 12.5 mg 03/01/17 19:24 03/05/17 01:07 Benadryl Injection - IVPUSH 12.5 mg Q4H PRN Administration FOR ITCHING Folic Acid 1 mg 02/22/17 10:00 03/06/17 09:13 Folic Acid - PO 1 mg DAILY BRITTANIE Administration Heparin Sodium (Porcine) 5,000 unit 03/06/17 14:00 03/07/17 06:04 Heparin - SQ 5,000 unit TID BRITTANIE Administration Meropenem 500 mg in 10 mls @ 120 mls/hr 03/02/17 14:45 03/06/17 22:21 Merrem (Restricted To Id) - IVPUSH 120 mls/hr BID BRITTANIE Administration Octreotide Acetate 1,200 mcg/ 500 mls @ 20.83 mls/hr 03/04/17 15:15 03/06/17 17:33 Dextrose IVPB 20.83 mls/hr Q24H BRITTANIE Administration 50 MCG/HR Linezolid 600 mg 03/05/17 22:00 03/06/17 22:21 Zyvox (Restricted To Id) - PO 600 mg BID BRITTANIE Administration Nystatin 1 applic 03/02/17 10:00 03/06/17 22:23 Nystop Powder - TP 1 applic BID BRITTANIE Administration Oxycodone HCl 5 mg 03/07/17 08:37 Roxicodone - PO Q4H PRN PAIN LEVEL 6-10 Prednisone 60 mg 03/05/17 11:45 03/06/17 09:12 Deltasone - PO 60 mg DAILY BRITTANIE Administration Sevelamer Carbonate 800 mg 03/04/17 17:30 03/06/17 17:36 Renvela - PO 800 mg TIDCM BRITTANIE Administration Sodium Bicarbonate 650 mg 03/05/17 11:45 03/06/17 22:21 Sodium Bicarbonate - PO 650 mg BID BRITTANIE Administration Sucralfate 1 gm 02/27/17 08:00 03/07/17 01:49 Carafate Oral Suspension - PO 1 gm Q6H BRITTANIE Administration Thiamine HCl 100 mg 02/22/17 10:00 03/06/17 09:12 Vitamin B1 - PO 100 mg DAILY BRITTANIE Administration Zinc Acetate/Diphenhydramine 1 applic 03/01/17 22:00 03/06/17 22:23 Benadryl 2% Cream TP 1 applic BID BRITTANIE Administration Objective : Vital Signs Period Temp Pulse Resp BP Sys/Barriga Pulse Ox Last 24 Hr 97.3 F-98 F 86-89 20-20 124-134/61-70 Physical Exam: General: NAD, A&Ox3, jaundice Lungs: CTA bilaterally Heart: RRR, S1S2 Abd: Soft, non-tender, non-distended. Normoactive bowel sounds Ext: Warm, well-perfused. 2+ DP/PT bilaterally MSK: Left shoulder full ROM, patient grimacing while performing active ROM, however no tenderness CBCD WBC 10.0 K/mm3 (4.0-10.0) 03/07/17 06:30 RBC 2.06 M/mm3 (4.00-5.60) L 03/07/17 06:30 Hgb 7.7 GM/dL (11.7-16.9) L 03/07/17 06:30 Hct 22.8 % (35.4-49) L 03/07/17 06:30 MCV 110.3 fl (80-96) H 03/07/17 06:30 MCHC 34.0 g/dl (32.0-35.9) 03/07/17 06:30 RDW 18.4 % (11.9-15.9) H 03/07/17 06:30 Plt Count 69 K/MM3 (134-434) L 03/07/17 06:30 MPV 9.6 fl (7.5-11.1) 03/07/17 06:30 CMP Sodium 136 mmol/L (136-145) 03/07/17 06:30 Potassium 3.8 mmol/L (3.5-5.1) 03/07/17 06:30 Chloride 102 mmol/L (98-107) 03/07/17 06:30 Carbon Dioxide 21 mmol/L (21-32) 03/07/17 06:30 Anion Gap 13 (8-16) 03/07/17 06:30 BUN 88 mg/dL (7-18) H 03/07/17 06:30 Creatinine 3.6 mg/dL (0.7-1.3) H 03/07/17 06:30 Creat Clearance w eGFR 18.97 (>60) 03/07/17 06:30 Random Glucose 132 mg/dL (74-106) H 03/07/17 06:30 Calcium 8.0 mg/dL (8.5-10.1) L 03/07/17 06:30 Total Bilirubin 9.6 mg/dL (0.2-1.0) H D 03/07/17 06:30 AST 37 U/L (15-37) D 03/07/17 06:30 ALT 37 U/L (12-78) D 03/07/17 06:30 Alkaline Phosphatase 114 U/L (45-117) 03/07/17 06:30 Total Protein 7.0 g/dl (6.4-8.2) 03/07/17 06:30 Albumin 2.5 g/dl (3.4-5.0) L D 03/07/17 06:30 CARDIAC ENZYMES Creatine Kinase 291 IU/L (39-308) 02/19/17 13:50 Troponin I 1.52 ng/ml (0.00-0.05) H* D 02/20/17 12:23 Microbiology 03/01/17 12:09 Blood - Peripheral Venous Blood Culture - Final NO GROWTH AFTER 5 DAYS INCUBATION 03/01/17 11:58 Blood - Peripheral Venous Blood Culture - Final NO GROWTH AFTER 5 DAYS INCUBATION 03/02/17 01:00 Groin Gram Stain - Final 03/02/17 01:00 Groin Wound Culture - Final Kluyvera Ascorbata Vr Ec Faecium Yeast Like Organism 03/03/17 23:36 Urine - Urine Clean Catch Urine Culture - Final 02/26/17 13:40 Blood - Peripheral Venous Blood Culture - Final NO GROWTH AFTER 5 DAYS INCUBATION 02/26/17 13:45 Blood - Peripheral Venous Blood Culture - Final NO GROWTH AFTER 5 DAYS INCUBATION 02/24/17 09:40 Blood - Peripheral Venous Blood Culture - Final NO GROWTH AFTER 5 DAYS INCUBATION 02/24/17 09:30 Blood - Peripheral Venous Blood Culture - Final Staphylococcus Aureus 02/21/17 09:10 Blood - Peripheral Venous Blood Culture - Final Staphylococcus Aureus 02/21/17 09:10 Blood - Peripheral Venous Blood Culture - Final Staphylococcus Aureus 02/18/17 20:19 Blood - Peripheral Venous Blood Culture - Final Staphylococcus Aureus 02/18/17 19:45 Blood - Peripheral Venous Blood Culture - Final Staphylococcus Aureus Staphylococcus Aureus#2 02/18/17 20:43 Urine - Urine Clean Catch Urine Culture - Final NO GROWTH OBTAINED 02/19/17 00:50 Nasopharyngeal Swab Influenza Types A,B Antigen (CLIF) - Final 02/19/17 00:50 Nasopharyngeal Swab - Final Assessment: This is a 41 year old male with PMHx of alcohol abuse who presented to the ED with abdominal pain and generalized weakness. Plan: 1) Staph aureus bacteremia - Repeat blood cultures yesterday - WBC elevated, trending down 14.8->13->11.6->11.3 - Source? Doubt SBP as no ascites on US. Lumbar MRI and thoracic unrevealing for possible source - Continue Nafcillin - Discussed with Dr. Fierro, no DARRIAN for now - Appreciate ID consult 2) Advanced alcoholic liver disease with hepatic encephalopathy, thrombocytopenia, elevated INR - EGD with ulcer, start Carafate 1g q6h - FFP, Vit K ordered - Continue Lactulose - Appreciate GI consult 3) Left shoulder pain - MRI reviewed - Appreciate ortho consult 4) YARIEL - Resolved 5) F/E/N: - Regular diet - Hypokalemia: replete 6) Prophylaxis: - Hold all chemical DVT prophylaxis 2/2 throbocytopenia and elevated INR - OOB ambulating with assistance 7) Dispo: - Requires continued inpatient care - Prognosis poor CODE STATUS: FULL CODE
[2017-03-07] MEDS: SEVELAMER CARBONATE 800 MG TAB (FP) PO SCH ×3 (08:49→16:37)
[2017-03-07] MEDS: oxyCODONE HCL 5 MG TABLET PO PRN ×3 (08:50→22:05)
[2017-03-07] MEDS ORDERED: PT OWN MED DRAWER 7, Y5N ONE (10:51)
--- NOTE | 2017-03-07 10:51 | PN ---
Progress Note (short form) - Note Progress Note: Pt seen. Again we discussed his complete left RTC tear, and that he is not at this time, and may never be, a good candidate for RTC repair surgery. Can DC/transfer from an orthopedic pov.
[2017-03-07] MEDS: ALBUMIN HUMAN 25% 12.5 GM/50 ML VIAL IVPB SCH (11:19)
[2017-03-07] MEDS: LINEZOLID 600 MG TABLET (RESTRICTED TO ID) PO SCH ×2 (11:20→22:05)
[2017-03-07] MEDS: predniSONE 20 MG TABLET (UD) PO SCH (11:20)
[2017-03-07] MEDS: THIAMINE HCL 100 MG TABLET (FP) PO SCH (11:20)
[2017-03-07] MEDS: SODIUM BICARBONATE 650 MG TABLET PO SCH ×2 (11:20→22:04)
[2017-03-07] MEDS: NYSTATIN POWDER 100,000 UNITS/GM - 15 GM TOPICAL POWDER TP SCH ×2 (11:21→22:10)
[2017-03-07] MEDS: MEROPENEM 500 MG PUSH 500 MG/10 ML DISP.SYRIN IVPUSH SCH ×2 (11:21→22:04)
[2017-03-07] MEDS: FOLIC ACID 1 MG TABLET (FP) PO SCH (11:21)
--- NOTE | 2017-03-07 11:41 | PN ---
Progress Note, Physician History of Present Illness: doing well awake and alert no new issues - Current Medication List Current Medications: Active Medications Albumin Human (Albumin Human 25%) 50 gm IVPB DAILY [facility] Last Admin: 03/07/17 11:19 Dose: 50 gm Diphenhydramine HCl (Benadryl Injection -) 12.5 mg IVPUSH Q4H PRN PRN Reason: FOR ITCHING Last Admin: 03/05/17 01:07 Dose: 12.5 mg Folic Acid (Folic Acid -) 1 mg PO DAILY [facility] Last Admin: 03/07/17 11:21 Dose: 1 mg Heparin Sodium (Porcine) (Heparin -) 5,000 unit SQ TID [facility] Last Admin: 03/07/17 06:04 Dose: 5,000 unit Meropenem (Merrem (Restricted To Id) -) 500 mg in 10 mls @ 120 mls/hr IVPUSH BID [facility] Last Admin: 03/07/17 11:21 Dose: 120 mls/hr Octreotide Acetate 1,200 mcg/ (Dextrose) 500 mls @ 20.83 mls/hr IVPB Q24H [facility] PRN Reason: 50 MCG/HR Last Admin: 03/06/17 17:33 Dose: 20.83 mls/hr Linezolid (Zyvox (Restricted To Id) -) 600 mg PO BID [facility] Last Admin: 03/07/17 11:20 Dose: 600 mg Nystatin (Nystop Powder -) 1 applic TP BID [facility] Last Admin: 03/07/17 11:21 Dose: 1 applic Oxycodone HCl (Roxicodone -) 5 mg PO Q4H PRN PRN Reason: PAIN LEVEL 6-10 Last Admin: 03/07/17 08:50 Dose: 5 mg Prednisone (Deltasone -) 60 mg PO DAILY [facility] Last Admin: 03/07/17 11:20 Dose: 60 mg Sevelamer Carbonate (Renvela -) 800 mg PO TIDCM [facility] Last Admin: 03/07/17 11:20 Dose: 800 mg Sodium Bicarbonate (Sodium Bicarbonate -) 650 mg PO BID [facility] Last Admin: 03/07/17 11:20 Dose: 650 mg Sucralfate (Carafate Oral Suspension -) 1 gm PO Q6H [facility] Last Admin: 03/07/17 08:49 Dose: 1 gm Thiamine HCl (Vitamin B1 -) 100 mg PO DAILY [facility] Last Admin: 03/07/17 11:20 Dose: 100 mg Zinc Acetate/Diphenhydramine (Benadryl 2% Cream) 1 applic TP BID [facility] Last Admin: 03/07/17 11:19 Dose: 1 applic - Objective Vital Signs: Vital Signs Temperature 97.5 F L 03/07/17 05:57 Pulse Rate 86 03/07/17 05:57 Respiratory Rate 20 03/07/17 05:57 Blood Pressure 131/61 03/07/17 05:57 O2 Sat by Pulse Oximetry (%) 99 03/01/17 09:00 Constitutional: Yes: No Distress, Calm Cardiovascular: Yes: Regular Rate and Rhythm Respiratory: Yes: Regular, CTA Bilaterally Gastrointestinal: Yes: Soft, Distention Musculoskeletal: Yes: WNL Extremities: Yes: WNL Neurological: Yes: Alert, Oriented Psychiatric: Yes: Alert, Oriented Labs: CBC, BMP 03/07/17 06:30 03/07/17 06:30 INR, PTT INR 2.81 (0.82-1.09) H 03/06/17 13:30 Assessment/Plan Problem List - Problems (1) Alcoholic cirrhosis of liver Code(s): K70.30 - ALCOHOLIC CIRRHOSIS OF LIVER WITHOUT ASCITES Qualifiers: Ascites presence: without ascites Qualified Code(s): K70.30 - Alcoholic cirrhosis of liver without ascites (2) Hepatic encephalopathy Code(s): K72.90 - HEPATIC FAILURE, UNSPECIFIED WITHOUT COMA (3) Renal failure Code(s): N19 - UNSPECIFIED KIDNEY FAILURE Qualifiers: Renal failure chronicity: acute Acute renal failure type: unspecified Qualified Code(s): N17.9 - Acute kidney failure, unspecified (4) Sepsis Code(s): A41.9 - SEPSIS, UNSPECIFIED ORGANISM Qualifiers: Sepsis type: sepsis due to unspecified organism Qualified Code(s): A41.9 - Sepsis, unspecified organism (5) Thrombocytopenia Code(s): D69.6 - THROMBOCYTOPENIA, UNSPECIFIED 6 gm positive bactermia 7 diffuse rash all over the body leukocytosis scrotal infection/collection vanco level noted all cx results noted plan continue current mgmt in seven days when we stop zyox we will switch to iv vanco or cefazolin and complete the course as if we were treating him for endo carditis continue as per renal rest as per primary team
[2017-03-07 11:58] LABS: ACANTHOCYTES 1+; MACROCYTOSIS 2+; OVALOCYTE 1+; PLATELET ESTIMATE DECREASED; TARGET CELLS 1+
[2017-03-07] MEDS: OCTREOTIDE ACETATE 1,200 MCG in DEXTROSE 5%-WATER - 488 ML IVPB SCH ×2 (12:47→15:34)
--- NOTE | 2017-03-07 12:48 | PN ---
Progress Note (short form) - Note Progress Note: Subjective: The patient was seen and examined at the bedside, he states his buttocks hurt him. Awaiting transfer to [facility] Current Medications Generic Name Dose Route Start Last Admin Trade Name Freq PRN Reason Stop Dose Admin Albumin Human 50 gm 03/05/17 10:00 03/07/17 11:19 Albumin Human 25% IVPB 50 gm DAILY [facility] Administration Diphenhydramine HCl 12.5 mg 03/01/17 19:24 03/05/17 01:07 Benadryl Injection - IVPUSH 12.5 mg Q4H PRN Administration FOR ITCHING Folic Acid 1 mg 02/22/17 10:00 03/07/17 11:21 Folic Acid - PO 1 mg DAILY [facility] Administration Heparin Sodium (Porcine) 5,000 unit 03/06/17 14:00 03/07/17 06:04 Heparin - SQ 5,000 unit TID [facility] Administration Meropenem 500 mg in 10 mls @ 120 mls/hr 03/02/17 14:45 03/07/17 11:21 Merrem (Restricted To Id) - IVPUSH 120 mls/hr BID [facility] Administration Octreotide Acetate 1,200 mcg/ 500 mls @ 20.83 mls/hr 03/04/17 15:15 03/06/17 17:33 Dextrose IVPB 20.83 mls/hr Q24H [facility] Administration 50 MCG/HR Linezolid 600 mg 03/05/17 22:00 03/07/17 11:20 Zyvox (Restricted To Id) - PO 600 mg BID [facility] Administration Nystatin 1 applic 03/02/17 10:00 03/07/17 11:21 Nystop Powder - TP 1 applic BID [facility] Administration Oxycodone HCl 5 mg 03/07/17 08:37 03/07/17 08:50 Roxicodone - PO 5 mg Q4H PRN Administration PAIN LEVEL 6-10 Prednisone 60 mg 03/05/17 11:45 03/07/17 11:20 Deltasone - PO 60 mg DAILY [facility] Administration Sevelamer Carbonate 800 mg 03/04/17 17:30 03/07/17 11:20 Renvela - PO 800 mg TIDCM [facility] Administration Sodium Bicarbonate 650 mg 03/05/17 11:45 03/07/17 11:20 Sodium Bicarbonate - PO 650 mg BID [facility] Administration Sucralfate 1 gm 02/27/17 08:00 03/07/17 08:49 Carafate Oral Suspension - PO 1 gm Q6H [facility] Administration Thiamine HCl 100 mg 02/22/17 10:00 03/07/17 11:20 Vitamin B1 - PO 100 mg DAILY [facility] Administration Zinc Acetate/Diphenhydramine 1 applic 03/01/17 22:00 03/07/17 11:19 Benadryl 2% Cream TP 1 applic BID [facility] Administration Objective : Vital Signs Period Temp Pulse Resp BP Sys/Barriga Pulse Ox Last 24 Hr 97.3 F-98 F 86-89 20-20 124-131/61-70 Physical Exam: General: NAD, A&Ox3, jaundice, sclera icteric Lungs: CTA bilaterally Heart: RRR, S1S2 Abd: Soft, non-tender, non-distended. Normoactive bowel sounds Ext: Warm, well-perfused. 2+ DP/PT bilaterally. 3+ b/l lower extremity pitting edema Skin: Dry, peeling CBCD WBC 10.0 K/mm3 (4.0-10.0) 03/07/17 06:30 RBC 2.06 M/mm3 (4.00-5.60) L 03/07/17 06:30 Hgb 7.7 GM/dL (11.7-16.9) L 03/07/17 06:30 Hct 22.8 % (35.4-49) L 03/07/17 06:30 MCV 110.3 fl (80-96) H 03/07/17 06:30 MCHC 34.0 g/dl (32.0-35.9) 03/07/17 06:30 RDW 18.4 % (11.9-15.9) H 03/07/17 06:30 Plt Count 69 K/MM3 (134-434) L 03/07/17 06:30 MPV 9.6 fl (7.5-11.1) 03/07/17 06:30 CMP Sodium 136 mmol/L (136-145) 03/07/17 06:30 Potassium 3.8 mmol/L (3.5-5.1) 03/07/17 06:30 Chloride 102 mmol/L (98-107) 03/07/17 06:30 Carbon Dioxide 21 mmol/L (21-32) 03/07/17 06:30 Anion Gap 13 (8-16) 03/07/17 06:30 BUN 88 mg/dL (7-18) H 03/07/17 06:30 Creatinine 3.6 mg/dL (0.7-1.3) H 03/07/17 06:30 Creat Clearance w eGFR 18.97 (>60) 03/07/17 06:30 Random Glucose 132 mg/dL (74-106) H 03/07/17 06:30 Calcium 8.0 mg/dL (8.5-10.1) L 03/07/17 06:30 Total Bilirubin 9.6 mg/dL (0.2-1.0) H D 03/07/17 06:30 AST 37 U/L (15-37) D 03/07/17 06:30 ALT 37 U/L (12-78) D 03/07/17 06:30 Alkaline Phosphatase 114 U/L (45-117) 03/07/17 06:30 Total Protein 7.0 g/dl (6.4-8.2) 03/07/17 06:30 Albumin 2.5 g/dl (3.4-5.0) L D 03/07/17 06:30 CARDIAC ENZYMES Creatine Kinase 291 IU/L (39-308) 02/19/17 13:50 Troponin I 1.52 ng/ml (0.00-0.05) H* D 02/20/17 12:23 Assessment: This is a 41 year old male with PMHx of alcohol abuse who presented to the ED with abdominal pain and generalized weakness. Plan: 1) Staph aureus bacteremia - Blood cultures now with no growth - WBC wnl - Continue Meropenem - Continue Linezolid - TTE with no evidence of vegetation - Appreciate ID consult 2) Advanced alcoholic liver disease with hepatic encephalopathy, thrombocytopenia, elevated INR - EGD with ulcer, continue Carafate 1g q6h - Continue Lactulose - Appreciate GI consult 3) Left shoulder pain - MRI reviewed - Appreciate ortho consult 4) YARIEL - Appears to be AIN - Cr slightly improved - Continue Prednisone 60mg daily with plan to taper once closer to baseline 5) F/E/N: - Regular diet - Monitor electrolytes 6) Prophylaxis: - Hold all chemical DVT prophylaxis 2/2 throbocytopenia and elevated INR - OOB ambulating with assistance 7) Dispo: - Awaiting bed at [facility] CODE STATUS: FULL CODE Visit type - Emergency Visit Emergency Visit: Yes ED Registration Date: 02/19/17 Care time: The patient presented to the Emergency Department on the above date and was hospitalized for further evaluation of their emergent condition. - New Patient This patient is new to me today: No - Critical Care Critical Care patient: No
--- NOTE | 2017-03-07 15:07 | PN ---
Progress Note, Physician History of Present Illness: More alert, has astirexis, rash less erythematous, improving, icterus improved - Current Medication List Current Medications: Active Medications Albumin Human (Albumin Human 25%) 50 gm IVPB DAILY [facility] Last Admin: 03/07/17 11:19 Dose: 50 gm Diphenhydramine HCl (Benadryl Injection -) 12.5 mg IVPUSH Q4H PRN PRN Reason: FOR ITCHING Last Admin: 03/05/17 01:07 Dose: 12.5 mg Folic Acid (Folic Acid -) 1 mg PO DAILY [facility] Last Admin: 03/07/17 11:21 Dose: 1 mg Heparin Sodium (Porcine) (Heparin -) 5,000 unit SQ TID [facility] Last Admin: 03/07/17 06:04 Dose: 5,000 unit Meropenem (Merrem (Restricted To Id) -) 500 mg in 10 mls @ 120 mls/hr IVPUSH BID [facility] Last Admin: 03/07/17 11:21 Dose: 120 mls/hr Octreotide Acetate 1,200 mcg/ (Dextrose) 500 mls @ 20.83 mls/hr IVPB Q24H [facility] PRN Reason: 50 MCG/HR Last Admin: 03/07/17 12:47 Dose: 20.83 mls/hr Linezolid (Zyvox (Restricted To Id) -) 600 mg PO BID [facility] Last Admin: 03/07/17 11:20 Dose: 600 mg Nystatin (Nystop Powder -) 1 applic TP BID [facility] Last Admin: 03/07/17 11:21 Dose: 1 applic Oxycodone HCl (Roxicodone -) 5 mg PO Q4H PRN PRN Reason: PAIN LEVEL 6-10 Last Admin: 03/07/17 12:48 Dose: 5 mg Prednisone (Deltasone -) 60 mg PO DAILY [facility] Last Admin: 03/07/17 11:20 Dose: 60 mg Sevelamer Carbonate (Renvela -) 800 mg PO TIDCM [facility] Last Admin: 03/07/17 11:20 Dose: 800 mg Sodium Bicarbonate (Sodium Bicarbonate -) 650 mg PO BID [facility] Last Admin: 03/07/17 11:20 Dose: 650 mg Sucralfate (Carafate Oral Suspension -) 1 gm PO Q6H [facility] Last Admin: 01/18/18 08:49 Dose: 1 gm Thiamine HCl (Vitamin B1 -) 100 mg PO DAILY [facility] Last Admin: 03/07/17 11:20 Dose: 100 mg Zinc Acetate/Diphenhydramine (Benadryl 2% Cream) 1 applic TP BID [facility] Last Admin: 03/07/17 11:19 Dose: 1 applic - Objective Vital Signs: Vital Signs Temperature 97.6 F 03/07/17 14:39 Pulse Rate 92 H 03/07/17 14:39 Respiratory Rate 20 03/07/17 08:00 Blood Pressure 153/80 03/07/17 14:39 O2 Sat by Pulse Oximetry (%) 97 03/07/17 08:00 Constitutional: Yes: No Distress, Calm Eyes: Yes: Sclera Icterus Gastrointestinal: Yes: Soft. No: Distention, Melena, Rectal Bleeding, Tenderness, Vomiting Neurological: Yes: Alert, Asterixis, Tremors Labs: CBC, BMP 03/07/17 06:30 03/07/17 06:30 INR, PTT INR 2.81 (0.82-1.09) H 03/06/17 13:30 CBCD WBC 10.0 K/mm3 (4.0-10.0) 03/07/17 06:30 RBC 2.06 M/mm3 (4.00-5.60) L 03/07/17 06:30 Hgb 7.7 GM/dL (11.7-16.9) L 03/07/17 06:30 Hct 22.8 % (35.4-49) L 03/07/17 06:30 MCV 110.3 fl (80-96) H 03/07/17 06:30 MCHC 34.0 g/dl (32.0-35.9) 03/07/17 06:30 RDW 18.4 % (11.9-15.9) H 03/07/17 06:30 Plt Count 69 K/MM3 (134-434) L 03/07/17 06:30 MPV 9.6 fl (7.5-11.1) 03/07/17 06:30 CMP Sodium 136 mmol/L (136-145) 03/07/17 06:30 Potassium 3.8 mmol/L (3.5-5.1) 03/07/17 06:30 Chloride 102 mmol/L (98-107) 03/07/17 06:30 Carbon Dioxide 21 mmol/L (21-32) 03/07/17 06:30 Anion Gap 13 (8-16) 03/07/17 06:30 BUN 88 mg/dL (7-18) H 03/07/17 06:30 Creatinine 3.6 mg/dL (0.7-1.3) H 03/07/17 06:30 Creat Clearance w eGFR 18.97 (>60) 03/07/17 06:30 Calcium 8.0 mg/dL (8.5-10.1) L 03/07/17 06:30 Total Bilirubin 9.6 mg/dL (0.2-1.0) H D 03/07/17 06:30 AST 37 U/L (15-37) D 03/07/17 06:30 ALT 37 U/L (12-78) D 03/07/17 06:30 Alkaline Phosphatase 114 U/L (45-117) 03/07/17 06:30 Total Protein 7.0 g/dl (6.4-8.2) 03/07/17 06:30 Albumin 2.5 g/dl (3.4-5.0) L D 03/07/17 06:30 Problem List - Problems (1) Hepatorenal failure Code(s): K76.7 - HEPATORENAL SYNDROME (2) Alcoholic cirrhosis of liver Code(s): K70.30 - ALCOHOLIC CIRRHOSIS OF LIVER WITHOUT ASCITES Qualifiers: Ascites presence: without ascites Qualified Code(s): K70.30 - Alcoholic cirrhosis of liver without ascites (3) Hepatic encephalopathy Code(s): K72.90 - HEPATIC FAILURE, UNSPECIFIED WITHOUT COMA Assessment/Plan Clinically somewhat better consider stopping narcotics and antihistamine PPI started Prognosis poor
[2017-03-07] MEDS: PANTOPRAZOLE 40 MG TABLET (FP) PO SCH (16:02)
--- NOTE | 2017-03-07 16:03 | PN ---
Progress Note (short form) - Note Progress Note: Renal follow up for YARIEL Pt seen and examined at the bedside sleeping but arouseble making urine rash improving no fevers Vital Signs Temperature 97.8 F 03/06/17 09:00 Pulse Rate 89 03/06/17 09:00 Respiratory Rate 20 03/06/17 09:00 Blood Pressure 134/64 03/06/17 09:00 O2 Sat by Pulse Oximetry (%) 99 03/01/17 09:00 Intake & Output 03/03/17 03/04/17 03/05/17 03/06/17 23:59 23:59 23:59 23:59 Intake Total 2023 3793 2483 380 Output Total 1150 800 Balance 2023 2643 1683 380 Weight 124.556 kg 126.099 kg 127.063 kg 127.006 kg NAD lethargic rash is improving 2+ LE edema CBC, BMP 03/06/17 07:45 03/06/17 07:45 Laboratory Tests 03/01/17 03/04/17 03/05/17 10:25 07:50 06:00 MCV 108.2 H Calcium 7.0 L Phosphorus 3.9 6.7 H Magnesium 2.4 2.5 H Total Bilirubin 7.0 H Albumin 1.5 L 1.6 L 03/05/17 03/07/17 06:00 06:30 MCV Calcium Phosphorus 6.8 H 5.7 H Magnesium 2.5 H 2.9 H Total Bilirubin 9.6 H D Albumin 2.5 L D Current Medications Albumin Human (Albumin Human 25%) 50 gm IVPB DAILY [facility] Last Admin: 03/06/17 11:11 Dose: 50 gm Diphenhydramine HCl (Benadryl Injection -) 12.5 mg IVPUSH Q4H PRN PRN Reason: FOR ITCHING Last Admin: 03/05/17 01:07 Dose: 12.5 mg Folic Acid (Folic Acid -) 1 mg PO DAILY [facility] Last Admin: 03/06/17 09:13 Dose: 1 mg Heparin Sodium (Porcine) (Heparin -) 5,000 unit SQ TID [facility] Meropenem (Merrem (Restricted To Id) -) 500 mg in 10 mls @ 120 mls/hr IVPUSH BID [facility] Last Admin: 03/06/17 10:23 Dose: 120 mls/hr Octreotide Acetate 1,200 mcg/ (Dextrose) 500 mls @ 20.83 mls/hr IVPB Q24H [facility] PRN Reason: 50 MCG/HR Last Admin: 03/05/17 17:25 Dose: 20.83 mls/hr Linezolid (Zyvox (Restricted To Id) -) 600 mg PO BID [facility] Last Admin: 03/05/17 23:06 Dose: 600 mg Nystatin (Nystop Powder -) 1 applic TP BID [facility] Last Admin: 03/06/17 09:13 Dose: 1 applic Potassium Chloride (K-Dur -) 40 meq PO Q6H [facility] Stop: 03/06/17 22:46 Prednisone (Deltasone -) 60 mg PO DAILY [facility] Last Admin: 03/06/17 09:12 Dose: 60 mg Sevelamer Carbonate (Renvela -) 800 mg PO TIDCM [facility] Last Admin: 03/06/17 08:26 Dose: 800 mg Sodium Bicarbonate (Sodium Bicarbonate -) 650 mg PO BID [facility] Last Admin: 03/06/17 09:12 Dose: 650 mg Sucralfate (Carafate Oral Suspension -) 1 gm PO Q6H [facility] Last Admin: 03/06/17 08:25 Dose: 1 gm Thiamine HCl (Vitamin B1 -) 100 mg PO DAILY [facility] Last Admin: 03/06/17 09:12 Dose: 100 mg Zinc Acetate/Diphenhydramine (Benadryl 2% Cream) 1 applic TP BID [facility] Last Admin: 03/06/17 09:13 Dose: 1 applic 41 year old gentleman with PMhx of Alcoholic Liver cirrhosis who presented with abd pain and chills and found to have MSSA Bacteremia and now with YARIEL. #Acute Renal Injury Renal function improving along with rash continue prednisone 60mg Daily Trend BUN/Cr off diuretics for now but does have LE edema #Hyponatremia from cirrhosis, renal failure Serum na stable #Metabolic acidosis continue oral bicarb #Hypocalcemia corrected Ca is WNL Jin Sarah DO
[2017-03-08] MEDS: oxyCODONE HCL 5 MG TABLET PO PRN ×4 (02:19→16:13)
[2017-03-08] MEDS: SUCRALFATE 1 GM/10 ML UNIT DOSE CUPS PO SCH ×3 (02:43→13:34)
[2017-03-08] MEDS: HEPARIN NA (PORCINE) 5,000 UNITS/ML 1ML VIAL SQ SCH ×2 (06:16→13:34)
[2017-03-08 08:17] LABS: HEMOGLOBIN 7.4 GM/dL (11.7-16.9); MCH 37.7 pg (25.7-33.7); MCHC 33.7 g/dl (32.0-35.9); MEAN CELL VOLUME 111.8 fl (80-96); MEAN PLT VOLUME 9.7 fl (7.5-11.1); PLATELET COUNT 60 K/MM3 (134-434); RBC 1.96 M/mm3 (4.00-5.60); RDW 20.2 % (11.9-15.9); WHITE BLOOD COUNT 9.4 K/mm3 (4.0-10.0)
[2017-03-08 08:30] LABS: INR 2.6 (0.82-1.09); PROTHROMBIN TIME (PATIENT) 29.4 SEC (9.98-11.88)
[2017-03-08 08:37] LABS: ALBUMIN 2.3 g/dl (3.4-5.0); ANION GAP 13 (8-16); BLOOD UREA NITROGEN 86 mg/dL (7-18); CALCIUM 8.3 mg/dL (8.5-10.1); CHLORIDE 105 mmol/L (98-107); CO2 20 mmol/L (21-32); GLUCOSE,RANDOM 122 mg/dL (74-106); MAGNESIUM 2.7 mg/dL (1.8-2.4); POTASSIUM 3.8 mmol/L (3.5-5.1); SGOT/AST 39 U/L (15-37); SGPT/ALT 36 U/L (12-78); SODIUM 138 mmol/L (136-145)
[2017-03-08 08:39] LABS: ALK PHOS 116 U/L (45-117); BILIRUBIN,TOTAL 11.6 mg/dL (0.2-1.0); TOT PROT 6.9 g/dl (6.4-8.2)
[2017-03-08] MEDS ORDERED: LACTULOSE 20 GM/30 ML UDC (FOR ORAL USE ONLY) PO PRN (08:51)
--- NOTE | 2017-03-08 08:55 | PN ---
Progress Note (short form) - Note Progress Note: Subjective: The patient was seen and examined at the bedside, he states his buttocks hurt him. Awaiting transfer to [facility] Current Medications Generic Name Dose Route Start Last Admin Trade Name Freq PRN Reason Stop Dose Admin Albumin Human 50 gm 03/05/17 10:00 03/07/17 11:19 Albumin Human 25% IVPB 50 gm DAILY [facility] Administration Diphenhydramine HCl 12.5 mg 03/01/17 19:24 03/05/17 01:07 Benadryl Injection - IVPUSH 12.5 mg Q4H PRN Administration FOR ITCHING Folic Acid 1 mg 02/22/17 10:00 03/07/17 11:21 Folic Acid - PO 1 mg DAILY [facility] Administration Heparin Sodium (Porcine) 5,000 unit 03/06/17 14:00 03/07/17 06:04 Heparin - SQ 5,000 unit TID [facility] Administration Meropenem 500 mg in 10 mls @ 120 mls/hr 03/02/17 14:45 03/07/17 11:21 Merrem (Restricted To Id) - IVPUSH 120 mls/hr BID [facility] Administration Octreotide Acetate 1,200 mcg/ 500 mls @ 20.83 mls/hr 03/04/17 15:15 03/06/17 17:33 Dextrose IVPB 20.83 mls/hr Q24H [facility] Administration 50 MCG/HR Linezolid 600 mg 03/05/17 22:00 03/07/17 11:20 Zyvox (Restricted To Id) - PO 600 mg BID [facility] Administration Nystatin 1 applic 03/02/17 10:00 03/07/17 11:21 Nystop Powder - TP 1 applic BID [facility] Administration Oxycodone HCl 5 mg 03/07/17 08:37 03/07/17 08:50 Roxicodone - PO 5 mg Q4H PRN Administration PAIN LEVEL 6-10 Prednisone 60 mg 03/05/17 11:45 03/07/17 11:20 Deltasone - PO 60 mg DAILY [facility] Administration Sevelamer Carbonate 800 mg 03/04/17 17:30 03/07/17 11:20 Renvela - PO 800 mg TIDCM [facility] Administration Sodium Bicarbonate 650 mg 03/05/17 11:45 03/07/17 11:20 Sodium Bicarbonate - PO 650 mg BID [facility] Administration Sucralfate 1 gm 02/27/17 08:00 03/07/17 08:49 Carafate Oral Suspension - PO 1 gm Q6H [facility] Administration Thiamine HCl 100 mg 02/22/17 10:00 03/07/17 11:20 Vitamin B1 - PO 100 mg DAILY [facility] Administration Zinc Acetate/Diphenhydramine 1 applic 03/01/17 22:00 03/07/17 11:19 Benadryl 2% Cream TP 1 applic BID [facility] Administration Objective : Vital Signs Period Temp Pulse Resp BP Sys/Barriga Pulse Ox Last 24 Hr 97.4 F-97.8 F 82-92 20-20 120-153/49-80 96 Physical Exam: General: NAD, A&Ox3, jaundice, sclera icteric Lungs: CTA bilaterally Heart: RRR, S1S2 Abd: Soft, non-tender, non-distended. Normoactive bowel sounds Ext: Warm, well-perfused. 2+ DP/PT bilaterally. 3+ b/l lower extremity pitting edema Skin: Dry, peeling CBCD WBC 10.0 K/mm3 (4.0-10.0) 03/07/17 06:30 RBC 2.06 M/mm3 (4.00-5.60) L 03/07/17 06:30 Hgb 7.7 GM/dL (11.7-16.9) L 03/07/17 06:30 Hct 22.8 % (35.4-49) L 03/07/17 06:30 MCV 110.3 fl (80-96) H 03/07/17 06:30 MCHC 34.0 g/dl (32.0-35.9) 03/07/17 06:30 RDW 18.4 % (11.9-15.9) H 03/07/17 06:30 Plt Count 69 K/MM3 (134-434) L 03/07/17 06:30 MPV 9.6 fl (7.5-11.1) 03/07/17 06:30 CMP Sodium 138 mmol/L (136-145) 03/08/17 07:20 Potassium 3.8 mmol/L (3.5-5.1) 03/08/17 07:20 Chloride 105 mmol/L (98-107) 03/08/17 07:20 Carbon Dioxide 20 mmol/L (21-32) L 03/08/17 07:20 Anion Gap 13 (8-16) 03/08/17 07:20 BUN 86 mg/dL (7-18) H 03/08/17 07:20 Creatinine 3.0 mg/dL (0.7-1.3) H 03/08/17 07:20 Creat Clearance w eGFR 23.41 (>60) 03/08/17 07:20 Random Glucose 122 mg/dL (74-106) H 03/08/17 07:20 Calcium 8.3 mg/dL (8.5-10.1) L 03/08/17 07:20 Total Bilirubin 11.6 mg/dL (0.2-1.0) H D 03/08/17 07:20 AST 39 U/L (15-37) H 03/08/17 07:20 ALT 36 U/L (12-78) 03/08/17 07:20 Alkaline Phosphatase 116 U/L (45-117) 03/08/17 07:20 Total Protein 6.9 g/dl (6.4-8.2) 03/08/17 07:20 Albumin 2.3 g/dl (3.4-5.0) L 03/08/17 07:20 CARDIAC ENZYMES Creatine Kinase 291 IU/L (39-308) 02/19/17 13:50 Troponin I 1.52 ng/ml (0.00-0.05) H* D 02/20/17 12:23 Microbiology 03/01/17 12:09 Blood - Peripheral Venous Blood Culture - Final NO GROWTH AFTER 5 DAYS INCUBATION 03/01/17 11:58 Blood - Peripheral Venous Blood Culture - Final NO GROWTH AFTER 5 DAYS INCUBATION 03/02/17 01:00 Groin Gram Stain - Final 03/02/17 01:00 Groin Wound Culture - Final Kluyvera Ascorbata Vr Ec Faecium Yeast Like Organism 03/03/17 23:36 Urine - Urine Clean Catch Urine Culture - Final 02/26/17 13:40 Blood - Peripheral Venous Blood Culture - Final NO GROWTH AFTER 5 DAYS INCUBATION 02/26/17 13:45 Blood - Peripheral Venous Blood Culture - Final NO GROWTH AFTER 5 DAYS INCUBATION 02/24/17 09:40 Blood - Peripheral Venous Blood Culture - Final NO GROWTH AFTER 5 DAYS INCUBATION 02/24/17 09:30 Blood - Peripheral Venous Blood Culture - Final Staphylococcus Aureus 02/21/17 09:10 Blood - Peripheral Venous Blood Culture - Final Staphylococcus Aureus 02/21/17 09:10 Blood - Peripheral Venous Blood Culture - Final Staphylococcus Aureus 02/18/17 20:19 Blood - Peripheral Venous Blood Culture - Final Staphylococcus Aureus 02/18/17 19:45 Blood - Peripheral Venous Blood Culture - Final Staphylococcus Aureus Staphylococcus Aureus#2 02/18/17 20:43 Urine - Urine Clean Catch Urine Culture - Final NO GROWTH OBTAINED 02/19/17 00:50 Nasopharyngeal Swab Influenza Types A,B Antigen (CLIF) - Final 02/19/17 00:50 Nasopharyngeal Swab - Final Assessment: This is a 41 year old male with PMHx of alcohol abuse who presented to the ED with abdominal pain and generalized weakness. Plan: 1) Staph aureus bacteremia - Blood cultures now with no growth - WBC wnl - Continue Meropenem - Continue Linezolid - TTE with no evidence of vegetation - Appreciate ID consult 2) Advanced alcoholic liver disease with hepatic encephalopathy, thrombocytopenia, elevated INR - EGD with ulcer, continue Carafate 1g q6h - Continue Lactulose - Appreciate GI consult 3) Left shoulder pain - MRI reviewed: complete left torn rotator cuff - Not a candidate for surgery at this time given liver failure - Appreciate ortho consult 4) YARIEL - Appears to be AIN - Cr stable - Continue Prednisone 60mg daily with plan to taper once closer to baseline 5) F/E/N: - Regular diet - Monitor electrolytes 6) Prophylaxis: - Hold all chemical DVT prophylaxis 2/2 throbocytopenia and elevated INR - OOB ambulating with assistance 7) Dispo: - Awaiting bed at [facility] CODE STATUS: FULL CODE Visit type - Emergency Visit Emergency Visit: Yes ED Registration Date: 02/19/17 Care time: The patient presented to the Emergency Department on the above date and was hospitalized for further evaluation of their emergent condition. - New Patient This patient is new to me today: No - Critical Care Critical Care patient: No
[2017-03-08] MEDS ORDERED: PT OWN MED DRAWER 7, Y5N ONE (11:13)
[2017-03-08] MEDS: LINEZOLID 600 MG TABLET (RESTRICTED TO ID) PO SCH (11:20)
[2017-03-08] MEDS: ALBUMIN HUMAN 25% 12.5 GM/50 ML VIAL IVPB SCH (11:21)
[2017-03-08] MEDS: SEVELAMER CARBONATE 800 MG TAB (FP) PO SCH ×3 (11:21→16:45)
[2017-03-08] MEDS: SODIUM BICARBONATE 650 MG TABLET PO SCH (11:22)
[2017-03-08] MEDS: MEROPENEM 500 MG PUSH 500 MG/10 ML DISP.SYRIN IVPUSH SCH (11:22)
[2017-03-08] MEDS: predniSONE 20 MG TABLET (UD) PO SCH (11:22)
[2017-03-08] MEDS: PANTOPRAZOLE 40 MG TABLET (FP) PO SCH (11:22)
[2017-03-08] MEDS: FOLIC ACID 1 MG TABLET (FP) PO SCH (11:22)
[2017-03-08] MEDS: THIAMINE HCL 100 MG TABLET (FP) PO SCH (11:22)
[2017-03-08] MEDS: NYSTATIN POWDER 100,000 UNITS/GM - 15 GM TOPICAL POWDER TP SCH (11:23)
[2017-03-08 11:50] LABS: ANISOCYTOSIS 2+; MACROCYTOSIS 2+; PLATELET ESTIMATE DECREASED
[2017-03-08] MEDS: OCTREOTIDE ACETATE 1,200 MCG in DEXTROSE 5%-WATER - 488 ML IVPB SCH ×2 (13:34→14:32)
--- NOTE | 2017-03-08 14:49 | PN ---
Progress Note, Physician History of Present Illness: doing well awake and alert no new issues - Current Medication List Current Medications: Active Medications Albumin Human (Albumin Human 25%) 50 gm IVPB DAILY [facility] Last Admin: 03/08/17 11:21 Dose: 50 gm Folic Acid (Folic Acid -) 1 mg PO DAILY [facility] Last Admin: 03/08/17 11:22 Dose: 1 mg Heparin Sodium (Porcine) (Heparin -) 5,000 unit SQ TID [facility] Last Admin: 03/08/17 13:34 Dose: 5,000 unit Meropenem (Merrem (Restricted To Id) -) 500 mg in 10 mls @ 120 mls/hr IVPUSH BID [facility] Last Admin: 03/08/17 11:22 Dose: 120 mls/hr Octreotide Acetate 1,200 mcg/ (Dextrose) 500 mls @ 20.83 mls/hr IVPB Q24H [facility] PRN Reason: 50 MCG/HR Last Admin: 03/08/17 14:32 Dose: Not Given Lactulose (Cephulac (Oral Use)) 20 gm PO TID PRN PRN Reason: CONSTIPATION Linezolid (Zyvox (Restricted To Id) -) 600 mg PO BID [facility] Last Admin: 03/08/17 11:20 Dose: 600 mg Nystatin (Nystop Powder -) 1 applic TP BID [facility] Last Admin: 03/08/17 11:23 Dose: 1 applic Oxycodone HCl (Roxicodone -) 5 mg PO Q4H PRN PRN Reason: PAIN LEVEL 6-10 Last Admin: 03/08/17 11:22 Dose: 5 mg Pantoprazole Sodium (Protonix -) 40 mg PO DAILY [facility] Last Admin: 03/08/17 11:22 Dose: 40 mg Prednisone (Deltasone -) 60 mg PO DAILY [facility] Last Admin: 03/08/17 11:22 Dose: 60 mg Sevelamer Carbonate (Renvela -) 800 mg PO TIDCM [facility] Last Admin: 03/08/17 12:10 Dose: Not Given Sodium Bicarbonate (Sodium Bicarbonate -) 650 mg PO BID [facility] Last Admin: 03/08/17 11:22 Dose: 650 mg Sucralfate (Carafate Oral Suspension -) 1 gm PO Q6H [facility] Last Admin: 03/08/17 13:34 Dose: Not Given Thiamine HCl (Vitamin B1 -) 100 mg PO DAILY [facility] Last Admin: 03/08/17 11:22 Dose: 100 mg Zinc Acetate/Diphenhydramine (Benadryl 2% Cream) 1 applic TP BID [facility] Last Admin: 03/08/17 11:23 Dose: 1 applic - Objective Vital Signs: Vital Signs Temperature 98.2 F 03/08/17 08:00 Pulse Rate 87 03/08/17 08:00 Respiratory Rate 20 03/08/17 08:00 Blood Pressure 123/63 03/08/17 08:00 O2 Sat by Pulse Oximetry (%) 96 03/08/17 08:00 Constitutional: Yes: No Distress, Calm Cardiovascular: Yes: Regular Rate and Rhythm Respiratory: Yes: Regular, CTA Bilaterally Gastrointestinal: Yes: Normal Bowel Sounds, Soft, Distention, Other Musculoskeletal: Yes: Other Extremities: Yes: Other Neurological: Yes: Alert, Oriented Psychiatric: Yes: Alert, Oriented Labs: CBC, BMP 03/08/17 07:20 03/08/17 07:20 INR, PTT INR 2.60 (0.82-1.09) H 03/08/17 07:20 Assessment/Plan Problem List - Problems (1) Alcoholic cirrhosis of liver Code(s): K70.30 - ALCOHOLIC CIRRHOSIS OF LIVER WITHOUT ASCITES Qualifiers: Ascites presence: without ascites Qualified Code(s): K70.30 - Alcoholic cirrhosis of liver without ascites (2) Hepatic encephalopathy Code(s): K72.90 - HEPATIC FAILURE, UNSPECIFIED WITHOUT COMA (3) Renal failure Code(s): N19 - UNSPECIFIED KIDNEY FAILURE Qualifiers: Renal failure chronicity: acute Acute renal failure type: unspecified Qualified Code(s): N17.9 - Acute kidney failure, unspecified (4) Sepsis Code(s): A41.9 - SEPSIS, UNSPECIFIED ORGANISM Qualifiers: Sepsis type: sepsis due to unspecified organism Qualified Code(s): A41.9 - Sepsis, unspecified organism (5) Thrombocytopenia Code(s): D69.6 - THROMBOCYTOPENIA, UNSPECIFIED 6 gm positive bactermia 7 diffuse rash all over the body leukocytosis scrotal infection/collection vanco level noted all cx results noted plan continue abx zyox to continue for 7 days and then switch to iv cefazolin or vanco nutrition rest as per primary
[2017-03-08 15:07] VITALS: TEMP 98.4
[2017-03-08 15:11] VITALS: BP 130/72; PULSE 90
--- NOTE | 2017-03-08 15:27 | PN ---
Progress Note, Physician History of Present Illness: rash and icterus improved however [place] lethargic this am. - Current Medication List Current Medications: Active Medications Albumin Human (Albumin Human 25%) 50 gm IVPB DAILY [facility] Last Admin: 03/08/17 11:21 Dose: 50 gm Folic Acid (Folic Acid -) 1 mg PO DAILY [facility] Last Admin: 03/08/17 11:22 Dose: 1 mg Heparin Sodium (Porcine) (Heparin -) 5,000 unit SQ TID [facility] Last Admin: 03/08/17 13:34 Dose: 5,000 unit Meropenem (Merrem (Restricted To Id) -) 500 mg in 10 mls @ 120 mls/hr IVPUSH BID [facility] Last Admin: 03/08/17 11:22 Dose: 120 mls/hr Octreotide Acetate 1,200 mcg/ (Dextrose) 500 mls @ 20.83 mls/hr IVPB Q24H [facility] PRN Reason: 50 MCG/HR Last Admin: 03/08/17 14:32 Dose: Not Given Lactulose (Cephulac (Oral Use)) 20 gm PO TID PRN PRN Reason: CONSTIPATION Linezolid (Zyvox (Restricted To Id) -) 600 mg PO BID [facility] Last Admin: 03/08/17 11:20 Dose: 600 mg Nystatin (Nystop Powder -) 1 applic TP BID [facility] Last Admin: 03/08/17 11:23 Dose: 1 applic Oxycodone HCl (Roxicodone -) 5 mg PO Q4H PRN PRN Reason: PAIN LEVEL 6-10 Last Admin: 03/08/17 11:22 Dose: 5 mg Pantoprazole Sodium (Protonix -) 40 mg PO DAILY [facility] Last Admin: 03/08/17 11:22 Dose: 40 mg Prednisone (Deltasone -) 60 mg PO DAILY [facility] Last Admin: 03/08/17 11:22 Dose: 60 mg Sevelamer Carbonate (Renvela -) 800 mg PO TIDCM [facility] Last Admin: 03/08/17 12:10 Dose: Not Given Sodium Bicarbonate (Sodium Bicarbonate -) 650 mg PO BID [facility] Last Admin: 03/08/17 11:22 Dose: 650 mg Sucralfate (Carafate Oral Suspension -) 1 gm PO Q6H [facility] Last Admin: 03/08/17 13:34 Dose: Not Given Thiamine HCl (Vitamin B1 -) 100 mg PO DAILY [facility] Last Admin: 03/08/17 11:22 Dose: 100 mg Zinc Acetate/Diphenhydramine (Benadryl 2% Cream) 1 applic TP BID [facility] Last Admin: 03/08/17 11:23 Dose: 1 applic - Objective Vital Signs: Vital Signs Temperature 98.4 F 03/08/17 15:09 Pulse Rate 90 03/08/17 15:09 Respiratory Rate 20 03/08/17 08:00 Blood Pressure 130/72 03/08/17 15:09 O2 Sat by Pulse Oximetry (%) 96 03/08/17 08:00 Labs: CBC, BMP 03/08/17 07:20 03/08/17 07:20 INR, PTT INR 2.60 (0.82-1.09) H 03/08/17 07:20 Laboratory Results - last 24 hr 03/08/17 03/08/17 03/08/17 07:20 07:20 07:20 WBC 9.4 RBC 1.96 L Hgb 7.4 L Hct 22.0 L MCV 111.8 H MCH 37.7 H MCHC 33.7 RDW 20.2 H Plt Count 60 L MPV 9.7 Neutrophils % No Result Required. Neutrophils % (Manual) 81.6 Band Neutrophils % 0.0 Lymphocytes % No Result Required. Lymphocytes % (Manual) 9.7 D Monocytes % (Manual) 6 Eosinophils % (Manual) 1.9 D Basophils % (Manual) 0.0 Myelocytes % (Man) 0 D Metamyelocytes 0 D Hypochromia 0 Platelet Estimate Decreased Polychromasia 1+ Poikilocytosis 2+ Anisocytosis 2+ Microcytosis 0 Macrocytosis 2+ PT with INR 29.40 H INR 2.60 H Sodium 138 Potassium 3.8 Chloride 105 Carbon Dioxide 20 L Anion Gap 13 BUN 86 H Creatinine 3.0 H Creat Clearance w eGFR 23.41 Random Glucose 122 H Calcium 8.3 L Magnesium 2.7 H Total Bilirubin 11.6 H D AST 39 H ALT 36 Alkaline Phosphatase 116 Total Protein 6.9 Albumin 2.3 L Problem List - Problems (1) Hepatorenal failure Code(s): K76.7 - HEPATORENAL SYNDROME (2) Alcoholic cirrhosis of liver Code(s): K70.30 - ALCOHOLIC CIRRHOSIS OF LIVER WITHOUT ASCITES Qualifiers: Qualified Code(s): K70.30 - Alcoholic cirrhosis of liver without ascites (3) Hepatic encephalopathy Code(s): K72.90 - HEPATIC FAILURE, UNSPECIFIED WITHOUT COMA Assessment/Plan consider stopping narcotics and antihistamine PPI started Prognosis poor
--- NOTE | 2017-03-08 16:40 | PN ---
Progress Note (short form) - Note Progress Note: Renal follow up for YARIEL no overnight events rash improving making urine Vital Signs Temperature 98.4 F 03/08/17 15:09 Pulse Rate 90 03/08/17 15:09 Respiratory Rate 20 03/08/17 08:00 Blood Pressure 130/72 03/08/17 15:09 O2 Sat by Pulse Oximetry (%) 96 03/08/17 08:00 Intake & Output 03/05/17 03/06/17 03/07/17 03/08/17 23:59 23:59 23:59 23:59 Intake Total 2483 1152 2202 1356 Output Total 601 310 6553 700 Balance 1683 652 -348 656 Weight 127.063 kg 127.006 kg 125.702 kg 124.42 kg NAD rash is improving 2+ LE edema CBC, BMP 03/08/17 07:20 03/08/17 07:20 Current Medications Albumin Human (Albumin Human 25%) 50 gm IVPB DAILY [facility] Last Admin: 03/08/17 11:21 Dose: 50 gm Folic Acid (Folic Acid -) 1 mg PO DAILY [facility] [place] Last Admin: 03/08/17 11:22 Dose: 1 mg Heparin Sodium (Porcine) (Heparin -) 5,000 unit SQ TID [facility] Last Admin: 03/08/17 13:34 Dose: 5,000 unit Meropenem (Merrem (Restricted To Id) -) 500 mg in 10 mls @ 120 mls/hr IVPUSH BID [facility] [place] Last Admin: 03/08/17 11:22 Dose: 120 mls/hr Octreotide Acetate 1,200 mcg/ (Dextrose) 500 mls @ 20.83 mls/hr IVPB Q24H [facility] [place] PRN Reason: 50 MCG/HR Last Admin: 03/08/17 14:32 Dose: Not Given Lactulose (Cephulac (Oral Use)) 20 gm PO TID PRN PRN Reason: CONSTIPATION Linezolid (Zyvox (Restricted To Id) -) 600 mg PO BID [facility] [place] Last Admin: 03/08/17 11:20 Dose: 600 mg Nystatin (Nystop Powder -) 1 applic TP BID [facility] Last Admin: 03/08/17 11:23 Dose: 1 applic Oxycodone HCl (Roxicodone -) 5 mg PO Q4H PRN PRN Reason: PAIN LEVEL 6-10 Last Admin: 03/08/17 16:13 Dose: 5 mg Pantoprazole Sodium (Protonix -) 40 mg PO DAILY [facility] [place] Last Admin: 03/08/17 11:22 Dose: 40 mg Prednisone (Deltasone -) 60 mg PO DAILY [facility] [place] Last Admin: 03/08/17 11:22 Dose: 60 mg Sevelamer Carbonate (Renvela -) 800 mg PO TIDCM [facility] [place] Last Admin: 03/08/17 12:10 Dose: Not Given Sodium Bicarbonate (Sodium Bicarbonate -) 650 mg PO BID [facility] Last Admin: 03/08/17 11:22 Dose: 650 mg Sucralfate (Carafate Oral Suspension -) 1 gm PO Q6H [facility] Last Admin: 03/08/17 13:34 Dose: Not Given Thiamine HCl (Vitamin B1 -) 100 mg PO DAILY [facility] Last Admin: 03/08/17 11:22 Dose: 100 mg Zinc Acetate/Diphenhydramine (Benadryl 2% Cream) 1 applic TP BID [facility] Last Admin: 03/08/17 11:23 Dose: 1 applic 41 year old gentleman with PMhx of Alcoholic Liver cirrhosis who presented with abd pain and chills and found to have MSSA Bacteremia and now with YARIEL. #Acute Renal Injury secondary to AIN renal function and rash improving continue prednisone 60mg Daily until renal function near baseline and then can taper down would avoid any further PCN Abx for now Trend BUN/Cr and electrolytes continue oral bicab #Alcoholic cirrhosis on Albumin and octreotide per GI awaiting transfer for liver transplant eval #Anemia Trend CBC transfuse as per protocol no indication for ASHLEY given renal insufficiency is acute Jin Sarah DO
== END 2017-03-08 17:40 | disposition short-term general hospital (02) | DRG 720 ==
LOC: JER 19:03 → MERGE 02-19 02:10 → JERBED 02-19 02:10 → JICU 02-19 05:14 → J6S 02-22 18:40
PROVIDERS: ADMIT Internal Medicine; ATTEND Registered Nurse
PROC: HZ2ZZZZ Detoxification Services for Substance Abuse Treatment (ICD-10-PCS; principal; 2017-02-23)
PROC: 0DJ08ZZ Inspection of Upper Intestinal Tract, Via Natural or Artificial Opening Endoscopic (ICD-10-PCS; 2017-02-26)
PROC: 0H9AXZX Drainage of Inguinal Skin, External Approach, Diagnostic (ICD-10-PCS; 2017-03-02)
DX: A41.01 Sepsis due to Methicillin susceptible Staphylococcus aureus (principal); R65.20 Severe sepsis without septic shock; R57.1 Hypovolemic shock; G93.41 Metabolic encephalopathy; D68.9 Coagulation defect, unspecified; N17.9 Acute kidney failure, unspecified; K52.1 Toxic gastroenteritis and colitis; E87.2 Acidosis; I24.8 Other forms of acute ischemic heart disease; K70.30 Alcoholic cirrhosis of liver without ascites; D69.6 Thrombocytopenia, unspecified; K76.0 Fatty (change of) liver, not elsewhere classified; I95.9 Hypotension, unspecified; D69.59 Other secondary thrombocytopenia; K76.6 Portal hypertension; E83.39 Other disorders of phosphorus metabolism; E83.51 Hypocalcemia; E83.42 Hypomagnesemia; K26.9 Duodenal ulcer, unspecified as acute or chronic, without hemorrhage or perforation; E87.1 Hypo-osmolality and hyponatremia; K70.40 Alcoholic hepatic failure without coma; F19.10 Other psychoactive substance abuse, uncomplicated; R74.8 Abnormal levels of other serum enzymes; E87.6 Hypokalemia; F10.239 Alcohol dependence with withdrawal, unspecified; Z87.891 Personal history of nicotine dependence; I45.10 Unspecified right bundle-branch block; I45.81 Long QT syndrome; E66.9 Obesity, unspecified; Z68.35 Body mass index [BMI] 35.0-35.9, adult; M54.5 Low back pain; B95.61 Methicillin susceptible Staphylococcus aureus infection as the cause of diseases classified elsewhere; T47.3X5A Adverse effect of saline and osmotic laxatives, initial encounter; K31.89 Other diseases of stomach and duodenum; L02.214 Cutaneous abscess of groin; R21 Rash and other nonspecific skin eruption; S46.812A Strain of other muscles, fascia and tendons at shoulder and upper arm level, left arm, initial encounter; X58.XXXA Exposure to other specified factors, initial encounter; Y93.89 Activity, other specified; Y92.89 Other specified places as the place of occurrence of the external cause; Y99.8 Other external cause status; Y90.0 Blood alcohol level of less than 20 mg/100 ml
CPT/HCPCS: 36415; 36430; 36511; 36600; 70450-TC; 71045-TC; 72146-TC; 72148-TC; 73030-TC-LT; 73221-TC-LT; 74176-TC; 76700-TC; 76775-TC; 76856-TC; 76882; 80048; 80053; 80074; 80076; 80307; 81003; 81015; 82105; 82140; 82150; 82248; 82436; 82550; 82553; 82570; 82803; 83520; 83605; 83690; 83735; 83970; 84100; 84132; 84133; 84156; 84300; 84484; 85025; 85027; 85610; 85730; 86038; 86140; 86162; 86256; 86850; 86900; 86901; 87040; 87070; 87077; 87086; 87186; 87205; 87804; 93005; 93010; 93306-TC; 93976; 97116-GP; 97161-GP; 99285-25; G0480; J1644; P9017; P9034; P9038; P9047